=== PATIENT | female | born 1965 | race Caucasian/White ===

== ENCOUNTER 2018-10-19 16:50 | Inpatient (IN) | payer OTHER ==
[~2018-10-19 16:50] MED LIST: KETAMINE 10 MG/ML 20 ML VIAL ONE; PROPOFOL 10 MG/ML 20 ML VIAL IV ONE; SUCCINYLCHOLINE CHLORIDE 100 MG/5 ML SYR IV ONE
[2018-10-19] MEDS ORDERED: SODIUM CHLORIDE 0.9% 500 ML 500 ML IV STA ×2 (17:04→18:49)
[2018-10-19] MEDS ORDERED: SODIUM CHLORIDE 0.9% 1,000 ML IV STA ×4 (17:04→18:49)
[2018-10-19] MEDS ORDERED: IPRATROPIUM-ALBUTEROL 3 ML NEB INHALATION STA (17:04)
[2018-10-19] MEDS ORDERED: methylPREDNISolone SOD SUCCI 125 MG/2 ML VIAL IV STA (17:04)
[2018-10-19] MEDS ORDERED: MORPHINE SULFATE 4 MG/ML SYRINGE IV STA (17:04)
--- NOTE | 2018-10-19 17:07 | ED ---
Weakness HPI - General Stated complaint: LEISA Time Seen by Provider: 10/19/18 16:54 Source: RN notes reviewed, old records reviewed Limitations: no limitations - History of Present Illness Initial comments: This is a 32-year-old female the ER for evaluation. Patient coming in for multiple complaints severe weakness and inability to sleep and shortness of breath. Patient has history of throat cancer, she admits to severe decreased appetite and inability to eat or drink. Her oxygen is in the low to mid 70s on room air and patient is not on home O2. Patient complaining of chest pain abdominal pain and generalized body pain. No fevers. Patient presented to urgent care was mainly directed the ER for further management. Patient states she's not been on emergency department before. She has follow-up with doctors in [place]. MD Complaint: generalized weakness, lack of energy (Inability to sleep) -: days(s) Location: generalized Severity: moderate Severity scale (1-10): 7 Consistency: constant Improves with: none Worsens with: none Context: recent illness, history of similar Associated Symptoms: loss of appetite, nausea/vomiting, shortness of breath - Related Data Home Medications Medication Instructions Recorded Confirmed Ibuprofen [Advil] 200 mg PO Q8HR PRN 10/19/18 10/19/18 guaiFENesin [Mucinex] 600 mg PO BID PRN 10/19/18 10/19/18 Allergies Allergy/AdvReac Type Severity Reaction Status Date / Time No Known Allergies Allergy Verified 10/19/18 17:35 Review of Systems ROS Statement: Those systems with pertinent positive or pertinent negative responses have been documented in the HPI. ROS Other: All systems not noted in ROS Statement are negative. General Exam General appearance: alert, anxious, lethargic, in distress, cachectic Head exam: Present: atraumatic, normocephalic, normal inspection Eye exam: Present: normal appearance, EOMI. Absent: scleral icterus, conjunctival injection, periorbital swelling ENT exam: Present: normal exam, mucous membranes dry Neck exam: Present: normal inspection. Absent: tenderness, meningismus, lymphadenopathy Respiratory exam: Present: respiratory distress, wheezes, accessory muscle use, decreased breath sounds, prolonged expiratory. Absent: rales, rhonchi, stridor Cardiovascular Exam: Present: regular rate, normal rhythm, normal heart sounds. Absent: systolic murmur, diastolic murmur, rubs, gallop, clicks GI/Abdominal exam: Present: soft, normal bowel sounds. Absent: distended, tenderness, guarding, rebound, rigid Extremities exam: Present: normal inspection, full ROM, normal capillary refill. Absent: tenderness, pedal edema, joint swelling, calf tenderness Back exam: Present: normal inspection Neurological exam: Present: alert, oriented X3, CN II-XII intact Psychiatric exam: Present: normal affect, normal mood Skin exam: Present: warm, dry, intact, normal color. Absent: rash Course Vital Signs 10/19/18 10/19/18 10/19/18 17:02 17:41 17:57 Temperature 98.8 F Pulse Rate 115 H 106 H 107 H Respiratory 17 Rate Blood Pressure 121/91 O2 Sat by Pulse 79 L Oximetry - Reevaluation(s) Reevaluation #1: 10/19/18 17:07 Medical record reviewed, noncontributory Reevaluation #2: 10/19/18 19:07 Patient again denies recent travel history or history of DVT but does have history of CA 10/19/18 19:07 - Consultations Consultation #1: spoke with Dr Wiggins regarding ICU admission he is agreeable Consultation #2: spoke with Dr Goodman regarding admission he is agreeable EKG Findings - EKG Comments: EKG Findings:: EKG shows sinus tach rate of 107, W[place] 134, QRS 74, QTc 416 Medical Decision Making - Medical Decision Making 52-year-old female presenting respiratory distress from COPD and hypoxia. Patient also found to have severe hyponatremia will be started on hypertonic saline protocol. Patient to be admitted ICU for significant retention evaluation and monitoring - Lab Data Result diagrams: 10/19/18 17:18 10/19/18 17:18 Lab Results 10/19/18 10/19/18 10/19/18 Range/Units 17:18 17:18 17:18 WBC 9.7 (3.8-10.6) k/uL RBC 3.92 (3.80-5.40) m/uL Hgb 12.3 (11.4-16.0) gm/dL Hct 36.2 (34.0-46.0) % MCV 92.5 (80.0-100.0) fL MCH 31.3 (25.0-35.0) pg MCHC 33.9 (31.0-37.0) g/dL RDW 12.2 (11.5-15.5) % Plt Count 371 (150-450) k/uL Neutrophils % 95 % Lymphocytes % 0 % Monocytes % 3 % Eosinophils % 1 % Basophils % 1 % Neutrophils # 9.1 H (1.3-7.7) k/uL Lymphocytes # 0.0 L (1.0-4.8) k/uL Monocytes # 0.3 (0-1.0) k/uL Eosinophils # 0.1 (0-0.7) k/uL Basophils # 0.1 (0-0.2) k/uL PT (9.0-12.0) sec INR (<1.2) APTT (22.0-30.0) sec Sodium 111 L* (137-145) mmol/L Potassium 4.9 (3.5-5.1) mmol/L Chloride 65 L* (98-107) mmol/L Carbon Dioxide 34 H (22-30) mmol/L Anion Gap 12 mmol/L BUN 9 (7-17) mg/dL Creatinine 0.20 L (0.52-1.04) mg/dL Est GFR (CKD-EPI)AfAm >90 (>60 ml/min/1.73 sqM) Est GFR (CKD-EPI)NonAf >90 (>60 ml/min/1.73 sqM) Glucose 118 H (74-99) mg/dL Plasma Lactic Acid Sonido 1.7 (0.7-2.0) mmol/L Calcium 9.1 (8.4-10.2) mg/dL Phosphorus 3.3 (2.5-4.5) mg/dL Magnesium 1.3 L (1.6-2.3) mg/dL Total Bilirubin 0.7 (0.2-1.3) mg/dL AST 22 (14-36) U/L ALT 17 (9-52) U/L Alkaline Phosphatase 132 H (38-126) U/L Creatine Kinase 37 (30-135) U/L Troponin I (0.000-0.034) ng/mL NT-Pro-B Natriuret Pep pg/mL Total Protein 6.7 (6.3-8.2) g/dL Albumin 3.5 (3.5-5.0) g/dL Lipase 10 L (23-300) U/L TSH 4.000 (0.465-4.680) mIU/L Blood Type Recheck Bld Type Recheck Status Spec Expiration Date 10/19/18 10/19/18 10/19/18 Range/Units 17:18 17:18 17:18 WBC (3.8-10.6) k/uL RBC (3.80-5.40) m/uL Hgb (11.4-16.0) gm/dL Hct (34.0-46.0) % MCV (80.0-100.0) fL MCH (25.0-35.0) pg MCHC (31.0-37.0) g/dL RDW (11.5-15.5) % Plt Count (150-450) k/uL Neutrophils % % Lymphocytes % % Monocytes % % Eosinophils % % Basophils % % Neutrophils # (1.3-7.7) k/uL Lymphocytes # (1.0-4.8) k/uL Monocytes # (0-1.0) k/uL Eosinophils # (0-0.7) k/uL Basophils # (0-0.2) k/uL PT 13.0 H (9.0-12.0) sec INR 1.3 H (<1.2) APTT 30.9 H (22.0-30.0) sec Sodium (137-145) mmol/L Potassium (3.5-5.1) mmol/L Chloride (98-107) mmol/L Carbon Dioxide (22-30) mmol/L Anion Gap mmol/L BUN (7-17) mg/dL Creatinine (0.52-1.04) mg/dL Est GFR (CKD-EPI)AfAm (>60 ml/min/1.73 sqM) Est GFR (CKD-EPI)NonAf (>60 ml/min/1.73 sqM) Glucose (74-99) mg/dL Plasma Lactic Acid Sonido (0.7-2.0) mmol/L Calcium (8.4-10.2) mg/dL Phosphorus (2.5-4.5) mg/dL Magnesium (1.6-2.3) mg/dL Total Bilirubin (0.2-1.3) mg/dL AST (14-36) U/L ALT (9-52) U/L Alkaline Phosphatase (38-126) U/L Creatine Kinase (30-135) U/L Troponin I <0.012 (0.000-0.034) ng/mL NT-Pro-B Natriuret Pep 502 pg/mL Total Protein (6.3-8.2) g/dL Albumin (3.5-5.0) g/dL Lipase (23-300) U/L TSH (0.465-4.680) mIU/L Blood Type Recheck Bld Type Recheck Status Spec Expiration Date 10/19/18 Range/Units 17:30 WBC (3.8-10.6) k/uL RBC (3.80-5.40) m/uL Hgb (11.4-16.0) gm/dL Hct (34.0-46.0) % MCV (80.0-100.0) fL MCH (25.0-35.0) pg MCHC (31.0-37.0) g/dL RDW (11.5-15.5) % Plt Count (150-450) k/uL Neutrophils % % Lymphocytes % % Monocytes % % Eosinophils % % Basophils % % Neutrophils # (1.3-7.7) k/uL Lymphocytes # (1.0-4.8) k/uL Monocytes # (0-1.0) k/uL Eosinophils # (0-0.7) k/uL Basophils # (0-0.2) k/uL PT (9.0-12.0) sec INR (<1.2) APTT (22.0-30.0) sec Sodium (137-145) mmol/L Potassium (3.5-5.1) mmol/L Chloride (98-107) mmol/L Carbon Dioxide (22-30) mmol/L Anion Gap mmol/L BUN (7-17) mg/dL Creatinine (0.52-1.04) mg/dL Est GFR (CKD-EPI)AfAm (>60 ml/min/1.73 sqM) Est GFR (CKD-EPI)NonAf (>60 ml/min/1.73 sqM) Glucose (74-99) mg/dL Plasma Lactic Acid Sonido (0.7-2.0) mmol/L Calcium (8.4-10.2) mg/dL Phosphorus (2.5-4.5) mg/dL Magnesium (1.6-2.3) mg/dL Total Bilirubin (0.2-1.3) mg/dL AST (14-36) U/L ALT (9-52) U/L Alkaline Phosphatase (38-126) U/L Creatine Kinase (30-135) U/L Troponin I (0.000-0.034) ng/mL NT-Pro-B Natriuret Pep pg/mL Total Protein (6.3-8.2) g/dL Albumin (3.5-5.0) g/dL Lipase (23-300) U/L TSH (0.465-4.680) mIU/L Blood Type Recheck No Previous Record Bld Type Recheck Status CABO Indicated Spec Expiration Date 10/22/2018 - 5398 - Radiology Data Radiology results: report reviewed (X-ray abdominal surgeries a chest is negative for acute disease), image reviewed Critical Care Time Critical Care Time: Yes Total Critical Care Time: 65 Disposition Clinical Impression: Hyponatremia, Weakness, COPD with hypoxia Disposition: ADMITTED IP TO THIS [facility] Condition: Serious Is patient prescribed a controlled substance at d/c from ED?: No Referrals: None,Stated [Primary Care Provider] - 1-2 days
[2018-10-19 17:41] LABS: INR 1.3 (<1.2); Partial Thromboplastin Time 30.9 sec (22.0-30.0)
[2018-10-19 17:45] LABS: ALT 17 U/L (9-52); AST 22 U/L (14-36); African American GFR (CKD) >90 (>60 ml/min/1.73 sqM); Albumin 3.5 g/dL (3.5-5.0); Alkaline Phosphatase 132 U/L (38-126); Anion Gap 12 mmol/L; Blood Urea Nitrogen 9 mg/dL (7-17); Calcium 9.1 mg/dL (8.4-10.2); Carbon Dioxide 34 mmol/L (22-30); Creatine Kinase 37 U/L (30-135); Glucose 118 mg/dL (74-99); Magnesium 1.3 mg/dL (1.6-2.3); Phosphorus 3.3 mg/dL (2.5-4.5); Potassium 4.9 mmol/L (3.5-5.1); Total Bilirubin 0.7 mg/dL (0.2-1.3); Total Protein 6.7 g/dL (6.3-8.2)
[2018-10-19 17:47] LABS: Basophils # (A) 0.1 k/uL (0-0.2); Basophils % (A) 1 %; Eosinophils # (A) 0.1 k/uL (0-0.7); Eosinophils % (A) 1 %; HCT 36.2 % (34.0-46.0); HGB 12.3 gm/dL (11.4-16.0); Lymphocytes % (A) 0 %; MCH 31.3 pg (25.0-35.0); MCHC 33.9 g/dL (31.0-37.0); MCV 92.5 fL (80.0-100.0); Mean Platelet Volume 6.4; Monocytes # (A) 0.3 k/uL (0-1.0); Monocytes % (A) 3 %; Neutrophils # (A) 9.1 k/uL (1.3-7.7); Neutrophils % (A) 95 %; Platelet Count 371 k/uL (150-450); RBC 3.92 m/uL (3.80-5.40); RDW 12.2 % (11.5-15.5); WBC 9.7 k/uL (3.8-10.6)
[2018-10-19 18:00] LABS: Chloride 65 mmol/L (98-107); Sodium 111 mmol/L (137-145)
--- NOTE | 2018-10-19 18:43 | XR ---
EXAMINATION TYPE: XR abdomen acute w cxr DATE OF EXAM: 10/19/2018 COMPARISON: NONE HISTORY: Short of breath TECHNIQUE: Chest x-ray with supine and upright abdomen FINDINGS: There is coarse infiltrate throughout the lungs. Heart size is normal. There is right central venous catheter with tip in the right atrium. There is slight blunting right costophrenic angle. There is no sign of intestinal obstruction or pneumoperitoneum. Fecal pattern is normal. There are no pathologic calcifications over the kidneys. IMPRESSION: Nonacute abdomen. Bilateral patchy pulmonary interstitial and alveolar infiltrates. Small right pleural effusion. This likely relates to inflammatory disease. No definite heart failure.
[2018-10-19] MEDS ORDERED: NALOXONE 0.4 MG/ML 1 ML VIAL IV PRN (18:58)
[2018-10-19] MEDS ORDERED: DEXTROSE 5%-0.45% NACL 1,000 ML IV SCH (19:00)
[2018-10-19] MEDS ORDERED: MAGNESIUM OXIDE 400 MG TAB PO STA (19:06)
[2018-10-19] MEDS ORDERED: SODIUM CHLORIDE 3%(HYPERTONIC) 500 ML IV SCH (19:15)
--- NOTE | 2018-10-19 19:44 | CT ---
EXAMINATION TYPE: CT angio chest DATE OF EXAM: 10/19/2018 7:35 PM COMPARISON: None HISTORY: Difficulty breathing. History of cancer. CT DLP: 175.9 mGycm Automated exposure control for dose reduction was used. CONTRAST: CTA scan of the thorax is performed with IV Contrast, patient injected with 83 mL of Isovue 370, pulm onary embolism protocol. . There are 3-D post processed images. FINDINGS: There is diffuse pulmonary emphysema. There are multiple patchy areas of airspace consolidation in gopi th lungs involving upper lobes and lower lobes. There are small pleural effusions. Heart size is norm al. There are enlarged bilateral multiple bronchial lymph nodes that measure up to 2 cm. There is subcari nal adenopathy that measures 3 cm. Thoracic aorta shows no aneurysm or dissection. There is normal contrast opacification of the pulmonary arteries. There are no filling defects. The thoracic spine shows no compression fracture. I see no bony destructive process. IMPRESSION: EMPHYSEMA. EXTENSIVE PULMONARY INTERSTITIAL AND AIRSPACE INFILTRATES. NO EVIDENCE OF PULMONARY EMBOLISM. EXTENSIVE BRONCHIAL ADENOPATHY.
--- NOTE | 2018-10-19 19:50 | CT ---
EXAMINATION TYPE: CT abdomen pelvis w con DATE OF EXAM: 10/19/2018 COMPARISON: None HISTORY: Difficulty breathing. History of cancer. CT DLP: 407.9 mGycm Automated exposure control for dose reduction was used. TECHNIQUE: Helical acquisition of images was performed from the lung bases through the pelvis. CONTRAST: Performed without Oral Contrast and with IV Contrast, patient injected with mL of Isovue 370. FINDINGS: There are extensive airspace infiltrates at the lung bases. There is atelectasis at the lung bases. T here are small pleural effusions. Heart size is normal. Liver shows no focal defect. Bile ducts are not dilated. There are calcified splenic granulomata. I s ee no sign of a pancreatic mass. There is no adrenal mass. Kidneys show satisfactory contrast opacification. There is no hydronephrosi s. Ureters are not dilated. There is subcutaneous edema around the abdomen that could relate to anasa rca. There is no sign of free air. There is no evidence of a bowel obstruction. Bladder distends smoo thly. There is no free fluid in the pelvis. There is no sign of mesenteric edema. Appendix is not see n. There is no sign of thickened appendix. Lumbar spine is intact. Bony pelvis is intact. There is no compression fracture. There is mild spurri ng at L4-5. IMPRESSION: BASILAR PULMONARY AIRSPACE INFILTRATE AND ATELECTASIS WITH SMALL PLEURAL EFFUSIONS. NO ACUTE ABNORMALITY WITHIN THE ABDOMEN PELVIS.
[2018-10-19 21:39] LABS: Glucose,Whole Blood 179 mg/dL (75-99)
[2018-10-19 21:43] LABS: Appearance,Urine Clear (Clear); Bilirubin,Urine Negative (Negative); Blood,Urine Negative (Negative); Color,Urine Light Yellow; Glucose,Urine (UA) Trace (Negative); Ketones,Urine Negative (Negative); Leukocyte Esterase,Urine Negative (Negative); Nitrite,Urine Negative (Negative); PH, Urine 6.5 (5.0-8.0); Protein,Urine Negative (Negative); Specific Gravity,Urine 1.024 (1.001-1.035); Urobilinogen,Urine <2.0 mg/dL (<2.0)
[2018-10-19 23:16] LABS: ABG Base Excess 6.2 mmol/L; ABG HCO3 35 mmol/L (21-25); ABG Oxygen Saturation 90.3 % (94-97); ABG PO2 79 mmHg (83-108); ABG TCO2 39 mmol/L (19-24); Allen Test Performed? Yes
[2018-10-19 23:22] LABS: ABG PH 7.13 (7.35-7.45)
[2018-10-19 23:23] LABS: ABG PCO2 107 mmHg (35-45)
[2018-10-20 00:23] LABS: ABG Base Excess 6.8 mmol/L; ABG HCO3 33 mmol/L (21-25); ABG Oxygen Saturation 91.1 % (94-97); ABG PCO2 67 mmHg (35-45); ABG PO2 66 mmHg (83-108); ABG TCO2 35 mmol/L (19-24); Allen Test Performed? Yes
[2018-10-20] MEDS ORDERED: SODIUM CHLORIDE 0.9% 1,000 ML IV SCH (01:00)
--- NOTE | 2018-10-20 01:24 | XR ---
EXAM: XR Chest, 1 View CLINICAL HISTORY: ITS.REASON XR Reason: line placement TECHNIQUE: Frontal view of the chest. COMPARISON: No relevant prior studies available. FINDINGS: See Impression: IMPRESSION: 1. Lines/tubes: 2. Endotracheal tube tip located approximately 5 cm above the marly. Transesophageal catheter side port below the GE junction, tip off the examination. Chest port identified with tip at or just below the cavoatrial junction. 3. Bibasal pleural-parenchymal disease with suspected pleural effusions present. 4. Infiltrate at the left apex. 5. Interstitial alveolar disease at the right mid to lower lung zone. Prominent interstitial thickening involving the upper lobes. Differential includes atypical infection pulmonary edema.
[2018-10-20] MEDS ORDERED: DEXTROSE 5% IN WATER 1,000 ML IV ONE ×2 (01:35→09:35)
--- NOTE | 2018-10-20 02:34 | P.HPIM ---
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 Patient reports that she has history of laryngeal cancer for which she received chemoradiation therapy back and generally 2019 she believes that she is in remission at this time. Since then she's been hard of hearing with difficulties with speech she lost all her teeth and was unable to eat properly. She continued to lose a lot of weight since then due to difficulty eating regular diet. Patient lives with her son and they take care of each other. Seems like patient has poor insight about her medical status. The son believes that they were doing fine. Patient progressively over the past few months had decreased by mouth intake she was relying only on liquid and soft diet, for which she was losing a lot of weight. Per the son over the past few days he noticed that his mom was getting progressively weak and sleeping more than usual todayalong with having some difficulty with breathing, he decided to take her to the urgent care for evaluation from where she was sent to the hospital to the ER. patient reports at home patient walks on her own doesn't require any devices for ambulation. His main concern is the poor nutritional status since she pulled he r teeth before chemo and radiation therapy she has not been able to eat properly she got some dentures but they were all fitting. Otherwise patient and her son denies any falling denies any chronic pain denies taking any medications at home denies any diarrhea or bleeding. To their knowledge she is cancer free Patient has quit smoking 2 months ago In the ED she was found to be hypoxic and hyponatremic CTA of the chest and abdomen pelvis was performed showed extensive bilateral lung infiltrates and consolidations lungs with bilateral bronchial lymph nodes enlargement and subcarinal lymph nodes enlargement. Review of Systems when asked patient reports that she is fine nothing wrong with her Pertinent positives as noted in HPI. All other systems were reviewed and are negative Past Medical History Past Medical History: Cancer History of Any Multi-Drug Resistant Organisms: None Reported Past Surgical History: Tubal Ligation Past Psychological History: No Psychological Hx Reported Smoking Status: Former smoker Past Alcohol Use History: Occasional Past Drug Use History: None Reported Medications and Allergies Home Medications Medication Instructions Recorded Confirmed Type Ibuprofen [Advil] 200 mg PO Q8HR PRN 10/19/18 10/19/18 History guaiFENesin [Mucinex] 600 mg PO BID PRN 10/19/18 10/19/18 History Allergies Allergy/AdvReac Type Severity Reaction Status Date / Time No Known Allergies Allergy Verified 10/19/18 17:35 Physical Exam Vitals: Vital Signs Temp Pulse Resp BP Pulse Ox 10/20/18 01:15 62 20 98 10/20/18 01:00 63 20 90/65 10/20/18 00:45 67 20 100 10/20/18 00:30 70 20 96 10/20/18 00:15 82 20 73/60 90 L 10/20/18 00:00 97 F L 86 20 51/30 10/19/18 23:45 112 H 15 110/78 98 10/19/18 23:30 101 H 21 110/78 92 L 10/19/18 23:15 104 H 19 110/78 90 L 10/19/18 23:01 107 H 23 110/78 90 L 10/19/18 23:00 107 H 21 126/83 92 L 10/19/18 22:00 97.9 F 113 H 23 113/73 10/19/18 21:00 115 H 24 119/84 97 10/19/18 19:49 112 H 20 123/89 97 10/19/18 17:57 107 H 10/19/18 17:41 106 H 10/19/18 17:02 98.8 F 115 H 17 121/91 79 L Intake and Output 10/19/18 10/19/18 10/20/18 14:59 22:59 06:59 Intake Total 170 235 Output Total 700 350 Balance -530 -115 Intake: IV 170 235 .9 150 Dextrose 5%-0.45% NaCl 1, 170 85 000 ml @ 85 mls/hr IV . [id number] FOR[facility]LY [facility], 1928–1983 Rx#:[id number] Output: Urine 700 350 Other: Voiding Method Indwelling Catheter Indwelling Catheter Weight 34.019 kg ABP, PAP, CO, CI - Last 8 Hours Arterial Blood Pressure 91/54 Arterial Blood Pressure 101/63 Arterial Blood Pressure 89/57 Arterial Blood Pressure 87/49 Arterial Blood Pressure 79/44 Arterial Blood Pressure 29/26 this is initial exam upon presentation in the ED,patient initial evaluation was around 193 Constitutional: No acute distress, Patient is sleeping easily arousable follows command difficult to understand her speech due to history of laryngeal cancer son at bedside speaking for the patient and explaining her wishes as he is able to understand her, patient is cachectic, patient is also hard of hearing Eyes: Anicteric sclerae, moist conjunctiva, Pupils equal round reactive to light ENMT: NC/AT Oropharynx clear, very dry mucous membranes, no erythema,or exudates Neck: Supple, FROM, no masses, or JVD No carotid bruits No thyromegaly Lungs: good breath sounds bilaterally no wheezing or rhonchi or rales Clear to percussion Normal respiratory effort, no accessory muscle use Cardiovascular: Heart regular in rate and rhythm, No murmurs, gallops, or rubs No peripheral edema Abdominal: Soft Nontender, no guarding, rebound or rigidity Abdomen moving with respiration Normoactive bowel sounds No hepatomegaly, No splenomegaly No palpable mass No abdominal wall hernia noted Skin: Normal temperature, tone, texture, turgor No induration No subcutaneous nodules No rash, lesions No ulcers Extremities: No digital cyanosis No clubbing Pedal pulses intact and symmetrical Radial pulses intact and symmetrical No calf tenderness Psychiatric: patient is sleepy but easily arousable follows command orient ed to person and place not oriented to time Neuro Muscles Strength -4/5 in all 4 extremities Sensation to light touch grossly present throughout Cranial nerves II-XII grossly intact, however patient is hard of hearing No focal sensory deficits Lymphatics: no palpable cervical or supraclavicular , or inguinal lymph nodes Results CBC & Chem 7: 10/19/18 17:18 10/20/18 01:12 Labs: Abnormal Lab Results - Last 24 Hours (Table) 10/19/18 10/19/18 10/19/18 Range/Units 17:18 17:18 17:18 Neutrophils # 9.1 H (1.3-7.7) k/uL Lymphocytes # 0.0 L (1.0-4.8) k/uL PT 13.0 H (9.0-12.0) sec INR 1.3 H (<1.2) APTT 30.9 H (22.0-30.0) sec ABG pH (7.35-7.45) ABG pCO2 (35-45) mmHg ABG pO2 (83-108) mmHg ABG HCO3 (21-25) mmol/L ABG Total CO2 (19-24) mmol/L ABG O2 Saturation (94-97) % Sodium 111 L* (137-145) mmol/L Chloride 65 L* (98-107) mmol/L Carbon Dioxide 34 H (22-30) mmol/L Creatinine 0.20 L (0.52-1.04) mg/dL Glucose 118 H (74-99) mg/dL POC Glucose (mg/dL) (75-99) mg/dL Magnesium 1.3 L (1.6-2.3) mg/dL Alkaline Phosphatase 132 H (38-126) U/L Lipase 10 L (23-300) U/L Urine Glucose (UA) (Negative) 10/19/18 10/19/18 10/19/18 Range/Units 19:58 21:15 21:27 Neutrophils # (1.3-7.7) k/uL Lymphocytes # (1.0-4.8) k/uL PT (9.0-12.0) sec INR (<1.2) APTT (22.0-30.0) sec ABG pH (7.35-7.45) ABG pCO2 (35-45) mmHg ABG pO2 (83-108) mmHg ABG HCO3 (21-25) mmol/L ABG Total CO2 (19-24) mmol/L ABG O2 Saturation (94-97) % Sodium 116 L* (137-145) mmol/L Chloride (98-107) mmol/L Carbon Dioxide (22-30) mmol/L Creatinine (0.52-1.04) mg/dL Glucose (74-99) mg/dL POC Glucose (mg/dL) 179 H (75-99) mg/dL Magnesium (1.6-2.3) mg/dL Alkaline Phosphatase (38-126) U/L Lipase (23-300) U/L Urine Glucose (UA) Trace H (Negative) 10/19/18 10/20/18 10/20/18 Range/Units 23:15 00:20 01:12 Neutrophils # (1.3-7.7) k/uL Lymphocytes # (1.0-4.8) k/uL PT (9.0-12.0) sec INR (<1.2) APTT (22.0-30.0) sec ABG pH 7.13 L* 7.30 L (7.35-7.45) ABG pCO2 107 H* 67 H (35-45) mmHg ABG pO2 79 L 66 L (83-108) mmHg ABG HCO3 35 H 33 H (21-25) mmol/L ABG Total CO2 39 H 35 H (19-24) mmol/L ABG O2 Saturation 90.3 L 91.1 L (94-97) % Sodium 118 L* (137-145) mmol/L Chloride (98-107) mmol/L Carbon Dioxide (22-30) mmol/L Creatinine (0.52-1.04) mg/dL Glucose (74-99) mg/dL POC Glucose (mg/dL) (75-99) mg/dL Magnesium (1.6-2.3) mg/dL Alkaline Phosphatase (38-126) U/L Lipase (23-300) U/L Urine Glucose (UA) (Negative) Assessment and Plan Assessment: 52-year-old female with history of laryngeal cancer status post chemo and radiation therapy 8 months ago. Patient admitted as an inpatient with anticipated length of stay more than 2 midnights for acute hyponatremia with lethargy and generalized fatigue, severe protein calorie malnutrition. her initial sodium was 111 upon presentation, per ICU recommendations Dr. Tineo patient was given 3% saline at rate of 20 mL/h then was switched to normal saline. Patient corrected by 7 mEq over 6 hours for which nephrology recommended switching to D5 patient seemed to become lethargic, blood gases checked showed hypercapnia for which patient was intubated for vent support. CT angiogram of the chest abdomen pelvis findings are concerning for possibility of lung cancer whether its primary or metastatic from history of laryngeal cancer. Patient and her son to their knowledge that she is cancer free since the treatment that she received in February 2018 but I believe that the patient and her son have poor insight about the medical condition of his mother which been deteriorating over the past few months Plan: acute metabolic encephalopathy Acute hypoxic and hypercapnic respiratory failure acute symptomatic hyponatremia Severe protein calorie malnutrition History of laryngeal cancer status post chemo and radiation 8 months ago hypomagnesemia initially patient was started on supportive care, and 3% saline Howeverpatient deteriorated further became more lethargic ABG showed hypercapnia for which patient was intubated currently on vent support Later on due to sedation she became hypotensive and was started on levo fed for cardiovascular support Nephrology suggested to continue overnight with D5 due to rapid correction of her sodium by 7 mEq over 6 hours follow-up electrolytes closely and replace as needed Currently nephrology managing her sodium Continue with vent support Follow-up cultures Patient denies any other medical history she doesn't take any medications at home PT/OT evaluationonce extubated continue ICU management DVT prophylaxis lovenox Prophylaxis PPI Surrogate decision-maker: he should've son CODE STATUS:full code Discussed with: Patient, ER, RN Anticipated length of stay more than [address]: pending clinical course A total of 60 minutes was spent on the care of this complex patient more than 50% of the time was spent in counseling and care coordination.
--- NOTE | 2018-10-20 02:46 | P.HPADDEND ---
H&P Addendum H&P Addendum Date: 10/19/18 Advanced Care Planning Active diagnoses: acute metabolic encephalopathy secondary to hyponatremia Acute hypoxic and hypercapnic respiratory failure History of laryngeal cancer Background: The patient was admitted for treatment of acute hyponatremia with metabolic encephalopathy. Confirmation and clarification of wishes upon admission. Discussion: Person(s) present and participating in discussion: The patient, myself, and patient's son Summary: of note the patient has very poor insight of her medical condition, she believes that she had laryngeal cancer and was treated and currently in remission since February 2018 however since then she's continued to lose weight due to poor nutritional status she had to pull all her teeth for chemoradiation since then she was unable to eat properly she's been continuously losing weight and her overall health was deteriorating over the past month or so she was brought in today by her son due to increased lethargy and difficulty breathing. In the ED she was found to have acute hypoxia and hypercapnia with hyponatremia and acute metabolic encephalopathy. CAT scan of the chest showed diffuse infiltrates and consolidation along with bilateral bronchial lymphadenopathy this is to me concerning for primary cancer of the lung versus metastasis from a laryngeal cancer. After explaining all these findings to the patient and her son they decided to pursue full medical measures hoping and a full recovery and return to her normal condition. She is hoping for full recovery and be fully functional. In case of cardiopulmonary arrest she wanted to pursue CPR and resuscitation and vent support if needed . she is also willing to be placed for a short period of time at a subacute rehab to regain some strength before going back home Time spent: Total time spent face to face in education and discussion directly related to advanced care plannin minutes
[2018-10-20 05:07] LABS: Basophils % (A) 0 %; Eosinophils # (A) 0.1 k/uL (0-0.7); Eosinophils % (A) 1 %; HCT 31.4 % (34.0-46.0); HGB 10.5 gm/dL (11.4-16.0); Lymphocytes # (A) 0.1 k/uL (1.0-4.8); Lymphocytes % (A) 1 %; MCHC 33.4 g/dL (31.0-37.0); MCV 95.8 fL (80.0-100.0); Mean Platelet Volume 6.7; Monocytes # (A) 0.2 k/uL (0-1.0); Monocytes % (A) 3 %; Neutrophils # (A) 8.1 k/uL (1.3-7.7); Neutrophils % (A) 94 %; Platelet Count 383 k/uL (150-450); RBC 3.28 m/uL (3.80-5.40); WBC 8.6 k/uL (3.8-10.6)
[2018-10-20 05:17] LABS: ALT 15 U/L (9-52); AST 14 U/L (14-36); African American GFR (CKD) >90 (>60 ml/min/1.73 sqM); Albumin 2.6 g/dL (3.5-5.0); Alkaline Phosphatase 90 U/L (38-126); Anion Gap 6 mmol/L; Blood Urea Nitrogen 7 mg/dL (7-17); Calcium 8.6 mg/dL (8.4-10.2); Carbon Dioxide 32 mmol/L (22-30); Chloride 79 mmol/L (98-107); Glucose 155 mg/dL (74-99); Magnesium 1.5 mg/dL (1.6-2.3); Phosphorus 2.9 mg/dL (2.5-4.5); Potassium 3.4 mmol/L (3.5-5.1); Total Bilirubin 0.3 mg/dL (0.2-1.3); Total Protein 5.2 g/dL (6.3-8.2)
[2018-10-20 05:19] LABS: Glucose,Whole Blood 169 mg/dL (75-99)
[2018-10-20 05:36] LABS: Sodium 117 mmol/L (137-145)
[2018-10-20] MEDS ORDERED: Potassium Replacement Protocol 1 EACH MISC MISCELLANE PRN ×2 (05:41→05:48)
[2018-10-20] MEDS ORDERED: Magnesium Replacement Protocol 1 EACH MISC MISCELLANE PRN (05:42)
[2018-10-20] MEDS: MAGNESIUM SULFATE-D5W PMX 1 GM in DEXTROSE/WATER 1 100ML.BAG IVPB SCH ×2 (05:49→06:50)
[2018-10-20] MEDS: POTASSIUM BICARBONATE/CIT AC 20 MEQ TABLET.EFF NG-TUBE SCH ×2 (05:59→06:50)
[2018-10-20] MEDS ORDERED: POTASSIUM CHLORIDE ER 20 MEQ TAB.ER PO SCH (06:00)
[2018-10-20 06:58] LABS: ABG Base Excess 10.8 mmol/L; ABG HCO3 35 mmol/L (21-25); ABG Oxygen Saturation 95.4 % (94-97); ABG PCO2 55 mmHg (35-45); ABG PH 7.42 (7.35-7.45); ABG PO2 75 mmHg (83-108); ABG TCO2 37 mmol/L (19-24)
[2018-10-20 07:12] LABS: Allen Test Performed? no
[2018-10-20] MEDS: IPRATROPIUM-ALBUTEROL 3 ML NEB INHALATION PRN ×4 (07:36→19:30)
[2018-10-20] MEDS: CHLORHEXIDINE GLUCONATE 15 ML CUP MUCOUS MEM SCH ×2 (08:03→21:10)
[2018-10-20] MEDS: PANTOPRAZOLE 40 MG/10 ML VIAL IV SCH (08:03)
[2018-10-20] MEDS: HEPARIN SODIUM,PORCINE 5,000 UNIT/ML 1 ML VIAL SQ SCH ×3 (08:03→23:49)
[2018-10-20] MEDS ORDERED: ENOXAPARIN 40 MG/0.4 ML SYRINGE SQ SCH (09:00)
--- NOTE | 2018-10-20 09:18 | XR ---
EXAMINATION TYPE: XR chest 1V portable DATE OF EXAM: 10/20/2018 COMPARISON: Prior chest x-ray dated 10/20/[address] 10/19/2018 HISTORY: Tube placement, intubated TECHNIQUE: Single frontal view of the chest is obtained. FINDINGS: Endotracheal tube, NG tube, right-sided Port-A-Cath and overlying cardiac leads are again noted. Distal tip of the NG tube is within the left upper quadrant, endotracheal tube overlying the t jazmín air column. Port-A-Cath is stable. Bibasilar increased density is again noted, heart size is stable. No evident pneumothorax. Ill-defined increased attenuation present in the left upper lobe. Bi apical pleural thickening. Prominent lung volumes compatible with underlying emphysema. IMPRESSION: Findings are similar to prior exam. There may be basilar atelectasis, pneumonia, or tumo r with pleural effusion right greater than left.
[2018-10-20] MEDS ORDERED: SODIUM CHLORIDE 0.9% 500 ML 500 ML IV ONE (09:55)
[2018-10-20] MEDS: NOREPINEPHRINE 4 MG in SODIUM CHLORIDE 0.9% 250 ML IV SCH ×3 (10:01)
--- NOTE | 2018-10-20 10:20 | P.CNPUL ---
History of Present Illness Consult date: 10/20/18 Requesting physician: Radha Goodman Reason for consult: other (Mechanical ventilator and critical care management) Chief complaint: Shortness of breath, weakness History of present illness: This is a 52-year-old female patient who presented to the emergency room yesterday with complaints of shortness of breath and profound weakness. She has a history of laryngeal cancer and is status post chemoradiation in February of this year. He follows with physicians in the [place] area. She lives at home with her 18-year-old son. Over the past several weeks she has been having difficulty in swallowing and had been only tolerating liquids. She is severely cachectic and weak. She was found to be hyponatremic with a sodium of 111. Abdominal series revealed a nonacute abdomen. There is lateral patchy pulmonary interstitial and alveolar infiltrates and a small right pleural effusion noted. CT angiogram revealed emphysema and extensive pulmonary interstitial and airspace infiltrates. No evidence of pulmonary embolism. There is extensive bronchial adenopathy. She was admitted to the intensive care unit from the emergency room and was clearly an respiratory distress and stridorous him a positive orthopnea. Oxygen 90% on 4 L nasal cannula initially. Arterial blood gases revealed a pO2 of 79, pCO2 of 107 and a pH of 7.13 on 32% FiO2. She was intubated and placed on mechanical ventilator. Subsequent blood gases revealed a PaO2 of 66, pCO2 of 67 and a pH of 7.30. Vent settings were assist control of 20, tidal volume 300, FiO2 80% and a PEEP of 5. She did receive 2-1/2 L of 0.9 normal saline. She is currently on norepinephrine at 5.8 mcg/m, propofol at 50 mcg/kg/m, D5W at 50 MLS per hour. Current sodium 117. She is seen in the intensive care unit with follow-up arterial blood gases up pO2 of 75, pCO2 55 and a pH of 7.4-60% FiO2. We'll continue to titrate that down. White count 8.6. Hemoglobin 10.5. Sodium 117. Potassium 3.4. Bicarb 32. Creatinine 0.16. Morning chest x-ray reveals basilar atelectasis/pneumonia or tumor with pleural effusion right greater than left. She is extremely cachectic. BMI 13.4. Review of Systems ROS unobtainable: due to endotracheal tube Past Medical History Past Medical History: Cancer History of Any Multi-Drug Resistant Organisms: None Reported Past Surgical History: Tubal Ligation Past Psychological History: No Psychological Hx Reported Smoking Status: Former smoker Past Alcohol Use History: Occasional Past Drug Use History: None Reported Additional History: Family history unable to be obtained and the patient as she is intubated on mechanical ventilator, sedated. Medications and Allergies Home Medications Medication Instructions Recorded Confirmed Type Ibuprofen [Advil] 200 mg PO Q8HR PRN 10/19/18 10/19/18 History guaiFENesin [Mucinex] 600 mg PO BID PRN 10/19/18 10/19/18 History Allergies Allergy/AdvReac Type Severity Reaction Status Date / Time No Known Allergies Allergy Verified 10/19/18 17:35 Physical Exam Vitals: Vital Signs Temp Pulse Resp BP Pulse Ox 10/20/18 09:00 70 20 98 10/20/18 08:45 70 20 99 10/20/18 08:30 70 20 99 10/20/18 08:15 71 20 81/56 10/20/18 08:01 68 10/20/18 08:00 97.9 F 66 20 81/56 98 10/20/18 07:45 66 20 84/58 97 10/20/18 07:43 64 10/20/18 07:30 65 20 79/56 97 10/20/18 07:15 65 20 79/56 97 10/20/18 07:00 65 20 95 10/20/18 06:45 65 20 95 10/20/18 06:30 66 20 94 L 10/20/18 06:15 68 20 95 10/20/18 06:00 69 20 98 10/20/18 05:45 67 20 98 10/20/18 05:30 66 20 98 10/20/18 05:15 65 20 96 10/20/18 05:00 66 20 92 L 10/20/18 04:45 65 20 98 10/20/18 04:30 66 20 97 10/20/18 04:15 64 20 98 10/20/18 04:00 98 F 69 20 98 10/20/18 03:45 62 20 99 10/20/18 03:30 63 20 100 10/20/18 03:15 63 20 100 10/20/18 03:00 62 20 99 10/20/18 02:45 67 20 100 10/20/18 02:30 64 20 99 10/20/18 02:15 60 20 99 10/20/18 02:00 58 L 20 99/69 97 10/20/18 01:45 60 20 98 10/20/18 01:30 62 20 98 10/20/18 01:15 62 20 98 10/20/18 01:00 63 20 90/65 10/20/18 00:45 67 20 100 10/20/18 00:30 70 20 96 10/20/18 00:15 82 20 73/60 90 L 10/20/18 00:00 97 F L 86 20 51/30 95 10/19/18 23:45 112 H 15 110/78 98 10/19/18 23:30 101 H 21 110/78 92 L 10/19/18 23:15 104 H 19 110/78 90 L 10/19/18 23:01 107 H 23 110/78 90 L 10/19/18 23:00 107 H 21 126/83 92 L 10/19/18 22:00 97.9 F 113 H 23 113/73 10/19/18 21:00 115 H 24 119/84 97 10/19/18 19:49 112 H 20 123/89 97 10/19/18 17:57 107 H 10/19/18 17:41 106 H 10/19/18 17:02 98.8 F 115 H 17 121/91 79 L Intake and Output 10/19/18 10/20/18 10/20/18 22:59 06:59 14:59 Intake Total 170 685.898 350 Output Total 700 550 510 Balance -530 135.898 -160 Intake: IV 170 485 350 .9 150 Dextrose 5% in Water 1, 250 150 000 ml @ 50 mls/hr IV . Q20H [facility] Rx#:[id number] Dextrose 5%-0.45% NaCl 1, 170 85 000 ml @ 85 mls/hr IV . [id number] [facility] Rx#:[id number] Magnesium Sulfate-D5w Pmx 200 1 gm In Dextrose/Water 1 100ml.bag @ 100 mls/hr IVPB Q1H [facility] Rx#: [id number] Intake, IV Titration 140.898 Amount Norepinephrine 4 mg In 133.717 Sodium Chloride 0.9% 250 ml @ 0.05 MCG/KG/MIN 6. 481 mls/hr IV .Q24H [facility] Rx#:[id number] Propofol 1,000 mg In 7.181 Empty Bag 1 bag @ Titrate IV .Q0M [facility] Rx#: [id number] Other 60 Output: Urine 700 550 510 Other: Voiding Method Indwelling Catheter Indwelling Catheter Weight 34.019 kg 38.8 kg ABP, PAP, CO, CI - Last 8 Hours Arterial Blood Pressure 87/56 Arterial Blood Pressure 89/59 Arterial Blood Pressure 95/63 Arterial Blood Pressure 106/69 Arterial Blood Pressure 81/48 Arterial Blood Pressure 97/82 Arterial Blood Pressure 92/69 Arterial Blood Pressure 99/60 Arterial Blood Pressure 83/54 Arterial Blood Pressure 90/55 Arterial Blood Pressure 90/57 Arterial Blood Pressure 85/51 Arterial Blood Pressure 87/55 Arterial Blood Pressure 92/60 Arterial Blood Pressure 96/63 Arterial Blood Pressure 87/57 Arterial Blood Pressure 91/58 Arterial Blood Pressure 88/56 Arterial Blood Pressure 85/59 Arterial Blood Pressure 86/58 Arterial Blood Pressure 88/52 Arterial Blood Pressure 89/62 Arterial Blood Pressure 93/61 Arterial Blood Pressure 95/62 Arterial Blood Pressure 90/60 Arterial Blood Pressure 81/56 Arterial Blood Pressure 106/68 Arterial Blood Pressure 107/68 Arterial Blood Pressure 99/64 Arterial Blood Pressure 93/60 GENERAL EXAM: Very frail, cachectic 52-year-old female patient intubated on the mechanical ventilator, sedated. HEAD: Normocephalic. EYES: Sluggish reaction of pupils, equal size. NOSE: Clear with pink turbinates. THROAT: Oral endotracheal and gastric tube secured in place. Edentulous. No erythema or exudates. NECK: No masses, no JVD. CHEST: Right Mediport subclavian in place. No chest wall deformity. LUNGS: Equal air entry with scattered rhonchi. CVS: S1 and S2 normal with no audible murmur, regular rhythm. ABDOMEN: No hepatosplenomegaly, normal bowel sounds, no guarding or rigidity. SPINE: No scoliosis or deformity SKIN: No rashes CENTRAL NERVOUS SYSTEM: Sedated, tone is normal in all 4 extremities. EXTREMITIES: There is no peripheral edema. No clubbing, no cyanosis. Per ipheral pulses are intact. Results - Laboratory Findings CBC and BMP: 10/20/18 04:55 10/20/18 04:55 ABG ABG pH 7.42 (7.35-7.45) 10/20/18 06:55 ABG pCO2 55 mmHg (35-45) H 10/20/18 06:55 ABG pO2 75 mmHg (83-108) L 10/20/18 06:55 ABG O2 Saturation 95.4 % (94-97) 10/20/18 06:55 PT/INR, D-dimer PT 13.0 sec (9.0-12.0) H 10/19/18 17:18 INR 1.3 (<1.2) H 10/19/18 17:18 Abnormal lab findings: Abnormal Labs 10/19/18 10/19/18 10/19/18 17:18 17:18 17:18 RBC Hgb Hct Neutrophils # 9.1 H Lymphocytes # 0.0 L PT 13.0 H INR 1.3 H APTT 30.9 H ABG pH ABG pCO2 ABG pO2 ABG HCO3 ABG Total CO2 ABG O2 Saturation Sodium 111 L* Potassium Chloride 65 L* Carbon Dioxide 34 H Creatinine 0.20 L Glucose 118 H POC Glucose (mg/dL) Magnesium 1.3 L Alkaline Phosphatase 132 H Total Protein Albumin Lipase 10 L Urine Glucose (UA) 10/19/18 10/19/18 10/19/18 19:58 21:15 21:27 RBC Hgb Hct Neutrophils # Lymphocytes # PT INR APTT ABG pH ABG pCO2 ABG pO2 ABG HCO3 ABG Total CO2 ABG O2 Saturation Sodium 116 L* Potassium Chloride Carbon Dioxide Creatinine Glucose POC Glucose (mg/dL) 179 H Magnesium Alkaline Phosphatase Total Protein Albumin Lipase Urine Glucose (UA) Trace H 10/19/18 10/20/18 10/20/18 23:15 00:20 01:12 RBC Hgb Hct Neutrophils # Lymphocytes # PT INR APTT ABG pH 7.13 L* 7.30 L ABG pCO2 107 H* 67 H ABG pO2 79 L 66 L ABG HCO3 35 H 33 H ABG Total CO2 39 H 35 H ABG O2 Saturation 90.3 L 91.1 L Sodium 118 L* Potassium Chloride Carbon Dioxide Creatinine Glucose POC Glucose (mg/dL) Magnesium Alkaline Phosphatase Total Protein Albumin Lipase Urine Glucose (UA) 10/20/18 10/20/18 10/20/18 04:55 04:55 04:57 RBC 3.28 L Hgb 10.5 L Hct 31.4 L Neutrophils # 8.1 H Lymphocytes # 0.1 L PT INR APTT ABG pH ABG pCO2 ABG pO2 ABG HCO3 ABG Total CO2 ABG O2 Saturation Sodium 117 L* Potassium 3.4 L Chloride 79 L Carbon Dioxide 32 H Creatinine 0.16 L Glucose 155 H POC Glucose (mg/dL) 169 H Magnesium 1.5 L Alkaline Phosphatase Total Protein 5.2 L Albumin 2.6 L Lipase <10 L Urine Glucose (UA) 10/20/18 06:55 RBC Hgb Hct Neutrophils # Lymphocytes # PT INR APTT ABG pH ABG pCO2 55 H ABG pO2 75 L ABG HCO3 35 H ABG Total CO2 37 H ABG O2 Saturation Sodium Potassium Chloride Carbon Dioxide Creatinine Glucose POC Glucose (mg/dL) Magnesium Alkaline Phosphatase Total Protein Albumin Lipase Urine Glucose (UA) - Diagnostic Findings Chest x-ray: image reviewed CT scan - chest: image reviewed Assessment and Plan Assessment: Impression: #1 Acute metabolic encephalopathy secondary to severe hyponatremia with presenting sodium 111. #2 Acute hypoxic/hypercapnic respiratory failure due to extensive pulmonary interstitial and airspace infiltrates. There is also extensive bronchial/subcarinal adenopathy noted suspect metastasis versus lung primary. #3 Severe hyponatremia with profound weakness. Presenting sodium 111 current sodium 117. #4 History of laryngeal cancer status post chemo/radiation. Details are not available. Last treatment in February 2018. #5 Severe protein calorie malnutrition secondary to above. #6 History of previous tobacco dependence. Plan: The patient was seen and evaluated by Dr. Wiggins. ABGs, chest x-ray, CAT scan and labs all reviewed. We'll continue current vent settings are assist-control 20, tidal volume 300, decrease FiO2 to 50% and PEEP of 5. Repeat blood gases in an hour. Will add Zosyn and Levaquin. Consult nutrition for tube feed recommendations. Add Protonix. Give an additional 1 L of D5W fluid bolus. Her overall prognosis is quite guarded. There is noted bronchial adenopathy suspe ct metastasis versus lung primary. The patient is too critical at this point to plan further investigation. We will continue to follow and make further recommendations based on her clinical status. I, the cosigning physician, performed a history & physical examination of the pa alexisnt. Lungs sounds with bilateral scattered rhonchi. Maintaining good O2 saturations in the 90s on 50% FiO2 per mechanical ventilator. I discussed the assessment and plan of care with my nurse practitioner, Carrie Saucedo. I attest to the above consultation as dictated by her. Time with Patient: Greater than 30
[2018-10-20] MEDS: PIPERACILLIN-TAZOBACTAM 3.375 GM in SODIUM CHLORIDE 0.9% 100 ML IVPB SCH ×2 (10:24→21:09)
[2018-10-20] MEDS ORDERED: LIDOCAINE 1% INJ 10MG/ML (20 ML MDV) ONE (10:32)
[2018-10-20] MEDS: LEVOFLOXACIN 500MG-D5W PMX 500 MG in DEXTROSE/WATER 1 100ML.BAG IVPB SCH (10:47)
[2018-10-20] MEDS ORDERED: LIDOCAINE 1% INJ 10MG/ML (20 ML MDV) SQ ONE (11:00)
[2018-10-20 11:51] LABS: ABG Base Excess 9.8 mmol/L; ABG HCO3 34 mmol/L (21-25); ABG Oxygen Saturation 98.2 % (94-97); ABG PCO2 54 mmHg (35-45); ABG PH 7.41 (7.35-7.45); ABG PO2 106 mmHg (83-108); ABG TCO2 36 mmol/L (19-24)
[2018-10-20 11:52] LABS: Allen Test Performed? no
--- NOTE | 2018-10-20 11:58 | XR ---
EXAMINATION TYPE: XR chest 1V portable DATE OF EXAM: 10/20/2018 COMPARISON: 10/20/18 HISTORY: PICC placement TECHNIQUE: Single frontal view of the chest is obtained. FINDINGS: There is a malpositioned left PICC crossing the midline and extending into the brachioceph alic vein. Right Mediport is deeply positioned in the right atrium although similar to the prior. Lef t basilar and retrocardiac airspace disease are similar. Pulmonary hyperinflation of underlying emphy sema. Chronic parenchymal change. Endotracheal and enteric tubes appear satisfactory. Trace pleural e ffusions. Generalized osseous demineralization. IMPRESSION: Malpositioned left PICC. Repositioning is recommended. Otherwise stable exam from 019 with retrocardiac airspace disease and trace pleural effusions.
[2018-10-20 12:03] LABS: Glucose,Whole Blood 178 mg/dL (75-99)
--- NOTE | 2018-10-20 12:05 | XR ---
EXAMINATION TYPE: XR chest 1V confirm line [facility] DATE OF EXAM: 10/20/2018 COMPARISON: Previous chest x-ray on same date earlier time HISTORY: Status post PICC line placement on repositioning TECHNIQUE: Single frontal view of the chest is obtained. FINDINGS: Left-sided PICC line has been repositioned in the distal tip is at the level of the cavoat rial junction. Retrocardiac density persists. There is no evident pneumothorax. Heart remains small. Port-A-Cath is stable. IMPRESSION: Interval reposition of PICC line.
--- NOTE | 2018-10-20 15:10 | IR ---
EXAMINATION TYPE: IR cvc insert >=5 years DATE OF EXAM: 10/20/2018 COMPARISON: NONE HISTORY: Carcinoma, needs long-term intravenous access for therapy, total parenteral nutrition FINDINGS: Maximal barrier technique was utilized. The skin overlying the left basilic vein was local ized with ultrasound and noted to be compressible and patent by ultrasound. An ultrasound image was obtained and submitted on patient's chart. Sterile technique utilized with the ultrasound machine. Th e skin overlying was prepped and draped and Lidocaine used for local anesthesia. A skin golden was mad e with a scalpel. Access was gained to the vein under direct ultrasound guidance with a 21-gauge nee dle and a 0.018 inch wire was advanced. Access site was dilated with a peel-away sheath and the cath eter tailored to length. Catheter advanced centrally and a post procedure chest x-ray verified place ment. Catheter was fixed to the skin and a sterile dressing placed. Hemostasis achieved and the ca theter was aspirated and flushed with sterile saline. The patient remained in stable condition. IMPRESSION: STATUS POST ULTRASOUND GUIDED PICC LINE PLACEMENT, READY FOR USE. THIS PROCEDURE WAS PER FORMED BY THE UNDERSIGNED.
[2018-10-20 15:11] LABS: Appearance,Urine Clear (Clear); Bilirubin,Urine Negative (Negative); Blood,Urine Negative (Negative); Color,Urine Light Yellow; Glucose,Urine (UA) Negative (Negative); Ketones,Urine Negative (Negative); Leukocyte Esterase,Urine Negative (Negative); Nitrite,Urine Negative (Negative); Protein,Urine Negative (Negative); Specific Gravity,Urine 1.008 (1.001-1.035); Urobilinogen,Urine <2.0 mg/dL (<2.0)
--- NOTE | 2018-10-20 17:46 | P.PN ---
Subjective Progress Note Date: 10/20/18 Principal diagnosis: The patient is a 52-year-old female with a history of laryngeal cancer status post chemo and radiation therapy that was admitted for acute respiratory failure with hypoxia, acute metabolic encephalopathy and symptomatic hyponatremia after presenting with progressive generalized weakness and difficulty breathing. A workup with CT of her chest abdomen pelvis showed extensive bilateral lung infiltrates and consolidation with bilateral bronchial lymph node enlargement and subcarinal lymph node enlargement, initial Arterial blood gases revealed a pO2 of 79, pCO2 of 107 and a pH of 7.13 on 32% FiO2 and the patient was intubated and placed on mechanical ventilator. She was started on empiric IV antibiotics with Levaquin and Zosyn, serum sodium level was profoundly low at 111 the patient was given hypertonic 3% saline at 20 mL an hour and subsequent switched to normal saline with nephrology Dr. Chan consulted to manage the patient's hyponatremia. The patient was sedated on propofol and started on levophed drip to keep map greater than 65. Patient seen and examined in follow-up today, intubated on mechanical ventilatory sedated on propofol. The Levophed is going at 5.8 mcg/m, propofol at 50 mcg/kg/m. patient having adequate urine output Objective - Vital Signs Vital signs: Vital Signs Temp 98.1 F 10/20/18 16:00 Pulse 74 10/20/18 17:00 Resp 20 10/20/18 17:00 BP 96/62 10/20/18 17:00 Pulse Ox 100 10/20/18 17:00 Intake & Output 10/19/18 10/20/18 10/20/18 18:59 06:59 18:59 Intake Total 982.427 6411.711 Output Total 1250 1684 Balance -394.102 262.711 Weight 34.019 kg 38.8 kg 38.8 kg Intake: IV 655 1050 .9 kvo 150 200 Dextrose 5% in Water 1, 250 650 000 ml @ 50 mls/hr IV . Q20H [facility] Rx#:[id number] Dextrose 5%-0.45% NaCl 1, 255 000 ml @ 85 mls/hr IV . [id number] [facility] Rx#:[id number] Magnesium Sulfate-D5w Pmx 200 1 gm In Dextrose/Water 1 100ml.bag @ 100 mls/hr IVPB Q1H [facility] Rx#: [id number] Intake, IV Titration 140.898 886.711 Amount Levofloxacin 500Mg-D5w 100 Pmx 500 mg In Dextrose/ Water 1 100ml.bag @ 100 mls/hr IVPB Q24H [facility] Rx#: [id number] Norepinephrine 4 mg In 133.717 186.711 Sodium Chloride 0.9% 250 ml @ 0.05 MCG/KG/MIN 6. 481 mls/hr IV .Q24H [facility] Rx#:[id number] Piperacillin-Tazobactam 3 100 .375 gm In Sodium Chloride 0.9% 100 ml @ 25 mls/hr IVPB Q12HR [facility] Rx #:[id number] Propofol 1,000 mg In 7.181 Empty Bag 1 bag @ Titrate IV .Q0M [facility] Rx#: [id number] Sodium Chloride 0.9% 500 500 ml 500 ml @ 999 mls/hr IV .Q31M [facility] Rx#:[id number] Tube Feeding 10 Other 60 Output: Urine 1250 1684 Other: Voiding Method Indwelling Catheter Indwelling Catheter ABP, PAP, CO, CI - Last Documented Arterial Blood Pressure 103/63 - Exam Constitutional: No acute distress, sedated and intubated, cachectic appearance Eyes: Anicteric sclerae, moist conjunctiva, no lid-lag, PERRLA ENMT: Bilateral temporal wasting oral endotracheal and G-tube secured in place NC/AT,Oropharynx clear, no erythema, exudates Neck:Supple, FROM, no masses, or JVD, No carotid bruits; No thyromegaly Lungs: Right Mediport subclavian in place no chest wall deformity Cardiovascular: Heart regular in rate and rhythm, No murmurs, gallops, or rubs no peripheral edema Abdominal: Soft Nontender, nom distended, no guarding, no rebound or rigidity, Normoactive bowel sounds No hepatomegaly, No splenomegaly, No palpable mass No abdominal wall hernia noted Skin: Normal temperature, tone, texture, turgor, No induration No subcutaneous nodules, No rash, lesions, No ulcers Extremities:No digital cyanosis No clubbing, Pedal pulses intact and symmetrical Radial pulses intact and symmetrical Normal gait and station, No calf tenderness Neuro: Sedated on propofol unable to fully assess - Labs CBC & Chem 7: 10/20/18 04:55 10/20/18 16:33 Labs: Abnormal Lab Results - Last 24 Hours (Table) 10/19/18 10/19/18 10/19/18 Range/Units 17:18 17:18 17:18 RBC (3.80-5.40) m/uL Hgb (11.4-16.0) gm/dL Hct (34.0-46.0) % Neutrophils # 9.1 H (1.3-7.7) k/uL Lymphocytes # 0.0 L (1.0-4.8) k/uL PT 13.0 H (9.0-12.0) sec INR 1.3 H (<1.2) APTT 30.9 H (22.0-30.0) sec ABG pH (7.35-7.45) ABG pCO2 (35-45) mmHg ABG pO2 (83-108) mmHg ABG HCO3 (21-25) mmol/L ABG Total CO2 (19-24) mmol/L ABG O2 Saturation (94-97) % Sodium 111 L* (137-145) mmol/L Potassium (3.5-5.1) mmol/L Chloride 65 L* (98-107) mmol/L Carbon Dioxide 34 H (22-30) mmol/L Creatinine 0.20 L (0.52-1.04) mg/dL Glucose 118 H (74-99) mg/dL POC Glucose (mg/dL) (75-99) mg/dL Magnesium 1.3 L (1.6-2.3) mg/dL Alkaline Phosphatase 132 H (38-126) U/L Total Protein (6.3-8.2) g/dL Albumin (3.5-5.0) g/dL Lipase 10 L (23-300) U/L Urine Glucose (UA) (Negative) 10/19/18 10/19/18 10/19/18 Range/Units 19:58 21:15 21:27 RBC (3.80-5.40) m/uL Hgb (11.4-16.0) gm/dL Hct (34.0-46.0) % Neutrophils # (1.3-7.7) k/uL Lymphocytes # (1.0-4.8) k/uL PT (9.0-12.0) sec INR (<1.2) APTT (22.0-30.0) sec ABG pH (7.35-7.45) ABG pCO2 (35-45) mmHg ABG pO2 (83-108) mmHg ABG HCO3 (21-25) mmol/L ABG Total CO2 (19-24) mmol/L ABG O2 Saturation (94-97) % Sodium 116 L* (137-145) mmol/L Potassium (3.5-5.1) mmol/L Chloride (98-107) mmol/L Carbon Dioxide (22-30) mmol/L Creatinine (0.52-1.04) mg/dL Glucose (74-99) mg/dL POC Glucose (mg/dL) 179 H (75-99) mg/dL Magnesium (1.6-2.3) mg/dL Alkaline Phosphatase (38-126) U/L Total Protein (6.3-8.2) g/dL Albumin (3.5-5.0) g/dL Lipase (23-300) U/L Urine Glucose (UA) Trace H (Negative) 10/19/18 10/20/18 10/20/18 Range/Units 23:15 00:20 01:12 RBC (3.80-5.40) m/uL Hgb (11.4-16.0) gm/dL Hct (34.0-46.0) % Neutrophils # (1.3-7.7) k/uL Lymphocytes # (1.0-4.8) k/uL PT (9.0-12.0) sec INR (<1.2) APTT (22.0-30.0) sec ABG pH 7.13 L* 7.30 L (7.35-7.45) ABG pCO2 107 H* 67 H (35-45) mmHg ABG pO2 79 L 66 L (83-108) mmHg ABG HCO3 35 H 33 H (21-25) mmol/L ABG Total CO2 39 H 35 H (19-24) mmol/L ABG O2 Saturation 90.3 L 91.1 L (94-97) % Sodium 118 L* (137-145) mmol/L Potassium (3.5-5.1) mmol/L Chloride (98-107) mmol/L Carbon Dioxide (22-30) mmol/L Creatinine (0.52-1.04) mg/dL Glucose (74-99) mg/dL POC Glucose (mg/dL) (75-99) mg/dL Magnesium (1.6-2.3) mg/dL Alkaline Phosphatase (38-126) U/L Total Protein (6.3-8.2) g/dL Albumin (3.5-5.0) g/dL Lipase (23-300) U/L Urine Glucose (UA) (Negative) 10/20/18 10/20/18 10/20/18 Range/Units 04:55 04:55 04:57 RBC 3.28 L (3.80-5.40) m/uL Hgb 10.5 L (11.4-16.0) gm/dL Hct 31.4 L (34.0-46.0) % Neutrophils # 8.1 H (1.3-7.7) k/uL Lymphocytes # 0.1 L (1.0-4.8) k/uL PT (9.0-12.0) sec INR (<1.2) APTT (22.0-30.0) sec ABG pH (7.35-7.45) ABG pCO2 (35-45) mmHg ABG pO2 (83-108) mmHg ABG HCO3 (21-25) mmol/L ABG Total CO2 (19-24) mmol/L ABG O2 Saturation (94-97) % Sodium 117 L* (137-145) mmol/L Potassium 3.4 L (3.5-5.1) mmol/L Chloride 79 L (98-107) mmol/L Carbon Dioxide 32 H (22-30) mmol/L Creatinine 0.16 L (0.52-1.04) mg/dL Glucose 155 H (74-99) mg/dL POC Glucose (mg/dL) 169 H (75-99) mg/dL Magnesium 1.5 L (1.6-2.3) mg/dL Alkaline Phosphatase (38-126) U/L Total Protein 5.2 L (6.3-8.2) g/dL Albumin 2.6 L (3.5-5.0) g/dL Lipase <10 L (23-300) U/L Urine Glucose (UA) (Negative) 10/20/18 10/20/18 10/20/18 Range/Units 06:55 11:30 11:46 RBC (3.80-5.40) m/uL Hgb (11.4-16.0) gm/dL Hct (34.0-46.0) % Neutrophils # (1.3-7.7) k/uL Lymphocytes # (1.0-4.8) k/uL PT (9.0-12.0) sec INR (<1.2) APTT (22.0-30.0) sec ABG pH (7.35-7.45) ABG pCO2 55 H (35-45) mmHg ABG pO2 75 L (83-108) mmHg ABG HCO3 35 H (21-25) mmol/L ABG Total CO2 37 H (19-24) mmol/L ABG O2 Saturation (94-97) % Sodium 122 L (137-145) mmol/L Potassium (3.5-5.1) mmol/L Chloride (98-107) mmol/L Carbon Dioxide (22-30) mmol/L Creatinine (0.52-1.04) mg/dL Glucose (74-99) mg/dL POC Glucose (mg/dL) 178 H (75-99) mg/dL Magnesium (1.6-2.3) mg/dL Alkaline Phosphatase (38-126) U/L Total Protein (6.3-8.2) g/dL Albumin (3.5-5.0) g/dL Lipase (23-300) U/L Urine Glucose (UA) (Negative) 10/20/18 10/20/18 Range/Units 11:47 16:33 RBC (3.80-5.40) m/uL Hgb (11.4-16.0) gm/dL Hct (34.0-46.0) % Neutrophils # (1.3-7.7) k/uL Lymphocytes # (1.0-4.8) k/uL PT (9.0-12.0) sec INR (<1.2) APTT (22.0-30.0) sec ABG pH (7.35-7.45) ABG pCO2 54 H (35-45) mmHg ABG pO2 (83-108) mmHg ABG HCO3 34 H (21-25) mmol/L ABG Total CO2 36 H (19-24) mmol/L ABG O2 Saturation 98.2 H (94-97) % Sodium 123 L (137-145) mmol/L Potassium (3.5-5.1) mmol/L Chloride (98-107) mmol/L Carbon Dioxide (22-30) mmol/L Creatinine (0.52-1.04) mg/dL Glucose (74-99) mg/dL POC Glucose (mg/dL) (75-99) mg/dL Magnesium (1.6-2.3) mg/dL Alkaline Phosphatase (38-126) U/L Total Protein (6.3-8.2) g/dL Albumin (3.5-5.0) g/dL Lipase (23-300) U/L Urine Glucose (UA) (Negative) Microbiology - Last 24 Hours (Table) 10/20/18 11:50 Sputum Culture - Preliminary Sputum Assessment and Plan (1) Acute respiratory failure with hypoxia and hypercapnia Narrative/Plan: * Patient sedated and ventilated with pulmonary following * CT of the chest showing pulmonary interstitial and airspace infiltrates po ssible underlying pneumonia * Continue vent management per pulmonary * Continue with breathing treatments and antibiotics Current Visit: Yes Status: Acute Code(s): J96.01 - ACUTE RESPIRATORY FAILURE WITH HYPOXIA; J96.02 - ACUTE RESPIRATORY FAILURE WITH HYPERCAPNIA SNOMED Code(s): 672678767 (2) Hyponatremia Narrative/Plan: * Severe profound hyponatremia on presentation with a sodium of 111 now up to 117 * Previously on hypertonic saline, nephrology following closely Current Visit: Yes Status: Acute Code(s): E87.1 - HYPO-OSMOLALITY AND HYPONATREMIA SNOMED Code(s): 50354489 (3) Mediastinal lymphadenopathy Narrative/Plan: * CT of the chest showing extensive bronchial and subcarinal adenopathy * Suspected to be metastatic versus lung primary Current Visit: Yes Status: Acute Code(s): R59.0 - LOCALIZED ENLARGED LYMPH NODES SNOMED Code(s): 61746675 (4) History of laryngeal cancer Narrative/Plan: * Most recent treatment in February 2018 Current Visit: Yes Status: Chronic Code(s): Z85.21 - PERSONAL HISTORY OF MALIGNANT NEOPLASM OF LARYNX SNOMED Code(s): 261472403 (5) Hypokalemia Current Visit: Yes Status: Acute Code(s): E87.6 - HYPOKALEMIA SNOMED Code(s): 69037480 (6) Weakness Narrative/Plan: * Secondary to profound hyponatremia Current Visit: Yes Status: Acute Code(s): R53.1 - WEAKNESS SNOMED Code(s): 49643356 (7) Severe protein-energy malnutrition Current Visit: Yes Status: Acute Code(s): E43 - UNSPECIFIED SEVERE PROTEIN- CALORIE MALNUTRITION SNOMED Code(s): 714489886 (8) Metabolic encephalopathy Narrative/Plan: * Secondary to hyponatremia Current Visit: Yes Status: Acute Code(s): G93.41 - METABOLIC ENCEPHALOPATHY SNOMED Code(s): 41649923 Plan: Disposition * Patient and critical condition with extremely poor prognosis, attempt to touch base with family * CODE STATUS previously discussed family wants to proceed with full code status * Anticipated discharge: to be determined by course
[2018-10-20 18:01] LABS: Glucose,Whole Blood 95 mg/dL (75-99)
[2018-10-20] MEDS: MORPHINE SULFATE 4 MG/ML SYRINGE IV PRN (18:13)
[2018-10-20] MEDS: PROPOFOL 1,000 MG in EMPTY BAG 1 BAG IV SCH ×2 (19:40)
--- NOTE | 2018-10-20 20:08 | CONS ---
CONSULTATION REASON FOR CONSULT: Hyponatremia. HISTORY OF PRESENT ILLNESS: Patient is a 52-year-old female with a history of laryngeal cancer, maintained on chemotherapy and radiation therapy. Patient had not been eating well for the past 1-2 weeks. Her son brought her to the hospital, as she had decreased mentation. She also had some difficulty in breathing at the time of admission. Patient's mentation was significantly impaired. Her sodium was 111. She was quite lethargic and was eventually intubated last night. The patient was initially started on 3% saline. Her sodium had increased to 116, after which the 3% saline was discontinued. Patient received normal saline for a few hours and then was switched over to D5W. Her sodium had gone up to 118, then came down to 117. D5W was held this morning and patient received a fluid bolus as well. Her sodium is up to 122 this morning. Patient is on the vent. There is no ongoing diarrhea noted. No fevers. She is quite emaciated. PAST MEDICAL HISTORY: Laryngeal cancer, maintained on chemotherapy and radiation therapy. SURGICAL HISTORY: Tubal ligation. SOCIAL HISTORY: Patient is a former smoker. No history of drug abuse or alcohol abuse. MEDICATIONS: Medications at home included Advil, Mucinex. ALLERGIES: NONE. REVIEW OF SYSTEMS: As per HPI. Other systems negative. PHYSICAL EXAMINATION: Patient is currently sedated. She is on the vent. Blood pressure this morning was 109/71, heart rate 74 per minute. She is afebrile. EXAMINATION OF THE HEART: S1 and S2. EXAMINATION OF LUNGS: Bilateral breath sounds are heard. ABDOMEN: Soft, cachectic. Examination of lower extremities shows no evidence of edema. LABS: Sodium 117 this morning, potassium 3.4, BUN 7, serum creatinine 0.16. ASSESSMENT: 1. Hyponatremia, currently hypovolemic, improving, improved with saline. The sodium had increased rapidly initially; therefore the saline was held and patient was maintained on D5W. This morning it is up to 122. Currently fluids are off and patient will have another sodium checked in about 4 hours. If she continues to increase rapidly, I will need to restart D5W. Patient is also maintained on tube feedings, which will increase the sodium as well. 2. Vent-dependent respiratory failure, mainly acute hypoxic respiratory failure. 3. Severe metabolic encephalopathy. 4. History of laryngeal cancer, status post chemotherapy, radiation therapy; last treatment February of 2018. 5. Severe protein-calorie malnutrition. PLAN: Discontinue IV fluids. Repeat sodium in 4 hours. Check random urine osmolality. Continue with the tube feedings for now. Check TSH and cortisol levels as well. Thank you for this consultation. Will continue to follow the patient with you during her hospitalization. RAMANA / SACHINN: [id number] /
[2018-10-21 00:20] LABS: Glucose,Whole Blood 138 mg/dL (75-99)
[2018-10-21 05:20] LABS: Basophils % (A) 0 %; Eosinophils % (A) 0 %; HCT 29.7 % (34.0-46.0); HGB 9.9 gm/dL (11.4-16.0); Lymphocytes # (A) 0.1 k/uL (1.0-4.8); Lymphocytes % (A) 0 %; MCH 31.6 pg (25.0-35.0); MCHC 33.3 g/dL (31.0-37.0); MCV 95.1 fL (80.0-100.0); Mean Platelet Volume 6.7; Monocytes # (A) 0.5 k/uL (0-1.0); Monocytes % (A) 4 %; Neutrophils # (A) 11.6 k/uL (1.3-7.7); Neutrophils % (A) 95 %; Platelet Count 426 k/uL (150-450); RBC 3.13 m/uL (3.80-5.40); RDW 12.9 % (11.5-15.5); WBC 12.3 k/uL (3.8-10.6)
[2018-10-21 05:29] LABS: African American GFR (CKD) >90 (>60 ml/min/1.73 sqM); Anion Gap 4 mmol/L; Blood Urea Nitrogen 7 mg/dL (7-17); Calcium 8.4 mg/dL (8.4-10.2); Carbon Dioxide 35 mmol/L (22-30); Chloride 87 mmol/L (98-107); Glucose 126 mg/dL (74-99); Potassium 3.8 mmol/L (3.5-5.1); Sodium 126 mmol/L (137-145)
[2018-10-21] MEDS ORDERED: POTASSIUM BICARBONATE/CIT AC 20 MEQ TABLET.EFF NG-TUBE SCH (06:00)
[2018-10-21 06:17] LABS: Glucose,Whole Blood 121 mg/dL (75-99)
[2018-10-21] MEDS: NOREPINEPHRINE 4 MG in SODIUM CHLORIDE 0.9% 250 ML IV SCH (06:31)
[2018-10-21] MEDS: IPRATROPIUM-ALBUTEROL 3 ML NEB INHALATION PRN ×4 (07:07→23:41)
--- NOTE | 2018-10-21 07:17 | XR ---
EXAMINATION TYPE: XR chest 1V portable DATE OF EXAM: 10/21/2018 HISTORY: Tube placement. REFERENCE: Previous study dated 10/20/2018. FINDINGS: The patient is ET tube and NG tube remain in place, unchanged in appearance. There is a Med iport in place via a left internal jugular approach. Its tip is in the right atrium. A left basilic P ICC line is in place. Its tip is in the superior vena cava. The lungs are overinflated. There is increased opacity in the left upper lobe as well as in the left lung base. Suspect a small left effusion. The heart is not enlarged. IMPRESSION: LEFT-SIDED AIRSPACE DISEASE WITH A SMALL LEFT-SIDED EFFUSION.
[2018-10-21 08:05] LABS: ABG Base Excess 12.4 mmol/L; ABG HCO3 36 mmol/L (21-25); ABG Oxygen Saturation 96.5 % (94-97); ABG PCO2 52 mmHg (35-45); ABG PH 7.46 (7.35-7.45); ABG PO2 82 mmHg (83-108); ABG TCO2 38 mmol/L (19-24); Allen Test Performed? Yes
--- NOTE | 2018-10-21 08:37 | P.PN ---
Subjective Progress Note Date: 10/21/18 Principal diagnosis: This is a 52-year-old female seen in consultation because of severe hyponatremia sodium is 111, this was deemed to be from hypovolemia decreased intake and is a patient with serial larynx with chemo and radiation. She is currently on 30 mL of IV normal saline to slow down her sodium correction. Sodium is 126 this morning She remains on the vent on 40% FiO2. A chest x-ray is rather clear. She is on levo fed. Blood pressures in the 90s Urine output is excellent at 8 Objective - Vital Signs Vital signs: Vital Signs Temp 98.6 F 10/21/18 08:00 Pulse 80 10/21/18 08:00 Resp 22 10/21/18 08:00 BP 99/70 10/21/18 08:00 Pulse Ox 98 10/21/18 08:00 Intake & Output 10/20/18 10/21/18 10/21/18 18:59 06:59 18:59 Intake Total 2069.530 750.845 201.386 Output Total 1724 354 180 Balance 345.530 396.845 21.386 Weight 38.8 kg 40 kg Intake: IV 1080 360 60 .9 kvo 230 360 60 Dextrose 5% in Water 1, 650 000 ml @ 50 mls/hr IV . Q20H [facility] Rx#:[id number] Magnesium Sulfate-D5w Pmx 200 1 gm In Dextrose/Water 1 100ml.bag @ 100 mls/hr IVPB Q1H [facility] Rx#: [id number] Intake, IV Titration 979.530 140.845 121.386 Amount Levofloxacin 500Mg-D5w 100 Pmx 500 mg In Dextrose/ Water 1 100ml.bag @ 100 mls/hr IVPB Q24H [facility] Rx#: [id number] Norepinephrine 4 mg In 186.711 140.845 21.386 Sodium Chloride 0.9% 250 ml @ 0.05 MCG/KG/MIN 6. 481 mls/hr IV .Q24H [facility] Rx#:[id number] Piperacillin-Tazobactam 3 100 .375 gm In Sodium Chloride 0.9% 100 ml @ 25 mls/hr IVPB Q12HR [facility] Rx #:[id number] Propofol 1,000 mg In 92.819 100 Empty Bag 1 bag @ Titrate IV .Q0M [facility] Rx#: [id number] Sodium Chloride 0.9% 500 500 ml 500 ml @ 999 mls/hr IV .Q31M [facility] Rx#:[id number] Tube Feeding 10 160 20 Other 90 Output: Urine 1724 354 180 Other: Voiding Method Indwelling Catheter Indwelling Catheter ABP, PAP, CO, CI - Last Documented Arterial Blood Pressure 95/74 On examination she is obtunded on the vent at 40% FiO2 She is cachectic HEENT exam no JVP neck is supple no facial asymmetry Lungs are clear to auscultation fair air entry bilaterally Heart sounds are unremarkable for any murmur rub gallop Abdomen soft nontender scaphoid and extremely cachectic Extremity exam was no edema Neurologically she is obtunded because of sedation but sedation is now discontinued - Labs CBC & Chem 7: 10/21/18 05:10 10/21/18 05:10 Labs: Abnormal Lab Results - Last 24 Hours (Table) 10/20/18 10/20/18 10/20/18 Range/Units 11:30 11:46 11:47 WBC (3.8-10.6) k/uL RBC (3.80-5.40) m/uL Hgb (11.4-16.0) gm/dL Hct (34.0-46.0) % Neutrophils # (1.3-7.7) k/uL Lymphocytes # (1.0-4.8) k/uL ABG pH (7.35-7.45) ABG pCO2 54 H (35-45) mmHg ABG pO2 (83-108) mmHg ABG HCO3 34 H (21-25) mmol/L ABG Total CO2 36 H (19-24) mmol/L ABG O2 Saturation 98.2 H (94-97) % Sodium 122 L (137-145) mmol/L Chloride (98-107) mmol/L Carbon Dioxide (22-30) mmol/L Creatinine (0.52-1.04) mg/dL Glucose (74-99) mg/dL POC Glucose (mg/dL) 178 H (75-99) mg/dL 10/20/18 10/20/18 10/21/18 Range/Units 16:33 19:50 00:08 WBC (3.8-10.6) k/uL RBC (3.80-5.40) m/uL Hgb (11.4-16.0) gm/dL Hct (34.0-46.0) % Neutrophils # (1.3-7.7) k/uL Lymphocytes # (1.0-4.8) k/uL ABG pH (7.35-7.45) ABG pCO2 (35-45) mmHg ABG pO2 (83-108) mmHg ABG HCO3 (21-25) mmol/L ABG Total CO2 (19-24) mmol/L ABG O2 Saturation (94-97) % Sodium 123 L 124 L (137-145) mmol/L Chloride (98-107) mmol/L Carbon Dioxide (22-30) mmol/L Creatinine (0.52-1.04) mg/dL Glucose (74-99) mg/dL POC Glucose (mg/dL) 138 H (75-99) mg/dL 10/21/18 10/21/18 10/21/18 Range/Units 05:10 05:10 06:06 WBC 12.3 H (3.8-10.6) k/uL RBC 3.13 L (3.80-5.40) m/uL Hgb 9.9 L (11.4-16.0) gm/dL Hct 29.7 L (34.0-46.0) % Neutrophils # 11.6 H (1.3-7.7) k/uL Lymphocytes # 0.1 L (1.0-4.8) k/uL ABG pH (7.35-7.45) ABG pCO2 (35-45) mmHg ABG pO2 (83-108) mmHg ABG HCO3 (21-25) mmol/L ABG Total CO2 (19-24) mmol/L ABG O2 Saturation (94-97) % Sodium 126 L (137-145) mmol/L Chloride 87 L (98-107) mmol/L Carbon Dioxide 35 H (22-30) mmol/L Creatinine 0.17 L (0.52-1.04) mg/dL Glucose 126 H (74-99) mg/dL POC Glucose (mg/dL) 121 H (75-99) mg/dL 10/21/18 Range/Units 08:04 WBC (3.8-10.6) k/uL RBC (3.80-5.40) m/uL Hgb (11.4-16.0) gm/dL Hct (34.0-46.0) % Neutrophils # (1.3-7.7) k/uL Lymphocytes # (1.0-4.8) k/uL ABG pH 7.46 H (7.35-7.45) ABG pCO2 52 H (35-45) mmHg ABG pO2 82 L (83-108) mmHg ABG HCO3 36 H (21-25) mmol/L ABG Total CO2 38 H (19-24) mmol/L ABG O2 Saturation (94-97) % Sodium (137-145) mmol/L Chloride (98-107) mmol/L Carbon Dioxide (22-30) mmol/L Creatinine (0.52-1.04) mg/dL Glucose (74-99) mg/dL POC Glucose (mg/dL) (75-99) mg/dL Microbiology - Last 24 Hours (Table) 10/20/18 11:50 Gram Stain - Preliminary Sputum Sputum Culture - Preliminary 10/19/18 17:18 Blood Culture - Preliminary Blood No Growth after 24 hours Assessment and Plan Assessment: Impression 1. Hypovolemic hyponatremia being corrected appropriately. Sodium is up to 136 from an admission sodium of 111. Corrected over 48 hours. Cortisol level is borderline at 13 2. Ventilator dependent respiratory failure with mental status changes. Being maintained. 3. Blood gases reflect change from severe primary respiratory acidosis to now mild degree of Metabolic alkalosis with a pH of 7.46 and it bicarb of 35. In addition she has respiratory acidosis pCO2 is 52. 4. Mild hypo-magnesium is secondary to low intake 5. Anemia of chronic illness in mobility and went down from 12.3-9.9 may be an element of hydration Admission 1. Increase IV saline. 60 mL an hour. 2. Expect the respiratory acidosis to improve with reduction in sedation and or changes in ventilator settings here 3. Watch hemoglobin. Watch electrolytes carefully
[2018-10-21] MEDS: PROPOFOL 1,000 MG in EMPTY BAG 1 BAG IV SCH (08:41)
[2018-10-21] MEDS: CHLORHEXIDINE GLUCONATE 15 ML CUP MUCOUS MEM SCH (08:41)
[2018-10-21] MEDS: PANTOPRAZOLE 40 MG/10 ML VIAL IV SCH (08:41)
[2018-10-21] MEDS: HEPARIN SODIUM,PORCINE 5,000 UNIT/ML 1 ML VIAL SQ SCH ×3 (08:41→23:59)
[2018-10-21] MEDS: PIPERACILLIN-TAZOBACTAM 3.375 GM in SODIUM CHLORIDE 0.9% 100 ML IVPB SCH ×2 (08:42→21:47)
[2018-10-21] MEDS: LEVOFLOXACIN 500MG-D5W PMX 500 MG in DEXTROSE/WATER 1 100ML.BAG IVPB SCH (09:21)
[2018-10-21] MEDS: MAGNESIUM SULFATE-D5W PMX 1 GM in DEXTROSE/WATER 1 100ML.BAG IVPB SCH ×4 (09:43→13:47)
[2018-10-21] MEDS: SODIUM CHLORIDE 0.9% 1,000 ML IV SCH (10:41)
[2018-10-21 11:54] LABS: ABG Base Excess 13.1 mmol/L; ABG HCO3 36 mmol/L (21-25); ABG Oxygen Saturation 98.2 % (94-97); ABG PCO2 47 mmHg (35-45); ABG PO2 98 mmHg (83-108); ABG TCO2 38 mmol/L (19-24); Allen Test Performed? Yes
--- NOTE | 2018-10-21 11:55 | P.PN ---
Subjective Progress Note Date: 10/21/18 Principal diagnosis: Hyponatremia with metabolic encephalopathy and hypoxic and hypercapnic respiratory failure with pneumonia. Possibly aspiration pneumonia This is a 52-year-old female patient who presented to the emergency room yesterday with complaints of shortness of breath and profound weakness. She has a history of laryngeal cancer and is status post chemoradiation in February of this year. He follows with physicians in the [place] area. She lives at home with her 18-year-old son. Over the past several weeks she has been having difficulty in swallowing and had been only tolerating liquids. She is severely cachectic and weak. She was found to be hyponatremic with a sodium of 111. Abdominal series revealed a nonacute abdomen. There is lateral patchy pulmonary interstitial and alveolar infiltrates and a small right pleural effusion noted. CT angiogram revealed emphysema and extensive pulmonary interstitial and airspace infiltrates. No evidence of pulmonary embolism. There is extensive bronchial adenopathy. She was admitted to the intensive care unit from the emergency room and was clearly an respiratory distress and stridorous him a positive orthopnea. Oxygen 90% on 4 L nasal cannula initially. Arterial blood gases revealed a pO2 of 79, pCO2 of 107 and a pH of 7.13 on 32% FiO2. She was intubated and placed on mechanical ventilator. Subsequent blood gases revealed a PaO2 of 66, pCO2 of 67 and a pH of 7.30. Vent settings were assist control of 20, tidal volume 300, FiO2 80% and a PEEP of 5. She did receive 2-1/2 L of 0.9 normal saline. She is currently on norepinephrine at 5.8 mcg/m, propofol at 50 mcg/kg/m, D5W at 50 MLS per hour. Current sodium 117. She is seen in the intensive care unit with follow-up arterial blood gases up pO2 of 75, pCO2 55 and a pH of 7.4-60% FiO2. We'll continue to titrate that down. White count 8. 6. Hemoglobin 10.5. Sodium 117. Potassium 3.4. Bicarb 32. Creatinine 0.16. Morning chest x-ray reveals basilar atelectasis/pneumonia or tumor with pleural effusion right greater than left. She is extremely cachectic. BMI 13.4. Patient was reevaluated today on 10/21/2018, patient remains in the ICU, mechanically ventilated, hemodynamically stable, not requiring any norepinephrine at present. Her ventilator settings are assist control rate of 20 volume of 300 FiO2 40% and PEEP of 5. ABG showed a pO2 of 82 pCO2 of 52 pH of 7.46, patient continues to have significant component of metabolic alkalosis, felt to be more or less contraction alkalosis improving with hydration, however we are careful with hydration because of her low sodium and is being corrected slowly. Her sodium today is 126. Bicarb is 35 Romie profile is normal. Her WBC count is 12.3 hemoglobin is 9.9. Patient remains on 15 mcg/kg/m of propofol, she is off norepinephrine, and her chest x-ray continues to show b ilateral pneumonia/airspace disease. Slightly improved and better aeration compared to admission chest x-ray. Remains on DuoNeb, antibiotics in the form of Levaquin and Zosyn, remains on GI and DVT prophylaxis. Blood cultures remain negative so far, sputum cultures are nondiagnostic so far. Patient remains empirically on antibiotics. Objective - Vital Signs Vital signs: Vital Signs Temp 98.6 F 10/21/18 08:00 Pulse 98 10/21/18 11:00 Resp 23 10/21/18 11:00 BP 87/60 10/21/18 11:00 Pulse Ox 97 10/21/18 11:00 Intake & Output 10/20/18 10/21/18 10/21/18 18:59 06:59 18:59 Intake Total 2069.530 750.845 985.702 Output Total 1061 374 8403 Balance 345.530 396.845 -14.298 Weight 38.8 kg 40 kg Intake: IV 1080 360 240 .9 kvo 230 360 240 Dextrose 5% in Water 1, 650 000 ml @ 50 mls/hr IV . Q20H [facility] Rx#:[id number] Magnesium Sulfate-D5w Pmx 200 1 gm In Dextrose/Water 1 100ml.bag @ 100 mls/hr IVPB Q1H [facility] Rx#: [id number] Intake, IV Titration 979.530 140.845 695.702 Amount Levofloxacin 500Mg-D5w 100 200 Pmx 500 mg In Dextrose/ Water 1 100ml.bag @ 100 mls/hr IVPB Q24H [facility] Rx#: [id number] Magnesium Sulfate-D5w Pmx 100 1 gm In Dextrose/Water 1 100ml.bag @ 66.667 mls/ hr IVPB Q90M [facility] Rx#: [id number] Norepinephrine 4 mg In 186.711 140.845 25.382 Sodium Chloride 0.9% 250 ml @ 0.05 MCG/KG/MIN 6. 481 mls/hr IV .Q24H [facility] Rx#:[id number] Piperacillin-Tazobactam 3 100 200 .375 gm In Sodium Chloride 0.9% 100 ml @ 25 mls/hr IVPB Q12HR [facility] Rx #:[id number] Propofol 1,000 mg In 92.819 110.32 Empty Bag 1 bag @ Titrate IV .Q0M [facility] Rx#: [id number] Sodium Chloride 0.9% 1, 60 000 ml @ 60 mls/hr IV . [id number] [facility] Rx#:[id number] Sodium Chloride 0.9% 500 500 ml 500 ml @ 999 mls/hr IV .Q31M [facility] Rx#:[id number] Tube Feeding 10 160 50 Other 90 Output: Urine 8446 857 0717 Other: Voiding Method Indwelling Catheter Indwelling Catheter Indwelling Catheter ABP, PAP, CO, CI - Last Documented Arterial Blood Pressure 92/66 - Exam Physical Exam: Revealed a 52-year-old female on mechanical ventilation, extremely frail and chronically ill-looking. Looks cachectic. Head: Atraumatic, normocephalic. HEENT:[Neck is supple.] [No neck masses.] [No thyromegaly.] [No JVD.] Endotracheal tube and orogastric tube are intact. Chest: [Crackles and rhonchi at the bases, no wheezing, symmetrical chest expansion.] Right subclavian Mediport is noted. Cardiac Exam: [Normal S1 and S2, no S3 gallop, no murmur.] Abdomen: [, Scaphoid abdomen, Soft, nontender, no megaly, no rebound, no guarding, normal bowel sounds.] Extremities: [No clubbing, no edema, no cyanosis. Significant muscle wasting is noted in upper and lower extremities.] Neurological Exam: Arousable, follows simple instructions, looks chronically weak. [No focal neurologic deficit.] Psychiatric: Normal mood, affect and normal mental status examination. Skin: No rashes. - Labs CBC & Chem 7: 10/21/18 05:10 10/21/18 05:10 Labs: Abnormal Lab Results - Last 24 Hours (Table) 10/20/18 10/20/18 10/20/18 Range/Units 11:30 11:46 11:47 WBC (3.8-10.6) k/uL RBC (3.80-5.40) m/uL Hgb (11.4-16.0) gm/dL Hct (34.0-46.0) % Neutrophils # (1.3-7.7) k/uL Lymphocytes # (1.0-4.8) k/uL ABG pH (7.35-7.45) ABG pCO2 54 H (35-45) mmHg ABG pO2 (83-108) mmHg ABG HCO3 34 H (21-25) mmol/L ABG Total CO2 36 H (19-24) mmol/L ABG O2 Saturation 98.2 H (94-97) % Sodium 122 L (137-145) mmol/L Chloride (98-107) mmol/L Carbon Dioxide (22-30) mmol/L Creatinine (0.52-1.04) mg/dL Glucose (74-99) mg/dL POC Glucose (mg/dL) 178 H (75-99) mg/dL 10/20/18 10/20/18 10/21/18 Range/Units 16:33 19:50 00:08 WBC (3.8-10.6) k/uL RBC (3.80-5.40) m/uL Hgb (11.4-16.0) gm/dL Hct (34.0-46.0) % Neutrophils # (1.3-7.7) k/uL Lymphocytes # (1.0-4.8) k/uL ABG pH (7.35-7.45) ABG pCO2 (35-45) mmHg ABG pO2 (83-108) mmHg ABG HCO3 (21-25) mmol/L ABG Total CO2 (19-24) mmol/L ABG O2 Saturation (94-97) % Sodium 123 L 124 L (137-145) mmol/L Chloride (98-107) mmol/L Carbon Dioxide (22-30) mmol/L Creatinine (0.52-1.04) mg/dL Glucose (74-99) mg/dL POC Glucose (mg/dL) 138 H (75-99) mg/dL 10/21/18 10/21/18 10/21/18 Range/Units 05:10 05:10 06:06 WBC 12.3 H (3.8-10.6) k/uL RBC 3.13 L (3.80-5.40) m/uL Hgb 9.9 L (11.4-16.0) gm/dL Hct 29.7 L (34.0-46.0) % Neutrophils # 11.6 H (1.3-7.7) k/uL Lymphocytes # 0.1 L (1.0-4.8) k/uL ABG pH (7.35-7.45) ABG pCO2 (35-45) mmHg ABG pO2 (83-108) mmHg ABG HCO3 (21-25) mmol/L ABG Total CO2 (19-24) mmol/L ABG O2 Saturation (94-97) % Sodium 126 L (137-145) mmol/L Chloride 87 L (98-107) mmol/L Carbon Dioxide 35 H (22-30) mmol/L Creatinine 0.17 L (0.52-1.04) mg/dL Glucose 126 H (74-99) mg/dL POC Glucose (mg/dL) 121 H (75-99) mg/dL 10/21/18 Range/Units 08:04 WBC (3.8-10.6) k/uL RBC (3.80-5.40) m/uL Hgb (11.4-16.0) gm/dL Hct (34.0-46.0) % Neutrophils # (1.3-7.7) k/uL Lymphocytes # (1.0-4.8) k/uL ABG pH 7.46 H (7.35-7.45) ABG pCO2 52 H (35-45) mmHg ABG pO2 82 L (83-108) mmHg ABG HCO3 36 H (21-25) mmol/L ABG Total CO2 38 H (19-24) mmol/L ABG O2 Saturation (94-97) % Sodium (137-145) mmol/L Chloride (98-107) mmol/L Carbon Dioxide (22-30) mmol/L Creatinine (0.52-1.04) mg/dL Glucose (74-99) mg/dL POC Glucose (mg/dL) (75-99) mg/dL Microbiology - Last 24 Hours (Table) 10/20/18 11:50 Gram Stain - Preliminary Sputum Sputum Culture - Preliminary 10/19/18 17:18 Blood Culture - Preliminary Blood No Growth after 24 hours Assessment and Plan Assessment: #1 Acute metabolic encephalopathy secondary to severe hyponatremia with presenting sodium 111. Presently her sodium is up to 126, correcting slowly. Hyponatremia was felt to be hypovolemic in nature. #2 Acute hypoxic/hypercapnic respiratory failure due to extensive pulmonary interstitial and airspace infiltrates. There is also extensive bronchial/subcarinal adenopathy noted suspect metastasis versus lung primary. #3 Severe hyponatremia with profound weakness. Presenting sodium 111 current sodium 117. #4 History of laryngeal cancer status post chemo/radiation. Details are not available. Last treatment in February 2018. #5 Severe protein calorie malnutrition secondary to above. #6 History of previous tobacco dependence. #7 anemia of chronic disease is suspected. #8 hypomagnesemia secondary to poor oral intake. #9 acute contraction metabolic alkalosis with respiratory compensation/respiratory acidosis. Recommendation: Continue IV saline at 60 mL per hour. Continue antibiotics empirically in the form of Zosyn and Levaquin. Adjust antibiotics based on the sputum cultures when become available. Continue ventilatory support, patient will be given a sedation interruption trial, and possibly spontaneous breathing trial with pressure support of 8 and CPAP. Patient will remain on GI and DVT prophylaxis. Continue nutritional support, IBC she has severe protein calorie malnutrition. Overall long-term prognosis is extremely poor and guarded, we'll continue to follow the patient in the ICU even if extubated today. If not extubated today, we will readdress the issue of her weaning again tomorrow in the next 24 hours. Obviously the patient remains critically ill and multiple comorbidities as noted above. Critical care time is 40 minutes. Time with Patient: Greater than 30
--- NOTE | 2018-10-21 12:20 | P.PN ---
Subjective Progress Note Date: 10/21/18 Principal diagnosis: The patient is a 52-year-old female with a history of laryngeal cancer status post chemo and radiation therapy that was admitted for acute respiratory failure with hypoxia, acute metabolic encephalopathy and symptomatic hyponatremia after presenting with progressive generalized weakness and difficulty breathing. A workup with CT of her chest abdomen pelvis showed extensive bilateral lung infiltrates and consolidation with bilateral bronchial lymph node enlargement and subcarinal lymph node enlargement, initial Arterial blood gases revealed a pO2 of 79, pCO2 of 107 and a pH of 7.13 on 32% FiO2 and the patient was intubated and placed on mechanical ventilator. She was started on empiric IV antibiotics with Levaquin and Zosyn, serum sodium level was profoundly low at 111 the patient was given hypertonic 3% saline at 20 mL an hour and subsequent switched to normal saline with nephrology Dr. Chan consulted to manage the patient's hyponatremia. The patient was sedated on propofol and started on levophed drip to keep map greater than 65. Patient seen and examined in follow-up today, intubated on mechanical ventilatory sedated on propofol but is arousing as the propofol is being weaned. The Levophed is going at approximately 2 mcg/m, propofol at 30 mcg/kg/m. patient having adequate urine output. Serum sodium is 126 today WBCs 12.3 hemoglobin 9.9 Objective - Vital Signs Vital signs: Vital Signs Temp 98.4 F 10/21/18 12:00 Pulse 97 10/21/18 12:00 Resp 29 H 10/21/18 12:00 BP 96/64 10/21/18 12:00 Pulse Ox 98 10/21/18 12:00 Intake & Output 10/20/18 10/21/18 10/21/18 18:59 06:59 18:59 Intake Total 2069.530 406.570 5372.702 Output Total 7373 026 9951 Balance 345.530 396.845 70.702 Weight 38.8 kg 40 kg Intake: IV 1080 360 240 .9 kvo 230 360 240 Dextrose 5% in Water 1, 650 000 ml @ 50 mls/hr IV . Q20H [facility] Rx#:[id number] Magnesium Sulfate-D5w Pmx 200 1 gm In Dextrose/Water 1 100ml.bag @ 100 mls/hr IVPB Q1H [facility] Rx#: [id number] Intake, IV Titration 979.530 140.845 855.702 Amount Levofloxacin 500Mg-D5w 100 200 Pmx 500 mg In Dextrose/ Water 1 100ml.bag @ 100 mls/hr IVPB Q24H [facility] Rx#: [id number] Magnesium Sulfate-D5w Pmx 200 1 gm In Dextrose/Water 1 100ml.bag @ 66.667 mls/ hr IVPB Q90M [facility] Rx#: [id number] Norepinephrine 4 mg In 186.711 140.845 25.382 Sodium Chloride 0.9% 250 ml @ 0.05 MCG/KG/MIN 6. 481 mls/hr IV .Q24H [facility] Rx#:[id number] Piperacillin-Tazobactam 3 100 200 .375 gm In Sodium Chloride 0.9% 100 ml @ 25 mls/hr IVPB Q12HR [facility] Rx #:[id number] Propofol 1,000 mg In 92.819 110.32 Empty Bag 1 bag @ Titrate IV .Q0M [facility] Rx#: [id number] Sodium Chloride 0.9% 1, 120 000 ml @ 60 mls/hr IV . [id number] [facility] Rx#:[id number] Sodium Chloride 0.9% 500 500 ml 500 ml @ 999 mls/hr IV .Q31M [facility] Rx#:[id number] Tube Feeding 10 160 50 Other 90 Output: Urine 9353 270 1036 Other: Voiding Method Indwelling Catheter Indwelling Catheter Indwelling Catheter ABP, PAP, CO, CI - Last Documented Arterial Blood Pressure 193/188 - Exam Constitutional: No acute distress, sedated and intubated, cachectic appearance Eyes: Anicteric sclerae, moist conjunctiva, no lid-lag, PERRLA ENMT: Bilateral temporal wasting oral endotracheal and G-tube secured in place NC/AT,Oropharynx clear, no erythema, exudates Neck:Supple, FROM, no masses, or JVD, No carotid bruits; No thyromegaly Lungs: Right Mediport subclavian in place no chest wall deformity Cardiovascular: Heart regular in rate and rhythm, No murmurs, gallops, or rubs no peripheral edema Abdominal: Soft Nontender, nom distended, no guarding, no rebound or rigidity, Normoactive bowel sounds No hepatomegaly, No splenomegaly, No palpable mass No abdominal wall hernia noted Skin: Normal temperature, tone, texture, turgor, No induration No subcutaneous nodules, No rash, lesions, No ulcers Extremities:No digital cyanosis No clubbing, Pedal pulses intact and symmetrical Radial pulses intact and symmetrical Normal gait and station, No calf tenderness Neuro: Sedated on propofol unable to fully assess - Labs CBC & Chem 7: 10/21/18 05:10 10/21/18 05:10 Labs: Abnormal Lab Results - Last 24 Hours (Table) 10/20/18 10/20/18 10/21/18 Range/Units 16:33 19:50 00:08 WBC (3.8-10.6) k/uL RBC (3.80-5.40) m/uL Hgb (11.4-16.0) gm/dL Hct (34.0-46.0) % Neutrophils # (1.3-7.7) k/uL Lymphocytes # (1.0-4.8) k/uL ABG pH (7.35-7.45) ABG pCO2 (35-45) mmHg ABG pO2 (83-108) mmHg ABG HCO3 (21-25) mmol/L ABG Total CO2 (19-24) mmol/L ABG O2 Saturation (94-97) % Sodium 123 L 124 L (137-145) mmol/L Chloride (98-107) mmol/L Carbon Dioxide (22-30) mmol/L Creatinine (0.52-1.04) mg/dL Glucose (74-99) mg/dL POC Glucose (mg/dL) 138 H (75-99) mg/dL 10/21/18 10/21/18 10/21/18 Range/Units 05:10 05:10 06:06 WBC 12.3 H (3.8-10.6) k/uL RBC 3.13 L (3.80-5.40) m/uL Hgb 9.9 L (11.4-16.0) gm/dL Hct 29.7 L (34.0-46.0) % Neutrophils # 11.6 H (1.3-7.7) k/uL Lymphocytes # 0.1 L (1.0-4.8) k/uL ABG pH (7.35-7.45) ABG pCO2 (35-45) mmHg ABG pO2 (83-108) mmHg ABG HCO3 (21-25) mmol/L ABG Total CO2 (19-24) mmol/L ABG O2 Saturation (94-97) % Sodium 126 L (137-145) mmol/L Chloride 87 L (98-107) mmol/L Carbon Dioxide 35 H (22-30) mmol/L Creatinine 0.17 L (0.52-1.04) mg/dL Glucose 126 H (74-99) mg/dL POC Glucose (mg/dL) 121 H (75-99) mg/dL 10/21/18 10/21/18 Range/Units 08:04 11:52 WBC (3.8-10.6) k/uL RBC (3.80-5.40) m/uL Hgb (11.4-16.0) gm/dL Hct (34.0-46.0) % Neutrophils # (1.3-7.7) k/uL Lymphocytes # (1.0-4.8) k/uL ABG pH 7.46 H 7.50 H (7.35-7.45) ABG pCO2 52 H 47 H (35-45) mmHg ABG pO2 82 L (83-108) mmHg ABG HCO3 36 H 36 H (21-25) mmol/L ABG Total CO2 38 H 38 H (19-24) mmol/L ABG O2 Saturation 98.2 H (94-97) % Sodium (137-145) mmol/L Chloride (98-107) mmol/L Carbon Dioxide (22-30) mmol/L Creatinine (0.52-1.04) mg/dL Glucose (74-99) mg/dL POC Glucose (mg/dL) (75-99) mg/dL Microbiology - Last 24 Hours (Table) 10/20/18 11:50 Gram Stain - Preliminary Sputum Sputum Culture - Preliminary 10/19/18 17:18 Blood Culture - Preliminary Blood No Growth after 24 hours Assessment and Plan (1) Acute respiratory failure with hypoxia and hypercapnia Narrative/Plan: * Patient sedated and ventilated with pulmonary following * CT of the chest showing pulmonary interstitial and airspace infiltrates possible underlying pneumonia * Continue vent management per pulmonary, plan for sedation vacation and possible spontaneous breathing trial if patient is able to tolerate * Continue with breathing treatments and antibiotics Current Visit: Yes Status: Acute Code(s): J96.01 - ACUTE RESPIRATORY FAILURE WITH HYPOXIA; J96.02 - ACUTE RESPIRATORY FAILURE WITH HYPERCAPNIA SNOMED Code(s): 606791651 (2) Hyponatremia Narrative/Plan: * Severe profound hyponatremia on presentation with a sodium of 111 now up to 117 * Previously on hypertonic saline, nephrology following closely Current Visit: Yes Status: Acute Code(s): E87.1 - HYPO-OSMOLALITY AND HYPONATREMIA SNOMED Code(s): 07010003 (3) Mediastinal lymphadenopathy Narrative/Plan: * CT of the chest showing extensive bronchial and subcarinal adenopathy * Suspected to be metastatic versus lung primary Current Visit: Yes Status: Acute Code(s): R59.0 - LOCALIZED ENLARGED LYMPH NODES SNOMED Code(s): 62428963 (4) History of laryngeal cancer Narrative/Plan: * Most recent treatment in February 2018 Current Visit: Yes Status: Chronic Code(s): Z85.21 - PERSONAL HISTORY OF MALIGNANT NEOPLASM OF LARYNX SNOMED Code(s): 893154405 (5) Weakness Narrative/Plan: * Secondary to profound hyponatremia Current Visit: Yes Status: Acute Code(s): R53.1 - WEAKNESS SNOMED Code(s): 79588310 (6) Severe protein-energy malnutrition Current Visit: Yes Status: Acute Code(s): E43 - UNSPECIFIED SEVERE PROTEIN- CALORIE MALNUTRITION SNOMED Code(s): 672903436 (7) Metabolic encephalopathy Narrative/Plan: * Secondary to hyponatremia Current Visit: Yes Status: Acute Code(s): G93.41 - METABOLIC ENCEPHALOPATHY SNOMED Code(s): 03993023 (8) Hypokalemia Narrative/Plan: * Continue to monitor daily Current Visit: Yes Status: Resolved Code(s): E87.6 - HYPOKALEMIA SNOMED Code(s): 91600014 Plan: * The patient status to critical continue current management in hopes for possible extubation today
[2018-10-21 12:34] LABS: Glucose,Whole Blood 123 mg/dL (75-99)
[2018-10-21 19:28] LABS: Glucose,Whole Blood 90 mg/dL (75-99)
[2018-10-22] MEDS: CHLORHEXIDINE GLUCONATE 15 ML CUP MUCOUS MEM SCH ×2 (01:42→08:21)
[2018-10-22 05:45] LABS: Basophils % (A) 0 %; Eosinophils % (A) 0 %; HCT 31.6 % (34.0-46.0); HGB 10.5 gm/dL (11.4-16.0); Lymphocytes # (A) 0.1 k/uL (1.0-4.8); Lymphocytes % (A) 1 %; MCH 32.4 pg (25.0-35.0); MCHC 33.1 g/dL (31.0-37.0); MCV 97.8 fL (80.0-100.0); Mean Platelet Volume 6.7; Monocytes # (A) 0.4 k/uL (0-1.0); Monocytes % (A) 3 %; Neutrophils # (A) 14.9 k/uL (1.3-7.7); Neutrophils % (A) 96 %; Platelet Count 397 k/uL (150-450); RBC 3.23 m/uL (3.80-5.40); WBC 15.5 k/uL (3.8-10.6)
[2018-10-22 05:55] LABS: African American GFR (CKD) >90 (>60 ml/min/1.73 sqM); Anion Gap 4 mmol/L; Blood Urea Nitrogen 6 mg/dL (7-17); Carbon Dioxide 38 mmol/L (22-30); Chloride 88 mmol/L (98-107); Glucose 104 mg/dL (74-99); Potassium 3.4 mmol/L (3.5-5.1); Sodium 130 mmol/L (137-145)
[2018-10-22] MEDS: POTASSIUM BICARBONATE/CIT AC 20 MEQ TABLET.EFF PO SCH ×2 (06:23→08:20)
--- NOTE | 2018-10-22 06:55 | XR ---
EXAMINATION TYPE: XR chest 1V portable DATE OF EXAM: 10/22/2018 HISTORY: Tube placement. REFERENCE: Previous study dated 10/21/2018. FINDINGS: The patient has been extubated. The patient is NG tube is been removed. A Port-A-Cath remai ns in place via a right internal jugular approach. Within the right atrium. The left basilic PICC steffi e is in place. Its tip is in the superior vena cava. There is worsening right middle lobe airspace atelectasis. There is bibasilar airspace disease. Heart size is obscured. I cannot exclude small effusions. IMPRESSION: 1. WORSENING RIGHT MIDDLE LOBE ATELECTASIS. 2. BIBASILAR AIRSPACE DISEASE. 3. I CANNOT EXCLUDE SMALL, BILATERAL EFFUSIONS.
[2018-10-22] MEDS: SODIUM CHLORIDE 0.9% 1,000 ML IV SCH ×2 (08:13→11:20)
[2018-10-22] MEDS: PANTOPRAZOLE 40 MG/10 ML VIAL IV SCH (08:20)
[2018-10-22] MEDS: PIPERACILLIN-TAZOBACTAM 3.375 GM in SODIUM CHLORIDE 0.9% 100 ML IVPB SCH ×2 (08:21→16:11)
[2018-10-22] MEDS: HEPARIN SODIUM,PORCINE 5,000 UNIT/ML 1 ML VIAL SQ SCH ×2 (08:21→16:11)
[2018-10-22] MEDS: LEVOFLOXACIN 500MG-D5W PMX 500 MG in DEXTROSE/WATER 1 100ML.BAG IVPB SCH (09:16)
[2018-10-22] MEDS ORDERED: HYDROcodone/APAP 5-325MG 1 EACH TAB PO PRN (09:17)
[2018-10-22] MEDS ORDERED: predniSONE 20 MG TAB PO SCH (09:30)
[2018-10-22] MEDS: MEGESTROL 400 MG/10 ML CUP PO SCH (10:08)
[2018-10-22] MEDS ORDERED: SODIUM CHLORIDE 0.9% 1,000 ML IV SCH (10:15)
--- NOTE | 2018-10-22 10:15 | P.PN ---
Subjective Progress Note Date: 10/22/18 Principal diagnosis: This is a 52-year-old female seen in consultation because of severe hyponatremia sodium is 111, this was deemed to be from hypovolemia decreased intake and is a patient with carcinoma larynx with chemo and radiation. She was on 30 mL of IV normal saline to slow down her sodium correction, IV fluids were increased to 60 an hour. Her sodium improved from 126 to 1:30 this morning. Further she was extubated yesterday. She is off of the levo fed Her chest x-ray though shows atelectasis on the right side which was not there yesterday Urine output is excellent at 2077 date 4 yesterday and 2514 this morning Objective - Vital Signs Vital signs: Vital Signs Temp 98.1 F 10/22/18 08:00 Pulse 125 H 10/22/18 10:00 Resp 41 H 10/22/18 10:00 BP 107/68 10/22/18 10:00 Pulse Ox 83 L 10/22/18 10:00 Intake & Output 10/21/18 10/22/18 10/22/18 18:59 06:59 18:59 Intake Total 7505.702 1270 890 Output Total 1440 1075 310 Balance 6065.702 195 580 Weight 41.8 kg Intake: IV 240 .9 kvo 240 Intake, IV Titration 7215.702 820 440 Amount Levofloxacin 500Mg-D5w 200 100 Pmx 500 mg In Dextrose/ Water 1 100ml.bag @ 100 mls/hr IVPB Q24H [facility] Rx#: [id number] Magnesium Sulfate-D5w Pmx 200 1 gm In Dextrose/Water 1 100ml.bag @ 66.667 mls/ hr IVPB Q90M [facility] Rx#: [id number] Norepinephrine 4 mg In 25.382 Sodium Chloride 0.9% 250 ml @ 0.05 MCG/KG/MIN 6. 481 mls/hr IV .Q24H [facility] Rx#:[id number] Piperacillin-Tazobactam 3 200 100 100 .375 gm In Sodium Chloride 0.9% 100 ml @ 25 mls/hr IVPB Q12HR [facility] Rx #:[id number] Propofol 1,000 mg In 110.32 Empty Bag 1 bag @ Titrate IV .Q0M [facility] Rx#: [id number] Sodium Chloride 0.9% 1, 6480 720 240 000 ml @ 60 mls/hr IV . [id number] [facility] Rx#:[id number] Oral 450 450 Tube Feeding 50 Output: Urine 1440 1075 310 Other: Voiding Method Indwelling Catheter Indwelling Catheter Indwelling Catheter ABP, PAP, CO, CI - Last Documented Arterial Blood Pressure 75/63 On examination she is awake alert oriented comfortable sitting in a chair. HEENT exam no JVP neck is supple no facial asymmetry pupils are equal She is very cachectic Lungs are clear to auscultation except for poor air entry bilaterally. Heart sounds are unremarkable no murmur rub gallop normal sinus rhythm Abdomen soft nontender. No masses felt Extreme exam was no edema Neurologically awake alert oriented generalized weakness - Labs CBC & Chem 7: 10/22/18 04:46 10/22/18 04:46 Labs: Abnormal Lab Results - Last 24 Hours (Table) 10/21/18 10/21/18 10/22/18 Range/Units 11:52 12:23 04:46 WBC 15.5 H (3.8-10.6) k/uL RBC 3.23 L (3.80-5.40) m/uL Hgb 10.5 L (11.4-16.0) gm/dL Hct 31.6 L (34.0-46.0) % Neutrophils # 14.9 H (1.3-7.7) k/uL Lymphocytes # 0.1 L (1.0-4.8) k/uL ABG pH 7.50 H (7.35-7.45) ABG pCO2 47 H (35-45) mmHg ABG HCO3 36 H (21-25) mmol/L ABG Total CO2 38 H (19-24) mmol/L ABG O2 Saturation 98.2 H (94-97) % Sodium (137-145) mmol/L Potassium (3.5-5.1) mmol/L Chloride (98-107) mmol/L Carbon Dioxide (22-30) mmol/L BUN (7-17) mg/dL Creatinine (0.52-1.04) mg/dL Glucose (74-99) mg/dL POC Glucose (mg/dL) 123 H (75-99) mg/dL Calcium (8.4-10.2) mg/dL 10/22/18 Range/Units 04:46 WBC (3.8-10.6) k/uL RBC (3.80-5.40) m/uL Hgb (11.4-16.0) gm/dL Hct (34.0-46.0) % Neutrophils # (1.3-7.7) k/uL Lymphocytes # (1.0-4.8) k/uL ABG pH (7.35-7.45) ABG pCO2 (35-45) mmHg ABG HCO3 (21-25) mmol/L ABG Total CO2 (19-24) mmol/L ABG O2 Saturation (94-97) % Sodium 130 L (137-145) mmol/L Potassium 3.4 L (3.5-5.1) mmol/L Chloride 88 L (98-107) mmol/L Carbon Dioxide 38 H (22-30) mmol/L BUN 6 L (7-17) mg/dL Creatinine 0.18 L (0.52-1.04) mg/dL Glucose 104 H (74-99) mg/dL POC Glucose (mg/dL) (75-99) mg/dL Calcium 8.0 L (8.4-10.2) mg/dL Microbiology - Last 24 Hours (Table) 10/20/18 11:50 Gram Stain - Final Sputum Sputum Culture - Final 10/19/18 17:18 Blood Culture - Preliminary Blood No Growth after 48 hours Assessment and Plan Assessment: Impression 1. Hypovolemic hyponatremia being corrected appropriately. Sodium is up to 1:30 from an admission sodium of 111. Creatinine is 0.1, BUN is 6 Cortisol level is borderline at 13 2. Ventilator dependent respiratory failure with mental status changes. Extu bated 10/21/2018 and stable 3. Blood gases yesterday pH is 7.5, pCO2 47 and pO2 is 98 while she was intubated. This shows significant alkalemia, secondary to steroids and volume depletion as well as a compensatory response to severes respiratory acidosis. The serum bicarb will be corrected slowly. 4. Mild hypo kalemia secondary to low intake, saline IV and steroids 5. Anemia of chronic illness in mobility and went down from 12.3-9.9 > 10.5. may be an element of hydration 6. New significant atelectasis right lower lobe, post extubation Admission 1. Increase IV saline. 60 mL an hour to 100. 2. Expect the respiratory acidosis to improve with respiratory therapy. 3. Watch hemoglobin. Watch electrolytes carefully 4. Would suggest discontinuation of Whitting[place] catheter
--- NOTE | 2018-10-22 10:31 | P.PN ---
Subjective Progress Note Date: 10/22/18 Principal diagnosis: Hyponatremia with metabolic encephalopathy and hypoxic and hypercapnic respiratory failure with pneumonia. Possibly aspiration pneumonia This is a 52-year-old female patient who presented to the emergency room yesterday with complaints of shortness of breath and profound weakness. She has a history of laryngeal cancer and is status post chemoradiation in February of this year. He follows with physicians in the [place] area. She lives at home with her 18-year-old son. Over the past several weeks she has been having difficulty in swallowing and had been only tolerating liquids. She is severely cachectic and weak. She was found to be hyponatremic with a sodium of 111. Abdominal series revealed a nonacute abdomen. There is lateral patchy pulmonary interstitial and alveolar infiltrates and a small right pleural effusion noted. CT angiogram revealed emphysema and extensive pulmonary interstitial and airspace infiltrates. No evidence of pulmonary embolism. There is extensive bronchial adenopathy. She was admitted to the intensive care unit from the emergency room and was clearly an respiratory distress and stridorous him a positive orthopnea. Oxygen 90% on 4 L nasal cannula initially. Arterial blood gases revealed a pO2 of 79, pCO2 of 107 and a pH of 7.13 on 32% FiO2. She was intubated and placed on mechanical ventilator. Subsequent blood gases revealed a PaO2 of 66, pCO2 of 67 and a pH of 7.30. Vent settings were assist control of 20, tidal volume 300, FiO2 80% and a PEEP of 5. She did receive 2-1/2 L of 0.9 normal saline. She is currently on norepinephrine at 5.8 mcg/m, propofol at 50 mcg/kg/m, D5W at 50 MLS per hour. Current sodium 117. She is seen in the intensive care unit with follow-up arterial blood gases up pO2 of 75, pCO2 55 and a pH of 7.4-60% FiO2. We'll continue to titrate that down. White count 8. 6. Hemoglobin 10.5. Sodium 117. Potassium 3.4. Bicarb 32. Creatinine 0.16. Morning chest x-ray reveals basilar atelectasis/pneumonia or tumor with pleural effusion right greater than left. She is extremely cachectic. BMI 13.4. Patient was reevaluated today on 10/21/2018, patient remains in the ICU, mechanically ventilated, hemodynamically stable, not requiring any norepinephrine at present. Her ventilator settings are assist control rate of 20 volume of 300 FiO2 40% and PEEP of 5. ABG showed a pO2 of 82 pCO2 of 52 pH of 7.46, patient continues to have significant component of metabolic alkalosis, felt to be more or less contraction alkalosis improving with hydration, however we are careful with hydration because of her low sodium and is being corrected slowly. Her sodium today is 126. Bicarb is 35 Romie profile is normal. Her WBC count is 12.3 hemoglobin is 9.9. Patient remains on 15 mcg/kg/m of propofol, she is off norepinephrine, and her chest x-ray continues to show b ilateral pneumonia/airspace disease. Slightly improved and better aeration compared to admission chest x-ray. Remains on DuoNeb, antibiotics in the form of Levaquin and Zosyn, remains on GI and DVT prophylaxis. Blood cultures remain negative so far, sputum cultures are nondiagnostic so far. Patient remains empirically on antibiotics. Reevaluated today on 10/22/2018, patient was extubated successfully yesterday. She is now on few liters nasal cannula, in no distress, feeling better, please t o be extubated. Her chest x-ray continues to show bilateraldisease, patient remains on antibiotics in the form of Levaquin and Zosyn. Her sodium is significantly improved, it is 130 today. And she remains on 0.9 normal saline at 60 mL per hour. Patient is hemodynamically stable, not requiring any pressors. Urine output is excellent this morning. Her labs were reviewed her WBC count is 15.5 hemoglobin is 10.5. Patient remains metabolically alkalotic and that is contraction alkalosis. BUN is 6 creatinine is 0.18. Considering her poor appetite, and considering her protein calorie malnutrition, I started the patient today on Megace, and I recommended dietitian to evaluate for nutritional support. Will continue to monitor the patient in the ICU for the next 24 hours, and if she continues to improve over the next 24 hours, then she could be transferred to a regular medical floor. Objective - Vital Signs Vital signs: Vital Signs Temp 98.1 F 10/22/18 08:00 Pulse 125 H 10/22/18 10:00 Resp 41 H 10/22/18 10:00 BP 107/68 10/22/18 10:00 Pulse Ox 83 L 10/22/18 10:00 Intake & Output 10/21/18 10/22/18 10/22/18 18:59 06:59 18:59 Intake Total 7505.702 1270 890 Output Total 1440 1075 310 Balance 6065.702 195 580 Weight 41.8 kg Intake: IV 240 .9 kvo 240 Intake, IV Titration 7215.702 820 440 Amount Levofloxacin 500Mg-D5w 200 100 Pmx 500 mg In Dextrose/ Water 1 100ml.bag @ 100 mls/hr IVPB Q24H [facility] Rx#: [id number] Magnesium Sulfate-D5w Pmx 200 1 gm In Dextrose/Water 1 100ml.bag @ 66.667 mls/ hr IVPB Q90M [facility] Rx#: [id number] Norepinephrine 4 mg In 25.382 Sodium Chloride 0.9% 250 ml @ 0.05 MCG/KG/MIN 6. 481 mls/hr IV .Q24H [facility] Rx#:[id number] Piperacillin-Tazobactam 3 200 100 100 .375 gm In Sodium Chloride 0.9% 100 ml @ 25 mls/hr IVPB Q12HR [facility] Rx #:[id number] Propofol 1,000 mg In 110.32 Empty Bag 1 bag @ Titrate IV .Q0M [facility] Rx#: [id number] Sodium Chloride 0.9% 1, 6480 720 240 000 ml @ 60 mls/hr IV . [id number] [facility] Rx#:[id number] Oral 450 450 Tube Feeding 50 Output: Urine 1440 1075 310 Other: Voiding Method Indwelling Catheter Indwelling Catheter Indwelling Catheter ABP, PAP, CO, CI - Last Documented Arterial Blood Pressure 75/63 - Exam Physical Exam: Revealed a 52-year-old female, extremely cachectic, off mechanical ventilation, on few liters nasal cannula. Head: Atraumatic, normocephalic. HEENT:[Neck is supple.] [No neck masses.] [No thyromegaly.] [No JVD.] Endotracheal tube and orogastric tube are intact. Chest: [Crackles and rhonchi at the bases, no wheezing, symmetrical chest exp ansion.] Right subclavian Mediport is noted. Cardiac Exam: [Normal S1 and S2, no S3 gallop, no murmur.] Abdomen: [, Scaphoid abdomen, Soft, nontender, no megaly, no rebound, no guarding, normal bowel sounds.] Extremities: [No clubbing, no edema, no cyanosis. Significant muscle wasting is noted in upper and lower extremities.] Neurological Exam: Awake, alert, no gross focal neurologic deficit but she is noted to be generally weak. Psychiatric: Normal mood, affect and normal mental status examination. Skin: No rashes. - Labs CBC & Chem 7: 10/22/18 04:46 10/22/18 04:46 Labs: Abnormal Lab Results - Last 24 Hours (Table) 10/21/18 10/21/18 10/22/18 Range/Units 11:52 12:23 04:46 WBC 15.5 H (3.8-10.6) k/uL RBC 3.23 L (3.80-5.40) m/uL Hgb 10.5 L (11.4-16.0) gm/dL Hct 31.6 L (34.0-46.0) % Neutrophils # 14.9 H (1.3-7.7) k/uL Lymphocytes # 0.1 L (1.0-4.8) k/uL ABG pH 7.50 H (7.35-7.45) ABG pCO2 47 H (35-45) mmHg ABG HCO3 36 H (21-25) mmol/L ABG Total CO2 38 H (19-24) mmol/L ABG O2 Saturation 98.2 H (94-97) % Sodium (137-145) mmol/L Potassium (3.5-5.1) mmol/L Chloride (98-107) mmol/L Carbon Dioxide (22-30) mmol/L BUN (7-17) mg/dL Creatinine (0.52-1.04) mg/dL Glucose (74-99) mg/dL POC Glucose (mg/dL) 123 H (75-99) mg/dL Calcium (8.4-10.2) mg/dL 10/22/18 Range/Units 04:46 WBC (3.8-10.6) k/uL RBC (3.80-5.40) m/uL Hgb (11.4-16.0) gm/dL Hct (34.0-46.0) % Neutrophils # (1.3-7.7) k/uL Lymphocytes # (1.0-4.8) k/uL ABG pH (7.35-7.45) ABG pCO2 (35-45) mmHg ABG HCO3 (21-25) mmol/L ABG Total CO2 (19-24) mmol/L ABG O2 Saturation (94-97) % Sodium 130 L (137-145) mmol/L Potassium 3.4 L (3.5-5.1) mmol/L Chloride 88 L (98-107) mmol/L Carbon Dioxide 38 H (22-30) mmol/L BUN 6 L (7-17) mg/dL Creatinine 0.18 L (0.52-1.04) mg/dL Glucose 104 H (74-99) mg/dL POC Glucose (mg/dL) (75-99) mg/dL Calcium 8.0 L (8.4-10.2) mg/dL Microbiology - Last 24 Hours (Table) 10/20/18 11:50 Gram Stain - Final Sputum Sputum Culture - Final 10/19/18 17:18 Blood Culture - Preliminary Blood No Growth after 48 hours Assessment and Plan Assessment: #1 Acute metabolic encephalopathy secondary to severe hyponatremia with presenting sodium 111. Sodium today is 130, patient clearly had a hypovolemic hyponatremia. #2 Acute hypoxic/hypercapnic respiratory failure due to extensive pulmonary interstitial and airspace infiltrates. There is also extensive bronchial/subcarinal adenopathy noted suspect metastasis doubt primary lung cancer. Presently the patient is not a candidate for any bronchoscopy or surgical procedures. She will not tolerate any of these procedures at this point. Patient was extubated successfully on 10/21/2018, and presently on few liters nasal cannula. #3 Severe hyponatremia with profound weakness. Presenting sodium 111, sodium today is 130. #4 History of laryngeal cancer status post chemo/radiation., Possibly metastatic considering her abnormal CT of the chest. #5 Severe protein calorie malnutrition secondary to above. Patient was placed on Megace today 400 mg daily and requested a consultation with dietitian for nutritional support. #6 History of previous tobacco dependence. #7 anemia of chronic disease is suspected. #8 hypomagnesemia secondary to poor oral intake. #9 acute contraction metabolic alkalosis with respiratory compensation/respiratory acidosis. Recommendation: Continue to monitor in the ICU for the next 24 hours. Continue antibiotics including Zosyn and Levaquin Nutritional support, and dietary consultation, Megace was started. Continue bronchodilators. Continue GI and DVT prophylaxis. Continue present supportive care measures addressing all the different issues above, Continue to monitor her electrolytes and renal profile. And correct accordingly. Consider transferring the patient out of the ICU in the next 24 hours, and she w ill eventually need placement. Physical therapy and rehabilitation. We will continue to follow. Time with Patient: Less than 30
--- NOTE | 2018-10-22 10:47 | P.PN ---
Subjective Progress Note Date: 10/22/18 Principal diagnosis: The patient is a 52-year-old female with a history of laryngeal cancer status post chemo and radiation therapy that was admitted for acute respiratory failure with hypoxia, acute metabolic encephalopathy and symptomatic hyponatremia after presenting with progressive generalized weakness and difficulty breathing. A workup with CT of her chest abdomen pelvis showed extensive bilateral lung infiltrates and consolidation with bilateral bronchial lymph node enlargement and subcarinal lymph node enlargement, initial Arterial blood gases revealed a pO2 of 79, pCO2 of 107 and a pH of 7.13 on 32% FiO2 and the patient was intubated and placed on mechanical ventilator. She was started on empiric IV antibiotics with Levaquin and Zosyn, serum sodium level was profoundly low at 111 the patient was given hypertonic 3% saline at 20 mL an hour and subsequent switched to normal saline with nephrology Dr. Chan consulted to manage the patient's hyponatremia. The patient was sedated on propofol and started on levophed drip to keep map greater than 65. Patient seen and examined in follow-up today, extubated successfully yesterday currently on 4 L via nasal cannula desaturation noted with minimal exertion. The patient mentions lower back pain. White count up to 15.3 from 12.2, serum sodium 1:30 potassium 3.4 today. Hemoglobin at 10.5 stable. The chest x-ray indicating worsening right middle lobe atelectasis and bibasilar airspace disease. No acute events patient afebrile continues to be tachycardic and Neck Objective - Vital Signs Vital signs: Vital Signs Temp 98.1 F 10/22/18 08:00 Pulse 125 H 10/22/18 10:00 Resp 41 H 10/22/18 10:00 BP 107/68 10/22/18 10:00 Pulse Ox 83 L 10/22/18 10:00 Intake & Output 10/21/18 10/22/18 10/22/18 18:59 06:59 18:59 Intake Total 7505.702 1270 890 Output Total 1440 1075 310 Balance 6065.702 195 580 Weight 41.8 kg Intake: IV 240 .9 kvo 240 Intake, IV Titration 7215.702 820 440 Amount Levofloxacin 500Mg-D5w 200 100 Pmx 500 mg In Dextrose/ Water 1 100ml.bag @ 100 mls/hr IVPB Q24H [facility] Rx#: [id number] Magnesium Sulfate-D5w Pmx 200 1 gm In Dextrose/Water 1 100ml.bag @ 66.667 mls/ hr IVPB Q90M [facility] Rx#: [id number] Norepinephrine 4 mg In 25.382 Sodium Chloride 0.9% 250 ml @ 0.05 MCG/KG/MIN 6. 481 mls/hr IV .Q24H [facility] Rx#:[id number] Piperacillin-Tazobactam 3 200 100 100 .375 gm In Sodium Chloride 0.9% 100 ml @ 25 mls/hr IVPB Q12HR [facility] Rx #:[id number] Propofol 1,000 mg In 110.32 Empty Bag 1 bag @ Titrate IV .Q0M [facility] Rx#: [id number] Sodium Chloride 0.9% 1, 6480 720 240 000 ml @ 60 mls/hr IV . [id number] [facility] Rx#:[id number] Oral 450 450 Tube Feeding 50 Output: Urine 1440 1075 310 Other: Voiding Method Indwelling Catheter Indwelling Catheter Indwelling Catheter ABP, PAP, CO, CI - Last Documented Arterial Blood Pressure 75/63 - Exam Constitutional: No acute distress, awake and alert cachectic appearance Eyes: Anicteric sclerae, moist conjunctiva, no lid-lag, PERRLA ENMT: Bilateral temporal wasting oral NC/AT,Oropharynx clear, no erythema, exudates Neck:Supple, FROM, no masses, or JVD, No carotid bruits; No thyromegaly Lungs: Right Mediport subclavian in place no chest wall deformity bibasilar crackles and rhonchi with faint wheezes Cardiovascular: Heart regular in rate and rhythm, No murmurs, gallops, or rubs no peripheral edema Abdominal: Soft Nontender, nom distended, no guarding, no rebound or rigidity, Normoactive bowel sounds No hepatomegaly, No splenomegaly, No palpable mass No abdominal wall hernia noted Skin: Normal temperature, tone, texture, turgor, No induration No subcutaneous nodules, No rash, lesions, No ulcers Extremities:No digital cyanosis No clubbing, Pedal pulses intact and symmetrical Radial pulses intact and symmetrical Normal gait and station, No calf tenderness Neuro: Awake alert following commands no focal deficits appreciated - Labs CBC & Chem 7: 10/22/18 04:46 10/22/18 04:46 Labs: Abnormal Lab Results - Last 24 Hours (Table) 10/21/18 10/21/18 10/22/18 Range/Units 11:52 12:23 04:46 WBC 15.5 H (3.8-10.6) k/uL RBC 3.23 L (3.80-5.40) m/uL Hgb 10.5 L (11.4-16.0) gm/dL Hct 31.6 L (34.0-46.0) % Neutrophils # 14.9 H (1.3-7.7) k/uL Lymphocytes # 0.1 L (1.0-4.8) k/uL ABG pH 7.50 H (7.35-7.45) ABG pCO2 47 H (35-45) mmHg ABG HCO3 36 H (21-25) mmol/L ABG Total CO2 38 H (19-24) mmol/L ABG O2 Saturation 98.2 H (94-97) % Sodium (137-145) mmol/L Potassium (3.5-5.1) mmol/L Chloride (98-107) mmol/L Carbon Dioxide (22-30) mmol/L BUN (7-17) mg/dL Creatinine (0.52-1.04) mg/dL Glucose (74-99) mg/dL POC Glucose (mg/dL) 123 H (75-99) mg/dL Calcium (8.4-10.2) mg/dL 10/22/18 Range/Units 04:46 WBC (3.8-10.6) k/uL RBC (3.80-5.40) m/uL Hgb (11.4-16.0) gm/dL Hct (34.0-46.0) % Neutrophils # (1.3-7.7) k/uL Lymphocytes # (1.0-4.8) k/uL ABG pH (7.35-7.45) ABG pCO2 (35-45) mmHg ABG HCO3 (21-25) mmol/L ABG Total CO2 (19-24) mmol/L ABG O2 Saturation (94-97) % Sodium 130 L (137-145) mmol/L Potassium 3.4 L (3.5-5.1) mmol/L Chloride 88 L (98-107) mmol/L Carbon Dioxide 38 H (22-30) mmol/L BUN 6 L (7-17) mg/dL Creatinine 0.18 L (0.52-1.04) mg/dL Glucose 104 H (74-99) mg/dL POC Glucose (mg/dL) (75-99) mg/dL Calcium 8.0 L (8.4-10.2) mg/dL Microbiology - Last 24 Hours (Table) 10/20/18 11:50 Gram Stain - Final Sputum Sputum Culture - Final 10/19/18 17:18 Blood Culture - Preliminary Blood No Growth after 48 hours Assessment and Plan (1) Acute respiratory failure with hypoxia and hypercapnia Narrative/Plan: * Patient extubated successfully yesterday continues on 4 L via nasal cannula * Patient with a history of smoking has some wheezes will start prednisone * CT of the chest showing pulmonary interstitial and airspace infiltrates po ssible underlying pneumonia * We'll change breathing treatments to DuoNeb's 4 times a day and continue antibiotics Current Visit: Yes Status: Acute Code(s): J96.01 - ACUTE RESPIRATORY FAILURE WITH HYPOXIA; J96.02 - ACUTE RESPIRATORY FAILURE WITH HYPERCAPNIA SNOMED Code(s): 760708956 (2) Hyponatremia Narrative/Plan: * Severe profound hyponatremia on presentation with a sodium of 130 up from 127 up from 117 up from 111 * Previously on hypertonic saline, nephrology following closely * Patient continues on NS at 60 mL/h Current Visit: Yes Status: Acute Code(s): E87.1 - HYPO-OSMOLALITY AND HYPONATREMIA SNOMED Code(s): 71942543 (3) Mediastinal lymphadenopathy Narrative/Plan: * CT of the chest showing extensive bronchial and subcarinal adenopathy * Suspected to be metastatic versus lung primary Current Visit: Yes Status: Acute Code(s): R59.0 - LOCALIZED ENLARGED LYMPH NODES SNOMED Code(s): 71935026 (4) History of laryngeal cancer Narrative/Plan: * Most recent treatment in February 2018 Current Visit: Yes Status: Chronic Code(s): Z85.21 - PERSONAL HISTORY OF MALIGNANT NEOPLASM OF LARYNX SNOMED Code(s): 253365042 (5) Weakness Narrative/Plan: * Secondary to profound hyponatremia Current Visit: Yes Status: Acute Code(s): R53.1 - WEAKNESS SNOMED Code(s): 61283900 (6) Severe protein-energy malnutrition Narrative/Plan: * Patient started on Megace to improve her appetite * Dietitian consult pending Current Visit: Yes Status: Acute Code(s): E43 - UNSPECIFIED SEVERE PROTEIN- CALORIE MALNUTRITION SNOMED Code(s): 231319792 (7) Metabolic encephalopathy Narrative/Plan: * Secondary to hyponatremia Current Visit: Yes Status: Resolved Code(s): G93.41 - METABOLIC ENCEPHALOPATHY SNOMED Code(s): 30328574 (8) Hypokalemia Narrative/Plan: * Continue to monitor daily continued on potassium replacement protocol * We'll replace and recheck Current Visit: Yes Status: Acute Code(s): E87.6 - HYPOKALEMIA SNOMED Code(s): 42352316 Plan: * Successfully extubated yesterday continues to be tachypneic and tachycardic * Continue to monitor closely
[2018-10-22] MEDS: IPRATROPIUM-ALBUTEROL 3 ML NEB INHALATION SCH ×3 (11:01→19:08)
--- NOTE | 2018-10-22 16:30 | XR ---
EXAMINATION TYPE: XR chest 1V DATE OF EXAM: 10/22/2018 CLINICAL HISTORY: Hypoxia. TECHNIQUE: Single AP portable upright view of the chest is obtained. COMPARISON: Chest x-ray from earlier today and older CTs. CTA chest 3 days ago. FINDINGS: Stable right internal jugular Mediport catheter and left sided PICC line. Cardiac silhouet te size is stable and within normal limits. Increasing bibasilar opacities is present. Background chr onic parenchymal change. Osseous structures are demineralized. IMPRESSION: There is persistent small right pleural effusion. There is background chronic emphysemato us change with increasing bilateral lower lung edema and/or infiltrates.
[2018-10-22] MEDS: methylPREDNISolone SOD SUCCI 125 MG/2 ML VIAL IV SCH (18:46)
[2018-10-23] MEDS: PIPERACILLIN-TAZOBACTAM 3.375 GM in SODIUM CHLORIDE 0.9% 100 ML IVPB SCH ×3 (00:08→15:41)
[2018-10-23] MEDS: methylPREDNISolone SOD SUCCI 125 MG/2 ML VIAL IV SCH ×4 (00:08→18:08)
[2018-10-23] MEDS: HEPARIN SODIUM,PORCINE 5,000 UNIT/ML 1 ML VIAL SQ SCH ×3 (00:09→15:42)
[2018-10-23] MEDS: IPRATROPIUM-ALBUTEROL 3 ML NEB INHALATION PRN ×2 (03:05→23:10)
[2018-10-23 04:43] LABS: Basophils % (A) 0 %; Eosinophils % (A) 0 %; HCT 30.6 % (34.0-46.0); HGB 9.9 gm/dL (11.4-16.0); Lymphocytes % (A) 0 %; MCH 31.6 pg (25.0-35.0); MCHC 32.3 g/dL (31.0-37.0); MCV 97.9 fL (80.0-100.0); Mean Platelet Volume 6.7; Monocytes # (A) 0.2 k/uL (0-1.0); Monocytes % (A) 1 %; Neutrophils # (A) 14.1 k/uL (1.3-7.7); Neutrophils % (A) 98 %; Platelet Count 330 k/uL (150-450); RBC 3.13 m/uL (3.80-5.40); WBC 14.4 k/uL (3.8-10.6)
[2018-10-23 04:47] LABS: Anion Gap 2 mmol/L; Blood Urea Nitrogen 7 mg/dL (7-17); Calcium 8.1 mg/dL (8.4-10.2); Carbon Dioxide 39 mmol/L (22-30); Chloride 87 mmol/L (98-107); Glucose 121 mg/dL (74-99); Potassium 4.3 mmol/L (3.5-5.1); Sodium 128 mmol/L (137-145)
[2018-10-23 05:05] LABS: African American GFR (CKD) >90 (>60 ml/min/1.73 sqM)
[2018-10-23] MEDS: PANTOPRAZOLE 40 MG TABLET PO SCH ×2 (06:08→08:26)
[2018-10-23] MEDS ORDERED: PANTOPRAZOLE 40 MG/10 ML VIAL IVP ONE (06:18)
[2018-10-23] MEDS: SODIUM CHLORIDE 0.9% 1,000 ML IV SCH ×3 (07:08→12:00)
--- NOTE | 2018-10-23 07:41 | XR ---
EXAMINATION TYPE: XR chest 1V portable DATE OF EXAM: 10/23/2018 COMPARISON: Prior chest x-ray 10/22/2018 HISTORY: Abnormal chest x-ray TECHNIQUE: Single frontal view of the chest is obtained. FINDINGS: Right Port-A-Cath is present with the distal tip stable overlying the right atrium. Left-s ided PICC line is in place, distal tip is overlying the right atrium. There has been interval increas e in the density at the left lung base. No pneumothorax. Blunting of the costophrenic angles is noted . Bilateral airspace disease is again noted, possibly underlying tumor. Heart is obscured. IMPRESSION: Pleural effusions and associated atelectasis, correlate for edema versus pneumonia, elma guy
[2018-10-23] MEDS: IPRATROPIUM-ALBUTEROL 3 ML NEB INHALATION SCH ×4 (07:54→19:40)
[2018-10-23] MEDS: MEGESTROL 400 MG/10 ML CUP PO SCH (08:26)
[2018-10-23] MEDS: LEVOFLOXACIN 500 MG TAB PO SCH (08:26)
[2018-10-23] MEDS: NOREPINEPHRINE 4 MG in SODIUM CHLORIDE 0.9% 250 ML IV SCH (08:31)
--- NOTE | 2018-10-23 09:30 | US ---
EXAMINATION TYPE: US chest DATE OF EXAM: 10/23/2018 COMPARISON: Chest x-ray 10/23/2018 CLINICAL HISTORY: Markings for thoracentesis by pulmonary staff. TECHNIQUE: Targeted ultrasound of the posterior lower left hemithorax EXAM MEASUREMENTS: Left Pleural Effusion pocket size: 2.3 cm Left skin surface to fluid distance: 1.3 cm Left side marked for possible thoracentesis outside the dept. Pulmonologists are able to review the images in the patient?s EMR. Posterior right chest was not evaluated. IMPRESSIONS: There is a small left pleural effusion.
[2018-10-23] MEDS ORDERED: SODIUM CHLORIDE 0.9% 1,000 ML IV SCH (10:40)
[2018-10-23] MEDS ORDERED: FUROSEMIDE 10 MG/ML 2 ML VIAL IV ONE (10:44)
--- NOTE | 2018-10-23 11:01 | P.PN ---
Subjective Patient is seen in follow-up for hyponatremia. Sodium level is 128 today. She is currently maintained on normal saline at 100 mL an hour. She is requiring more oxygen. There concern for aspiration. Vital signs are stable. General: The patient appeared well nourished and normally developed. HEENT: Head exam is unremarkable. Neck is without jugular venous distension. LUNGS: Breath sounds decreased. HEART: Rate and Rhythm are regular. First and second heart sounds normal. No murmurs, rubs or gallops. ABDOMEN: Abdominal exam reveals normal bowel sounds. Non-tender and non- distended. No evidence of peritonitis. EXTREMITITES: No clubbing, cyanosis, or edema. Objective - Vital Signs Vital signs: Vital Signs Temp 97.5 F L 10/23/18 08:00 Pulse 122 H 10/23/18 10:00 Resp 40 H 10/23/18 10:00 BP 115/83 10/23/18 10:00 Pulse Ox 87 L 10/23/18 10:00 Intake & Output 10/22/18 10/23/18 10/23/18 18:59 06:59 18:59 Intake Total 2730 1690 400 Output Total 1130 1040 170 Balance 1600 650 230 Weight 41.8 kg 43.1 kg Intake: Intake, IV Titration 1440 1250 400 Amount Levofloxacin 500Mg-D5w 100 Pmx 500 mg In Dextrose/ Water 1 100ml.bag @ 100 mls/hr IVPB Q24H [facility] Rx#: [id number] Piperacillin-Tazobactam 3 100 100 .375 gm In Sodium Chloride 0.9% 100 ml @ 25 mls/hr IVPB Q12HR [facility] Rx #:[id number] Piperacillin-Tazobactam 3 200 100 .375 gm In Sodium Chloride 0.9% 100 ml @ 25 mls/hr IVPB Q8HR [facility] Rx# :[id number] Sodium Chloride 0.9% 1, 800 1150 300 000 ml @ 100 mls/hr IV . Q10H [facility] Rx#:[id number] Sodium Chloride 0.9% 1, 240 000 ml @ 60 mls/hr IV . [id number] [facility] Rx#:[id number] Oral 1290 440 Output: Urine 1130 1040 170 Other: Voiding Method Indwelling Catheter Indwelling Catheter Indwelling Catheter ABP, PAP, CO, CI - Last Documented Arterial Blood Pressure 75/63 - Labs CBC & Chem 7: 10/23/18 04:28 10/23/18 04:28 Labs: Abnormal Lab Results - Last 24 Hours (Table) 10/23/18 10/23/18 Range/Units 04:28 04:28 WBC 14.4 H (3.8-10.6) k/uL RBC 3.13 L (3.80-5.40) m/uL Hgb 9.9 L (11.4-16.0) gm/dL Hct 30.6 L (34.0-46.0) % Neutrophils # 14.1 H (1.3-7.7) k/uL Lymphocytes # 0.0 L (1.0-4.8) k/uL Sodium 128 L (137-145) mmol/L Chloride 87 L (98-107) mmol/L Carbon Dioxide 39 H (22-30) mmol/L Creatinine <0.15 L (0.52-1.04) mg/dL Glucose 121 H (74-99) mg/dL Calcium 8.1 L (8.4-10.2) mg/dL Microbiology - Last 24 Hours (Table) 10/19/18 17:18 Blood Culture - Preliminary Blood No Growth after 72 hours 10/20/18 11:50 Gram Stain - Final Sputum Sputum Culture - Final Assessment and Plan Plan: Assessment: 1. Hypervolemic hyponatremia initially improved with IV hydration. Sodium level was 130 yesterday and is 128 today. 2. Mild hypokalemia from poor oral intake and steroids. Improved. 3. Laryngeal cancer. 4. Possible aspiration. May require PEG tube placement. 5. Small left pleural effusion. Plan: I will decrease the rate of normal saline to 60 mL an hour. 1200 mL fluid restriction. Lasix 20 mg IV once today. Repeat electrolytes in the morning.
--- NOTE | 2018-10-23 11:38 | PN ---
PROGRESS NOTE PULMONARY/CRITICAL CARE PROGRESS NOTE: DATE OF SERVICE: October 23, 2018 CRITICAL CARE TIME: 31 minutes. This is a 52-year-old female who looks much older than her stated age who was admitted back on October 19, 2018. She apparently came in with a number of issues including mental status changes from acute metabolic encephalopathy and hyponatremia with a presenting sodium of 111, as well as acute hypoxemic and hypercapnic respiratory failure secondary to possible pneumonia. The patient was intubated on the and extubated subsequently on the . The patient also has a history of laryngeal carcinoma, status post chemoradiation, with her last treatment being in February 2018, severe protein calorie malnutrition, hypovolemic hyponatremia, previous tobacco dependence, anemia of chronic disease, electrolyte disturbance and contraction metabolic alkalosis. Anyway, the patient is doing better currently. As I said she was admitted on the . She was intubated for a brief period of time about a day or so and extubated on the . The patient's sodium has improved. Currently, she is on 15 L high flow. She will sometimes be on BiPAP at 12 and 4 and 60%. Her IV saline at 100 mL an hour. The patient was not real clear about who her physician was. She apparently sees somebody in [place]. Anyway, the patient is doing better since being here in the intensive care unit. She was seen by my partner yesterday. He recommended continuing ICU monitoring including antibiotics which were Zosyn and Levaquin, nutritional support, bronchodilators, GI and DVT prophylaxis as well as some other issues. PHYSICAL EXAMINATION: VITAL SIGNS: Current vital signs are reviewed. Temperature is 97.5, heart rate 118, respiratory rate is in the high 20s, blood pressure 105/79, mean 87, saturations are 90%. GENERAL: She appears in no acute distress. She is mildly tachypneic. No audible wheezing. No use of accessory muscles. She is very cachectic appearing. HEENT: Examination is grossly unremarkable. NECK: Supple. Full range of motion. No adenopathy or thyromegaly. No neck vein distention. CARDIOVASCULAR: Examination reveals regular rhythm and rate. Heart rate about 100 beats per minute. It is regular. LUNGS: Reveal a few scattered coarse rhonchi. No wheezes. A few scattered crackles are appreciated. Breath sounds are diminished throughout. ABDOMEN: Soft, Bowel sounds are heard. EXTREMITIES: Are intact. No cyanosis, clubbing, or edema. SKIN: Without rash. NEUROLOGIC: Examination is brief but non focal. LAB DATA: Lab data is reviewed. White count 14.4, hemoglobin 9.9, hematocrit 30.6, platelet count 330,000. Sodium 128, potassium 4.3, chloride 87, CO2 of 39. Anion gap is 2. BUN and creatinine were 7 and 0.15. Calcium 8.1. MICROBIOLOGY: Sputum and blood are both negative. Chest x-ray shows bilateral pleural effusions, right greater than left. There is also bibasilar airspace disease. We did an ultrasound of the chest and it showed very small right-sided effusion, not worth doing a thoracentesis on. MEDICATIONS: Medications are reviewed. She is currently on subcu heparin, Avenue, updrafts with DuoNeb, Levaquin p.o., magnesium replacement, Megace, Solu-Medrol, morphine, Narcan, Protonix, Zosyn, potassium replacement and her IV. ASSESSMENT: 1. Acute metabolic encephalopathy, in large part related to the patient's hyponatremia, which was determined to be hypovolemic hyponatremia. Current sodium is 128. 2. Acute hypoxemic hypercapnic respiratory failure secondary to effusion and possible underlying pneumonia, status post intubation on the 13 and extubation 14rh. 3. Ongoing hypoxemic respiratory failure, requiring both high-flow oxygen therapy and BiPAP therapy. 4. Severe hyponatremia, improved. 5. History of laryngeal carcinoma, status post chemoradiation, possibly metastatic, with her last chemoradiation treatments in February of this year. 6. Severe protein-calorie malnutrition and inanation. 7. History of previous tobacco dependence. 8. Anemia of chronic disease. 9. Electrolyte disturbance including hypomagnesemia. 10.Contraction metabolic alkalosis. 11.Chronic anorexia cachexia syndrome. 12.Significantly poor dentition with caries. PLAN: The patient is doing a bit better. We will continue to follow closely. No additional recommendations are made. Additional recommendations and suggestions are forthcoming. We will continue with antibiotics. She will use BiPAP as needed. Overall prognosis remains poor. The CT scan of the chest showed no evidence of pulmonary embolism, but extensive bronchial adenopathy raising the suspicion of either reactive adenopathy from pneumonia and/or metastatic cancer. There are also changes of COPD. We will continue to follow. Prognosis is guarded. Critical care time is 31 minutes. RAMANA / IJN: [id number] / MTDD
[2018-10-23] MEDS ORDERED: FUROSEMIDE 10 MG/ML 10 ML VIAL IV STA (11:45)
[2018-10-23 12:04] LABS: Glucose,Whole Blood 95 mg/dL (75-99)
--- NOTE | 2018-10-23 15:58 | P.GSCN ---
History of Present Illness Consult date: 10/23/18 Reason for Consult: dysphagia, PEG tube placement Requesting physician: Karen Doran History of present illness: CHIEF COMPLAINT: Dysphagia HISTORY OF PRESENT ILLNESS: 52 year old female with a history of laryngeal carcinoma who was admitted to the hospital with respiratory failure. Patient is currently on a BiPAP. She has been having issues with dysphagia. She was unable to keep BiPap off long enough to complete a swallow evaluation. General surgery was consulted for PEG tube placement PAST MEDICAL HISTORY: See list. PAST SURGICAL HISTORY: See list. SOCIAL HISTORY: No illicit drug use. REVIEW OF SYSTEMS: CONSTITUTIONAL: Denies fever or chills. HEENT: Denies blurred vision, vision changes, or eye pain. Denies hemoptysis CARDIOVASCULAR: Denies chest pain or pressure. RESPIRATORY: Reports occasional shortness of breath. GASTROINTESTINAL: Refer to HPI for pertinent findings HEMATOLOGIC: Denies bleeding disorders. GENITOURINARY: Denies any blood in urine. SKIN: Denies pruitis. Denies rash. PHYSICAL EXAM: VITAL SIGNS: Reviewed. GENERAL: Well-developed in no acute distress-on BiPap. HEENT: No sclera icterus. Extraocular movements grossly intact. Moist buccal mucosa. Head is atraumatic, normocephalic. ABDOMEN: Soft. Nondistended. Nontender. NEUROLOGIC: Alert and oriented. Cranial nerves II through XII grossly intact. LABORATORY DATA: WBC 14.4 Hemoglobin 9.9 ASSESSMENT: 1. Dysphagia 2. History of laryngeal carcinoma 3. Severe protein calorie malnutrition PLAN: NPO. Patient to undergo PEG tube placement tomorrow with Dr. Montesinos. Nurse practitioner note has been reviewed by physician. Signing provider agrees with the documented findings, assessment, and plan of care. Past Medical History Past Medical History: Cancer Additional Past Medical History / Comment(s): Laryngeal cancer: radiation and chemo completed in 02/2018; ectopic History of Any Multi-Drug Resistant Organisms: None Reported Past Surgical History: Tubal Ligation Past Anesthesia/Blood Transfusion Reactions: No Reported Reaction Past Psychological History: No Psychological Hx Reported Smoking Status: Former smoker Past Alcohol Use History: None Reported Past Drug Use History: None Reported - Past Family History Mother Family Medical History: Coronary Artery Disease (CAD), Diabetes Mellitus Father Family Medical History: CVA/TIA, Myocardial Infarction (SC) Additional Family Medical History / Comment(s): Emphsema, passed due to SC Medications and Allergies Home Medications Medication Instructions Recorded Confirmed Type Ibuprofen [Advil] 200 mg PO Q8HR PRN 10/19/18 10/19/18 History guaiFENesin [Mucinex] 600 mg PO BID PRN 10/19/18 10/19/18 History Allergies Allergy/AdvReac Type Severity Reaction Status Date / Time Beef Containing Products AdvReac No reaction Verified 10/21/18 16:39 [Beef] Fish Containing Products AdvReac No reaction Verified 10/21/18 16:39 [Fish] Pork/Porcine Containing AdvReac No reaction Verified 10/21/18 16:39 Products [Pork] Surgical - Exam Vital Signs Temp Pulse Resp BP Pulse Ox 98.8 F 115 H 17 121/91 79 L 10/19/18 17:02 10/19/18 17:02 10/19/18 17:02 10/19/18 17:02 10/19/18 17:02 Results - Labs 10/23/18 04:28 10/23/18 04:28 Abnormal Lab Results - Last 24 Hours (Table) 10/23/18 10/23/18 Range/Units 04:28 04:28 WBC 14.4 H (3.8-10.6) k/uL RBC 3.13 L (3.80-5.40) m/uL Hgb 9.9 L (11.4-16.0) gm/dL Hct 30.6 L (34.0-46.0) % Neutrophils # 14.1 H (1.3-7.7) k/uL Lymphocytes # 0.0 L (1.0-4.8) k/uL Sodium 128 L (137-145) mmol/L Chloride 87 L (98-107) mmol/L Carbon Dioxide 39 H (22-30) mmol/L Creatinine <0.15 L (0.52-1.04) mg/dL Glucose 121 H (74-99) mg/dL Calcium 8.1 L (8.4-10.2) mg/dL Microbiology - Last 24 Hours (Table) 10/19/18 17:18 Blood Culture - Preliminary Blood No Growth after 72 hours Diabetes panel 10/23/18 Range/Units 04:28 Sodium 128 L (137-145) mmol/L Potassium 4.3 (3.5-5.1) mmol/L Chloride 87 L (98-107) mmol/L Carbon Dioxide 39 H (22-30) mmol/L BUN 7 (7-17) mg/dL Creatinine <0.15 L (0.52-1.04) mg/dL Glucose 121 H (74-99) mg/dL Calcium 8.1 L (8.4-10.2) mg/dL Calcium panel 10/23/18 Range/Units 04:28 Calcium 8.1 L (8.4-10.2) mg/dL Pituitary panel 10/23/18 Range/Units 04:28 Sodium 128 L (137-145) mmol/L Potassium 4.3 (3.5-5.1) mmol/L Chloride 87 L (98-107) mmol/L Carbon Dioxide 39 H (22-30) mmol/L BUN 7 (7-17) mg/dL Creatinine <0.15 L (0.52-1.04) mg/dL Glucose 121 H (74-99) mg/dL Calcium 8.1 L (8.4-10.2) mg/dL Adrenal panel 10/23/18 Range/Units 04:28 Sodium 128 L (137-145) mmol/L Potassium 4.3 (3.5-5.1) mmol/L Chloride 87 L (98-107) mmol/L Carbon Dioxide 39 H (22-30) mmol/L BUN 7 (7-17) mg/dL Creatinine <0.15 L (0.52-1.04) mg/dL Glucose 121 H (74-99) mg/dL Calcium 8.1 L (8.4-10.2) mg/dL
--- NOTE | 2018-10-23 17:28 | P.PN ---
Subjective Progress Note Date: 10/23/18 (Delayed charting seen at 12:30) Principal diagnosis: Weakness and sleeping more than often than normal Patient is a 52-year-old female with a past medical history of lar yngeal cancer status post chemo and radiation, and history of tobacco abuse who presented to the emergency department with weakness and difficulty staying awake. Patient underwent treatment for laryngeal cancer in February 2018. Since that point in time she been having difficulty swallowing in his been tolerating pudding. She's become severely cachectic and weak. In the ER she underwent an extensive evaluation. She was found to have a sodium of 111, she underwent an acute abdominal series which was nonspecific. She underwent a CT of the chest which showed emphysema with extensive pulmonary interstitial infiltrates as well as multiple enlarged lymph nodes. In the emergency department she was having respiratory distress and appeared stridorous was subsequently admitted to the ICU. Initially she was 90% on 4 L nasal cannula and was found to be significantly acidotic with a pH of 7.13. She was subsequently intubated and placed on mechanical ventilation. She was seen by critical care. Due to her hypotension she required norepinephrine. She was also seen by nephrology due to her low sodiums. She did receive 3% normal saline due to her altered mentation. She was started on empiric IV antibiotics for possible pneumonia of Levaquin and Zosyn. She was transitioned from 3% saline to normal saline. She was extubated on 10/21 without any difficulties. She then developed significant respiratory distress on the morning of 10/23 and required BiPAP. Patient seen and examined at bedside. She complains of shortness of breath, no nausea, no vomiting, her throat is very dry. She reports that she was seen in oncology out of [facility]. She is unsure if she's followed up in the last several months. She was unable to tell me if she's had any repeat imaging. She initially denies any difficulty in swallowing and just states that all her teeth were pulled so she could only have pudding. Objective - Vital Signs Vital signs: Vital Signs Temp 97.5 F L 10/23/18 12:00 Pulse 122 H 10/23/18 15:37 Resp 33 H 10/23/18 14:00 BP 100/73 10/23/18 14:00 Pulse Ox 90 L 10/23/18 14:00 Intake & Output 10/22/18 10/23/18 10/23/18 18:59 06:59 18:59 Intake Total 2730 1690 520 Output Total 1130 1040 2250 Balance 1600 650 -1730 Weight 41.8 kg 43.1 kg Intake: Intake, IV Titration 1440 1250 520 Amount Levofloxacin 500Mg-D5w 100 Pmx 500 mg In Dextrose/ Water 1 100ml.bag @ 100 mls/hr IVPB Q24H [facility] Rx#: [id number] Piperacillin-Tazobactam 3 100 100 .375 gm In Sodium Chloride 0.9% 100 ml @ 25 mls/hr IVPB Q12HR [facility] Rx #:[id number] Piperacillin-Tazobactam 3 200 100 .375 gm In Sodium Chloride 0.9% 100 ml @ 25 mls/hr IVPB Q8HR [facility] Rx# :[id number] Sodium Chloride 0.9% 1, 800 1150 350 000 ml @ 100 mls/hr IV . Q10H [facility] Rx#:[id number] Sodium Chloride 0.9% 1, 70 000 ml @ 20 mls/hr IV . Q24H [facility] Rx#:[id number] Sodium Chloride 0.9% 1, 240 000 ml @ 60 mls/hr IV . [id number] [facility] Rx#:[id number] Oral 1290 440 Output: Urine 1130 1040 2250 Other: Voiding Method Indwelling Catheter Indwelling Catheter Indwelling Catheter ABP, PAP, CO, CI - Last Documented Arterial Blood Pressure 75/63 - Exam General: Ill-appearing, cachectic, appears older than stated age, temporal wasting Derm: warm, dry Head: atraumatic, normocephalic, symmetric Eyes: EOMI, no lid lag, anicteric sclera Mouth: no lip lesion, mucus membranes dry Cardiovascular: S1S2 reg, no murmur, positive posterior tibial pulse bilateral, Lungs: Course breath sounds bilateral,, + accessory muscle use, on BiPAP Abdominal: soft, nontender to palpation, no guarding, no appreciable organomegaly Ext: + gross muscle atrophy, no edema, no contractures Neuro: CN II-XI grossly intact, no focal neuro deficits Psych: Alert, oriented, appropriate affect - Labs CBC & Chem 7: 10/23/18 04:28 10/23/18 04:28 Labs: Abnormal Lab Results - Last 24 Hours (Table) 10/23/18 10/23/18 Range/Units 04:28 04:28 WBC 14.4 H (3.8-10.6) k/uL RBC 3.13 L (3.80-5.40) m/uL Hgb 9.9 L (11.4-16.0) gm/dL Hct 30.6 L (34.0-46.0) % Neutrophils # 14.1 H (1.3-7.7) k/uL Lymphocytes # 0.0 L (1.0-4.8) k/uL Sodium 128 L (137-145) mmol/L Chloride 87 L (98-107) mmol/L Carbon Dioxide 39 H (22-30) mmol/L Creatinine <0.15 L (0.52-1.04) mg/dL Glucose 121 H (74-99) mg/dL Calcium 8.1 L (8.4-10.2) mg/dL Microbiology - Last 24 Hours (Table) 10/19/18 17:18 Blood Culture - Preliminary Blood No Growth after 72 hours Assessment and Plan Assessment: Hypovolemic hyponatremia with resultant metabolic encephalopathy -IV fluids completed -Nephrology recommendations -Status post 3% normal saline Acute on chronic hypoxic respiratory failure secondary to suspected pneumonia, possible gram negative -Continue with Zosyn, Levaquin -Pulmonary hygiene -Follow chest x-ray until clear -Pulmonary recommendations appreciated Pulmonary lymphadenopathy, likely secondary to known prior laryngeal cancer -Await records from [facility] -We'll need urgent follow-up with her oncologist at [facility] Severe protein calorie malnutrition with cachexia and BMI of 14.9 -Was started on Megace -General surgery has been consulted for possible PEG tube placement - Needs to be monitored closely for signs of refeeding syndrome -Dietary recommendations Anemia, likely dilutional -Stable -Outpatient follow-up -Follow intermittent CBC Hypomagnesemia, resolved Hypokalemia, resolved DVT prophylaxis: SCDs Discussed with: Patient, nursing, social work Anticipated discharge: 3-[address]: home vs SNF A total of 35 minutes was spent on the care of this complex patient more than 50% of the time was spent in counseling and care coordination.
[2018-10-23 18:07] LABS: Glucose,Whole Blood 130 mg/dL (75-99)
[2018-10-23 23:59] LABS: Glucose,Whole Blood 114 mg/dL (75-99)
[2018-10-24] MEDS: HEPARIN SODIUM,PORCINE 5,000 UNIT/ML 1 ML VIAL SQ SCH ×4 (00:12→23:27)
[2018-10-24] MEDS: PIPERACILLIN-TAZOBACTAM 3.375 GM in SODIUM CHLORIDE 0.9% 100 ML IVPB SCH ×4 (00:13→23:28)
[2018-10-24] MEDS: methylPREDNISolone SOD SUCCI 125 MG/2 ML VIAL IV SCH ×5 (00:13→23:27)
[2018-10-24] MEDS: NOREPINEPHRINE 4 MG in SODIUM CHLORIDE 0.9% 250 ML IV SCH (02:09)
[2018-10-24] MEDS: IPRATROPIUM-ALBUTEROL 3 ML NEB INHALATION PRN (03:28)
[2018-10-24 04:22] LABS: HCT 30.5 % (34.0-46.0); HGB 10.1 gm/dL (11.4-16.0); MCH 32.3 pg (25.0-35.0); MCHC 33.1 g/dL (31.0-37.0); MCV 97.5 fL (80.0-100.0); Platelet Count 303 k/uL (150-450); RBC 3.13 m/uL (3.80-5.40)
[2018-10-24 04:56] LABS: African American GFR (CKD) >90 (>60 ml/min/1.73 sqM); Blood Urea Nitrogen 14 mg/dL (7-17); Calcium 8.8 mg/dL (8.4-10.2); Chloride 84 mmol/L (98-107); Glucose 107 mg/dL (74-99); Magnesium 1.8 mg/dL (1.6-2.3); Phosphorus 3.8 mg/dL (2.5-4.5); Potassium 3.7 mmol/L (3.5-5.1); Sodium 133 mmol/L (137-145)
[2018-10-24 05:03] LABS: Anion Gap 4 mmol/L
[2018-10-24 05:13] LABS: Carbon Dioxide 45 mmol/L (22-30)
[2018-10-24] MEDS: MAGNESIUM SULFATE-D5W PMX 1 GM in DEXTROSE/WATER 1 100ML.BAG IVPB SCH ×2 (05:46→06:55)
[2018-10-24] MEDS: POTASSIUM CHLORIDE 10 MEQ in WATER FOR INJECTION 1 100ML.BAG IVPB SCH ×2 (05:47→06:55)
[2018-10-24 05:56] LABS: Glucose,Whole Blood 97 mg/dL (75-99)
[2018-10-24] MEDS: PANTOPRAZOLE 40 MG/10 ML VIAL IVP SCH ×2 (06:55→09:30)
[2018-10-24] MEDS: IPRATROPIUM-ALBUTEROL 3 ML NEB INHALATION SCH ×4 (07:35→19:05)
--- NOTE | 2018-10-24 08:11 | XR ---
EXAMINATION TYPE: XR chest 1V portable DATE OF EXAM: 10/24/2018 COMPARISON: Prior chest x-ray dated 10/23/2018 HISTORY: Abnormal chest x-ray TECHNIQUE: Single frontal view of the chest is obtained. FINDINGS: Patient is rotated. Findings are similar. Central venous catheters are unchanged. There is some improvement in aeration in the left upper lobe and possibly right upper lobe. Bibasilar increas ed density persists. Heart size is likely stable. There are overlying cardiac leads. IMPRESSION: Suspect some improvement in aeration in the upper lobes.
[2018-10-24] MEDS: MEGESTROL 400 MG/10 ML CUP PO SCH (08:52)
[2018-10-24] MEDS: LEVOFLOXACIN 500 MG TAB PO SCH (08:53)
[2018-10-24] MEDS: LEVOFLOXACIN 500MG-D5W PMX 500 MG in DEXTROSE/WATER 1 100ML.BAG IVPB SCH (09:31)
--- NOTE | 2018-10-24 10:03 | PN ---
PROGRESS NOTE DATE OF SERVICE: 10/24/2018 This is a 52-year-old female who was admitted back on October 19, 2018. She came in with a number of issues including mental status changes from acute metabolic encephalopathy, as well as hyponatremia with a presenting sodium of 111 and as well as acute hypoxemic and hypercapnic respiratory failure secondary to pneumonia. The patient was intubated for a brief period of time and extubated on 10/21. The patient has a history of laryngeal carcinoma, status post chemoradiation. Her last treatments were in February 2018. In addition, she has severe protein calorie malnutrition, hypovolemic hyponatremia, previous tobacco dependence, anemia of chronic disease, electrolyte disturbance and contraction metabolic alkalosis. The patient was to have a PEG tube today. Apparently she is refusing and a Dobbhoff tube will be placed instead. She is currently on BiPAP of 14 and 6. On 100%, her saturations were excellent. I have asked him to start titrating the FiO2 down and accept saturations in the mixed 80s. She is a patient with chronic hypercapnic respiratory failure and her baseline PACO2 is in the 70 range. She is getting saline at KVO. We are going to change her p.o. Levaquin to IV Levaquin. We are going to recommend TPN if the Dobbhoff tube cannot be placed or is refused. Currently, she is n.p.o. We are going to wean the FiO2 as mentioned above. Current vital signs are reviewed. Temperature 97.5, heart rate 100, respiratory rate in the high 20s, low 30s, blood pressure 113/84 mean 93, saturations are in the mid 90s. Appears in no acute distress. She is mildly tachypneic. HEENT: Examination is grossly unremarkable. BiPAP mask in place. NECK: Supple. Full range of motion. No adenopathy. Neck veins are flat. CARDIOVASCULAR: Examination reveals mild tachycardia. Heart rate about 103 beats per minute. S1, S2 normal. Heart rate is regular. LUNGS: Reveal coarse diffuse bilateral rhonchi. Some crackles. Expiratory wheezes. Breath sounds are diminished throughout. ABDOMEN: Soft. Bowel sounds are heard. No masses. EXTREMITIES: Intact. No cyanosis, clubbing, or edema. SKIN: Without rash. NEUROLOGIC: Examination is brief but nonfocal. She is very hard of hearing. CHEST X-RAY: Was done this morning. Compared to yesterday's x-ray, she does have minimal improvement in the oxygenation and aeration. She does have some improvement in the aeration in the upper lobes. Microbiologic studies are thus far negative. LABS: Reviewed. White count 10, hemoglobin 10.1, hematocrit 30.5, platelet count 303,000. Sodium 133, potassium 3.7, chloride 94, CO2 of 45. Anion gap is 4. BUN and creatinine were 14 and 0.22. Medications are reviewed. They all appeared to be appropriate. We did switch the Levaquin to IV. She is also getting Zosyn. The rest of her medications are appropriate. They were evaluated accordingly. ASSESSMENT: 1. Acute metabolic encephalopathy, in large part related to the patient's hyponatremia, which was determined to be hypovolemic hyponatremia, which has significantly improved. 2. Acute hypoxemic and hypercapnic respiratory failure secondary to pneumonia, status post intubation on 10/20 and subsequent extubation on 10/21. 3. Ongoing hypoxemic respiratory failure, requiring BiPAP therapy with high FiO2. 4. Severe hypovolemic hyponatremia, much improved. 5. History of laryngeal carcinoma, status post chemo radiation, possibly metastatic with her last chemo radiation treatments in February of 2018. 6. Severe protein/calorie malnutrition and inanition. 7. History of previous tobacco dependence. 8. Anemia of chronic disease. 9. Electrolyte disturbances including hypomagnesemia. 10.Contraction metabolic alkalosis. 11.Anorexia cachexia syndrome, chronic. 12.Significantly poor dentition with dental caries. PLAN: The patient will have a Dobbhoff tube placed. She refused a PEG tube. Will switch the Levaquin from p.o. to IV. If she cannot have a Dobbhoff placed, will put her on TPN. Currently, she will be n.p.o. Head of bed elevated at all times. Aspiration precautions. She is getting 0.9 IV KVO. I have asked the nurses to titrate down the FiO2 so that her saturations are in the mid 80s and no higher than about 90%. Will continue to follow. Prognosis is very guarded. Code status has been addressed, but apparently she maybe does understand what we are saying to her. MMODL / IJN: [id number] /
[2018-10-24] MEDS ORDERED: HYDROmorphone 0.5 MG/0.5 ML SYRINGE IVP PRN (10:15)
--- NOTE | 2018-10-24 11:36 | P.PN ---
Subjective Patient is seen in follow-up for hyponatremia. Sodium level is 133 today. She is off IVFs. Not able to tolerate oral intake due to concern for aspiration. Vital signs are stable. General: The patient appeared well nourished and normally developed. HEENT: Head exam is unremarkable. Neck is without jugular venous distension. LUNGS: Breath sounds decreased. HEART: Rate and Rhythm are regular. First and second heart sounds normal. No murmurs, rubs or gallops. ABDOMEN: Abdominal exam reveals normal bowel sounds. Non-tender and non-distended. No evidence of peritonitis. EXTREMITITES: No clubbing, cyanosis, or edema. Objective - Vital Signs Vital signs: Vital Signs Temp 97.5 F L 10/24/18 08:00 Pulse 105 H 10/24/18 11:24 Resp 26 H 10/24/18 11:00 BP 96/71 10/24/18 11:00 Pulse Ox 99 10/24/18 11:00 Intake & Output 10/23/18 10/24/18 10/24/18 18:59 06:59 18:59 Intake Total 700 240 660 Output Total 3150 510 175 Balance -2450 -270 485 Weight 48.2 kg 48.2 kg Intake: IV 220 460 .9 kvo 220 60 Magnesium Sulfate-D5w Pmx 200 1 gm In Dextrose/Water 1 100ml.bag @ 100 mls/hr IVPB Q1H [facility] Rx#: [id number] Potassium Chloride 10 meq 200 In Water For Injection 1 100ml.bag @ 100 mls/hr IVPB Q1H [facility] Rx#: [id number] Intake, IV Titration 700 20 200 Amount Levofloxacin 500Mg-D5w 100 Pmx 500 mg In Dextrose/ Water 1 100ml.bag @ 100 mls/hr IVPB Q24H [facility] Rx#: [id number] Piperacillin-Tazobactam 3 200 100 .375 gm In Sodium Chloride 0.9% 100 ml @ 25 mls/hr IVPB Q8HR [facility] Rx# :[id number] Sodium Chloride 0.9% 1, 350 000 ml @ 100 mls/hr IV . Q10H [facility] Rx#:[id number] Sodium Chloride 0.9% 1, 150 20 000 ml @ 20 mls/hr IV . Q24H [facility] Rx#:[id number] Output: Urine 3150 510 175 Other: Voiding Method Indwelling Catheter Indwelling Catheter ABP, PAP, CO, CI - Last Documented Arterial Blood Pressure 75/63 - Labs CBC & Chem 7: 10/24/18 04:12 10/24/18 04:12 Labs: Abnormal Lab Results - Last 24 Hours (Table) 10/23/18 10/23/18 10/24/18 Range/Units 17:55 23:47 04:12 RBC 3.13 L (3.80-5.40) m/uL Hgb 10.1 L (11.4-16.0) gm/dL Hct 30.5 L (34.0-46.0) % Sodium (137-145) mmol/L Chloride (98-107) mmol/L Carbon Dioxide (22-30) mmol/L Creatinine (0.52-1.04) mg/dL Glucose (74-99) mg/dL POC Glucose (mg/dL) 130 H 114 H (75-99) mg/dL 10/24/18 Range/Units 04:12 RBC (3.80-5.40) m/uL Hgb (11.4-16.0) gm/dL Hct (34.0-46.0) % Sodium 133 L (137-145) mmol/L Chloride 84 L (98-107) mmol/L Carbon Dioxide 45 H* (22-30) mmol/L Creatinine 0.22 L (0.52-1.04) mg/dL Glucose 107 H (74-99) mg/dL POC Glucose (mg/dL) (75-99) mg/dL Microbiology - Last 24 Hours (Table) 10/19/18 17:18 Blood Culture - Preliminary Blood No Growth after 96 hours Assessment and Plan Plan: Assessment: 1. Hypovolemic hyponatremia initially improved with IV hydration. Sodium level was 133 today. 2. Mild hypokalemia from poor oral intake and steroids. Improved. 3. Laryngeal cancer. 4. Possible aspiration. Refused PEG tube. Potential dobhoff placement today. 5. Small left pleural effusion. 6. Metabolic alkalosis. This can be due to Lasix given yesterday and also compensatory for respiratory acidosis. Plan: Swallow eval pending. Tube feeding may be started today. I will give her 2 doses of Diamox today.
[2018-10-24] MEDS ORDERED: acetaZOLAMIDE 250 MG TAB PO SCH (11:45)
[2018-10-24 12:35] LABS: Glucose,Whole Blood 84 mg/dL (75-99)
--- NOTE | 2018-10-24 13:39 | CONS ---
CONSULTATION DATE OF CONSULTATION: 10/23/2018 CHIEF COMPLAINT: Generalized fatigue and lethargy. The patient is a 52-year-old female who presented with a history of laryngeal cancer status post chemo and radiation therapy. The patient was admitted as an inpatient for acute hyponatremia with lethargy and generalized fatigue and severe malnutrition. She was admitted to the ICU where her hyponatremia was corrected. She then became hypoxic and was intubated and she currently is on CPAP following extubation. I have been asked to consult on whether any odontogenic infection or source is causing pulmonary infiltrates that were noted on CT scan. The patient states that she has no current dental pain. She did have a molar removed approximately one year ago by dentist. The tooth was removed from the posterior left mandible. She states that she has been getting bone chips pushing through over the last several months. However, none of her teeth at this time hurt and she has had no episodes of swelling. Her labs are significant for an elevated white count of 15.5. PHYSICAL EXAMINATION: Physical examination reveals the patient to be resting in bed without utilizing CPAP. The patient has difficulty talking. The patient was transferred to nasal cannula while the examination was performed. There is no facial swelling or swelling of the neck. There is no obvious lymphadenopathy. Intraoral examination reveals the patient to be edentulous in the maxilla and has only anterior mandibular teeth. In the area of tooth #18 the lingual aspect reveals bony spicules. There is no purulence and there is no significant adjacent swelling to this region. The area is mildly tender to palpation. There is no swelling of the floor of the mouth or in the oropharynx. ASSESSMENT: 1. Acute metabolic encephalopathy. 2. Acute hyponatremia. 3. Acute respiratory failure. 4. Malnutrition. 5. History of laryngeal cancer, status post chemotherapy and radiation. PLAN: There is no dental treatment required at this time. The bony spicules will continue to exfoliate on their own. The patient will follow up with me as an outpatient as needed. There is no obvious odontogenic source for pulmonary infiltrates or an elevated white count. MMODL / IJN: [id number] /
[2018-10-24] MEDS ORDERED: HYDROmorphone 1 MG/ML 1 ML SYRINGE IVP STA (14:07)
--- NOTE | 2018-10-24 14:23 | P.PN ---
Progress Note - Text Progress Note Date: 10/24/18 Patient now refusing PEG tube insertion. We will sign off. Please reconsult if needed.
[2018-10-24] MEDS ORDERED: MVI, ADULT NO.4 WITH VIT K 10 ML, TRACE (CONC-1ML/DOSE) 1 ML in AMINO ACID 5%-D15W+LYTE... IV SCH ×3 (16:00)
[2018-10-24 16:14] LABS: ALT 25 U/L (9-52); AST 17 U/L (14-36); African American GFR (CKD) >90 (>60 ml/min/1.73 sqM); Albumin 2.6 g/dL (3.5-5.0); Alkaline Phosphatase 82 U/L (38-126); Blood Urea Nitrogen 14 mg/dL (7-17); Calcium 8.7 mg/dL (8.4-10.2); Chloride 85 mmol/L (98-107); Glucose 107 mg/dL (74-99); Magnesium 2.3 mg/dL (1.6-2.3); Phosphorus 4.1 mg/dL (2.5-4.5); Potassium 3.7 mmol/L (3.5-5.1); Sodium 132 mmol/L (137-145); Total Bilirubin 0.3 mg/dL (0.2-1.3); Total Protein 5.3 g/dL (6.3-8.2); Triglycerides 92 mg/dL (<150)
[2018-10-24 16:19] LABS: Anion Gap 1 mmol/L
[2018-10-24 16:25] LABS: Carbon Dioxide 46 mmol/L (22-30)
[2018-10-24 18:05] LABS: Glucose,Whole Blood 140 mg/dL (75-99)
--- NOTE | 2018-10-24 18:09 | P.PN ---
Subjective Progress Note Date: 10/24/18 Principal diagnosis: Weakness and sleeping more than often than normal Patient is a 52-year-old female with a past medical history of laryngeal cancer status post chemo and radiation, and history of tobacco abuse who presented to the emergency department with weakness and difficulty staying awake. Patient underwent treatment for laryngeal cancer in February 2018. Since that point in time she been having difficulty swallowing in his been tolerating pudding. She's become severely cachectic and weak. In the ER she underwent an extensive evaluation. She was found to have a sodium of 111, she underwent an acute abdominal series which was nonspecific. She underwent a CT of the chest which showed emphysema with extensive pulmonary interstitial infiltrates as well as multiple enlarged lymph nodes. In the emergency department she was having respiratory distress and appeared stridorous was subsequently admitted to the ICU. Initially she was 90% on 4 L nasal cannula and was found to be significantly acidotic with a pH of 7.13. She was subsequently intubated and placed on mechanical ventilation. She was seen by critical care. Due to her hypotension she required norepinephrine. She was also seen by nephrology due to her low sodiums. She did receive 3% normal saline due to her altered mentation. She was started on empiric IV antibiotics for possible pneumonia of Levaquin and Zosyn. She was transitioned from 3% saline to normal saline. She was ex tubated on 10/21 without any difficulties. She then developed significant respiratory distress on the morning of 10/23 and required BiPAP. Patient amenable for -Melodie. Patient seen and examined at bedside. Feeling angry and frustrated with current functional level. Has a cough and feels that she can't clear the back of her throat. Feeling anxious. Wants to be able to try swallow study before PEG tube, will for -melodie. NO nausea, vomiting, abdominal pain. Objective - Vital Signs Vital signs: Vital Signs Temp 98.3 F 10/24/18 12:00 Pulse 101 H 10/24/18 13:00 Resp 28 H 10/24/18 13:00 BP 91/66 10/24/18 13:00 Pulse Ox 89 L 10/24/18 13:00 Intake & Output 10/23/18 10/24/18 10/24/18 18:59 06:59 18:59 Intake Total 700 240 680 Output Total 3150 510 215 Balance -2450 -270 465 Weight 48.2 kg 48.2 kg Intake: IV 220 480 .9 kvo 220 80 Magnesium Sulfate-D5w Pmx 200 1 gm In Dextrose/Water 1 100ml.bag @ 100 mls/hr IVPB Q1H [facility] Rx#: [id number] Potassium Chloride 10 meq 200 In Water For Injection 1 100ml.bag @ 100 mls/hr IVPB Q1H [facility] Rx#: [id number] Intake, IV Titration 700 20 200 Amount Levofloxacin 500Mg-D5w 100 Pmx 500 mg In Dextrose/ Water 1 100ml.bag @ 100 mls/hr IVPB Q24H [facility] Rx#: [id number] Piperacillin-Tazobactam 3 200 100 .375 gm In Sodium Chloride 0.9% 100 ml @ 25 mls/hr IVPB Q8HR [facility] Rx# :[id number] Sodium Chloride 0.9% 1, 350 000 ml @ 100 mls/hr IV . Q10H [facility] Rx#:[id number] Sodium Chloride 0.9% 1, 150 20 000 ml @ 20 mls/hr IV . Q24H [facility] Rx#:[id number] Output: Urine 3150 510 215 Other: Voiding Method Indwelling Catheter Indwelling Catheter Indwelling Catheter ABP, PAP, CO, CI - Last Documented Arterial Blood Pressure 75/63 - Exam General: Ill-appearing, cachectic, appears older than stated age, temporal w asting Derm: warm, dry Head: atraumatic, normocephalic, symmetric Eyes: EOMI, no lid lag, anicteric sclera Mouth: no lip lesion, mucus membranes dry Cardiovascular: S1S2 reg, no murmur, positive posterior tibial pulse bilateral, Lungs: Ronchi bilateral, + accessory muscle use, on BiPAP Abdominal: soft, nontender to palpation, no guarding, no appreciable organomegaly Ext: + gross muscle atrophy, no edema, no contractures Neuro: CN II-XI grossly intact, no focal neuro deficits Psych: Alert, oriented, appropriate affect - Labs CBC & Chem 7: 10/24/18 04:12 10/24/18 15:29 Labs: Abnormal Lab Results - Last 24 Hours (Table) 10/23/18 10/23/18 10/24/18 Range/Units 17:55 23:47 04:12 RBC 3.13 L (3.80-5.40) m/uL Hgb 10.1 L (11.4-16.0) gm/dL Hct 30.5 L (34.0-46.0) % Sodium (137-145) mmol/L Chloride (98-107) mmol/L Carbon Dioxide (22-30) mmol/L Creatinine (0.52-1.04) mg/dL Glucose (74-99) mg/dL POC Glucose (mg/dL) 130 H 114 H (75-99) mg/dL 10/24/18 Range/Units 04:12 RBC (3.80-5.40) m/uL Hgb (11.4-16.0) gm/dL Hct (34.0-46.0) % Sodium 133 L (137-145) mmol/L Chloride 84 L (98-107) mmol/L Carbon Dioxide 45 H* (22-30) mmol/L Creatinine 0.22 L (0.52-1.04) mg/dL Glucose 107 H (74-99) mg/dL POC Glucose (mg/dL) (75-99) mg/dL Microbiology - Last 24 Hours (Table) 10/19/18 17:18 Blood Culture - Preliminary Blood No Growth after 96 hours Assessment and Plan Assessment: Hypovolemic hyponatremia with resultant metabolic encephalopathy -IV fluids completed -Nephrology recommendations -Status post 3% normal saline - diamox X 2 today per nephro Acute hypoxic respiratory failure secondary to Pneumonia, possible gram nega tive, likely aspiration -Continue with Zosyn, Levaquin -Pulmonary hygiene -Follow chest x-ray until clear -Pulmonary recommendations appreciated Severe protein calorie malnutrition with cachexia and BMI of 14.9 -Was started on Megace -General surgery has been consulted for possible PEG tube placement, patient refusing until off bipap, okay with -melodie - Needs to be monitored closely for signs of refeeding syndrome -Dietary recommendations Pulmonary lymphadenopathy, likely secondary to known prior laryngeal cancer -Await records from [facility] -Will need urgent follow-up with her oncologist at [facility] Anemia, likely dilutional -Stable -Outpatient follow-up -Follow intermittent CBC Contraction alkalosis - diamox per nephro today Hypomagnesemia, resolved Hypokalemia, resolved DVT prophylaxis: SCDs Discussed with: Patient, nursing, social work Anticipated discharge: 3-[address]: home vs SNF A total of 35 minutes was spent on the care of this complex patient more than 50% of the time was spent in counseling and care coordination.
[2018-10-24] MEDS: SODIUM CHLORIDE 0.9% 1,000 ML IV SCH (18:16)
[2018-10-24] MEDS: INSULIN ASPART (NovoLOG) 100 UNIT/ML VIAL SQ SCH ×2 (18:27→23:28)
[2018-10-24] MEDS: MORPHINE SULFATE 4 MG/ML SYRINGE IV PRN (23:27)
[2018-10-24 23:30] LABS: Glucose,Whole Blood 131 mg/dL (75-99)
[2018-10-25] MEDS: NOREPINEPHRINE 4 MG in SODIUM CHLORIDE 0.9% 250 ML IV SCH (00:34)
[2018-10-25] MEDS: HYDROmorphone 0.5 MG/0.5 ML SYRINGE IVP PRN ×2 (04:33→10:01)
[2018-10-25 04:38] LABS: HCT 29.9 % (34.0-46.0); HGB 9.5 gm/dL (11.4-16.0); Hypochromasia Slight; MCH 32.4 pg (25.0-35.0); MCHC 31.9 g/dL (31.0-37.0); MCV 101.5 fL (80.0-100.0); Mean Platelet Volume 6.7; Platelet Count 294 k/uL (150-450); RBC 2.95 m/uL (3.80-5.40); RDW 12.6 % (11.5-15.5); WBC 8.5 k/uL (3.8-10.6)
[2018-10-25 04:49] LABS: ALT 21 U/L (9-52); AST 16 U/L (14-36); African American GFR (CKD) >90 (>60 ml/min/1.73 sqM); Albumin 2.6 g/dL (3.5-5.0); Alkaline Phosphatase 73 U/L (38-126); Blood Urea Nitrogen 18 mg/dL (7-17); Calcium 8.6 mg/dL (8.4-10.2); Chloride 90 mmol/L (98-107); Glucose 121 mg/dL (74-99); Magnesium 2.2 mg/dL (1.6-2.3); Potassium 3.2 mmol/L (3.5-5.1); Sodium 136 mmol/L (137-145); Total Bilirubin 0.3 mg/dL (0.2-1.3); Total Protein 5.2 g/dL (6.3-8.2)
[2018-10-25 04:55] LABS: Anion Gap 4 mmol/L
[2018-10-25 05:19] LABS: Carbon Dioxide 42 mmol/L (22-30)
[2018-10-25] MEDS: methylPREDNISolone SOD SUCCI 125 MG/2 ML VIAL IV SCH ×4 (05:28→23:18)
[2018-10-25] MEDS: POTASSIUM CHLORIDE 20 MEQ in WATER FOR INJECTION 1 100ML.BAG IVPB SCH ×2 (05:29→09:44)
[2018-10-25] MEDS: INSULIN ASPART (NovoLOG) 100 UNIT/ML VIAL SQ SCH ×4 (05:33→23:18)
[2018-10-25] MEDS: IPRATROPIUM-ALBUTEROL 3 ML NEB INHALATION SCH ×4 (06:57→19:52)
[2018-10-25 07:22] LABS: Phosphorus 4.3 mg/dL (2.5-4.5)
[2018-10-25] MEDS: MEGESTROL 400 MG/10 ML CUP PO SCH (07:49)
--- NOTE | 2018-10-25 08:13 | XR ---
EXAMINATION TYPE: XR chest 1V portable DATE OF EXAM: 10/25/2018 COMPARISON: Prior chest x-ray 10/24/2018 HISTORY: Abnormal chest x-ray, pleural effusion TECHNIQUE: Single frontal view of the chest is obtained. FINDINGS: Pleural parenchymal changes are stable. Central venous catheters are unchanged. There are overlying cardiac leads. No pneumothorax. IMPRESSION: No significant interval change.
--- NOTE | 2018-10-25 08:21 | P.PN ---
Subjective Progress Note Date: 10/25/18 Principal diagnosis: Weakness Patient is a 52-year-old female with a past medical history of laryngeal cancer status post chemo and radiation, and history of tobacco abuse who presented to the emergency department with weakness and difficulty staying awake. Patient underwent treatment for laryngeal cancer in February 2018. Since that point in time she been having difficulty swallowing in his been tolerating pudding. She's become severely cachectic and weak. In the ER she underwent an extensive evaluation. She was found to have a sodium of 111, she underwent an acute abdominal series which was nonspecific. She underwent a CT of the chest which showed emphysema with extensive pulmonary interstitial infiltrates as well as multiple enlarged lymph nodes. In the emergency department she was having respiratory distress and appeared stridorous was subsequently admitted to the ICU. Initially she was 90% on 4 L nasal cannula and was found to be significantly acidotic with a pH of 7.13. She was subsequently intubated and placed on mechanical ventilation. She was seen by critical care. Due to her hypotension she required norepinephrine. She was also seen by nephrology due to her low sodiums. She did receive 3% normal saline due to her altered mentation. She was started on empiric IV antibiotics for possible pneumonia of Levaquin and Zosyn. She was transitioned from 3% saline to normal saline. She was extubated on 10/21 without any difficulties. She then developed significant respiratory distress on the morning of 10/23 and required BiPAP. Patient amenable for -Melodie. 10/25/2018 : Patient remains on BiPAP, she is still frustrated, she denies shortness of breath. She states that she is still in the hospital . Objective - Vital Signs Vital signs: Vital Signs Temp 97.7 F 10/25/18 04:00 Pulse 96 10/25/18 07:16 Resp 26 H 10/25/18 07:00 BP 93/73 10/25/18 07:00 Pulse Ox 92 L 10/25/18 07:00 Intake & Output 10/24/18 10/25/18 10/25/18 18:59 06:59 18:59 Intake Total 830 330 20 Output Total 385 1410 75 Balance 445 -1080 -55 Weight 48.2 kg 39.326 kg Intake: IV 600 330 20 .9 kvo 200 230 20 Magnesium Sulfate-D5w Pmx 200 1 gm In Dextrose/Water 1 100ml.bag @ 100 mls/hr IVPB Q1H [facility] Rx#: [id number] Piperacillin-Tazobactam 3 100 .375 gm In Sodium Chloride 0.9% 100 ml @ 25 mls/hr IVPB Q8HR [facility] Rx# :[id number] Potassium Chloride 10 meq 200 In Water For Injection 1 100ml.bag @ 100 mls/hr IVPB Q1H [facility] Rx#: [id number] Intake, IV Titration 230 Amount Levofloxacin 500Mg-D5w 100 Pmx 500 mg In Dextrose/ Water 1 100ml.bag @ 100 mls/hr IVPB Q24H [facility] Rx#: [id number] Mvi, Adult No.4 with Vit 30 K 10 ml Trace (Conc-1Ml/ Dose) 1 ml In Amino Acid 5%-D15w+Lytes*E* 1,000 ml @ 30 mls/hr IV .Q24H [facility] Rx#:[id number] Piperacillin-Tazobactam 3 100 .375 gm In Sodium Chloride 0.9% 100 ml @ 25 mls/hr IVPB Q8HR [facility] Rx# :[id number] Output: Urine 385 1410 75 Other: Voiding Method Indwelling Catheter Indwelling Catheter ABP, PAP, CO, CI - Last Documented Arterial Blood Pressure 75/63 - Exam General: Ill-appearing, cachectic, on BiPAP Derm: warm, dry Head: atraumatic, normocephalic Eyes: EOMI Cardiovascular: S1S2 reg, no murmur Lungs:few Rhonchi bilateral, on BiPAP, no wheezing Abdominal: soft, nontender to palpation, no guarding Ext: + gross muscle atrophy, no edema, no contractures Neuro: CN II-XI grossly intact, no focal neuro deficits Psych: Alert, oriented - Labs CBC & Chem 7: 10/25/18 04:30 10/25/18 04:30 Labs: Abnormal Lab Results - Last 24 Hours (Table) 10/24/18 10/24/18 10/24/18 Range/Units 15:29 18:03 23:28 RBC (3.80-5.40) m/uL Hgb (11.4-16.0) gm/dL Hct (34.0-46.0) % MCV (80.0-100.0) fL Sodium 132 L (137-145) mmol/L Potassium (3.5-5.1) mmol/L Chloride 85 L (98-107) mmol/L Carbon Dioxide 46 H* (22-30) mmol/L BUN (7-17) mg/dL Creatinine 0.35 L (0.52-1.04) mg/dL Glucose 107 H (74-99) mg/dL POC Glucose (mg/dL) 140 H 131 H (75-99) mg/dL Total Protein 5.3 L (6.3-8.2) g/dL Albumin 2.6 L (3.5-5.0) g/dL 10/25/18 10/25/18 Range/Units 04:30 04:30 RBC 2.95 L (3.80-5.40) m/uL Hgb 9.5 L (11.4-16.0) gm/dL Hct 29.9 L (34.0-46.0) % MCV 101.5 H (80.0-100.0) fL Sodium 136 L (137-145) mmol/L Potassium 3.2 L (3.5-5.1) mmol/L Chloride 90 L (98-107) mmol/L Carbon Dioxide 42 H* (22-30) mmol/L BUN 18 H (7-17) mg/dL Creatinine 0.44 L (0.52-1.04) mg/dL Glucose 121 H (74-99) mg/dL POC Glucose (mg/dL) (75-99) mg/dL Total Protein 5.2 L (6.3-8.2) g/dL Albumin 2.6 L (3.5-5.0) g/dL Microbiology - Last 24 Hours (Table) 10/19/18 17:18 Blood Culture - Preliminary Blood No Growth after 120 hours Assessment and Plan Plan: Assessment: Hypovolemic hyponatremia with resultant metabolic encephalopathy: Now serum sodium 136 -IV fluids completed -Nephrology recommendations appreciated -Status post 3% normal saline - On diamox per renal recommendations Acute hypoxic respiratory failure secondary to Pneumonia, possible gram negative, likely aspiration -Continue with Zosyn, Levaquin -Pulmonary hygiene -Pulmonary recommendations appreciated -Continues to be on BiPAP Severe protein calorie malnutrition with cachexia and BMI of 14.9 -Was started on Megace -General surgery has been consulted for possible PEG tube placement, patient refusing until off bipap, okay with -melodie, we will follow. -Dietary recommendations appreciated Pulmonary lymphadenopathy, likely secondary to known prior laryngeal cancer -Await records from [facility] -Will need follow-up with her oncologist at [facility] Anemia, likely secondary to volume expansion -Stable -Outpatient follow-up -Hemoglobin stable at 9.8 Contraction alkalosis - diamox per nephro , serum bicarbonate improved for 42 from 46. Hypomagnesemia, replace as indicated K 3.2 Hypokalemia, replace as indicated DVT prophylaxis: SCDs Discussed with: Patient, nursing Anticipated discharge: 3-[address]: home vs SNF
[2018-10-25] MEDS: LEVOFLOXACIN 500MG-D5W PMX 500 MG in DEXTROSE/WATER 1 100ML.BAG IVPB SCH (09:43)
[2018-10-25] MEDS: PANTOPRAZOLE 40 MG/10 ML VIAL IVP SCH (09:44)
[2018-10-25] MEDS: PIPERACILLIN-TAZOBACTAM 3.375 GM in SODIUM CHLORIDE 0.9% 100 ML IVPB SCH ×3 (09:45→23:20)
[2018-10-25] MEDS: HEPARIN SODIUM,PORCINE 5,000 UNIT/ML 1 ML VIAL SQ SCH ×3 (09:59→23:18)
--- NOTE | 2018-10-25 11:34 | PN ---
PROGRESS NOTE This is a 52-year-old female who was admitted back on October 19, 2018. She came in with mental status changes, metabolic encephalopathy, severe hyponatremia with a presenting sodium of 111, as well as acute hypoxemic hypercapnic respiratory failure secondary to pneumonia. The patient was intubated from the through 21 of October. She has a history of laryngeal carcinoma, status post chemoradiation. She has not received any treatments for her cancer since February 2018. Anyway, the patient has been here in the ICU for a number of days now. Currently, she is on high-flow oxygen at 15 L which could be titrated down. Through the night, she was on BiPAP with an IPAP of 14, EPAP of 6 and 45% FiO2. She is receiving TPN through a PICC catheter or Midline at 30 mL an hour and she has got a saline IV running at 20 mL an hour. Today's chest x-ray continues to show bilateral lower lobe infiltrates, but her chest x-ray has improved. She likely has bilateral effusions as well. She refused a PEG tube. Yesterday, she was too unstable for a Dobbhoff tube. She herself is much more awake and alert. She seems to be much more interactive and breathing easier. There are no outward signs of respiratory distress, including conversational dyspnea, use of accessory muscles, or audible wheezing. PHYSICAL EXAMINATION: VITAL SIGNS: Current vital signs are reviewed. Temperature is 97.7, heart rate 86, respiratory rate mid 20s, blood pressure 93/73, mean 79 and saturations are between 88% and 92%. GENERAL: Appears in no acute distress. HEENT: Examination is grossly unremarkable. Nasal cannula in place. NECK: Supple. Full range of motion. No adenopathy. Neck veins are flat. CARDIOVASCULAR: Examination reveals regular rhythm and rate. S1, S2 normal. No S3, S4, or murmur. LUNGS: Reveal coarse rhonchi. Breath sounds are diminished. There is prolongation. There are bibasilar crackles. ABDOMEN: Soft. Bowel sounds are heard. EXTREMITIES: Are intact. No cyanosis, clubbing, or edema. SKIN: Without rash. NEUROLOGIC: Examination is nonfocal. LABS: Labs are reviewed. White count 8.5, hemoglobin 9.5, hematocrit 29.9, platelet count 294,000. Sodium 136, potassium 3.2, chloride 90, CO2 is 42, anion gap is 4. BUN and creatinine were 18 and 0.44. The rest of the labs look okay. Microbiology including blood and sputum sampling is negative. Chest x-ray shows bilateral/bibasilar infiltrates which are improved in my opinion. MEDICATIONS: Medications are reviewed. ASSESSMENT: 1. Acute metabolic encephalopathy in large part related to the patient's profound hyponatremia (sodium equals 111), which was determined to be hypovolemic hyponatremia, which has significantly improved. 2. Acute hypoxemic and hypercapnic respiratory failure secondary to pneumonia, status post intubation on the and subsequent extubation on October 21. 3. Ongoing hypoxemic respiratory failure, requiring nocturnal BiPAP therapy and high- flow oxygen therapy. 4. Severe hypovolemic hyponatremia, much improved. 5. History of laryngeal carcinoma, status post chemo/radiation therapy, possibly metastatic, with her last chemo radiation treatment in February 2018. 6. Severe protein/calorie malnutrition and inanition. 7. Anorexia/cachexia syndrome. 8. History of previous tobacco dependence. 9. History of anemia of chronic disease. 10.Severe electrolyte disturbance, resolved. 11.Contraction metabolic alkalosis, improved. 12.Anorexia/cachexia syndrome, chronic. 13.Significantly poor dentition with dental caries. PLAN: Clinically, the patient appears to be much better today. She was started on TPN yesterday. She was maintained on BiPAP at 14 and 6 and 45% through the night. She has currently been weaned down to high-flow O2. I did tell the nurses and the respiratory therapy staff that it was important to maintain saturations between 88% and 92% as she has a chronic CO2 retainer. Chest x-ray is improved. She continues on all her current medications. Appreciate the input by the other consultants. Overall, her prognosis remains still very guarded, but she does seem to show some improvement. We will continue to follow. MMODL / IJN: [id number] /
[2018-10-25 11:35] LABS: Glucose,Whole Blood 108 mg/dL (75-99)
[2018-10-25] MEDS: SODIUM CHLORIDE 0.9% 1,000 ML IV SCH (12:35)
--- NOTE | 2018-10-25 13:19 | P.PN ---
Subjective Patient is seen in follow-up for hyponatremia. Sodium level is 136 today. Bicarb level is down to 42. She is maintained on Diamox. She is off IVFs. Not able to tolerate oral intake due to concern for aspiration. Currently receiving TPN. She is now agreeable to get a PEG tube placed. Vital signs are stable. General: The patient appeared well nourished and normally developed. HEENT: Head exam is unremarkable. Neck is without jugular venous distension. LUNGS: Breath sounds decreased. HEART: Rate and Rhythm are regular. First and second heart sounds normal. No murmurs, rubs or gallops. ABDOMEN: Abdominal exam reveals normal bowel sounds. Non-tender and non- distended. No evidence of peritonitis. EXTREMITITES: No clubbing, cyanosis, or edema. Objective - Vital Signs Vital signs: Vital Signs Temp 98 F 10/25/18 08:00 Pulse 100 10/25/18 11:39 Resp 28 H 10/25/18 11:00 BP 114/81 10/25/18 11:00 Pulse Ox 91 L 10/25/18 11:00 Intake & Output 10/24/18 10/25/18 10/25/18 18:59 06:59 18:59 Intake Total 830 330 370 Output Total 385 1410 875 Balance 116 -1283 -378 Weight 48.2 kg 39.326 kg Intake: IV 600 330 370 .9 kvo 200 230 100 Magnesium Sulfate-D5w Pmx 200 1 gm In Dextrose/Water 1 100ml.bag @ 100 mls/hr IVPB Q1H [facility] Rx#: [id number] Mvi, Adult No.4 with Vit 120 K 10 ml Trace (Conc-1Ml/ Dose) 1 ml In Amino Acid 5%-D15w+Lytes*E* 1,000 ml @ 30 mls/hr IV .Q24H [facility] Rx#:[id number] Piperacillin-Tazobactam 3 100 50 .375 gm In Sodium Chloride 0.9% 100 ml @ 25 mls/hr IVPB Q8HR [facility] Rx# :[id number] Potassium Chloride 10 meq 200 In Water For Injection 1 100ml.bag @ 100 mls/hr IVPB Q1H [facility] Rx#: [id number] Potassium Chloride 20 meq 100 In Water For Injection 1 100ml.bag @ 50 mls/hr IVPB Q2H [facility] Rx#: [id number] Intake, IV Titration 230 Amount Levofloxacin 500Mg-D5w 100 Pmx 500 mg In Dextrose/ Water 1 100ml.bag @ 100 mls/hr IVPB Q24H [facility] Rx#: [id number] Mvi, Adult No.4 with Vit 30 K 10 ml Trace (Conc-1Ml/ Dose) 1 ml In Amino Acid 5%-D15w+Lytes*E* 1,000 ml @ 30 mls/hr IV .Q24H [facility] Rx#:[id number] Piperacillin-Tazobactam 3 100 .375 gm In Sodium Chloride 0.9% 100 ml @ 25 mls/hr IVPB Q8HR [facility] Rx# :[id number] Output: Urine 385 1410 875 Other: Voiding Method Indwelling Catheter Indwelling Catheter ABP, PAP, CO, CI - Last Documented Arterial Blood Pressure 75/63 - Labs CBC & Chem 7: 10/25/18 04:30 10/25/18 04:30 Labs: Abnormal Lab Results - Last 24 Hours (Table) 10/24/18 10/24/18 10/24/18 Range/Units 15:29 18:03 23:28 RBC (3.80-5.40) m/uL Hgb (11.4-16.0) gm/dL Hct (34.0-46.0) % MCV (80.0-100.0) fL Sodium 132 L (137-145) mmol/L Potassium (3.5-5.1) mmol/L Chloride 85 L (98-107) mmol/L Carbon Dioxide 46 H* (22-30) mmol/L BUN (7-17) mg/dL Creatinine 0.35 L (0.52-1.04) mg/dL Glucose 107 H (74-99) mg/dL POC Glucose (mg/dL) 140 H 131 H (75-99) mg/dL Total Protein 5.3 L (6.3-8.2) g/dL Albumin 2.6 L (3.5-5.0) g/dL 10/25/18 10/25/18 10/25/18 Range/Units 04:30 04:30 11:33 RBC 2.95 L (3.80-5.40) m/uL Hgb 9.5 L (11.4-16.0) gm/dL Hct 29.9 L (34.0-46.0) % MCV 101.5 H (80.0-100.0) fL Sodium 136 L (137-145) mmol/L Potassium 3.2 L (3.5-5.1) mmol/L Chloride 90 L (98-107) mmol/L Carbon Dioxide 42 H* (22-30) mmol/L BUN 18 H (7-17) mg/dL Creatinine 0.44 L (0.52-1.04) mg/dL Glucose 121 H (74-99) mg/dL POC Glucose (mg/dL) 108 H (75-99) mg/dL Total Protein 5.2 L (6.3-8.2) g/dL Albumin 2.6 L (3.5-5.0) g/dL Microbiology - Last 24 Hours (Table) 10/19/18 17:18 Blood Culture - Preliminary Blood No Growth after 120 hours Assessment and Plan Plan: Assessment: 1. Hypovolemic hyponatremia initially improved with IV hydration. Sodium level CXXXVI today. She is off IV fluids. 2. Hypokalemia due to diuretics. Magnesium normal. 3. Laryngeal cancer. 4. Possible aspiration. PEG tube to be placed today. 5. Small left pleural effusion. 6. Metabolic alkalosis. This can be due to Lasix and also compensatory for respiratory acidosis. Better. Plan: Maintain Diamox for the next 24 hours. Potassium was replaced. Repeat electrolytes in the morning.
[2018-10-25] MEDS ORDERED: MVI, ADULT NO.4 WITH VIT K 10 ML, TRACE (CONC-1ML/DOSE) 1 ML, PARENTERAL ELECTROLYTES 2... IV SCH ×5 (16:00)
[2018-10-25] MEDS: FAT EMULSION 20% 250 ML IV SCH (16:54)
[2018-10-25 23:18] LABS: Glucose,Whole Blood 120 mg/dL (75-99)
[2018-10-26] MEDS: NOREPINEPHRINE 4 MG in SODIUM CHLORIDE 0.9% 250 ML IV SCH (01:00)
[2018-10-26] MEDS: HYDROmorphone 0.5 MG/0.5 ML SYRINGE IVP PRN ×2 (02:18→23:08)
[2018-10-26 06:09] LABS: Basophils % (A) 0 %; Eosinophils % (A) 0 %; HCT 29.5 % (34.0-46.0); HGB 8.5 gm/dL (11.4-16.0); Hypochromasia Slight; Lymphocytes % (A) 0 %; MCH 28.8 pg (25.0-35.0); MCHC 28.8 g/dL (31.0-37.0); MCV 100.2 fL (80.0-100.0); Mean Platelet Volume 6.9; Monocytes # (A) 0.4 k/uL (0-1.0); Monocytes % (A) 4 %; Neutrophils # (A) 8.7 k/uL (1.3-7.7); Neutrophils % (A) 95 %; Platelet Count 309 k/uL (150-450); RBC 2.94 m/uL (3.80-5.40); RDW 12.8 % (11.5-15.5); WBC 9.2 k/uL (3.8-10.6)
[2018-10-26 06:11] LABS: Glucose,Whole Blood 128 mg/dL (75-99)
[2018-10-26] MEDS: INSULIN ASPART (NovoLOG) 100 UNIT/ML VIAL SQ SCH ×4 (06:27→23:57)
[2018-10-26 06:48] LABS: ALT 32 U/L (9-52); AST 26 U/L (14-36); African American GFR (CKD) >90 (>60 ml/min/1.73 sqM); Albumin 2.4 g/dL (3.5-5.0); Alkaline Phosphatase 71 U/L (38-126); Anion Gap 6 mmol/L; Blood Urea Nitrogen 16 mg/dL (7-17); Calcium 8.4 mg/dL (8.4-10.2); Carbon Dioxide 29 mmol/L (22-30); Chloride 100 mmol/L (98-107); Glucose 120 mg/dL (74-99); Magnesium 1.9 mg/dL (1.6-2.3); Potassium 2.9 mmol/L (3.5-5.1); Sodium 135 mmol/L (137-145); Total Bilirubin 0.3 mg/dL (0.2-1.3); Total Protein 5.1 g/dL (6.3-8.2)
[2018-10-26] MEDS: methylPREDNISolone SOD SUCCI 125 MG/2 ML VIAL IV SCH (06:55)
[2018-10-26] MEDS: POTASSIUM CHLORIDE 20 MEQ in WATER FOR INJECTION 1 100ML.BAG IVPB SCH ×5 (07:45→21:21)
[2018-10-26] MEDS: IPRATROPIUM-ALBUTEROL 3 ML NEB INHALATION SCH ×4 (08:15→21:11)
[2018-10-26] MEDS: MAGNESIUM SULFATE-D5W PMX 1 GM in DEXTROSE/WATER 1 100ML.BAG IVPB SCH ×2 (09:32→12:00)
[2018-10-26] MEDS: PIPERACILLIN-TAZOBACTAM 3.375 GM in SODIUM CHLORIDE 0.9% 100 ML IVPB SCH ×3 (09:32→23:10)
[2018-10-26] MEDS: PANTOPRAZOLE 40 MG/10 ML VIAL IVP SCH (09:33)
[2018-10-26] MEDS: HEPARIN SODIUM,PORCINE 5,000 UNIT/ML 1 ML VIAL SQ SCH ×3 (09:33→23:08)
[2018-10-26] MEDS: LEVOFLOXACIN 500MG-D5W PMX 500 MG in DEXTROSE/WATER 1 100ML.BAG IVPB SCH (09:36)
[2018-10-26] MEDS: MEGESTROL 400 MG/10 ML CUP PO SCH (09:36)
--- NOTE | 2018-10-26 10:08 | XR ---
EXAMINATION TYPE: XR chest 1V portable DATE OF EXAM: 10/26/2018 COMPARISON: Prior chest x-ray 10/25/2018 HISTORY: Adventitious lung sounds, abnormal chest x-ray TECHNIQUE: Single frontal view of the chest is obtained. FINDINGS: Findings are similar to prior exam. Bilateral airspace disease is again noted. Central rajat ous catheters are stable. Heart size is not enlarged. There are overlying cardiac leads. Patient is r otated. No pneumothorax. Bones are stable. IMPRESSION: Correlate for pneumonia, there may be associated effusions. Possible underlying tumor.
[2018-10-26 10:49] LABS: Phosphorus 3.7 mg/dL (2.5-4.5)
[2018-10-26] MEDS ORDERED: PROPOFOL 10 MG/ML 20 ML VIAL IV ONE (10:54)
[2018-10-26] MEDS ORDERED: IV FLUID CONTINUATION 500 ML IV ONE (11:14)
--- NOTE | 2018-10-26 11:29 | PN ---
PROGRESS NOTE PULMONARY/CRITICAL CARE PROGRESS NOTE: DATE OF SERVICE: October 26, 2018 This is a 52-year-old female who was admitted back on October 19, 2018. She came in initially with mental status changes, metabolic encephalopathy, severe hyponatremia with a sodium of 111, as well as acute hypoxemic and hypercapnic respiratory failure likely secondary to aspiration pneumonia. She was intubated and mechanically ventilated for a brief period of time between October 20 through the . She does have a history of laryngeal carcinoma, status post chemoradiation. She has not been treated since February 2018 for that disease process. Currently, she is doing much better. She has made dramatic improvements in the last 48 hours. She has been weaned down to 2 L by nasal cannula. She is getting TPN at 30 mL an hour and a saline IV at 20 mL an hour. She is going to have a PEG tube today for nutrition. She remains on Zosyn and Levaquin. Microbiologic studies have been negative. Her chest x-ray still shows bibasilar infiltrates, atelectasis and small effusions, her disease process seems to be more right than left-sided. Overall though, she is feeling much better. She is sitting up in bed. She actually has a smile on her face. PHYSICAL EXAMINATION: VITAL SIGNS: Current vital signs are reviewed. Temperature is 98.2, heart rate 86, respiratory rate 14, blood pressure 124/94, mean 104 and 2 L saturation 93% to 94%. GENERAL: Appears in no acute distress. HEENT: Examination is grossly unremarkable. Teeth in poor repair. NECK: Supple. Full range of motion. No adenopathy or thyromegaly. Neck veins are flat. CARDIOVASCULAR: Examination reveals regular rhythm and rate. Heart sounds are distant. S1, S2 normal. Heart rate is about 80 beats per minute. LUNGS: Reveal a few scattered coarse rhonchi. Breath sounds equal. No crackles. No wheezes. ABDOMEN: Soft. Bowel sounds are not noted. EXTREMITIES: Are intact. No edema. SKIN: Without rash. NEUROLOGIC: Examination is nonfocal. Chest x-ray is reviewed. Again, it shows diffuse bilateral lower lobe infiltrates. There is probably some atelectasis and small effusions as well. There is likely some pneumonic processes as well bilaterally. Microbiologic studies thus far have been negative. LABS: Labs are reviewed. White count 9.2, hemoglobin 8.5, hematocrit 29.5, platelet count 309,000. Sodium 135, potassium 2.9, chloride 100, CO2 is 29. BUN and creatinine were 16 and 0.36. Anion gap is 6. Albumin 2.4. MEDICATIONS: Medications are reviewed. She is on appropriate medications. She is on updrafts. She is getting her nutrition. Her Solu-Medrol dose is 40 mg q.8 hours. She is getting Zosyn as an antibiotic. ASSESSMENT: 1. Acute metabolic encephalopathy in large part related to the patient's profound hyponatremia, which was determined to be hypovolemic hyponatremia, significantly improved. 2. Acute hypoxemic and hypercapnic respiratory failure secondary to aspiration pneumonia, status post intubation on the 20 of October and extubation subsequently on the . 3. Ongoing hypoxemic respiratory failure, which has improved dramatically, and the patient's oxygen requirements have significantly declined. 4. Severe hypovolemic hyponatremia, resolved. 5. History of laryngeal carcinoma, status post chemoradiation, possibly metastatic. 6. Severe protein-calorie malnutrition and inanition. 7. Anorexia/cachexia syndrome. 8. History of previous tobacco dependence. 9. History of anemia of chronic disease. 10.Severe electrolyte disturbance, improved. 11.Hypoalbuminemia secondary to poor nutrition. 12.Contraction metabolic alkalosis, improved. 13.Significantly poor dentition with caries. PLAN: The patient is doing much better. She is going for an EGD today. She will have a PEG tube placed hopefully by the surgeon. She remains on TPN at 30 mL an hour and a saline IV at 20 mL an hour. She remains on antibiotics. Microbiologic studies are negative. Additional recommendations and suggestions are forthcoming. Prognosis is guarded. MMODL / IJN: [id number] /
--- NOTE | 2018-10-26 11:35 | P.OP ---
Date of Procedure: 10/26/18 Preoperative Diagnosis: Malnutrition Postoperative Diagnosis: Malnutrition Procedure(s) Performed: Attempted PEG tube placement Anesthesia: MAC Disposition: ICU Description of Procedure: Patient received IV sedation. The gastric was placed patient oropharynx. There was significant edema and scarring and inflammation of the oropharynx. The gastroscope could not be placed into the esophagus safely. At this point the procedure was aborted. Patient will need to be scheduled for an open gastrostomy tube
[2018-10-26 12:14] LABS: Glucose,Whole Blood 128 mg/dL (75-99)
[2018-10-26] MEDS: SODIUM CHLORIDE 0.9% 1,000 ML IV SCH (13:47)
--- NOTE | 2018-10-26 14:45 | P.PN ---
Subjective Progress Note Date: 10/26/18 (delayed charting seen at 0900) Principal diagnosis: Weakness and sleeping more than often than normal Patient is a 52-year-old female with a past medical history of jono ngeal cancer status post chemo and radiation, and history of tobacco abuse who presented to the emergency department with weakness and difficulty staying awake. Patient underwent treatment for laryngeal cancer in February 2018. Since that point in time she been having difficulty swallowing in his been tolerating pudding. She's become severely cachectic and weak. In the ER she underwent an extensive evaluation. She was found to have a sodium of 111, she underwent an acute abdominal series which was nonspecific. She underwent a CT of the chest which showed emphysema with extensive pulmonary interstitial infiltrates as well as multiple enlarged lymph nodes. In the emergency department she was having respiratory distress and appeared stridorous was subsequently admitted to the ICU. Initially she was 90% on 4 L nasal cannula and was found to be significantly acidotic with a pH of 7.13. She was subsequently intubated and placed on mechanical ventilation. She was seen by critical care. Due to her hypotension she required norepinephrine. She was also seen by nephrology due to her low sodiums. She did receive 3% normal saline due to her altered mentation. She was started on empiric IV antibiotics for possible pneumonia of Levaquin and Zosyn. She was transitioned from 3% sa line to normal saline. She was extubated on 10/21 without any difficulties. She then developed significant respiratory distress on the morning of 10/23 and required BiPAP, which was able to be weaned by the morning of 10/26. Patient amenable for -Melodie, attempted placement on 10/26 unable to do so due to scar tissue and inflammation. Would be able to have open G tube. Patient seen and examined at bedside. Feeling angry and frustrated. No chest pain or shortness of breath. No nausea or vomiting. No diarrhea. Wanting to come off BiPAP get better and go home. Anxious to have tube feedings restarted. Objective - Vital Signs Vital signs: Vital Signs Temp 98 F 10/26/18 08:00 Pulse 94 10/26/18 12:34 Resp 18 10/26/18 10:00 BP 134/81 10/26/18 10:00 Pulse Ox 91 L 10/26/18 10:00 Intake & Output 10/25/18 10/26/18 10/26/18 18:59 06:59 18:59 Intake Total 863 660 840 Output Total 1475 1945 1140 Balance -612 -1555 -300 Weight 38.4 kg Intake: IV 863 660 840 .9 kvo 260 120 90 Fat Emulsion 20% 250 ml @ 80 160 20.833 mls/hr IV MoWeFr@ 1600 [facility] Rx#:[id number] Magnesium Sulfate-D5w Pmx 200 1 gm In Dextrose/Water 1 100ml.bag @ 100 mls/hr IVPB Q1H [facility] Rx#: [id number] Mvi, Adult No.4 with Vit 273 330 150 K 10 ml Trace (Conc-1Ml/ Dose) 1 ml In Amino Acid 5%-D15w+Lytes*E* 1,000 ml @ 30 mls/hr IV .Q24H [facility] Rx#:[id number] Piperacillin-Tazobactam 3 150 50 100 .375 gm In Sodium Chloride 0.9% 100 ml @ 25 mls/hr IVPB Q8HR [facility] Rx# :[id number] Potassium Chloride 20 meq 100 In Water For Injection 1 100ml.bag @ 50 mls/hr IVPB Q2H [facility] Rx#: [id number] Potassium Chloride 20 meq 200 In Water For Injection 1 100ml.bag @ 50 mls/hr IVPB Q2H [facility] Rx#: [id number] Output: Urine 1475 1945 1140 Other: Voiding Method Indwelling Catheter Indwelling Catheter ABP, PAP, CO, CI - Last Documented Arterial Blood Pressure 75/63 - Exam General: Ill-appearing, cachectic, appears older than stated age, temporal wasting Derm: warm, dry Head: atraumatic, normocephalic, symmetric Eyes: EOMI, no lid lag, anicteric sclera Mouth: no lip lesion, mucus membranes dry Cardiovascular: S1S2 reg, no murmur, positive posterior tibial pulse bilateral, Lungs: Ronchi bilateral, no accessory muscle use Abdominal: soft, nontender to palpation, no guarding, no appreciable organomegaly Ext: + gross muscle atrophy, no edema, no contractures Neuro: CN II-XI grossly intact, no focal neuro deficits Psych: Alert, oriented, flat affect - Labs CBC & Chem 7: 10/26/18 04:37 10/26/18 04:37 Labs: Abnormal Lab Results - Last 24 Hours (Table) 10/25/18 10/26/18 10/26/18 Range/Units 23:16 04:37 04:37 RBC 2.94 L (3.80-5.40) m/uL Hgb 8.5 L (11.4-16.0) gm/dL Hct 29.5 L (34.0-46.0) % MCV 100.2 H (80.0-100.0) fL MCHC 28.8 L (31.0-37.0) g/dL Neutrophils # 8.7 H (1.3-7.7) k/uL Lymphocytes # 0.0 L (1.0-4.8) k/uL Sodium 135 L (137-145) mmol/L Potassium 2.9 L (3.5-5.1) mmol/L Creatinine 0.36 L (0.52-1.04) mg/dL Glucose 120 H (74-99) mg/dL POC Glucose (mg/dL) 120 H (75-99) mg/dL Total Protein 5.1 L (6.3-8.2) g/dL Albumin 2.4 L (3.5-5.0) g/dL 10/26/18 10/26/18 Range/Units 06:10 12:12 RBC (3.80-5.40) m/uL Hgb (11.4-16.0) gm/dL Hct (34.0-46.0) % MCV (80.0-100.0) fL MCHC (31.0-37.0) g/dL Neutrophils # (1.3-7.7) k/uL Lymphocytes # (1.0-4.8) k/uL Sodium (137-145) mmol/L Potassium (3.5-5.1) mmol/L Creatinine (0.52-1.04) mg/dL Glucose (74-99) mg/dL POC Glucose (mg/dL) 128 H 128 H (75-99) mg/dL Total Protein (6.3-8.2) g/dL Albumin (3.5-5.0) g/dL Microbiology - Last 24 Hours (Table) 10/19/18 17:18 Blood Culture - Final Blood No Growth after 144 hours Assessment and Plan Assessment: Severe protein calorie malnutrition with cachexia and BMI of 14.9 -Attempted PEG tube on. Unsuccessful secondary to severe inflammation and scar tissue. Would be able to have open gastrostomy tube on 10/30 - Needs to be monitored closely for signs of refeeding syndrome -Dietary recommendations Hypovolemic hyponatremia with resultant metabolic encephalopathy, improving -IV fluids completed, on TPN -Nephrology recommendations -Status post 3% normal saline Acute hypoxic respiratory failure secondary to Pneumonia, possible gram negative, likely aspiration -Continue with Zosyn, Levaquin -Pulmonary hygiene -Follow chest x-ray until clear -Pulmonary recommendations appreciated Pulmonary lymphadenopathy, likely secondary to known prior laryngeal cancer -Await records from [facility] -Will need urgent follow-up with her oncologist at [facility] Hypokalemia - repleace IV - TPN Anemia, likely dilutional -Stable -Outpatient follow-up -Follow intermittent CBC Contraction alkalosis, resolved Hypomagnesemia, resolved DVT prophylaxis: SCDs Discussed with: Patient, nursing, social work Anticipated discharge: 3-[address]: home vs SNF A total of 35 minutes was spent on the care of this complex patient more than 50% of the time was spent in counseling and care coordination.
[2018-10-26 16:35] LABS: Glucose,Whole Blood 83 mg/dL (75-99)
[2018-10-26] MEDS: methylPREDNISolone SOD SUCCI 40 MG/ML 1 ML VIAL IV SCH ×2 (16:37→23:08)
[2018-10-26 18:49] LABS: African American GFR (CKD) >90 (>60 ml/min/1.73 sqM); Anion Gap 7 mmol/L; Blood Urea Nitrogen 16 mg/dL (7-17); Calcium 8.7 mg/dL (8.4-10.2); Carbon Dioxide 26 mmol/L (22-30); Chloride 103 mmol/L (98-107); Glucose 103 mg/dL (74-99); Potassium 3.3 mmol/L (3.5-5.1); Sodium 136 mmol/L (137-145)
[2018-10-26] MEDS ORDERED: MVI, ADULT NO.4 WITH VIT K 10 ML, TRACE (CONC-1ML/DOSE) 1 ML, PARENTERAL ELECTROLYTES 2... IV SCH ×5 (23:00)
[2018-10-26 23:03] LABS: Glucose,Whole Blood 111 mg/dL (75-99)
[2018-10-27 05:17] LABS: Basophils % (A) 0 %; Eosinophils % (A) 1 %; HCT 30.7 % (34.0-46.0); HGB 9.9 gm/dL (11.4-16.0); Lymphocytes # (A) 0.1 k/uL (1.0-4.8); Lymphocytes % (A) 1 %; MCH 31.9 pg (25.0-35.0); MCHC 32.4 g/dL (31.0-37.0); MCV 98.5 fL (80.0-100.0); Mean Platelet Volume 7.2; Monocytes # (A) 0.3 k/uL (0-1.0); Monocytes % (A) 4 %; Neutrophils % (A) 94 %; Platelet Count 334 k/uL (150-450); RBC 3.11 m/uL (3.80-5.40); RDW 14.1 % (11.5-15.5); WBC 7.5 k/uL (3.8-10.6)
[2018-10-27 05:26] LABS: ALT 27 U/L (9-52); AST 22 U/L (14-36); African American GFR (CKD) >90 (>60 ml/min/1.73 sqM); Albumin 2.8 g/dL (3.5-5.0); Alkaline Phosphatase 75 U/L (38-126); Anion Gap 6 mmol/L; Blood Urea Nitrogen 16 mg/dL (7-17); Calcium 8.8 mg/dL (8.4-10.2); Carbon Dioxide 28 mmol/L (22-30); Chloride 101 mmol/L (98-107); Glucose 122 mg/dL (74-99); Potassium 3.9 mmol/L (3.5-5.1); Sodium 135 mmol/L (137-145); Total Bilirubin 0.6 mg/dL (0.2-1.3); Total Protein 5.8 g/dL (6.3-8.2)
[2018-10-27 06:01] LABS: Glucose,Whole Blood 137 mg/dL (75-99)
[2018-10-27] MEDS: NOREPINEPHRINE 4 MG in SODIUM CHLORIDE 0.9% 250 ML IV SCH (06:26)
[2018-10-27] MEDS: INSULIN ASPART (NovoLOG) 100 UNIT/ML VIAL SQ SCH ×4 (06:59→23:36)
[2018-10-27] MEDS: IPRATROPIUM-ALBUTEROL 3 ML NEB INHALATION SCH ×4 (07:11→19:03)
--- NOTE | 2018-10-27 08:19 | XR ---
EXAMINATION TYPE: XR chest 1V portable DATE OF EXAM: 10/27/2018 COMPARISON: Prior chest x-ray 10/26/2018 HISTORY: Adventitious lung sounds, abnormal chest x-ray TECHNIQUE: Single frontal view of the chest is obtained. FINDINGS: There is no significant interval change. Hemidiaphragms are secured. Pleural parenchymal c hanges show a similar appearance. Central venous catheters are stable, there are overlying cardiac le ads. No pneumothorax. Heart is unchanged. IMPRESSION: Correlate for pneumonia, edema, atelectasis, possible underlying tumor. Cannot exclude e ffusions.
[2018-10-27] MEDS: POTASSIUM CHLORIDE 10 MEQ in WATER FOR INJECTION 1 100ML.BAG IVPB SCH ×2 (09:15→09:21)
[2018-10-27] MEDS: HEPARIN SODIUM,PORCINE 5,000 UNIT/ML 1 ML VIAL SQ SCH ×3 (09:23→23:43)
[2018-10-27] MEDS: methylPREDNISolone SOD SUCCI 40 MG/ML 1 ML VIAL IV SCH ×3 (09:24→23:42)
[2018-10-27] MEDS: PIPERACILLIN-TAZOBACTAM 3.375 GM in SODIUM CHLORIDE 0.9% 100 ML IVPB SCH ×3 (09:24→23:43)
[2018-10-27] MEDS: LEVOFLOXACIN 500MG-D5W PMX 500 MG in DEXTROSE/WATER 1 100ML.BAG IVPB SCH (09:24)
[2018-10-27] MEDS: PANTOPRAZOLE 40 MG/10 ML VIAL IVP SCH (09:36)
--- NOTE | 2018-10-27 09:42 | PN ---
PROGRESS NOTE PULMONARY/CRITICAL CARE PROGRESS NOTE: DATE OF SERVICE: October 27, 2018 A 52-year-old female who was admitted way back on October 19, 2018. She initially came in with mental status changes, thought to be related to metabolic encephalopathy. In addition, she had severe hyponatremia with a sodium of 111. She also developed acute hypoxemic and hypercapnic respiratory failure secondary to aspiration pneumonia and was intubated on October 20, but was able to be successfully extubated on the . She does have a history of laryngeal carcinoma, status post chemoradiation, with her last treatments being in February 2018 over the last 48 to 72 hours, she has had significant improvement. Yesterday, they attempted to place a PEG tube. Because of her radiation to the laryngeal carcinoma, they were unable to do an EGD. She is on 2 L nasal cannula. She is getting saline at KVO. She is getting TPN at 30 mL an hour. We are going to have speech pathology do a modified barium swallow on her today to see if we cannot supplement her TPN with some oral feeds. Her overall situation is complicated by the fact that she is profoundly cachectic and profoundly malnourished both in terms of protein and calories. She is clinically feeling much better though. She is doing much better. No additional recommendations from that standpoint are made. PHYSICAL EXAMINATION: VITAL SIGNS: Current vital signs are reviewed. Temperature is 98.3, heart rate 90, respiratory rate 18, blood pressure 137/88, mean 104 and 2 L saturation is 94%. GENERAL: Appears in no acute distress. HEENT: Examination is grossly unremarkable. NECK: Supple. Full range of motion. No adenopathy. Neck veins are flat. CARDIOVASCULAR: Examination reveals regular rhythm and rate. Heart rate 85. S1, S2 normal. LUNGS: Reveal a few scattered rhonchi. No wheezes or crackles. ABDOMEN: Soft. Bowel sounds are heard. EXTREMITIES are intact. No cyanosis, clubbing, or edema. SKIN: Without rash. NEUROLOGIC: Examination is brief but nonfocal. A chest x-ray continues to show bibasilar infiltrates, atelectasis, and bibasilar effusions. In my way of looking at the x-ray, I think over time, the x-ray has improved. LAB DATA: Lab data is reviewed. White count 7.5, hemoglobin 9.9, hematocrit 30.7, platelet count 334,000. Sodium 135, potassium 3.9, chloride 101, CO2 of 28. Anion gap of 6. BUN and creatinine were 16 and 0.26. Albumin is only 2.8. Microbiologic studies including blood and sputum are negative. MEDICATIONS: Medications are reviewed. They all seem pretty appropriate. She remains on Zosyn and Levaquin as antibiotics. ASSESSMENT: 1. Acute metabolic encephalopathy, in large part related to the patient's profound hyponatremia, which is hypovolemic hyponatremia, which is significantly improved. 2. Acute hypoxemic and hypercapnic respiratory failure secondary to aspiration pneumonia, status post intubation on the and extubation on 21 of October. 3. Ongoing hypoxemic respiratory failure, which is improved dramatically. The patient's oxygen requirements have significantly declined. She is currently only on 2 L. 4. Severe hypovolemic hyponatremia, resolved. 5. History of laryngeal carcinoma, status post chemoradiation, and possibly metastatic. 6. Severe protein calorie malnutrition with inanition. 7. Anorexia/cachexia syndrome. 8. History of previous tobacco dependence. 9. History of anemia of chronic disease. 10.Severe electrolyte disturbance, resolved. 11.Hypoalbuminemia. 12.Contraction alkalosis, improved. 13.Significantly poor dentition with caries. PLAN: EGD could not be accomplished. This is because of the scarring in the throat area from her radiation for the laryngeal carcinoma. We will have Speech Pathology do appropriate swallow evaluation with modified barium swallow. She remains on TPN. Additional recommendations and suggestions are forthcoming. Chest x-ray is slowly improved. We will continue to follow. Prognosis is guarded. She did use a BiPAP last night. She should have aspiration precautions. Head of bed elevated at all times. MMODL / IJN: [id number] /
[2018-10-27 12:13] LABS: Glucose,Whole Blood 125 mg/dL (75-99)
--- NOTE | 2018-10-27 12:25 | P.PN ---
Progress Note - Text Progress Note Date: 10/27/18 Patient was unable to have her PEG tube placed yesterday. She will need to have an open gastrostomy tube placement due to her laryngeal edema. We will tentative schedule her for surgery on Tuesday.
--- NOTE | 2018-10-27 14:33 | FL ---
EXAMINATION TYPE: FL barium swallow w video DATE OF EXAM: 10/27/2018 COMPARISON: NONE HISTORY: Difficulty with swallowing TECHNIQUE: Fluoroscopy. FINDINGS: Fluoroscopic guidance was provided for the procedure performed in conjunction with the [facility] pathology department. Please see complete report forthcoming from the Speech Pathology departmen t. Various consistencies from thin liquid to solids were administered. Fluoroscopy time 52 seconds. Number of images: 0. Aspiration was evident with thin liquids, nectar thick liquids, and pudding thick consistencies. There is delay in bolus formation. Some residuals may be present. IMPRESSION: 1. Aspiration with thin, nectar thick and pudding consistencies. The procedure was terminated at this point exam.
[2018-10-27] MEDS: MVI, ADULT NO.4 WITH VIT K 10 ML, TRACE (CONC-1ML/DOSE) 1 ML, PARENTERAL ELECTROLYTES 2... IV SCH ×5 (15:12)
[2018-10-27] MEDS: SODIUM CHLORIDE 0.9% 1,000 ML IV SCH (16:27)
[2018-10-27] MEDS: FAT EMULSION 20% 250 ML IV SCH (16:37)
--- NOTE | 2018-10-27 18:18 | P.PN ---
Subjective Progress Note Date: 10/27/18 (delayed charting seen at 0900) Principal diagnosis: Weakness and sleeping more than often than normal Patient is a 52-year-old female with a past medical history of jono ngeal cancer status post chemo and radiation, and history of tobacco abuse who presented to the emergency department with weakness and difficulty staying awake. Patient underwent treatment for laryngeal cancer in February 2018. Since that point in time she been having difficulty swallowing in his been tolerating pudding. She's become severely cachectic and weak. In the ER she underwent an extensive evaluation. She was found to have a sodium of 111, she underwent an acute abdominal series which was nonspecific. She underwent a CT of the chest which showed emphysema with extensive pulmonary interstitial infiltrates as well as multiple enlarged lymph nodes. In the emergency department she was having respiratory distress and appeared stridorous was subsequently admitted to the ICU. Initially she was 90% on 4 L nasal cannula and was found to be significantly acidotic with a pH of 7.13. She was subsequently intubated and placed on mechanical ventilation. She was seen by critical care. Due to her hypotension she required norepinephrine. She was also seen by nephrology due to her low sodiums. She did receive 3% normal saline due to her altered mentation. She was started on empiric IV antibiotics for possible pneumonia of Levaquin and Zosyn. She was transitioned from 3% sa line to normal saline. She was extubated on 10/21 without any difficulties. She then developed significant respiratory distress on the morning of 10/23 and required BiPAP, which was able to be weaned by the morning of 10/26. Patient amenable for -Melodie, attempted placement on 10/26 unable to do so due to scar tissue and inflammation. Would be able to have open G tube, failed MBSS, plan for open G tube 10/30. Patient seen and examined at bedside. Anxious for modified barium swallow kasey dies today. No chest pain. No shortness of breath. No nausea. No vomiting. Had remained making progress in decreasing oxygen requirements. Would be amenable to open J-tube if fails swallow study. She realizes this does not have to be permanent but would allow her to have adequate oral intake while seeking therapy for her swallowing difficulties. Objective - Vital Signs Vital signs: Vital Signs Temp 98.1 F 10/27/18 16:00 Pulse 104 H 10/27/18 17:00 Resp 19 10/27/18 17:00 BP 127/91 10/27/18 17:00 Pulse Ox 94 L 10/27/18 17:00 Intake & Output 10/26/18 10/27/18 10/27/18 18:59 06:59 18:59 Intake Total 1275 945 907.1 Output Total 2740 1925 1250 Balance -1465 -980 -342.9 Weight 38.6 kg 38.6 kg Intake: IV 1275 945 541.6 .9 kvo 230 230 200 Fat Emulsion 20% 250 ml @ 90 41.6 20.833 mls/hr IV MoWeFr@ 1600 [facility] Rx#:[id number] Magnesium Sulfate-D5w Pmx 200 1 gm In Dextrose/Water 1 100ml.bag @ 100 mls/hr IVPB Q1H [facility] Rx#: [id number] Mvi, Adult No.4 with Vit 270 300 K 10 ml Trace (Conc-1Ml/ Dose) 1 ml In Amino Acid 5%-D15w+Lytes*E* 1,000 ml @ 30 mls/hr IV .Q24H [facility] Rx#:[id number] Piperacillin-Tazobactam 3 175 75 200 .375 gm In Sodium Chloride 0.9% 100 ml @ 25 mls/hr IVPB Q8HR [facility] Rx# :[id number] Potassium Chloride 20 meq 300 250 100 In Water For Injection 1 100ml.bag @ 50 mls/hr IVPB Q2H [facility] Rx#: [id number] Intake, IV Titration 365.5 Amount Levofloxacin 500Mg-D5w 100 Pmx 500 mg In Dextrose/ Water 1 100ml.bag @ 100 mls/hr IVPB Q24H [facility] Rx#: [id number] Mvi, Adult No.4 with Vit 265.5 K 10 ml Trace (Conc-1Ml/ Dose) 1 ml Parenteral Electrolytes 20 ml Potassium Chloride 40 meq In Amino Acid 5%-D15w 1, 000 ml @ 30 mls/hr IV . Q24H [facility] Rx#:[id number] Output: Urine 2740 1925 1250 Other: Voiding Method Indwelling Catheter Indwelling Catheter Indwelling Catheter ABP, PAP, CO, CI - Last Documented Arterial Blood Pressure 75/63 - Exam General:non toxic, cachectic, appears older than stated age, temporal wasting Derm: warm, dry Head: atraumatic, normocephalic, symmetric Eyes: EOMI, no lid lag, anicteric sclera Mouth: no lip lesion, mucus membranes dry Cardiovascular: S1S2 reg, no murmur, positive posterior tibial pulse bilateral, Lungs: Ronchi bilateral, no accessory muscle use Abdominal: soft, nontender to palpation, no guarding, no appreciable organomegaly Ext: + gross muscle atrophy, trace edema, no contractures Neuro: CN II-XI grossly intact, no focal neuro deficits Psych: Alert, oriented, flat affect - Labs CBC & Chem 7: 10/27/18 04:35 10/27/18 04:35 Labs: Abnormal Lab Results - Last 24 Hours (Table) 10/26/18 10/26/18 10/27/18 Range/Units 18:30 23:01 04:35 RBC (3.80-5.40) m/uL Hgb (11.4-16.0) gm/dL Hct (34.0-46.0) % Lymphocytes # (1.0-4.8) k/uL Sodium 136 L 135 L (137-145) mmol/L Potassium 3.3 L (3.5-5.1) mmol/L Creatinine 0.25 L 0.26 L (0.52-1.04) mg/dL Glucose 103 H 122 H (74-99) mg/dL POC Glucose (mg/dL) 111 H (75-99) mg/dL Total Protein 5.8 L (6.3-8.2) g/dL Albumin 2.8 L (3.5-5.0) g/dL 10/27/18 10/27/18 10/27/18 Range/Units 04:35 06:00 12:11 RBC 3.11 L (3.80-5.40) m/uL Hgb 9.9 L (11.4-16.0) gm/dL Hct 30.7 L (34.0-46.0) % Lymphocytes # 0.1 L (1.0-4.8) k/uL Sodium (137-145) mmol/L Potassium (3.5-5.1) mmol/L Creatinine (0.52-1.04) mg/dL Glucose (74-99) mg/dL POC Glucose (mg/dL) 137 H 125 H (75-99) mg/dL Total Protein (6.3-8.2) g/dL Albumin (3.5-5.0) g/dL Assessment and Plan Assessment: Severe protein calorie malnutrition with cachexia and BMI of 14.9 -Attempted PEG tube on. Unsuccessful secondary to severe inflammation and scar tissue. Plan for open gastrostomy tube on 10/30 - Needs to be monitored closely for signs of refeeding syndrome -Dietary recommendations Dysphagia - failed MBS - Open G tube 10/30 Hypovolemic hyponatremia with resultant metabolic encephalopathy, improving -IV fluids completed, on TPN -Nephrology recommendations -Status post 3% normal saline Acute hypoxic respiratory failure secondary to Pneumonia, possible gram negative, likely aspiration -Continue with Zosyn, Levaquin D # 7 -Pulmonary hygiene -Follow chest x-ray until clear -Pulmonary recommendations appreciated Pulmonary lymphadenopathy, likely secondary to known prior laryngeal cancer -Will need urgent follow-up with her oncologist at [facility] Hypokalemia - repleace IV - TPN Anemia, likely dilutional -Stable -Outpatient follow-up -Follow intermittent CBC Contraction alkalosis, resolved Hypomagnesemia, resolved DVT prophylaxis: SCDs Discussed with: Patient, nursing, Dr. Murcia Anticipated discharge: 3-[address]: home vs SNF A total of 35 minutes was spent on the care of this complex patient more than 50% of the time was spent in counseling and care coordination.
[2018-10-27 18:24] LABS: Glucose,Whole Blood 96 mg/dL (75-99)
[2018-10-27] MEDS: HYDROmorphone 0.5 MG/0.5 ML SYRINGE IVP PRN ×2 (18:37→23:43)
[2018-10-27] MEDS: IPRATROPIUM-ALBUTEROL 3 ML NEB INHALATION PRN (23:08)
[2018-10-27 23:37] LABS: Glucose,Whole Blood 120 mg/dL (75-99)
[2018-10-28 05:29] LABS: Basophils % (A) 0 %; Eosinophils % (A) 0 %; HGB 10.1 gm/dL (11.4-16.0); Lymphocytes # (A) 0.1 k/uL (1.0-4.8); Lymphocytes % (A) 1 %; MCH 31.4 pg (25.0-35.0); MCHC 32.5 g/dL (31.0-37.0); MCV 96.5 fL (80.0-100.0); Mean Platelet Volume 7.4; Monocytes # (A) 0.3 k/uL (0-1.0); Monocytes % (A) 3 %; Neutrophils # (A) 8.3 k/uL (1.3-7.7); Neutrophils % (A) 95 %; Platelet Count 330 k/uL (150-450); RBC 3.21 m/uL (3.80-5.40); RDW 13.6 % (11.5-15.5); WBC 8.8 k/uL (3.8-10.6)
[2018-10-28 05:46] LABS: ALT 47 U/L (9-52); AST 30 U/L (14-36); African American GFR (CKD) >90 (>60 ml/min/1.73 sqM); Albumin 2.9 g/dL (3.5-5.0); Alkaline Phosphatase 85 U/L (38-126); Anion Gap 7 mmol/L; Blood Urea Nitrogen 11 mg/dL (7-17); Calcium 8.7 mg/dL (8.4-10.2); Carbon Dioxide 29 mmol/L (22-30); Chloride 97 mmol/L (98-107); Glucose 116 mg/dL (74-99); Magnesium 1.7 mg/dL (1.6-2.3); Phosphorus 3.3 mg/dL (2.5-4.5); Potassium 3.4 mmol/L (3.5-5.1); Sodium 133 mmol/L (137-145); Total Bilirubin 0.7 mg/dL (0.2-1.3); Total Protein 5.8 g/dL (6.3-8.2)
[2018-10-28 06:31] LABS: Glucose,Whole Blood 119 mg/dL (75-99)
[2018-10-28] MEDS: INSULIN ASPART (NovoLOG) 100 UNIT/ML VIAL SQ SCH ×4 (06:34→23:38)
--- NOTE | 2018-10-28 06:36 | XR ---
EXAMINATION TYPE: XR chest 1V portable DATE OF EXAM: 10/28/2018 HISTORY: PNA. REFERENCE: Previous study dated 10/27/2018. FINDINGS: There is a Mediport in place on the right. There is a left basilic PICC line in place. Its tip is in the right atrium. There are bilateral effusions. There is underlying COPD. The heart is not enlarged. There is bibasila r airspace disease. IMPRESSION: NO SIGNIFICANT INTERVAL CHANGE IN CHEST.
[2018-10-28] MEDS: IPRATROPIUM-ALBUTEROL 3 ML NEB INHALATION SCH ×4 (07:46→20:17)
--- NOTE | 2018-10-28 08:22 | PN ---
PROGRESS NOTE DATE OF SERVICE: October 28, 2018. This is a 52-year-old female who was admitted way back on October 19, 2018. She initially came in with mental status changes, thought to be related to metabolic encephalopathy. She also had a profound hyponatremia with a sodium of 111. She also developed acute hypoxemic hypercapnic respiratory failure. She required a brief period of time on the mechanical ventilator and having been intubated on the and extubated on October 21. She does have a history of laryngeal carcinoma. She is status post chemoradiation with last treatment being in February 2018. Over the last 3 or 4 days, she has improved dramatically. The big issue right now is nutrition. We tried to do a PEG tube. Unfortunately, she could not have an EGD performed because of the scarring that has occurred in the airway and the upper throat area from her radiation from the laryngeal carcinoma. We are thinking about some sort of surgical feeding tube at this point. She is currently not receiving any supplemental oxygen. Her IV saline at 20 mL an hour. She is getting TPN at 45 mL an hour. Her nutrition is inadequate. She is profoundly cachectic. Anyway, she is improving from the pulmonary status. She was thought to have aspiration pneumonia and that has improved. Chest x- rays and have improved on a daily basis and her oxygenation has also improved. We are keeping her n.p.o. and she apparently just recently failed her modified barium swallow. PHYSICAL EXAMINATION: VITAL SIGNS: Current vital signs are reviewed. Temperature is 98.3. Heart rate 90, respiratory rate 20 to 25, blood pressure 124/92, mean 104, saturations are 94% on room air. Appears in no acute distress. HEENT examination is grossly unremarkable. Mucous membranes are moist. No oral lesions. NECK: Supple. Full range of motion. No adenopathy. No neck vein distention. CARDIOVASCULAR examination reveals regular rhythm and rate. Heart rate about 90 beats per minute. S1, S2 normal. She is in sinus rhythm. No murmur. S1, S2 normal. LUNGS: A few scattered coarse rhonchi. No wheezes or crackles. Breath sounds equal bilaterally. ABDOMEN: Soft. Bowel sounds are heard. EXTREMITIES are intact. No cyanosis, clubbing, or edema. SKIN: Without rash. NEUROLOGIC examination is nonfocal. LAB WORK: Includes a white count of 8.8, hemoglobin 10.1, hematocrit 31, platelet count normal at 330,000. Sodium 133, potassium 3.4, chloride 97, CO2 of 29. Anion gap 7, BUN and creatinine were 11 and 0.23. Albumin is 2.9. A chest x-ray was done today. It shows improving infiltrates bilaterally. She still has bibasilar infiltrates, atelectasis or effusions. Her modified barium swallow revealed evidence of aspiration with thin nectar thick and pudding consistencies. Medications are reviewed. Microbiology is negative. ASSESSMENT: 1. Acute metabolic encephalopathy in large part related to the patient's profound hypovolemic hyponatremia, which is significantly improved. Admission sodium was 111. Current sodium is 133. 2. Acute hypoxemic hypercapnic respiratory failure secondary to aspiration pneumonia, much improved, status post intubation on October 20 and extubation on the . 3. Ongoing hypoxemic respiratory failure, dramatically improved. The patient has been weaned off oxygen therapy. 4. Severe hypovolemic hyponatremia, resolved. 5. History of laryngeal carcinoma, status post chemo radiation, possibly metastatic. 6. Severe protein calorie malnutrition with inundation. 7. Anorexia/cachexia syndrome. 8. History of previous tobacco dependence. 9. History of anemia of chronic disease. 10.Severe electrolyte disturbance, resolved. 11.Hypoalbuminemia. 12.Contraction alkalosis, improved. 13.Significantly poor dentition with dental caries. PLAN: The patient is getting TPN at 45 mL an hour. She may need a surgical feeding tube done early next week. She could not have the PEG tube performed. I suspect she has significant radiation changes in the upper airway and throat area. The patient will have her medications reviewed. Unnecessary medications will be discontinued. Microbiologic studies are thus far negative. We will continue with aspiration precautions. We will keep her n.p.o. She failed a modified barium swallow. Additional recommendations and suggestions are forthcoming. MMODL / IJN: [id number] /
[2018-10-28] MEDS: MAGNESIUM SULFATE-D5W PMX 1 GM in DEXTROSE/WATER 1 100ML.BAG IVPB SCH ×2 (09:09→09:57)
[2018-10-28] MEDS: POTASSIUM CHLORIDE 20 MEQ in WATER FOR INJECTION 1 100ML.BAG IVPB SCH ×2 (09:10→11:27)
[2018-10-28] MEDS: PANTOPRAZOLE 40 MG/10 ML VIAL IVP SCH (09:11)
[2018-10-28] MEDS: HEPARIN SODIUM,PORCINE 5,000 UNIT/ML 1 ML VIAL SQ SCH ×3 (09:13→23:50)
[2018-10-28] MEDS: PIPERACILLIN-TAZOBACTAM 3.375 GM in SODIUM CHLORIDE 0.9% 100 ML IVPB SCH ×3 (09:13→23:51)
[2018-10-28] MEDS: methylPREDNISolone SOD SUCCI 40 MG/ML 1 ML VIAL IV SCH ×3 (09:13→23:51)
--- NOTE | 2018-10-28 09:47 | P.PN ---
Subjective Progress Note Date: 10/28/18 Principal diagnosis: Weakness and sleeping more than often than normal Patient is a 52-year-old female with a past medical history of laryngeal cancer status post chemo and radiation, and history of tobacco abuse who presented to the emergency department with weakness and difficulty staying awake. Patient underwent treatment for laryngeal cancer in February 2018. S maddi that point in time she been having difficulty swallowing in his been tolerating pudding. She's become severely cachectic and weak. In the ER she underwent an extensive evaluation. She was found to have a sodium of 111, she underwent an acute abdominal series which was nonspecific. She underwent a CT of the chest which showed emphysema with extensive pulmonary interstitial infiltrates as well as multiple enlarged lymph nodes. In the emergency department she was having respiratory distress and appeared stridorous was subsequently admitted to the ICU. Initially she was 90% on 4 L nasal cannula and was found to be significantly acidotic with a pH of 7.13. She was subsequently intubated and placed on mechanical ventilation. She was seen by critical care. Due to her hypotension she required norepinephrine. She was also seen by nephrology due to her low sodiums. She did receive 3% normal saline due to her altered mentation. She was started on empiric IV antibiotics for possible pneumonia of Levaquin and Zosyn. She was transitioned from 3% saline to normal saline. She was extubated on 10/21 without any difficulties. She then developed significant respiratory distress on the morning of 10/23 and required BiPAP, which was able to be weaned by the morning of 10/26. She was started on TPN on 10/25 due to no ability to feed and severe malnutrition. Patient amenable for -Melodie, attempted placement on 10/26 unable to do so due to scar tissue and inflammation. Would be able to have open G tube, failed MBSS, plan for open G tube 10/30. Patient seen and examined at bedside. No chest pain, SOB, nausea or vomiting. Feeling tired. Feeling anxious no pain. Objective - Vital Signs Vital signs: Vital Signs Temp 98.3 F 10/28/18 04:00 Pulse 94 10/28/18 07:58 Resp 30 H 10/28/18 07:00 BP 129/92 10/28/18 07:00 Pulse Ox 88 L 10/28/18 07:00 Intake & Output 0910/28/18 10/28/18 18:59 06:59 18:59 Intake Total 947.9 915.8 65 Output Total 1360 1835 125 Balance -412.1 -919.2 -60 Weight 38.6 kg Intake: IV 582.4 915.8 65 .9 kvo 220 240 20 Fat Emulsion 20% 250 ml @ 62.4 180.8 20.833 mls/hr IV MoWeFr@ 1600 [facility] Rx#:[id number] Mvi, Adult No.4 with Vit 495 45 K 10 ml Trace (Conc-1Ml/ Dose) 1 ml Parenteral Electrolytes 20 ml Potassium Chloride 40 meq In Amino Acid 5%-D15w 1, 000 ml @ 45 mls/hr IV . [id number] Rx#:[id number] Piperacillin-Tazobactam 3 200 .375 gm In Sodium Chloride 0.9% 100 ml @ 25 mls/hr IVPB Q8HR [facility] Rx# :[id number] Potassium Chloride 20 meq 100 In Water For Injection 1 100ml.bag @ 50 mls/hr IVPB Q2H [facility] Rx#: [id number] Intake, IV Titration 365.5 Amount Levofloxacin 500Mg-D5w 100 Pmx 500 mg In Dextrose/ Water 1 100ml.bag @ 100 mls/hr IVPB Q24H [facility] Rx#: [id number] Mvi, Adult No.4 with Vit 265.5 K 10 ml Trace (Conc-1Ml/ Dose) 1 ml Parenteral Electrolytes 20 ml Potassium Chloride 40 meq In Amino Acid 5%-D15w 1, 000 ml @ 30 mls/hr IV . Q24H [facility] Rx#:[id number] Output: Urine 1360 1835 125 Other: Voiding Method Indwelling Catheter Indwelling Catheter ABP, PAP, CO, CI - Last Documented Arterial Blood Pressure 75/63 - Exam General: non toxic, cachectic, appears older than stated age, temporal wasting Derm: multiple areas of echymosis, warm, dry Head: atraumatic, normocephalic, symmetric Eyes: EOMI, no lid lag, anicteric sclera Mouth: no lip lesion, mucus membranes dry Cardiovascular: S1S2 reg, no murmur, positive posterior tibial pulse bilateral, Lungs: Ronchi bilateral, no accessory muscle use Abdominal: soft, nontender to palpation, no guarding, no appreciable organomegaly Ext: + gross muscle atrophy, trace edema, no contractures Neuro: CN II-XI grossly intact, no focal neuro deficits Psych: Alert, oriented, flat affect - Labs CBC & Chem 7: 10/28/18 05:10 10/28/18 05:10 Labs: Abnormal Lab Results - Last 24 Hours (Table) 10/27/18 10/27/18 10/28/18 Range/Units 12:11 23:36 05:10 RBC 3.21 L (3.80-5.40) m/uL Hgb 10.1 L (11.4-16.0) gm/dL Hct 31.0 L (34.0-46.0) % Neutrophils # 8.3 H (1.3-7.7) k/uL Lymphocytes # 0.1 L (1.0-4.8) k/uL Sodium (137-145) mmol/L Potassium (3.5-5.1) mmol/L Chloride (98-107) mmol/L Creatinine (0.52-1.04) mg/dL Glucose (74-99) mg/dL POC Glucose (mg/dL) 125 H 120 H (75-99) mg/dL Total Protein (6.3-8.2) g/dL Albumin (3.5-5.0) g/dL 10/28/18 10/28/18 Range/Units 05:10 06:30 RBC (3.80-5.40) m/uL Hgb (11.4-16.0) gm/dL Hct (34.0-46.0) % Neutrophils # (1.3-7.7) k/uL Lymphocytes # (1.0-4.8) k/uL Sodium 133 L (137-145) mmol/L Potassium 3.4 L (3.5-5.1) mmol/L Chloride 97 L (98-107) mmol/L Creatinine 0.23 L (0.52-1.04) mg/dL Glucose 116 H (74-99) mg/dL POC Glucose (mg/dL) 119 H (75-99) mg/dL Total Protein 5.8 L (6.3-8.2) g/dL Albumin 2.9 L (3.5-5.0) g/dL Assessment and Plan Assessment: Severe protein calorie malnutrition with cachexia and BMI of 14.9 Associated with dysphagia -Attempted PEG tube on. Unsuccessful secondary to severe inflammation and scar tissue. Plan for open gastrostomy tube on 10/30 - continue TPN - Dietary recommendations - failed MBS - Open G tube 10/30 Hypovolemic hyponatremia with resultant metabolic encephalopathy, improving -IV fluids completed, on TPN -Nephrology recommendations -Status post 3% normal saline - follow sodium level Acute hypoxic respiratory failure secondary to Pneumonia, possible gram negative, likely aspiration -Continue with Zosyn, Levaquin D # 8 -Pulmonary hygiene -Follow chest x-ray until clear -Pulmonary recommendations appreciated Pulmonary lymphadenopathy, likely secondary to known prior laryngeal cancer -Will need urgent follow-up with her oncologist at [facility] Hypokalemia - repleace IV - TPN Anemia, likely dilutional -Stable -Outpatient follow-up -Follow intermittent CBC Contraction alkalosis, resolved Hypomagnesemia, resolved DVT prophylaxis: SCDs Discussed with: Patient, nursing, Dr. Murcia Anticipated discharge: 3-[address]: home vs SNF A total of 35 minutes was spent on the care of this complex patient more than 50% of the time was spent in counseling and care coordination.
[2018-10-28] MEDS: LEVOFLOXACIN 500MG-D5W PMX 500 MG in DEXTROSE/WATER 1 100ML.BAG IVPB SCH (09:53)
--- NOTE | 2018-10-28 10:24 | P.PN ---
Subjective Progress Note Date: 10/28/18 Principal diagnosis: Malnutrition Patient without new complaints. White blood cell count 8.8, hemoglobin 10.1. Denies abdominal pain. No chest pain. Objective - Vital Signs Vital signs: Vital Signs Temp 98.3 F 10/28/18 08:00 Pulse 97 10/28/18 08:00 Resp 22 10/28/18 08:00 BP 130/96 10/28/18 08:00 Pulse Ox 97 10/28/18 08:00 Intake & Output 10/27/18 10/28/18 10/28/18 18:59 06:59 18:59 Intake Total 947.9 915.8 65 Output Total 1360 1835 125 Balance -412.1 -919.2 -60 Weight 38.6 kg Intake: IV 582.4 915.8 65 .9 kvo 220 240 20 Fat Emulsion 20% 250 ml @ 62.4 180.8 20.833 mls/hr IV MoWeFr@ 1600 [facility] Rx#:[id number] Mvi, Adult No.4 with Vit 495 45 K 10 ml Trace (Conc-1Ml/ Dose) 1 ml Parenteral Electrolytes 20 ml Potassium Chloride 40 meq In Amino Acid 5%-D15w 1, 000 ml @ 45 mls/hr IV . [id number] [facility] Rx#:[id number] Piperacillin-Tazobactam 3 200 .375 gm In Sodium Chloride 0.9% 100 ml @ 25 mls/hr IVPB Q8HR [facility] Rx# :[id number] Potassium Chloride 20 meq 100 In Water For Injection 1 100ml.bag @ 50 mls/hr IVPB Q2H [facility] Rx#: [id number] Intake, IV Titration 365.5 Amount Levofloxacin 500Mg-D5w 100 Pmx 500 mg In Dextrose/ Water 1 100ml.bag @ 100 mls/hr IVPB Q24H [facility] Rx#: [id number] Mvi, Adult No.4 with Vit 265.5 K 10 ml Trace (Conc-1Ml/ Dose) 1 ml Parenteral Electrolytes 20 ml Potassium Chloride 40 meq In Amino Acid 5%-D15w 1, 000 ml @ 30 mls/hr IV . Q24H [facility] Rx#:[id number] Output: Urine 1360 1835 125 Other: Voiding Method Indwelling Catheter Indwelling Catheter ABP, PAP, CO, CI - Last Documented Arterial Blood Pressure 75/63 - Exam Abdomen: Soft, nontender, nondistended - Labs CBC & Chem 7: 10/28/18 05:10 10/28/18 05:10 Labs: Abnormal Lab Results - Last 24 Hours (Table) 10/27/18 10/27/18 10/28/18 Range/Units 12:11 23:36 05:10 RBC 3.21 L (3.80-5.40) m/uL Hgb 10.1 L (11.4-16.0) gm/dL Hct 31.0 L (34.0-46.0) % Neutrophils # 8.3 H (1.3-7.7) k/uL Lymphocytes # 0.1 L (1.0-4.8) k/uL Sodium (137-145) mmol/L Potassium (3.5-5.1) mmol/L Chloride (98-107) mmol/L Creatinine (0.52-1.04) mg/dL Glucose (74-99) mg/dL POC Glucose (mg/dL) 125 H 120 H (75-99) mg/dL Total Protein (6.3-8.2) g/dL Albumin (3.5-5.0) g/dL 10/28/18 10/28/18 Range/Units 05:10 06:30 RBC (3.80-5.40) m/uL Hgb (11.4-16.0) gm/dL Hct (34.0-46.0) % Neutrophils # (1.3-7.7) k/uL Lymphocytes # (1.0-4.8) k/uL Sodium 133 L (137-145) mmol/L Potassium 3.4 L (3.5-5.1) mmol/L Chloride 97 L (98-107) mmol/L Creatinine 0.23 L (0.52-1.04) mg/dL Glucose 116 H (74-99) mg/dL POC Glucose (mg/dL) 119 H (75-99) mg/dL Total Protein 5.8 L (6.3-8.2) g/dL Albumin 2.9 L (3.5-5.0) g/dL Assessment and Plan (1) Severe protein-energy malnutrition Narrative/Plan: Patient was severe malnutrition. Plan open gastrostomy tube on Joseph. Current Visit: Yes Status: Acute Code(s): E43 - UNSPECIFIED SEVERE PROTEIN- CALORIE MALNUTRITION SNOMED Code(s): 891124997
[2018-10-28] MEDS: LORazepam 2 MG/ML INJ IV PRN ×2 (11:26→17:44)
[2018-10-28 11:34] LABS: Glucose,Whole Blood 134 mg/dL (75-99)
[2018-10-28] MEDS ORDERED: LIDOCAINE 1% 20 ML VIAL (10MG/ML) FOR IV START INTRADERMA PRN (13:02)
[2018-10-28] MEDS ORDERED: fentaNYL (PF) 50 MCG/ML 2 ML AMP IV PRN (13:02)
[2018-10-28] MEDS ORDERED: LACTATED RINGERS 1,000 ML IV SCH (13:15)
[2018-10-28] MEDS: SODIUM CHLORIDE 0.9% 1,000 ML IV SCH (14:44)
[2018-10-28] MEDS: MVI, ADULT NO.4 WITH VIT K 10 ML, TRACE (CONC-1ML/DOSE) 1 ML, PARENTERAL ELECTROLYTES 2... IV SCH ×5 (14:45)
[2018-10-28 16:58] LABS: Glucose,Whole Blood 104 mg/dL (75-99)
[2018-10-28 17:34] LABS: Glucose,Whole Blood 97 mg/dL (75-99)
[2018-10-28] MEDS ORDERED: POTASSIUM CHLORIDE 20 MEQ in WATER FOR INJECTION 1 100ML.BAG IVPB STA (18:40)
[2018-10-28 23:39] LABS: Glucose,Whole Blood 98 mg/dL (75-99)
[2018-10-28] MEDS: HYDROmorphone 0.5 MG/0.5 ML SYRINGE IVP PRN (23:49)
[2018-10-29] MEDS: LORazepam 2 MG/ML INJ IV PRN ×3 (06:01→20:13)
[2018-10-29 06:06] LABS: Glucose,Whole Blood 101 mg/dL (75-99)
[2018-10-29] MEDS: INSULIN ASPART (NovoLOG) 100 UNIT/ML VIAL SQ SCH ×3 (06:52→18:57)
[2018-10-29] MEDS: IPRATROPIUM-ALBUTEROL 3 ML NEB INHALATION SCH ×5 (07:50→19:43)
--- NOTE | 2018-10-29 07:53 | PN ---
PROGRESS NOTE DATE OF SERVICE: October 29, 2018 This is a 53-year-old female who was admitted on October 19. She was initially admitted with a diagnosis of mental status changes and encephalopathy. She also had profound hyponatremia with a presenting sodium of 111. She developed acute hypoxemic respiratory failure secondary to aspiration pneumonia. The patient was intubated on October 20 and extubated the next day on the . She has had significant improvement over the last 4 or 5 days. She has been weaned down to room air. She is getting a saline IV at 20 mL an hour, TPN at 45 mL an hour. One of the issues remains poor nutrition. Dr. Montesinos tried to do an EGD for PEG tube placement was not able to do that because of scarring of the upper esophagus. This is from the radiation she received because of her laryngeal carcinoma. Anyway, she is getting nutrition with TPN. The plan tomorrow is a surgical feeding tube. She otherwise is doing well. Denies any particular complaints. Denies any shortness of breath. She is n.p.o. PHYSICAL EXAMINATION: VITAL SIGNS: Her current vital signs are reviewed. Temperature is 98.4. Heart rate 89, respiratory rate 24, blood pressure 133/101, mean 111, room air saturation 95%. GENERAL: Appears in no acute distress HEENT examination is grossly unremarkable. Mucous membranes are moist. No oral lesions. NECK is supple. Full range of motion. No adenopathy. CARDIOVASCULAR examination reveals regular rhythm rate. Heart rate about 80 beats per minute. S1, S2 normal. LUNGS: Reveal a few scattered rhonchi. No wheezes or crackles. Breath sounds equal. Breath sounds have improved. ABDOMEN is soft. No bowel sounds. EXTREMITIES are intact. No cyanosis, clubbing, or edema. SKIN: Without rash. NEUROLOGIC: Examination is nonfocal. Microbiologic studies on this patient have been negative all along. LABS: Reviewed. No new labs from today. Yesterday's labs were reviewed. No chest x-ray from today. Chest x-ray from yesterday continued to show bibasilar infiltrates, atelectasis and/or effusions. All in all though, her chest x-ray is dramatically improved. Medications are reviewed. She remains on all appropriate medications including Zosyn and Levaquin. She is on breathing treatments as well. ASSESSMENT: 1. Acute metabolic encephalopathy in large part related to the patient's profound hypovolemic, hyponatremia, which is significantly improved. Admission sodium was 111. 2. Acute hypoxemic and hypercapnic respiratory failure secondary to aspiration pneumonia, much improved, status post brief period of intubation on October 20 and extubation on the following day the . 3. Ongoing hypoxemic respiratory failure, dramatically improved. The patient has been weaned off oxygen. 4. Severe hypovolemic hyponatremia, resolved. 5. History of laryngeal carcinoma, status post chemo radiation, with last treatments in February 2018. 6. Severe protein calorie malnutrition with inanition. 7. Anorexia/cachexia syndrome. 8. History of previous tobacco dependence. 9. History of anemia of chronic disease. 10.Severe electrolyte disturbance, resolved. 11.Hypoalbuminemia from poor nutrition. 12.Contraction alkalosis, improved. 13.Significantly poor dentition with dental caries. PLAN: The patient is currently n.p.o. The patient's O2 has been weaned off. She remains on TPN at 45 mL an hour. She will have a surgical feeding tube placed tomorrow. I believe by Dr. Montesinos. No additional recommendations are made. Head of bed elevated at all times. Aspiration precautions. MMODL / IJN: [id number] /
[2018-10-29] MEDS: methylPREDNISolone SOD SUCCI 40 MG/ML 1 ML VIAL IV SCH ×3 (07:59→22:20)
[2018-10-29] MEDS: PANTOPRAZOLE 40 MG/10 ML VIAL IVP SCH (08:00)
[2018-10-29] MEDS: LEVOFLOXACIN 500MG-D5W PMX 500 MG in DEXTROSE/WATER 1 100ML.BAG IVPB SCH (08:06)
[2018-10-29] MEDS: PIPERACILLIN-TAZOBACTAM 3.375 GM in SODIUM CHLORIDE 0.9% 100 ML IVPB SCH ×2 (08:15→17:11)
[2018-10-29] MEDS: HEPARIN SODIUM,PORCINE 5,000 UNIT/ML 1 ML VIAL SQ SCH ×3 (08:19→22:20)
--- NOTE | 2018-10-29 09:29 | P.PN ---
Subjective Progress Note Date: 10/29/18 Principal diagnosis: Malnutrition Patient has no new complaints. Scheduled for gastrostomy tube placement tomorrow. Denies pain. Objective - Vital Signs Vital signs: Vital Signs Temp 98.4 F 10/29/18 04:00 Pulse 101 H 10/29/18 08:07 Resp 28 H 10/29/18 04:00 BP 133/101 10/29/18 04:00 Pulse Ox 95 10/29/18 04:00 Intake & Output 10/28/18 10/29/18 10/29/18 18:59 06:59 18:59 Intake Total 2101 880 Output Total 1375 1550 Balance 726 -670 Weight 33 kg Intake: IV 345 880 .9 kvo 200 240 Mvi, Adult No.4 with Vit 45 540 K 10 ml Trace (Conc-1Ml/ Dose) 1 ml Parenteral Electrolytes 20 ml Potassium Chloride 40 meq In Amino Acid 5%-D15w 1, 000 ml @ 45 mls/hr IV . [id number] [facility] Rx#:[id number] Piperacillin-Tazobactam 3 100 100 .375 gm In Sodium Chloride 0.9% 100 ml @ 25 mls/hr IVPB Q8HR [facility] Rx# :[id number] Intake, IV Titration 1351 Amount Levofloxacin 500Mg-D5w 100 Pmx 500 mg In Dextrose/ Water 1 100ml.bag @ 100 mls/hr IVPB Q24H [facility] Rx#: [id number] Magnesium Sulfate-D5w Pmx 200 1 gm In Dextrose/Water 1 100ml.bag @ 100 mls/hr IVPB Q1H [facility] Rx#: [id number] Mvi, Adult No.4 with Vit 1051 K 10 ml Trace (Conc-1Ml/ Dose) 1 ml Parenteral Electrolytes 20 ml Potassium Chloride 40 meq In Amino Acid 5%-D15w 1, 000 ml @ 45 mls/hr IV . [id number] [facility] Rx#:[id number] TPN/PPN 405 .9 kvo 405 Output: Urine 1375 1550 Other: Voiding Method Indwelling Catheter Indwelling Catheter ABP, PAP, CO, CI - Last Documented Arterial Blood Pressure 75/63 - Exam Abdomen: Soft, nontender, nondistended - Labs CBC & Chem 7: 10/28/18 05:10 10/28/18 17:25 Labs: Abnormal Lab Results - Last 24 Hours (Table) 10/28/18 10/28/18 10/29/18 Range/Units 11:32 16:56 06:05 POC Glucose (mg/dL) 134 H 104 H 101 H (75-99) mg/dL Assessment and Plan (1) Severe protein-energy malnutrition Narrative/Plan: Arrangements for open gastrostomy tube have been made for tomorrow. Nothing by mouth after midnight. Current Visit: Yes Status: Acute Code(s): E43 - UNSPECIFIED SEVERE PROTEIN- CALORIE MALNUTRITION SNOMED Code(s): 082355234
--- NOTE | 2018-10-29 11:23 | P.PN ---
Subjective Progress Note Date: 10/29/18 Principal diagnosis: Weakness and sleeping more than often than normal Patient is a 52-year-old female with a past medical history of laryngeal cancer status post chemo and radiation, and history of tobacco abuse who presented to the emergency department with weakness and difficulty staying awake. Patient underwent treatment for laryngeal cancer in February 2018. S maddi that point in time she been having difficulty swallowing in his been tolerating pudding. She's become severely cachectic and weak. In the ER she underwent an extensive evaluation. She was found to have a sodium of 111, she underwent an acute abdominal series which was nonspecific. She underwent a CT of the chest which showed emphysema with extensive pulmonary interstitial infiltrates as well as multiple enlarged lymph nodes. In the emergency department she was having respiratory distress and appeared stridorous was subsequently admitted to the ICU. Initially she was 90% on 4 L nasal cannula and was found to be significantly acidotic with a pH of 7.13. She was subsequently intubated and placed on mechanical ventilation. She was seen by critical care. Due to her hypotension she required norepinephrine. She was also seen by nephrology due to her low sodiums. She did receive 3% normal saline due to her altered mentation. She was started on empiric IV antibiotics for possible pneumonia of Levaquin and Zosyn. She was transitioned from 3% saline to normal saline. She was extubated on 10/21 without any difficulties. She then developed significant respiratory distress on the morning of 10/23 and required BiPAP, which was able to be weaned by the morning of 10/26. She was started on TPN on 10/25 due to no ability to feed and severe malnutrition. Patient amenable for -Melodie, attempted placement on 10/26 unable to do so due to scar tissue and inflammation. Would be able to have open G tube, failed MBSS, plan for open G tube 10/30. Patient seen and examined at bedside. Doing well today, pain control, anxiety much improved, no nausea or vomiting. Objective - Vital Signs Vital signs: Vital Signs Temp 98.1 F 10/29/18 08:00 Pulse 101 H 10/29/18 08:07 Resp 22 10/29/18 08:00 BP 112/80 10/29/18 08:00 Pulse Ox 92 L 10/29/18 08:00 Intake & Output 10/28/18 10/29/1819 18:59 06:59 18:59 Intake Total 2101 880 260 Output Total 1375 1550 600 Balance 726 -670 -340 Weight 33 kg Intake: IV 345 880 260 .9 kvo 200 240 Mvi, Adult No.4 with Vit 45 540 180 K 10 ml Trace (Conc-1Ml/ Dose) 1 ml Parenteral Electrolytes 20 ml Potassium Chloride 40 meq In Amino Acid 5%-D15w 1, 000 ml @ 45 mls/hr IV . [id number] [facility] Rx#:[id number] Piperacillin-Tazobactam 3 100 100 .375 gm In Sodium Chloride 0.9% 100 ml @ 25 mls/hr IVPB Q8HR [facility] Rx# :[id number] Sodium Chloride 0.9% 1, 80 000 ml @ 20 mls/hr IV . Q24H [facility] Rx#:[id number] Intake, IV Titration 1351 Amount Levofloxacin 500Mg-D5w 100 Pmx 500 mg In Dextrose/ Water 1 100ml.bag @ 100 mls/hr IVPB Q24H [facility] Rx#: [id number] Magnesium Sulfate-D5w Pmx 200 1 gm In Dextrose/Water 1 100ml.bag @ 100 mls/hr IVPB Q1H [facility] Rx#: [id number] Mvi, Adult No.4 with Vit 1051 K 10 ml Trace (Conc-1Ml/ Dose) 1 ml Parenteral Electrolytes 20 ml Potassium Chloride 40 meq In Amino Acid 5%-D15w 1, 000 ml @ 45 mls/hr IV . [id number] [facility] Rx#:[id number] TPN/PPN 405 .9 kvo 405 Output: Urine 1375 1550 600 Other: Voiding Method Indwelling Catheter Indwelling Catheter ABP, PAP, CO, CI - Last Documented Arterial Blood Pressure 75/63 - Exam General: non toxic, cachectic, appears older than stated age, temporal wasting Derm: multiple areas of echymosis, warm, dry Head: atraumatic, normocephalic, symmetric Eyes: EOMI, no lid lag, anicteric sclera Mouth: no lip lesion, mucus membranes dry Cardiovascular: S1S2 reg, no murmur, positive posterior tibial pulse bilateral, Lungs: Decreased breath sounds bilateral, no accessory muscle use Abdominal: soft, nontender to palpation, no guarding, no appreciable organom egaly Ext: + gross muscle atrophy, trace edema, no contractures Neuro: CN II-XI grossly intact, no focal neuro deficits Psych: Alert, oriented, flat affect - Labs CBC & Chem 7: 10/28/18 05:10 10/28/18 17:25 Labs: Abnormal Lab Results - Last 24 Hours (Table) 10/28/18 10/28/18 10/29/18 Range/Units 11:32 16:56 06:05 POC Glucose (mg/dL) 134 H 104 H 101 H (75-99) mg/dL Assessment and Plan Assessment: Severe protein calorie malnutrition with cachexia and BMI of 11.4 Associated with dysphagia -Attempted PEG tube on. Unsuccessful secondary to severe inflammation and scar tissue. Plan for open gastrostomy tube on 10/30 - continue TPN - Dietary recommendations - failed MBS - Open G tube 10/30 Hypovolemic hyponatremia with resultant metabolic encephalopathy, improving -IV fluids completed, on TPN -Nephrology recommendations -Status post 3% normal saline - follow sodium level Acute hypoxic respiratory failure secondary to Pneumonia, possible gram negative, likely aspiration -Continue with Zosyn, Levaquin D # 9 -Pulmonary hygiene -Follow chest x-ray until clear -Pulmonary recommendations appreciated Pulmonary lymphadenopathy, likely secondary to known prior laryngeal cancer -Will need urgent follow-up with her oncologist at [facility]. Patient aware. Hypokalemia, improved -follow levels Anemia, likely dilutional -Stable -Outpatient follow-up -Follow intermittent CBC Contraction alkalosis, resolved Hypomagnesemia, resolved DVT prophylaxis: SCDs Discussed with: Patient, nursing Anticipated discharge: 3-[address]: home vs SNF A total of 25 minutes was spent on the care of this complex patient more than 50% of the time was spent in counseling and care coordination.
[2018-10-29 11:53] LABS: Glucose,Whole Blood 94 mg/dL (75-99)
[2018-10-29 14:02] LABS: Basophils % (A) 0 %; Eosinophils % (A) 0 %; HCT 29.4 % (34.0-46.0); HGB 9.7 gm/dL (11.4-16.0); Lymphocytes # (A) 0.2 k/uL (1.0-4.8); Lymphocytes % (A) 2 %; MCH 31.3 pg (25.0-35.0); MCHC 32.9 g/dL (31.0-37.0); MCV 95.1 fL (80.0-100.0); Mean Platelet Volume 7.3; Monocytes # (A) 0.4 k/uL (0-1.0); Monocytes % (A) 4 %; Neutrophils # (A) 7.3 k/uL (1.3-7.7); Neutrophils % (A) 92 %; Platelet Count 350 k/uL (150-450); RBC 3.09 m/uL (3.80-5.40); RDW 13.5 % (11.5-15.5); WBC 7.9 k/uL (3.8-10.6)
[2018-10-29 14:12] LABS: ALT 45 U/L (9-52); AST 26 U/L (14-36); African American GFR (CKD) >90 (>60 ml/min/1.73 sqM); Albumin 2.9 g/dL (3.5-5.0); Alkaline Phosphatase 70 U/L (38-126); Anion Gap 7 mmol/L; Blood Urea Nitrogen 15 mg/dL (7-17); Calcium 8.6 mg/dL (8.4-10.2); Carbon Dioxide 26 mmol/L (22-30); Chloride 98 mmol/L (98-107); Glucose 106 mg/dL (74-99); Magnesium 1.7 mg/dL (1.6-2.3); Potassium 3.9 mmol/L (3.5-5.1); Sodium 131 mmol/L (137-145); Total Bilirubin 1.1 mg/dL (0.2-1.3); Total Protein 5.9 g/dL (6.3-8.2)
[2018-10-29] MEDS: SODIUM CHLORIDE 0.9% 1,000 ML IV SCH (14:47)
[2018-10-29] MEDS: MVI, ADULT NO.4 WITH VIT K 10 ML, TRACE (CONC-1ML/DOSE) 1 ML, PARENTERAL ELECTROLYTES 2... IV SCH ×5 (15:00)
[2018-10-29 18:23] LABS: Glucose,Whole Blood 126 mg/dL (75-99)
[2018-10-29] MEDS: HYDROmorphone 0.5 MG/0.5 ML SYRINGE IVP PRN (22:19)
[2018-10-29] MEDS: IPRATROPIUM-ALBUTEROL 3 ML NEB INHALATION PRN (23:35)
[2018-10-30 00:06] LABS: Glucose,Whole Blood 149 mg/dL (75-99)
[2018-10-30] MEDS: INSULIN ASPART (NovoLOG) 100 UNIT/ML VIAL SQ SCH ×4 (01:31→18:21)
[2018-10-30] MEDS: LORazepam 2 MG/ML INJ IV PRN ×3 (03:07→19:24)
[2018-10-30 05:16] LABS: HCT 27.1 % (34.0-46.0); HGB 9.2 gm/dL (11.4-16.0); MCH 32.4 pg (25.0-35.0); MCHC 34.1 g/dL (31.0-37.0); MCV 94.9 fL (80.0-100.0); Mean Platelet Volume 7.6; Platelet Count 386 k/uL (150-450); RBC 2.86 m/uL (3.80-5.40); RDW 14.7 % (11.5-15.5)
[2018-10-30 05:35] LABS: ALT 43 U/L (9-52); AST 20 U/L (14-36); African American GFR (CKD) >90 (>60 ml/min/1.73 sqM); Albumin 2.9 g/dL (3.5-5.0); Alkaline Phosphatase 81 U/L (38-126); Anion Gap 6 mmol/L; Blood Urea Nitrogen 15 mg/dL (7-17); Calcium 8.8 mg/dL (8.4-10.2); Carbon Dioxide 28 mmol/L (22-30); Chloride 100 mmol/L (98-107); Glucose 121 mg/dL (74-99); Magnesium 1.9 mg/dL (1.6-2.3); Phosphorus 3.4 mg/dL (2.5-4.5); Potassium 4.1 mmol/L (3.5-5.1); Sodium 134 mmol/L (137-145); Total Bilirubin 0.8 mg/dL (0.2-1.3); Total Protein 5.8 g/dL (6.3-8.2)
[2018-10-30 06:10] LABS: Glucose,Whole Blood 104 mg/dL (75-99)
[2018-10-30] MEDS: IPRATROPIUM-ALBUTEROL 3 ML NEB INHALATION SCH ×4 (07:17→20:21)
[2018-10-30] MEDS: PANTOPRAZOLE 40 MG/10 ML VIAL IVP SCH (08:26)
[2018-10-30] MEDS: HEPARIN SODIUM,PORCINE 5,000 UNIT/ML 1 ML VIAL SQ SCH ×2 (08:26→18:00)
[2018-10-30] MEDS: methylPREDNISolone SOD SUCCI 40 MG/ML 1 ML VIAL IV SCH (08:26)
[2018-10-30] MEDS: LEVOFLOXACIN 500MG-D5W PMX 500 MG in DEXTROSE/WATER 1 100ML.BAG IVPB SCH (08:27)
[2018-10-30 10:14] VITALS: BMI 11.4
--- NOTE | 2018-10-30 10:47 | P.PN ---
Subjective Progress Note Date: 10/30/18 Principal diagnosis: Patient is a 52-year-old female with a past medical history of laryngeal cancer status post chemo and radiation, and history of tobacco abuse who presented to the emergency department with weakness and difficulty staying awake. Patient underwent treatment for laryngeal cancer in February 2018. Since that point in time she been having difficulty swallowing in his been tolerating pudding. She's become severely cachectic and weak. In the ER she underwent an extensive evaluation. She was found to have a sodium of 111, she underwent an acute abdominal series which was nonspecific. She underwent a CT of the chest which showed emphysema with extensive pulmonary interstitial infiltrates as well as multiple enlarged lymph nodes. In the emergency department she was having respiratory distress and appeared stridorous was subsequently admitted to the ICU. Initially she was 90% on 4 L nasal cannula and was found to be significantly acidotic with a pH of 7.13. She was subsequently intubated and placed on mechanical ventilation. She was seen by critical care. Due to her hypotension she required norepinephrine. She was also seen by nephrology due to her low sodiums. She did receive 3% normal saline due to her altered mentation. She was started on empiric IV antibiotics for possible pneumonia of Levaquin and Zosyn. She was transitioned from 3% saline to normal saline. She was extubated on 10/21 without any difficulties. She then developed significant respiratory distress on the morning of 10/23 and required BiPAP, which was able to be weaned by the morning of 10/26. She was started on TPN on 10/25 due to no ability to feed and severe malnutrition. Patient amenable for -Melodie, attempted placement on 10/26 unable to do so due to scar tissue and inflammation. Would be able to have open G tube, failed MBSS, plan for open G tube 10/30. Patient seen and examined in follow-up today, patient doing well without any significant complaints or concerns Objective - Vital Signs Vital signs: Vital Signs Temp 98 F 10/30/18 00:00 Pulse 106 H 10/30/18 00:00 Resp 22 10/30/18 00:00 BP 98/67 10/30/18 00:00 Pulse Ox 97 10/30/18 00:00 Intake & Output 10/29/18 10/30/18 10/30/18 18:59 06:59 18:59 Intake Total 1571 260 Output Total 925 325 Balance 646 -65 Intake: IV 520 260 Mvi, Adult No.4 with Vit 360 180 K 10 ml Trace (Conc-1Ml/ Dose) 1 ml Parenteral Electrolytes 20 ml Potassium Chloride 40 meq In Amino Acid 5%-D15w 1, 000 ml @ 45 mls/hr IV . [id number] [facility] Rx#:[id number] Sodium Chloride 0.9% 1, 160 80 000 ml @ 20 mls/hr IV . Q24H [facility] Rx#:[id number] Intake, IV Titration 1051 Amount Mvi, Adult No.4 with Vit 1051 K 10 ml Trace (Conc-1Ml/ Dose) 1 ml Parenteral Electrolytes 20 ml Potassium Chloride 40 meq In Amino Acid 5%-D15w 1, 000 ml @ 45 mls/hr IV . [id number] [facility] Rx#:[id number] Output: Urine 925 325 Other: Voiding Method Indwelling Catheter Indwelling Catheter ABP, PAP, CO, CI - Last Documented Arterial Blood Pressure 75/63 - Exam Constitutional: No acute distress, awake and alert cachectic appearance Eyes: Anicteric sclerae, moist conjunctiva, no lid-lag, PERRLA ENMT: Bilateral temporal wasting NC/AT,Oropharynx clear, no erythema, exudates Neck:Supple, FROM, no masses, or JVD, No carotid bruits; No thyromegaly Lungs: Decreased breath sounds bilaterally, unlabored Cardiovascular: Heart regular in rate and rhythm, No murmurs, gallops, or rubs no peripheral edema Abdominal: Soft Nontender, nom distended, no guarding, no rebound or rigidity, Normoactive bowel sounds No hepatomegaly, No splenomegaly, No palpable mass No abdominal wall hernia noted Skin: Normal temperature, tone, texture, turgor, No induration No subcutaneous nodules, No rash, lesions, No ulcers Extremities:No digital cyanosis No clubbing, Pedal pulses intact and symmetrical Radial pulses intact and symmetrical Normal gait and station, No calf tenderness Neuro: Awake alert following commands no focal deficits appreciated - Labs CBC & Chem 7: 10/30/18 04:34 10/30/18 04:33 Labs: Abnormal Lab Results - Last 24 Hours (Table) 10/29/18 10/29/18 10/29/18 Range/Units 13:48 13:48 18:21 RBC 3.09 L (3.80-5.40) m/uL Hgb 9.7 L (11.4-16.0) gm/dL Hct 29.4 L (34.0-46.0) % Lymphocytes # 0.2 L (1.0-4.8) k/uL Sodium 131 L (137-145) mmol/L Creatinine 0.24 L (0.52-1.04) mg/dL Glucose 106 H (74-99) mg/dL POC Glucose (mg/dL) 126 H (75-99) mg/dL Total Protein 5.9 L (6.3-8.2) g/dL Albumin 2.9 L (3.5-5.0) g/dL 10/30/18 10/30/18 10/30/18 Range/Units 00:03 04:33 04:34 RBC 2.86 L (3.80-5.40) m/uL Hgb 9.2 L (11.4-16.0) gm/dL Hct 27.1 L (34.0-46.0) % Lymphocytes # (1.0-4.8) k/uL Sodium 134 L (137-145) mmol/L Creatinine 0.28 L (0.52-1.04) mg/dL Glucose 121 H (74-99) mg/dL POC Glucose (mg/dL) 149 H (75-99) mg/dL Total Protein 5.8 L (6.3-8.2) g/dL Albumin 2.9 L (3.5-5.0) g/dL 10/30/18 Range/Units 06:08 RBC (3.80-5.40) m/uL Hgb (11.4-16.0) gm/dL Hct (34.0-46.0) % Lymphocytes # (1.0-4.8) k/uL Sodium (137-145) mmol/L Creatinine (0.52-1.04) mg/dL Glucose (74-99) mg/dL POC Glucose (mg/dL) 104 H (75-99) mg/dL Total Protein (6.3-8.2) g/dL Albumin (3.5-5.0) g/dL Assessment and Plan (1) Severe protein-energy malnutrition Narrative/Plan: Severe protein calorie malnutrition with cachexia and BMI of 11.4 Associated with dysphagia -Attempted PEG tube on. Unsuccessful secondary to severe inflammation and scar tissue. Plan for open gastrostomy tube on 10/30 - continue TPN - Dietary recommendations - failed MBS - Open G tube 10/30 Current Visit: Yes Status: Acute Code(s): E43 - UNSPECIFIED SEVERE PROTEIN- CALORIE MALNUTRITION SNOMED Code(s): 703740796 (2) Acute respiratory failure with hypoxia and hypercapnia Narrative/Plan: Acute hypoxic respiratory failure secondary to Pneumonia, possible gram negative, likely aspiration -Continue with Zosyn, Levaquin D # 10 -Pulmonary hygiene -Follow chest x-ray until clear -Pulmonary recommendations appreciated Current Visit: Yes Status: Acute Code(s): J96.01 - ACUTE RESPIRATORY FAILURE WITH HYPOXIA; J96.02 - ACUTE RESPIRATORY FAILURE WITH HYPERCAPNIA SNOMED Code(s): 308852188 (3) Hyponatremia Narrative/Plan: -IV fluids completed, on TPN -Nephrology recommendations -Status post 3% normal saline - follow sodium level Current Visit: Yes Status: Acute Code(s): E87.1 - HYPO-OSMOLALITY AND HYPONATREMIA SNOMED Code(s): 57085835 (4) Mediastinal lymphadenopathy Narrative/Plan: * CT of the chest showing extensive bronchial and subcarinal adenopathy * Suspected to be metastatic versus lung primary * Will need urgent follow-up with her oncologist at [facility]. Patient aware. Current Visit: Yes Status: Acute Code(s): R59.0 - LOCALIZED ENLARGED LYMPH NODES SNOMED Code(s): 41091153 (5) History of laryngeal cancer Narrative/Plan: * Most recent treatment in February 2018 Current Visit: Yes Status: Chronic Code(s): Z85.21 - PERSONAL HISTORY OF MALIGNANT NEOPLASM OF LARYNX SNOMED Code(s): 933650392 (6) Weakness Narrative/Plan: * Secondary to profound hyponatremia Current Visit: Yes Status: Acute Code(s): R53.1 - WEAKNESS SNOMED Code(s): 93165504 (7) Metabolic encephalopathy Narrative/Plan: * Secondary to hyponatremia Current Visit: Yes Status: Resolved Code(s): G93.41 - METABOLIC ENCEPHALOPATHY SNOMED Code(s): 29388986 (8) Hypokalemia Narrative/Plan: * Continue to monitor daily continued on potassium replacement protocol * We'll replace and recheck Current Visit: Yes Status: Acute Code(s): E87.6 - HYPOKALEMIA SNOMED Code(s): 92330959 Plan: Disposition * Patient medically stable for transfer to the medical floor after having open G-tube placement * Anticipate discharge tomorrow
[2018-10-30 11:50] LABS: Glucose,Whole Blood 124 mg/dL (75-99)
[2018-10-30] MEDS ORDERED: SUCCINYLCHOLINE CHLORIDE 100 MG/5 ML SYR IV ONE (14:30)
[2018-10-30] MEDS ORDERED: ETOMIDATE 2 MG/ML 10 ML VIAL ONE (14:30)
[2018-10-30] MEDS ORDERED: fentaNYL (PF) 50 MCG/ML 2 ML AMP ONE (14:30)
[2018-10-30] MEDS ORDERED: MIDAZOLAM 2 MG/2 ML VIAL ONE (14:30)
[2018-10-30] MEDS ORDERED: LACTATED RINGERS 1,000 ML IV ONE ×2 (14:39)
[2018-10-30] MEDS ORDERED: SODIUM CHLORIDE 0.9% 50 ML with ceFAZolin 1,000 MG IV ONE ×2 (15:07)
--- NOTE | 2018-10-30 15:41 | P.OP ---
Date of Procedure: 10/30/18 Preoperative Diagnosis: Malnutrition Postoperative Diagnosis: Malnutrition Procedure(s) Performed: Tube gastrostomy Anesthesia: JEAN CARLOS Surgeon: Adonis Montesinos Pathology: none sent Condition: stable Disposition: PACU Description of Procedure: The patient's placed on the operative table in the supine position. She received general anesthesia. Her abdomen was prepped and draped usual sterile fashion. The skin was incised in the midline. The fascia was cut with electrocautery. The abdomen was entered. The stomach was visualized. 3-[address] to [address] a pursestring on the stomach. The gastrotomy was performed using large cautery. A 16-[place] ACACIA feeding tube was placed through the anterior abdominal wall and then into the stomach. The balloon was insufflated. The pursestring suture was secured. The stomach was then tacked in 4 quadrants using 3-0 silk suture. The bolster was secured at the 2 cm bird. The fascia was closed with #1 strata fix suture. Skin was closed shanae. Patient tolerated procedure well was sent to recovery room in stable condition.
--- NOTE | 2018-10-30 16:35 | P.PN ---
Subjective Progress Note Date: 10/30/18 Principal diagnosis: Shortness of breath On 10/30/2018 patient was seen in follow-up in the intensive care unit, she has been an overflow for medical surgical floor, signs are stable, room air pulse ox is 95%, patient is afebrile, lung sounds are essentially clear to auscultation, no rhonchi, no wheezing, no completed shortness of breath, no chest pain, no new chest x-rays, her blood and sputum cultures have shown no growth. Patient has been treated for suspected aspiration pneumonia, with a combination of Zosyn and Levaquin, she has completed a course of Zosyn, and remains on Levaquin only at this time. Remains on IV steroids, but patient has really not had any wheezing or congestion. Last chest x-ray was on 10/28/2018 and showed bilateral pleural effusions, and bibasilar airspace disease. Patient has been nothing by mouth in view of aspiration, she had a modified barium swallow evaluation on 10/27/2018 which showed aspiration with thin liquids, nectar thick liquids and pudding thick consistencies, patient was unable to have a PEG tube inserted related to e xtensive scarring in the esophagus related to previous radiation treatments, and patient is going for a tube gastrostomy insertion by Dr. Montesinos today. His labs have been reviewed, showing white blood cell, 6.0, hemoglobin of 9.2, serum sodium is 134, the rest of electrolytes and renal profile were unremarkable. Patient remains on TPN Objective - Vital Signs Vital signs: Vital Signs Temp 97 F L 10/30/18 15:49 Pulse 87 10/30/18 16:04 Resp 18 10/30/18 16:04 BP 137/84 10/30/18 16:04 Pulse Ox 93 L 10/30/18 16:04 Intake & Output 10/29/18 10/30/18 10/30/18 18:59 06:59 18:59 Intake Total 1571 260 350 Output Total 925 325 155 Balance 646 -65 195 Weight 33 kg Intake: IV 520 260 350 Mvi, Adult No.4 with Vit 360 180 K 10 ml Trace (Conc-1Ml/ Dose) 1 ml Parenteral Electrolytes 20 ml Potassium Chloride 40 meq In Amino Acid 5%-D15w 1, 000 ml @ 45 mls/hr IV . [id number] [facility] Rx#:[id number] Sodium Chloride 0.9% 1, 160 80 000 ml @ 20 mls/hr IV . Q24H [facility] Rx#:[id number] Intake, IV Titration 1051 Amount Mvi, Adult No.4 with Vit 1051 K 10 ml Trace (Conc-1Ml/ Dose) 1 ml Parenteral Electrolytes 20 ml Potassium Chloride 40 meq In Amino Acid 5%-D15w 1, 000 ml @ 45 mls/hr IV . [id number] [facility] Rx#:[id number] Output: Urine 925 325 150 Estimated Blood Loss 5 Other: Voiding Method Indwelling Catheter Indwelling Catheter Indwelling Catheter ABP, PAP, CO, CI - Last Documented Arterial Blood Pressure 75/63 - Exam GENERAL EXAM: Alert, very pleasant, cachectic 53-year-old white female, on room air, comfortable in no apparent distress. HEAD: Normocephalic/atraumatic. EYES: Normal reaction of pupils, equal size. Conjunctiva pink, sclera white. NOSE: Clear with pink turbinates. THROAT: No erythema or exudates. NECK: No masses, no JVD, no thyroid enlargement, no adenopathy. CHEST: No chest wall deformity. Symmetrical expansion. LUNGS: Equal air entry with no crackles, wheeze, rhonchi or dullness. CVS: Regular rate and rhythm, normal S1 and S2, no gallops, no murmurs, no rubs ABDOMEN: Soft, nontender. No hepatosplenomegaly, normal bowel sounds, no guarding or rigidity. EXTREMITIES: No clubbing, no edema, no cyanosis, 2+ pulses and upper and lower extremities. MUSCULOSKELETAL: Muscle strength and tone normal. SPINE: No scoliosis or deformity SKIN: No rashes CENTRAL NERVOUS SYSTEM: Alert and oriented -3. No focal deficits, tone is normal in all 4 extremities. PSYCHIATRIC: Alert and oriented -3. Appropriate affect. Intact judgment and insight. - Labs CBC & Chem 7: 10/30/18 04:34 10/30/18 04:33 Labs: Abnormal Lab Results - Last 24 Hours (Table) 10/29/18 10/30/18 10/30/18 Range/Units 18:21 00:03 04:33 RBC (3.80-5.40) m/uL Hgb (11.4-16.0) gm/dL Hct (34.0-46.0) % Sodium 134 L (137-145) mmol/L Creatinine 0.28 L (0.52-1.04) mg/dL Glucose 121 H (74-99) mg/dL POC Glucose (mg/dL) 126 H 149 H (75-99) mg/dL Total Protein 5.8 L (6.3-8.2) g/dL Albumin 2.9 L (3.5-5.0) g/dL 10/30/18 10/30/18 10/30/18 Range/Units 04:34 06:08 11:48 RBC 2.86 L (3.80-5.40) m/uL Hgb 9.2 L (11.4-16.0) gm/dL Hct 27.1 L (34.0-46.0) % Sodium (137-145) mmol/L Creatinine (0.52-1.04) mg/dL Glucose (74-99) mg/dL POC Glucose (mg/dL) 104 H 124 H (75-99) mg/dL Total Protein (6.3-8.2) g/dL Albumin (3.5-5.0) g/dL Assessment and Plan Plan: Assessment: #1. Acute hypoxemic and hypercapnic respiratory failure secondary to aspiration pneumonia, much improved, patient required a brief period of intubation and placement on mechanical ventilation on October 20 and extubation on October 21 #2. Pulmonary lymphadenopathy, possibly related to prior history of laryngeal cancer #3. Acute metabolic encephalopathy in large part related to the patient's profound hypovolemic hyponatremia, which significantly improved #4. Severe hypovolemic hyponatremia, resolved #5. History of laryngeal carcinoma, status post chemo and radiation therapy, wi last treatments in February 2018, she was treated at [facility] #6. Severe protein calorie malnutrition #7. Anorexia/cachexia syndrome #8. History of previous tobacco dependence #9. History of anemia of chronic disease #10. Severe electrolyte disturbance, resolved #11. Hypoalbuminemia #12. Significantly poor dentition with dental caries Plan: Continue with Levaquin, continue breathing treatments, we'll discontinue the IV Solu-Medrol, no wheezing, no congestion noted on today's exam, patient is on room air, remains nothing by mouth, she is going for gastric tube insertion today, remains on TPN for nutritional support. We need further records from the [facility] in regards to patient's follow-up regarding laryngeal cancer, and up pulmonary lymphadenopathy seen on CT chest may be related to metastatic disease. Otherwise patient is stable to transfer out of the intensive care unit today to general medical floor. We'll continue to follow I performed a history & physical examination of the patient and discussed their management with my nurse practitioner, Karen Doran. I reviewed the nurse practitioner's note and agree with the documented findings and plan of care. Lung sounds are positive for clear breath sounds. The findings and the impres annamarie was discussed with the patient. I attest to the documentation by the nurse practitioner. Time with Patient: Less than 30
[2018-10-30] MEDS: SODIUM CHLORIDE 0.9% 1,000 ML IV SCH (16:46)
[2018-10-30] MEDS: MVI, ADULT NO.4 WITH VIT K 10 ML, TRACE (CONC-1ML/DOSE) 1 ML, PARENTERAL ELECTROLYTES 2... IV SCH ×5 (18:00)
[2018-10-30] MEDS: HYDROmorphone 0.5 MG/0.5 ML SYRINGE IVP PRN ×2 (18:00→21:19)
[2018-10-30] MEDS: FAT EMULSION 20% 250 ML IV SCH (18:02)
[2018-10-30 18:20] LABS: Glucose,Whole Blood 82 mg/dL (75-99)
[2018-10-31] MEDS: HYDROmorphone 0.5 MG/0.5 ML SYRINGE IVP PRN ×6 (00:10→19:56)
[2018-10-31 00:41] LABS: Glucose,Whole Blood 115 mg/dL (75-99)
[2018-10-31] MEDS: INSULIN ASPART (NovoLOG) 100 UNIT/ML VIAL SQ SCH ×4 (00:43→18:15)
[2018-10-31] MEDS: HEPARIN SODIUM,PORCINE 5,000 UNIT/ML 1 ML VIAL SQ SCH ×3 (01:05→16:34)
[2018-10-31] MEDS: LORazepam 2 MG/ML INJ IV PRN ×2 (03:48→18:04)
[2018-10-31 07:07] LABS: Glucose,Whole Blood 128 mg/dL (75-99)
[2018-10-31 07:36] LABS: ALT 34 U/L (9-52); AST 23 U/L (14-36); African American GFR (CKD) >90 (>60 ml/min/1.73 sqM); Albumin 3.4 g/dL (3.5-5.0); Alkaline Phosphatase 92 U/L (38-126); Anion Gap 8 mmol/L; Blood Urea Nitrogen 13 mg/dL (7-17); Carbon Dioxide 30 mmol/L (22-30); Chloride 97 mmol/L (98-107); Glucose 120 mg/dL (74-99); Magnesium 1.8 mg/dL (1.6-2.3); Phosphorus 4.1 mg/dL (2.5-4.5); Potassium 4.1 mmol/L (3.5-5.1); Sodium 135 mmol/L (137-145); Total Bilirubin 0.7 mg/dL (0.2-1.3); Total Protein 6.7 g/dL (6.3-8.2); Triglycerides 76 mg/dL (<150)
[2018-10-31] MEDS: IPRATROPIUM-ALBUTEROL 3 ML NEB INHALATION SCH ×4 (08:13→21:41)
[2018-10-31] MEDS: PANTOPRAZOLE 40 MG/10 ML VIAL IVP SCH (09:34)
[2018-10-31] MEDS: LEVOFLOXACIN 500MG-D5W PMX 500 MG in DEXTROSE/WATER 1 100ML.BAG IVPB SCH (09:34)
[2018-10-31 12:42] LABS: Glucose,Whole Blood 117 mg/dL (75-99)
[2018-10-31] MEDS: SODIUM CHLORIDE 0.9% 1,000 ML IV SCH (12:53)
--- NOTE | 2018-10-31 13:07 | P.PN ---
Subjective Progress Note Date: 10/31/18 Principal diagnosis: Shortness of breath On 10/30/2018 patient was seen in follow-up in the intensive care unit, she has been an overflow for medical surgical floor, signs are stable, room air pulse ox is 95%, patient is afebrile, lung sounds are essentially clear to auscultation, no rhonchi, no wheezing, no completed shortness of breath, no chest pain, no new chest x-rays, her blood and sputum cultures have shown no growth. Patient has been treated for suspected aspiration pneumonia, with a combination of Zosyn and Levaquin, she has completed a course of Zosyn, and remains on Levaquin only at this time. Remains on IV steroids, but patient has really not had any wheezing or congestion. Last chest x-ray was on 10/28/2018 and showed bilateral pleural effusions, and bibasilar airspace disease. Patient has been nothing by mouth in view of aspiration, she had a modified barium swallow evaluation on 10/27/2018 which showed aspiration with thin liquids, nectar thick liquids and pudding thick consistencies, patient was unable to have a PEG tube inserted related to e xtensive scarring in the esophagus related to previous radiation treatments, and patient is going for a tube gastrostomy insertion by Dr. Montesinos today. His labs have been reviewed, showing white blood cell, 6.0, hemoglobin of 9.2, serum sodium is 134, the rest of electrolytes and renal profile were unremarkable. Patient remains on TPN On 10/31/2018 patient seen in follow-up on medical surgical floor. 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 Patient does not appear to be in any distress, she states her breathing is stable, no cough or congestion, lung sounds reveal clear breath sounds, yesterday she had done a G-tube inserted, surgical site looks clean dry and intact, patient remains on TPN for nutritional support, anticipate starting tube feedings possibly today. And has been rinsing her mouth with different types of beverage including Gatorade, however she's been cautioned against swallowing anything and she understands it. She has completed her antibiotics, she's been afebrile. Sputum culture showed no growth. Today's labs have been reviewed, showing sodium of 135, potassium is 4.1, chloride is 97, CO2 is 30, BUN of 13 and creatinine 0.23, LFTs were within normal limits no acute events overnight, no new chest x-rays Objective - Vital Signs Vital signs: Vital Signs Temp 98.0 F 10/31/18 06:27 Pulse 84 10/31/18 12:53 Resp 24 10/31/18 06:27 BP 111/75 10/31/18 06:27 Pulse Ox 88 L 10/31/18 06:27 Intake & Output 10/30/18 10/31/18 10/31/18 18:59 06:59 18:59 Intake Total 1551 Output Total 155 700 Balance 1396 -700 Weight 33 kg 32.5 kg Intake: IV 500 Intake, IV Titration 1051 Amount Mvi, Adult No.4 with Vit 1051 K 10 ml Trace (Conc-1Ml/ Dose) 1 ml Parenteral Electrolytes 20 ml Potassium Chloride 40 meq In Amino Acid 5%-D15w 1, 000 ml @ 45 mls/hr IV . [id number] [facility] Rx#:[id number] Output: Urine 150 700 Estimated Blood Loss 5 Other: Voiding Method Indwelling Catheter Indwelling Catheter # Voids 1 ABP, PAP, CO, CI - Last Documented Arterial Blood Pressure 75/63 - Exam GENERAL EXAM: Alert, very pleasant, cachectic 53-year-old white female, on room air, comfortable in no apparent distress. HEAD: Normocephalic/atraumatic. EYES: Normal reaction of pupils, equal size. Conjunctiva pink, sclera white. NOSE: Clear with pink turbinates. THROAT: No erythema or exudates. NECK: No masses, no JVD, no thyroid enlargement, no adenopathy. CHEST: No chest wall deformity. Symmetrical expansion. LUNGS: Equal air entry with no crackles, wheeze, rhonchi or dullness. CVS: Regular rate and rhythm, normal S1 and S2, no gallops, no murmurs, no rubs ABDOMEN: Soft, nontender. No hepatosplenomegaly, normal bowel sounds, no guarding or rigidity. Gastric tube insertion site is clean dry and intact, gastric tube is covered with the dressing EXTREMITIES: No clubbing, no edema, no cyanosis, 2+ pulses and upper and lower extremities. MUSCULOSKELETAL: Muscle strength and tone normal. SPINE: No scoliosis or deformity SKIN: No rashes CENTRAL NERVOUS SYSTEM: Alert and oriented -3. No focal deficits, tone is nor mal in all 4 extremities. PSYCHIATRIC: Alert and oriented -3. Appropriate affect. Intact judgment and insight. - Labs CBC & Chem 7: 10/30/18 04:34 10/31/18 06:31 Labs: Abnormal Lab Results - Last 24 Hours (Table) 10/31/18 10/31/18 10/31/18 Range/Units 00:40 06:31 06:57 Sodium 135 L (137-145) mmol/L Chloride 97 L (98-107) mmol/L Creatinine 0.23 L (0.52-1.04) mg/dL Glucose 120 H (74-99) mg/dL POC Glucose (mg/dL) 115 H 128 H (75-99) mg/dL Albumin 3.4 L (3.5-5.0) g/dL 10/31/18 Range/Units 12:38 Sodium (137-145) mmol/L Chloride (98-107) mmol/L Creatinine (0.52-1.04) mg/dL Glucose (74-99) mg/dL POC Glucose (mg/dL) 117 H (75-99) mg/dL Albumin (3.5-5.0) g/dL Assessment and Plan Plan: Assessment: #1. Acute hypoxemic and hypercapnic respiratory failure secondary to aspiration pneumonia, much improved, patient required a brief period of intubation and placement on mechanical ventilation on October 20 and extubation on October 21 #2. Pulmonary lymphadenopathy, possibly related to prior history of laryngeal cancer #3. Acute metabolic encephalopathy in large part related to the patient's profound hypovolemic hyponatremia, which significantly improved #4. Severe hypovolemic hyponatremia, resolved #5. History of laryngeal carcinoma, status post chemo and radiation therapy, with last treatments in February 2018, she was treated at [facility] #6. Severe protein calorie malnutrition #7. Anorexia/cachexia syndrome #8. History of previous tobacco dependence #9. History of anemia of chronic disease #10. Severe electrolyte disturbance, resolved #11. Hypoalbuminemia #12. Significantly poor dentition with dental caries #13. Dysphagia, aspiration noted on barium swallow with all types of consistencies, requiring insertion of a gastric tube Plan: Clinically stable, breathing is stable, encourage patient to sit up in a chair, deep breathing cough, ambulate. No acute events overnight, patient has completed her antibiotics, all cultures remain negative, anticipate initiation of tube feedings today, she may continue on TPN until her tube feedings are up to goal, no acute events overnight. Disharge planning is in progress. I performed a history & physical examination of the patient and discussed their management with my nurse practitioner, Karen Doran. I reviewed the nurse practitioner's note and agree with the documented findings and plan of care. Lung sounds are positive for clear breath sounds. The findings and the impression was discussed with the patient. I attest to the documentation by the nurse practitioner. Time with Patient: Less than 30
--- NOTE | 2018-10-31 14:00 | P.PN ---
Subjective Progress Note Date: 10/31/18 CHIEF COMPLAINT: Dysphagia, malnutrition HISTORY OF PRESENT ILLNESS: 53-year-old female who underwent gastrostomy tube yesterday with Dr. Montesinos. She reports surgical site pain is tolerable. PPN infusing. Tube feedings have not been started at the time of my examination. PHYSICAL EXAM: VITAL SIGNS: Reviewed. GENERAL: Well-developed in no acute distress. HEENT: No sclera icterus. Extraocular movements grossly intact. Moist buccal mucosa. Head is atraumatic, normocephalic. ABDOMEN: Soft. Nondistended. Nontender. G-tube noted. Surgical dressing clean dry intact. NEUROLOGIC: Alert and oriented. Cranial nerves II through XII grossly intact. ASSESSMENT: 1. Severe calorie protein malnutrition and dysphagia, s/p open gastrostomy tube placement PLAN: 1. Continue TPN until patient tolerating TF at 30cc/hr. 2. Begin tube feedings at 10cc/hr today. Increase by 10cc every 12 hours as t olerated. Goal rate 40cc 3. NO MEDICATIONS to be given via g-tube today per Dr. Montesinos Nurse practitioner note has been reviewed by physician. Signing provider agrees with the documented findings, assessment, and plan of care. Objective - Vital Signs Vital signs: Vital Signs Temp 98.4 F 10/31/18 13:07 Pulse 117 H 10/31/18 13:07 Resp 20 10/31/18 13:07 BP 93/65 10/31/18 13:07 Pulse Ox 95 10/31/18 13:07 Intake & Output 10/30/18 10/31/18 10/31/18 18:59 06:59 18:59 Intake Total 1551 Output Total 155 700 Balance 1396 -700 Weight 33 kg 32.5 kg Intake: IV 500 Intake, IV Titration 1051 Amount Mvi, Adult No.4 with Vit 1051 K 10 ml Trace (Conc-1Ml/ Dose) 1 ml Parenteral Electrolytes 20 ml Potassium Chloride 40 meq In Amino Acid 5%-D15w 1, 000 ml @ 45 mls/hr IV . [id number] [facility] Rx#:[id number] Output: Urine 150 700 Estimated Blood Loss 5 Other: Voiding Method Indwelling Catheter Indwelling Catheter # Voids 1 ABP, PAP, CO, CI - Last Documented Arterial Blood Pressure 75/63 - Labs CBC & Chem 7: 10/30/18 04:34 10/31/18 06:31 Labs: Abnormal Lab Results - Last 24 Hours (Table) 10/31/18 10/31/18 10/31/18 Range/Units 00:40 06:31 06:57 Sodium 135 L (137-145) mmol/L Chloride 97 L (98-107) mmol/L Creatinine 0.23 L (0.52-1.04) mg/dL Glucose 120 H (74-99) mg/dL POC Glucose (mg/dL) 115 H 128 H (75-99) mg/dL Albumin 3.4 L (3.5-5.0) g/dL 10/31/18 Range/Units 12:38 Sodium (137-145) mmol/L Chloride (98-107) mmol/L Creatinine (0.52-1.04) mg/dL Glucose (74-99) mg/dL POC Glucose (mg/dL) 117 H (75-99) mg/dL Albumin (3.5-5.0) g/dL
[2018-10-31] MEDS ORDERED: MVI, ADULT NO.4 WITH VIT K 10 ML, TRACE (CONC-1ML/DOSE) 1 ML, PARENTERAL ELECTROLYTES 2... IV SCH ×6 (16:00)
--- NOTE | 2018-10-31 16:16 | P.PN ---
Subjective Progress Note Date: 10/31/18 Principal diagnosis: Patient is a 52-year-old female with a past medical history of laryngeal cancer status post chemo and radiation, and history of tobacco abuse who presented to the emergency department with weakness and difficulty staying awake. Patient underwent treatment for laryngeal cancer in February 2018. Since that point in time she been having difficulty swallowing in his been tolerating pudding. She's become severely cachectic and weak. In the ER she underwent an extensive evaluation. She was found to have a sodium of 111, she underwent an acute abdominal series which was nonspecific. She underwent a CT of the chest which showed emphysema with extensive pulmonary interstitial infiltrates as well as multiple enlarged lymph nodes. In the emergency department she was having respiratory distress and appeared stridorous was subsequently admitted to the ICU. Initially she was 90% on 4 L nasal cannula and was found to be significantly acidotic with a pH of 7.13. She was subsequently intubated and placed on mechanical ventilation. She was seen by critical care. Due to her hypotension she required norepinephrine. She was also seen by nephrology due to her low sodiums. She did receive 3% normal saline due to her altered mentation. She was started on empiric IV antibiotics for possible pneumonia of Levaquin and Zosyn. She was transitioned from 3% saline to normal saline. She was extubated on 10/21 without any difficulties. She then developed significant respiratory distress on the morning of 10/23 and required BiPAP, which was able to be weaned by the morning of 10/26. She was started on TPN on 10/25 due to no ability to feed and severe malnutrition. Patient amenable for -Melodie, attempted placement on 10/26 unable to do so due to scar tissue and inflammation. Would be able to have open G tube, failed MBSS, plan for open G tube 10/30. Patient seen and examined follow-up is awake alert, having occasional desaturations but does not appear in distress. TPN continued for nutritional support, open G-tube placement yesterday. Magnesium up to 1.8 today. Patient awaiting placement to the medical [facility] Objective - Vital Signs Vital signs: Vital Signs Temp 98.4 F 10/31/18 13:07 Pulse 117 H 10/31/18 13:07 Resp 20 10/31/18 13:07 BP 93/65 10/31/18 13:07 Pulse Ox 95 10/31/18 13:07 Intake & Output 10/30/18 10/31/18 10/31/18 18:59 06:59 18:59 Intake Total 1551 Output Total 155 700 Balance 1396 -700 Weight 33 kg 32.5 kg Intake: IV 500 Intake, IV Titration 1051 Amount Mvi, Adult No.4 with Vit 1051 K 10 ml Trace (Conc-1Ml/ Dose) 1 ml Parenteral Electrolytes 20 ml Potassium Chloride 40 meq In Amino Acid 5%-D15w 1, 000 ml @ 45 mls/hr IV . [id number] [facility] Rx#:[id number] Output: Urine 150 700 Estimated Blood Loss 5 Other: Voiding Method Indwelling Catheter Indwelling Catheter # Voids 1 ABP, PAP, CO, CI - Last Documented Arterial Blood Pressure 75/63 - Exam Constitutional: No acute distress, awake and alert cachectic appearance Eyes: Anicteric sclerae, moist conjunctiva, no lid-lag, PERRLA ENMT: Bilateral temporal wasting NC/AT,Oropharynx clear, no erythema, exudates Neck:Supple, FROM, no masses, or JVD, No carotid bruits; No thyromegaly Lungs: Decreased breath sounds bilaterally, unlabored Cardiovascular: Heart regular in rate and rhythm, No murmurs, gallops, or rubs no peripheral edema Abdominal: Soft Nontender, nom distended, no guarding, no rebound or rigidity, Normoactive bowel sounds No hepatomegaly, No splenomegaly, No palpable mass No abdominal wall hernia noted Skin: Normal temperature, tone, texture, turgor, No induration No subcutaneous nodules, No rash, lesions, No ulcers Extremities:No digital cyanosis No clubbing, Pedal pulses intact and symmetrical Radial pulses intact and symmetrical Normal gait and station, No calf tenderness Neuro: Awake alert following commands no focal deficits appreciated - Labs CBC & Chem 7: 10/30/18 04:34 10/31/18 06:31 Labs: Abnormal Lab Results - Last 24 Hours (Table) 10/31/18 10/31/18 10/31/18 Range/Units 00:40 06:31 06:57 Sodium 135 L (137-145) mmol/L Chloride 97 L (98-107) mmol/L Creatinine 0.23 L (0.52-1.04) mg/dL Glucose 120 H (74-99) mg/dL POC Glucose (mg/dL) 115 H 128 H (75-99) mg/dL Albumin 3.4 L (3.5-5.0) g/dL 10/31/18 Range/Units 12:38 Sodium (137-145) mmol/L Chloride (98-107) mmol/L Creatinine (0.52-1.04) mg/dL Glucose (74-99) mg/dL POC Glucose (mg/dL) 117 H (75-99) mg/dL Albumin (3.5-5.0) g/dL Assessment and Plan (1) Severe protein-energy malnutrition Narrative/Plan: Severe protein calorie malnutrition with cachexia and BMI of 11.4 Associated with dysphagia -Attempted PEG tube on. Unsuccessful secondary to severe inflammation and scar tissue. open gastrostomy tube placed yesterday on 10/30 - continue TPN until tube feeds are at goal - Dietary recommendations - failed MBS - We will initiate nutritional supplementation with vital Current Visit: Yes Status: Acute Code(s): E43 - UNSPECIFIED SEVERE PROTEIN- CALORIE MALNUTRITION SNOMED Code(s): 008148546 (2) Acute respiratory failure with hypoxia and hypercapnia Narrative/Plan: Acute hypoxic respiratory failure secondary to Pneumonia, possible gram negative, likely aspiration -Continue with Zosyn, Levaquin D # 10 -Pulmonary hygiene -Follow chest x-ray until clear -Pulmonary recommendations appreciated Current Visit: Yes Status: Acute Code(s): J96.01 - ACUTE RESPIRATORY FAILURE WITH HYPOXIA; J96.02 - ACUTE RESPIRATORY FAILURE WITH HYPERCAPNIA SNOMED Code(s): 116034888 (3) Hyponatremia Narrative/Plan: -IV fluids completed, on TPN -Nephrology recommendations -Status post 3% normal saline - follow sodium level Current Visit: Yes Status: Acute Code(s): E87.1 - HYPO-OSMOLALITY AND HYPONATREMIA SNOMED Code(s): 08780759 (4) Mediastinal lymphadenopathy Narrative/Plan: * CT of the chest showing extensive bronchial and subcarinal adenopathy * Suspected to be metastatic versus lung primary * Will need urgent follow-up with her oncologist at [facility]. Patient aware. Current Visit: Yes Status: Acute Code(s): R59.0 - LOCALIZED ENLARGED LYMPH NODES SNOMED Code(s): 73286644 (5) History of laryngeal cancer Narrative/Plan: * Most recent treatment in February 2018 Current Visit: Yes Status: Chronic Code(s): Z85.21 - PERSONAL HISTORY OF MALIGNANT NEOPLASM OF LARYNX SNOMED Code(s): 746297620 (6) Weakness Narrative/Plan: * Secondary to profound hyponatremia Current Visit: Yes Status: Acute Code(s): R53.1 - WEAKNESS SNOMED Code(s): 41747305 (7) Metabolic encephalopathy Narrative/Plan: * Secondary to hyponatremia Current Visit: Yes Status: Resolved Code(s): G93.41 - METABOLIC ENCEPHALOPATHY SNOMED Code(s): 76498456 (8) Hypokalemia Narrative/Plan: * Continue to monitor daily continued on potassium replacement protocol * We'll replace and recheck Current Visit: Yes Status: Resolved Code(s): E87.6 - HYPOKALEMIA SNOMED Code(s): 80407732 Plan: Disposition * Patient medically stable for discharge awaiting placement to medical [facility] * We'll discontinue [place] catheter today
[2018-10-31] MEDS: MVI, ADULT NO.4 WITH VIT K 10 ML, TRACE (CONC-1ML/DOSE) 1 ML, PARENTERAL ELECTROLYTES 2... IV SCH ×5 (17:33)
[2018-10-31 17:53] LABS: Glucose,Whole Blood 105 mg/dL (75-99)
[2018-11-01] MEDS: INSULIN ASPART (NovoLOG) 100 UNIT/ML VIAL SQ SCH ×4 (00:01→17:13)
[2018-11-01] MEDS: HYDROmorphone 0.5 MG/0.5 ML SYRINGE IVP PRN ×4 (00:05→14:07)
[2018-11-01] MEDS: HEPARIN SODIUM,PORCINE 5,000 UNIT/ML 1 ML VIAL SQ SCH ×3 (00:05→16:06)
[2018-11-01 00:06] LABS: Glucose,Whole Blood 114 mg/dL (75-99)
[2018-11-01] MEDS: LORazepam 2 MG/ML INJ IV PRN ×2 (01:33→10:54)
[2018-11-01 07:43] LABS: Glucose,Whole Blood 119 mg/dL (75-99)
[2018-11-01] MEDS: IPRATROPIUM-ALBUTEROL 3 ML NEB INHALATION SCH ×3 (07:43→15:08)
[2018-11-01] MEDS: PANTOPRAZOLE 40 MG/10 ML VIAL IVP SCH (07:44)
[2018-11-01 08:27] LABS: ALT 34 U/L (9-52); AST 19 U/L (14-36); African American GFR (CKD) >90 (>60 ml/min/1.73 sqM); Albumin 2.6 g/dL (3.5-5.0); Alkaline Phosphatase 74 U/L (38-126); Anion Gap 2 mmol/L; Blood Urea Nitrogen 15 mg/dL (7-17); Calcium 8.3 mg/dL (8.4-10.2); Carbon Dioxide 34 mmol/L (22-30); Chloride 98 mmol/L (98-107); Glucose 493 mg/dL (74-99); Magnesium 2.9 mg/dL (1.6-2.3); Phosphorus 2.9 mg/dL (2.5-4.5); Potassium 5.8 mmol/L (3.5-5.1); Sodium 134 mmol/L (137-145); Total Bilirubin 0.6 mg/dL (0.2-1.3); Total Protein 5.2 g/dL (6.3-8.2)
[2018-11-01] MEDS ORDERED: MVI, ADULT NO.4 WITH VIT K 10 ML, TRACE (CONC-1ML/DOSE) 1 ML, PARENTERAL ELECTROLYTES 2... IV SCH ×4 (10:00)
--- NOTE | 2018-11-01 12:11 | P.PN ---
Subjective Progress Note Date: 11/01/18 CHIEF COMPLAINT: Dysphagia, malnutrition HISTORY OF PRESENT ILLNESS: 53-year-old female who underwent gastrostomy tube insertion with Dr. Montesinos. Patient reports pain at surgical site but reports it is tolerable. She is receiving TPN. Tube feeding infusing at 20cc/hr. Tolerating well. PHYSICAL EXAM: VITAL SIGNS: Reviewed. GENERAL: Well-developed in no acute distress. HEENT: No sclera icterus. Extraocular movements grossly intact. Moist buccal mucosa. Head is atraumatic, normocephalic. ABDOMEN: Soft. Nondistended. Nontender. G-tube noted. Surgical dressing noted with shadowing present. NEUROLOGIC: Alert and oriented. Cranial nerves II through XII grossly intact. ASSESSMENT: 1. Severe calorie protein malnutrition and dysphagia, s/p open gastrostomy tube placement PLAN: 1. Continue tube feedings as tolerated. Increase by 10cc every 12 hours as tolerated. Goal rate 40cc 2. Continue TPN until patient tolerating TF at 30cc/hr then may wean off TPN Nurse practitioner note has been reviewed by physician. Signing provider agrees with the documented findings, assessment, and plan of care. Objective - Vital Signs Vital signs: Vital Signs Temp 98.6 F 11/01/18 07:40 Pulse 102 H 11/01/18 12:02 Resp 22 11/01/18 07:40 BP 103/72 11/01/18 07:40 Pulse Ox 93 L 11/01/18 07:40 Intake & Output 10/31/18 11/01/18 11/01/18 18:59 06:59 18:59 Intake Total 10 40 20 Output Total 1000 Balance -990 40 20 Weight 32.5 kg 33 kg Intake: Oral 0 Tube Feeding 10 40 20 Output: Urine 1000 Uretheral ([place]) 700 Other: Voiding Method Bedside Commode # Voids 8 ABP, PAP, CO, CI - Last Documented Arterial Blood Pressure 75/63 - Labs CBC & Chem 7: 10/30/18 04:34 11/01/18 08:00 Labs: Abnormal Lab Results - Last 24 Hours (Table) 10/31/18 10/31/18 10/31/18 Range/Units 12:38 17:51 23:57 Sodium (137-145) mmol/L Potassium (3.5-5.1) mmol/L Carbon Dioxide (22-30) mmol/L Creatinine (0.52-1.04) mg/dL Glucose (74-99) mg/dL POC Glucose (mg/dL) 117 H 105 H 114 H (75-99) mg/dL Calcium (8.4-10.2) mg/dL Magnesium (1.6-2.3) mg/dL Total Protein (6.3-8.2) g/dL Albumin (3.5-5.0) g/dL 11/01/18 11/01/18 Range/Units 07:34 08:00 Sodium 134 L (137-145) mmol/L Potassium 5.8 H (3.5-5.1) mmol/L Carbon Dioxide 34 H (22-30) mmol/L Creatinine 0.34 L (0.52-1.04) mg/dL Glucose 493 H (74-99) mg/dL POC Glucose (mg/dL) 119 H (75-99) mg/dL Calcium 8.3 L (8.4-10.2) mg/dL Magnesium 2.9 H (1.6-2.3) mg/dL Total Protein 5.2 L (6.3-8.2) g/dL Albumin 2.6 L (3.5-5.0) g/dL
[2018-11-01] MEDS: SODIUM CHLORIDE 0.9% 1,000 ML IV SCH (12:19)
[2018-11-01 12:31] LABS: Glucose,Whole Blood 129 mg/dL (75-99)
--- NOTE | 2018-11-01 12:40 | P.DS ---
Providers Date of admission: 10/19/18 18:58 Expected date of discharge: 11/01/18 Attending physician: Nick Geuvara MD Consults: 10/19/18 18:58 Consult Physician Stat Consulting Provider: Josr Wiggins Consult Reason/Comments: known Do you want consulting provider notified?: Already Contacted 10/19/18 20:38 Consult Physician Routine Consulting Provider: Abdirahman Lala Consult Reason/Comments: hypoNa Do you want consulting provider notified?: Yes 10/23/18 11:10 Consult Physician Routine Consulting Provider: Emigdio Canseco Consult Reason/Comments: poor dentition Do you want consulting provider notified?: Yes 10/25/18 11:25 Consult Physician Routine Consulting Provider: Adonis Montesinos Consult Reason/Comments: PEG tube Do you want consulting provider notified?: Already Contacted Primary care physician: Stated None - Discharge Diagnosis(es) (1) Severe protein-energy malnutrition Current Visit: Yes Status: Acute (2) Acute respiratory failure with hypoxia and hypercapnia Current Visit: Yes Status: Acute (3) Hyponatremia Current Visit: Yes Status: Acute (4) Mediastinal lymphadenopathy Current Visit: Yes Status: Acute (5) History of laryngeal cancer Current Visit: Yes Status: Chronic (6) Weakness Current Visit: Yes Status: Acute (7) Metabolic encephalopathy Current Visit: Yes Status: Resolved (8) Hypokalemia Current Visit: Yes Status: Resolved Hospital Course: Patient is a 52-year-old female with a past medical history of laryngeal cancer status post chemo and radiation, and history of tobacco abuse who presented to the emergency department with weakness and difficulty staying awake. Patient underwent treatment for laryngeal cancer in February 2018. Since that point in time she been having difficulty swallowing in his been tolerating pudding. She's become severely cachectic and weak. In the ER she underwent an extensive evaluation. She was found to have a sodium of 111, she underwent an acute abdominal series which was nonspecific. She underwent a CT of the chest which showed emphysema with extensive pulmonary interstitial infiltrates as well as multiple enlarged lymph nodes. In the emergency department she was having respiratory distress and appeared stridorous was subsequently admitted to the ICU. Initially she was 90% on 4 L nasal cannula and was found to be significantly acidotic with a pH of 7.13. She was subsequently intubated and placed on mechanical ventilation. She was seen by critical care. Due to her hypotension she required norepinephrine. She was also seen by nephrology due to her low sodiums. She did receive 3% normal saline due to her altered mentation. She was started on empiric IV antibiotics for possible aspiation pneumonia of Levaquin and Zosyn. She was transitioned from 3% saline to normal saline. She was extubated on 10/21 without any difficulties. She then developed significant respiratory distress on the morning of 10/23 and required BiPAP, which was able to be weaned by the morning of 10/26. She was started on TPN on 10/25 due to no ability to feed and severe malnutrition. Patient amenable for -Melodie, attempted placement on 10/26 unable to do so due to scar tissue and inflammation. open G tube was subsequently paced 10/30 after failed MBSS. Patient Condition at Discharge: Poor Plan - Discharge Summary Discharge Rx Participant: Yes New Discharge Prescriptions: Discontinued Ibuprofen [Advil] 200 mg PO Q8HR PRN PRN Reason: Pain guaiFENesin [Mucinex] 600 mg PO BID PRN PRN Reason: Congestion Follow up Appointment(s)/Referral(s): Emigdio Canseco DDS [STAFF PHYSICIAN] - 1 Week None,Stated [Primary Care Provider] - 1-2 days Adonis Montesinos MD [STAFF PHYSICIAN] - 1 Week Patient Instructions/Handouts: Hyponatremia (DC) Activity/Diet/Wound Care/Special Instructions: Up with assist, fall precautions. Daily weight G tube with Vital 1.2 to infuse at goal of 40ml/hr. Water flush of 30ml every 4 hours. Change dressing daily. Duble lumen PICC line placed in left upper arm on 10-20-18 Mediport to left upper chest placed on 10-20-18 Optifoam on coccyx and upper back for skin protection. Discharge Disposition: TRANSFER TO SNF/ECF
[2018-11-01 14:38] VITALS: BP 102/68; RESP 24; TEMP 97.6
[2018-11-01 15:22] VITALS: PULSE 120
[2018-11-01] MEDS: FAT EMULSION 20% 250 ML IV SCH (16:05)
[2018-11-01 17:12] LABS: Glucose,Whole Blood 134 mg/dL (75-99)
== END 2018-11-01 17:55 | DRG 981 ==
LOC: EC 16:50 → 2SICU 18:58 → 4MS4W 10-30 14:37
PROVIDERS: ADMIT Family Medicine; ATTEND Family Medicine
PROC: 5A1945Z Respiratory Ventilation, 24-96 Consecutive Hours (ICD-10-PCS; 2018-10-19)
PROC: 0BH17EZ Insertion of Endotracheal Airway into Trachea, Via Natural or Artificial Opening (ICD-10-PCS; 2018-10-19)
PROC: 02HV33Z Insertion of Infusion Device into Superior Vena Cava, Percutaneous Approach (ICD-10-PCS; 2018-10-20)
PROC: 05HC33Z Insertion of Infusion Device into Left Basilic Vein, Percutaneous Approach (ICD-10-PCS; 2018-10-20)
PROC: 3E0G76Z Introduction of Nutritional Substance into Upper GI, Via Natural or Artificial Opening (ICD-10-PCS; 2018-10-20)
PROC: 0DH67UZ Insertion of Feeding Device into Stomach, Via Natural or Artificial Opening (ICD-10-PCS; 2018-10-20)
PROC: 5A09557 Assistance with Respiratory Ventilation, Greater than 96 Consecutive Hours, Continuous Positive Airway Pressure (ICD-10-PCS; 2018-10-22)
PROC: 3E0436Z Introduction of Nutritional Substance into Central Vein, Percutaneous Approach (ICD-10-PCS; 2018-10-24)
PROC: 0DJ08ZZ Inspection of Upper Intestinal Tract, Via Natural or Artificial Opening Endoscopic (ICD-10-PCS; 2018-10-26)
PROC: 0DH60UZ Insertion of Feeding Device into Stomach, Open Approach (ICD-10-PCS; principal; 2018-10-30 12:35)
DX: J96.22 Acute and chronic respiratory failure with hypercapnia (principal); E43 Unspecified severe protein-calorie malnutrition; G93.41 Metabolic encephalopathy; J69.0 Pneumonitis due to inhalation of food and vomit; R64 Cachexia; E87.2 Acidosis; E87.1 Hypo-osmolality and hyponatremia; Z68.1 Body mass index [BMI] 19.9 or less, adult; E87.3 Alkalosis; J90 Pleural effusion, not elsewhere classified; J98.11 Atelectasis; J96.21 Acute and chronic respiratory failure with hypoxia; I95.9 Hypotension, unspecified; R13.10 Dysphagia, unspecified; J38.4 Edema of larynx; E87.70 Fluid overload, unspecified; E83.42 Hypomagnesemia; E87.6 Hypokalemia; J44.9 Chronic obstructive pulmonary disease, unspecified; E86.1 Hypovolemia; D63.8 Anemia in other chronic diseases classified elsewhere; T38.0X5A Adverse effect of glucocorticoids and synthetic analogues, initial encounter; R59.0 Localized enlarged lymph nodes; M54.5 Low back pain; F41.9 Anxiety disorder, unspecified; G47.00 Insomnia, unspecified; H91.90 Unspecified hearing loss, unspecified ear; Z85.21 Personal history of malignant neoplasm of larynx; Z92.21 Personal history of antineoplastic chemotherapy; Z92.3 Personal history of irradiation; Z87.891 Personal history of nicotine dependence; Z98.51 Tubal ligation status; Z98.890 Other specified postprocedural states; Z91.013 Allergy to seafood; Z91.018 Allergy to other foods; Z82.49 Family history of ischemic heart disease and other diseases of the circulatory system; Z83.3 Family history of diabetes mellitus; Z82.3 Family history of stroke; Z82.5 Family history of asthma and other chronic lower respiratory diseases; T50.2X5A Adverse effect of carbonic-anhydrase inhibitors, benzothiadiazides and other diuretics, initial encounter; Y84.2 Radiological procedure and radiotherapy as the cause of abnormal reaction of the patient, or of later complication, without mention of misadventure at the time of the procedure
CPT/HCPCS: 36415; 36573; 36600; 43235; 71045; 71275; 74022; 74177; 74230; 76604; 80048; 80053; 81003; 82330; 82533; 82550; 82805; 83605; 83690; 83735; 83880; 83935; 84100; 84132; 84295; 84300; 84443; 84478; 84484; 85025; 85027; 85610; 85730; 86850; 86900; 86901; 87040; 87070; 87205; 93005; 94002; 94003; 94640; 94660; 94760; 94770; 96361; 96374; 96375; 99291

== ENCOUNTER 2018-11-02 11:17 | Inpatient (IN) | payer OTHER ==
[2018-11-02] MEDS ORDERED: IPRATROPIUM 0.5 MG/2.5 ML NEBU INHALATION STA (11:54)
[2018-11-02] MEDS ORDERED: ALBUTEROL NEBULIZED 2.5 MG/3 ML INHALATION STA (11:54)
[2018-11-02] MEDS ORDERED: SODIUM CHLORIDE 0.9% 1,000 ML IV STA ×3 (11:54→15:03)
--- NOTE | 2018-11-02 12:27 | ED ---
SOB HPI - General Chief Complaint: Shortness of Breath Stated Complaint: LEISA Time Seen by Provider: 11/02/18 11:23 Source: patient, RN notes reviewed, old records reviewed Mode of arrival: ambulatory Limitations: no limitations - History of Present Illness Initial Comments: This is significantly sick 53-year-old female coming in for evaluation, patient is transferred from recently [facility] facility for significant shortness of breath and hypoxia. Patient does have recent hospital admission, history of throat cancer multiple electrode abnormalities severe COPD with history of hypoxia. Patient denying any pain no chest pain she said better on oxygen here in the ER. Per staff patient's oxygen was 80% at home patient is mildly poor historian secondary severe will illness, weakness and mildly lethargic. History obtained from EMS as well as patient's record MD Complaint: shortness of breath, cough -: unknown Severity: severe Quality: other (No pain) Consistency: constant Improves With: oxygen, rest, bronchodilators Worsens With: exertion Known History Of: COPD, recurrent pneumonia Context: recent URI Associated Symptoms: cough, sputum production Treatments Prior to Arrival: none - Related Data Home Medications Medication Instructions Recorded Confirmed LORazepam [Ativan] 0.5 mg PO Q8H PRN 11/02/18 11/02/18 Allergies Allergy/AdvReac Type Severity Reaction Status Date / Time Beef Containing Products AdvReac No reaction Verified 11/02/18 11:40 [Beef] Fish Containing Products AdvReac No reaction Verified 11/02/18 11:40 [Fish] Pork/Porcine Containing AdvReac No reaction Verified 11/02/18 11:40 Products [Pork] Review of Systems ROS Statement: Those systems with pertinent positive or pertinent negative responses have been documented in the HPI. ROS Other: All systems not noted in ROS Statement are negative. Past Medical History Past Medical History: Cancer Additional Past Medical History / Comment(s): Laryngeal cancer: radiation and chemo completed in 02/2018; ectopic History of Any Multi-Drug Resistant Organisms: None Reported Past Surgical History: Tubal Ligation Past Anesthesia/Blood Transfusion Reactions: No Reported Reaction Past Psychological History: No Psychological Hx Reported Smoking Status: Former smoker Past Alcohol Use History: None Reported Past Drug Use History: None Reported - Past Family History Mother Family Medical History: Coronary Artery Disease (CAD), Diabetes Mellitus Father Family Medical History: CVA/TIA, Myocardial Infarction (NE) Additional Family Medical History / Comment(s): Emphsema, passed due to NE General Exam Limitations: no limitations General appearance: alert, lethargic, in distress, cachectic Head exam: Present: atraumatic, normocephalic, normal inspection Eye exam: Present: normal appearance, EOMI. Absent: scleral icterus, conjunctival injection, periorbital swelling ENT exam: Present: normal exam, mucous membranes moist Neck exam: Present: normal inspection. Absent: tenderness, meningismus, lymph adenopathy Respiratory exam: Present: respiratory distress, wheezes, accessory muscle use, decreased breath sounds, prolonged expiratory. Absent: rales, rhonchi, stridor Cardiovascular Exam: Present: normal rhythm, tachycardia, normal heart sounds. Absent: systolic murmur, diastolic murmur, rubs, gallop, clicks GI/Abdominal exam: Present: soft, normal bowel sounds. Absent: distended, tenderness, guarding, rebound, rigid Extremities exam: Present: normal inspection, full ROM, normal capillary refill. Absent: tenderness, pedal edema, joint swelling, calf tenderness Back exam: Present: normal inspection Neurological exam: Present: alert, oriented X3, CN II-XII intact Psychiatric exam: Present: normal affect, normal mood Skin exam: Present: warm, dry, intact, normal color. Absent: rash Course Vital Signs 11/02/18 11/02/18 11/02/18 11:20 11:52 12:00 Temperature 97.3 F L Pulse Rate 113 H 113 H 114 H Respiratory 24 51 H 21 Rate Blood Pressure 109/81 116/83 O2 Sat by Pulse 94 L 97 95 Oximetry 11/02/18 11/02/18 11/02/18 12:08 12:10 12:20 Temperature Pulse Rate 114 H 114 H Respiratory 16 36 H 28 H Rate Blood Pressure 115/87 115/87 O2 Sat by Pulse 94 L 93 L Oximetry 11/02/18 11/02/18 11/02/18 12:30 12:40 12:50 Temperature Pulse Rate 115 H 114 H 114 H Respiratory 41 H 55 H 50 H Rate Blood Pressure 115/87 108/85 108/85 O2 Sat by Pulse 94 L 93 L 91 L Oximetry 11/02/18 11/02/18 11/02/18 12:53 13:00 13:06 Temperature Pulse Rate 113 H 113 H 114 H Respiratory 38 H Rate Blood Pressure 108/81 O2 Sat by Pulse 93 L Oximetry 11/02/18 11/02/18 11/02/18 13:10 13:20 13:30 Temperature Pulse Rate 101 H 116 H 117 H Respiratory 51 H 52 H 29 H Rate Blood Pressure 108/81 108/81 108/81 O2 Sat by Pulse 96 98 96 Oximetry 11/02/18 11/02/18 11/02/18 13:40 13:50 14:00 Temperature Pulse Rate 117 H Respiratory 43 H 44 H 46 H Rate Blood Pressure 108/79 108/79 104/76 O2 Sat by Pulse 96 97 95 Oximetry 11/02/18 11/02/18 11/02/18 14:10 14:20 14:30 Temperature Pulse Rate 117 H 118 H Respiratory 40 H 57 H Rate Blood Pressure 104/76 104/76 104/76 O2 Sat by Pulse 91 L 95 Oximetry 11/02/18 11/02/18 11/02/18 14:40 14:50 15:00 Temperature Pulse Rate 115 H 114 H 118 H Respiratory 52 H 55 H 37 H Rate Blood Pressure 107/79 107/79 107/79 O2 Sat by Pulse 93 L 94 L 91 L Oximetry 11/02/18 15:10 Temperature Pulse Rate 112 H Respiratory 53 H Rate Blood Pressure 97/79 O2 Sat by Pulse 88 L Oximetry - Reevaluation(s) Reevaluation #1: 11/02/18 12:27 Medical record is reviewed 11/02/18 12:27 she was just discharged from our ICU yesterday Reevaluation #2: 11/02/18 15:23 Attempts to take patient off of nonrebreather oxygen dropped to the low 80s, patient feels very weak is very anxious to Medical Decision Making - Medical Decision Making 53 female the ER for evaluation presented today for evaluation regarding shortness of breath hypoxia recurrent hypoxia, patient attempted to wean off oxygen therapy here in the ER which failed. Patient be admitted for continued monitoring and cardiopulmonary resuscitation - Lab Data Result diagrams: 11/02/18 12:40 11/02/18 12:40 Lab Results 11/02/18 11/02/18 11/02/18 Range/Units 12:40 12:40 12:40 WBC 14.0 H (3.8-10.6) k/uL RBC 3.57 L (3.80-5.40) m/uL Hgb 11.0 L (11.4-16.0) gm/dL Hct 35.1 (34.0-46.0) % MCV 98.4 (80.0-100.0) fL MCH 31.0 (25.0-35.0) pg MCHC 31.5 (31.0-37.0) g/dL RDW 14.3 (11.5-15.5) % Plt Count 529 H (150-450) k/uL Neutrophils % 97 % Lymphocytes % 1 % Monocytes % 2 % Eosinophils % 0 % Basophils % 0 % Neutrophils # 13.5 H (1.3-7.7) k/uL Lymphocytes # 0.1 L (1.0-4.8) k/uL Monocytes # 0.3 (0-1.0) k/uL Eosinophils # 0.0 (0-0.7) k/uL Basophils # 0.0 (0-0.2) k/uL PT (9.0-12.0) sec INR (<1.2) APTT (22.0-30.0) sec Sodium 140 (137-145) mmol/L Potassium 4.0 (3.5-5.1) mmol/L Chloride 98 (98-107) mmol/L Carbon Dioxide 37 H (22-30) mmol/L Anion Gap 5 mmol/L BUN 21 H (7-17) mg/dL Creatinine 0.24 L (0.52-1.04) mg/dL Est GFR (CKD-EPI)AfAm >90 (>60 ml/min/1.73 sqM) Est GFR (CKD-EPI)NonAf >90 (>60 ml/min/1.73 sqM) Glucose 89 (74-99) mg/dL Plasma Lactic Acid Sonido 1.6 (0.7-2.0) mmol/L Calcium 9.7 (8.4-10.2) mg/dL Magnesium 2.0 (1.6-2.3) mg/dL Total Bilirubin 1.0 (0.2-1.3) mg/dL AST 19 (14-36) U/L ALT 34 (9-52) U/L Alkaline Phosphatase 127 H (38-126) U/L Troponin I (0.000-0.034) ng/mL NT-Pro-B Natriuret Pep pg/mL Total Protein 6.7 (6.3-8.2) g/dL Albumin 3.3 L (3.5-5.0) g/dL 11/02/18 11/02/18 11/02/18 Range/Units 12:40 12:40 12:40 WBC (3.8-10.6) k/uL RBC (3.80-5.40) m/uL Hgb (11.4-16.0) gm/dL Hct (34.0-46.0) % MCV (80.0-100.0) fL MCH (25.0-35.0) pg MCHC (31.0-37.0) g/dL RDW (11.5-15.5) % Plt Count (150-450) k/uL Neutrophils % % Lymphocytes % % Monocytes % % Eosinophils % % Basophils % % Neutrophils # (1.3-7.7) k/uL Lymphocytes # (1.0-4.8) k/uL Monocytes # (0-1.0) k/uL Eosinophils # (0-0.7) k/uL Basophils # (0-0.2) k/uL PT 11.7 (9.0-12.0) sec INR 1.1 (<1.2) APTT 26.7 (22.0-30.0) sec Sodium (137-145) mmol/L Potassium (3.5-5.1) mmol/L Chloride (98-107) mmol/L Carbon Dioxide (22-30) mmol/L Anion Gap mmol/L BUN (7-17) mg/dL Creatinine (0.52-1.04) mg/dL Est GFR (CKD-EPI)AfAm (>60 ml/min/1.73 sqM) Est GFR (CKD-EPI)NonAf (>60 ml/min/1.73 sqM) Glucose (74-99) mg/dL Plasma Lactic Acid Sonido (0.7-2.0) mmol/L Calcium (8.4-10.2) mg/dL Magnesium (1.6-2.3) mg/dL Total Bilirubin (0.2-1.3) mg/dL AST (14-36) U/L ALT (9-52) U/L Alkaline Phosphatase (38-126) U/L Troponin I <0.012 (0.000-0.034) ng/mL NT-Pro-B Natriuret Pep 101 pg/mL Total Protein (6.3-8.2) g/dL Albumin (3.5-5.0) g/dL - Radiology Data Radiology results: report reviewed (Chest x-ray is unchanged from prior), image reviewed Critical Care Time Critical Care Time: Yes Total Critical Care Time: 31 Disposition Clinical Impression: Weakness, COPD with hypoxia, Acute respiratory failure with hypoxia and hypercapnia, Mediastinal lymphadenopathy, Severe protein-energy malnutrition Disposition: ADMITTED IP TO THIS HOSP Condition: Fair Is patient prescribed a controlled substance at d/c from ED?: No Referrals: Chemo Foster MD [Primary Care Provider] - 1-2 days
[2018-11-02 13:06] LABS: Basophils % (A) 0 %; Eosinophils % (A) 0 %; HCT 35.1 % (34.0-46.0); Lymphocytes # (A) 0.1 k/uL (1.0-4.8); Lymphocytes % (A) 1 %; MCHC 31.5 g/dL (31.0-37.0); MCV 98.4 fL (80.0-100.0); Mean Platelet Volume 7.2; Monocytes # (A) 0.3 k/uL (0-1.0); Monocytes % (A) 2 %; Neutrophils # (A) 13.5 k/uL (1.3-7.7); Neutrophils % (A) 97 %; Platelet Count 529 k/uL (150-450); RBC 3.57 m/uL (3.80-5.40); RDW 14.3 % (11.5-15.5)
[2018-11-02 13:15] LABS: INR 1.1 (<1.2); Partial Thromboplastin Time 26.7 sec (22.0-30.0); Prothrombin Time 11.7 sec (9.0-12.0)
[2018-11-02 13:20] LABS: ALT 34 U/L (9-52); AST 19 U/L (14-36); African American GFR (CKD) >90 (>60 ml/min/1.73 sqM); Albumin 3.3 g/dL (3.5-5.0); Alkaline Phosphatase 127 U/L (38-126); Anion Gap 5 mmol/L; Blood Urea Nitrogen 21 mg/dL (7-17); Calcium 9.7 mg/dL (8.4-10.2); Carbon Dioxide 37 mmol/L (22-30); Chloride 98 mmol/L (98-107); Glucose 89 mg/dL (74-99); Sodium 140 mmol/L (137-145); Total Protein 6.7 g/dL (6.3-8.2)
[2018-11-02] MEDS ORDERED: LORazepam 2 MG/ML INJ IV STA (13:54)
[2018-11-02] MEDS ORDERED: MORPHINE SULFATE 4 MG/ML SYRINGE IVP STA (13:54)
--- NOTE | 2018-11-02 14:30 | XR ---
EXAMINATION TYPE: XR chest 2V DATE OF EXAM: 11/02/2018 COMPARISON: Prior chest x-ray 10/28/2018 HISTORY: Difficulty breathing TECHNIQUE: Frontal and lateral views of the chest are obtained. FINDINGS: Port-A-Cath on the right, left-sided PICC line are stable. There is obscured right heart b order and right diaphragm due to increased density at the lung base. Persistent basilar density noted on the left. No evident pneumothorax. Apical pleural thickening present on the right. The cardiac si lhouette size is obscured. The osseous structures are intact. Prominent lung volumes compatible wit h underlying COPD. IMPRESSION: Probable basilar atelectasis and associated effusion. Findings similar to prior exam. Di fficult to exclude underlying tumor. Apical pleural thickening. Additional follow-up recommended.
[2018-11-02] MEDS ORDERED: IPRATROPIUM-ALBUTEROL 3 ML NEB INHALATION STA (15:03)
[2018-11-02] MEDS ORDERED: HYDROmorphone 1 MG/ML 1 ML SYRINGE IVP STA (15:03)
[2018-11-02] MEDS ORDERED: methylPREDNISolone SOD SUCCI 125 MG/2 ML VIAL IV STA (15:03)
[2018-11-02] MEDS ORDERED: DIAZEPAM 5 MG/ML 2 ML INJ IVP STA (15:03)
--- NOTE | 2018-11-02 17:03 | P.HPIM ---
History of Present Illness H&P Date: 11/02/18 Chief Complaint: Difficulty breathing The patient is a 53-year-old female with a history of laryngeal cancer status post radiation and chemo who was recently discharged yesterday 11/01/[address] [facility] after being hospitalized for approximately 2 weeks where she had been treated for acute respiratory failure with hypoxia and hypercapnia requiring mechanical ventilation secondary to presumed aspiration pneumonia, during hospitalization she received antibiotic coverage with Zosyn and Levaquin. She also presented with severe electrolyte abnormalities requiring correction of her hyponatremia and hypokalemia. She was also noted to have dysphagia with aspiration of all types of consistencies noted on barium swallow with subsequent severe protein energy malnutrition. The patient had a open G-tube placed 10/30 and was started on vital 1.2 to a goal of 40 mL an hour. Today the patient presented after being transferred here from [facility] with difficulty breathing and reported oxygen desaturations down into the low to mid 80s, on arrival the patient was noted to be in acute respiratory distress as she was noted to be tachypneic and was placed on a nonrebreather. Chest x-ray done in the ER indicated probable basilar atelectasis and associated effusion. WBC count was 14. She was given a nebulized breathing treatment, Ativan Valium, Solu-Medrol and morphine and recommended for admission Review of Systems Pertinent positives per HPI all other review of systems: Negative Past Medical History Past Medical History: Cancer Additional Past Medical History / Comment(s): Pt recently admitted to [facility] on 10/19/18 with severe protein calorie malnourishment, acute respiratory failure with hypoxia and hypercapnia was intubated/vented, also had mediatinal lym phadenopathy, nyponatremia and hypokalemia. Other Hx: Laryngeal cancer treated with chemo/radiation 02/2018, dysphagia-NPO/has G tube. History of Any Multi-Drug Resistant Organisms: None Reported Past Surgical History: Tubal Ligation Additional Past Surgical History / Comment(s): Open G tube placement, mediport, picc line, laryngoscopy, one fallopian tube removed d/t ectopic . Past Anesthesia/Blood Transfusion Reactions: No Reported Reaction Past Psychological History: Anxiety Additional Psychological History / Comment(s): Pt just placed in [facility] on 11/01/18. She is up with a walker. She is NPO and has a G tube for feedings. Smoking Status: Former smoker Past Alcohol Use History: None Reported Additional Past Alcohol Use History / Comment(s): Pt started smoking in 1985 and quit 5 months ago-May 2018. Past Drug Use History: None Reported - Past Family History Mother Family Medical History: Coronary Artery Disease (CAD), Diabetes Mellitus Father Family Medical History: COPD, CVA/TIA, Myocardial Infarction (OR) Additional Family Medical History / Comment(s): Father of a OR at the age of 54 yrs. Medications and Allergies Home Medications Medication Instructions Recorded Confirmed Type LORazepam [Ativan] 0.5 mg PO Q8H PRN 11/02/18 11/02/18 History Allergies Allergy/AdvReac Type Severity Reaction Status Date / Time Beef Containing Products AdvReac No reaction Verified 11/02/18 11:40 [Beef] Fish Containing Products AdvReac No reaction Verified 11/02/18 11:40 [Fish] Pork/Porcine Containing AdvReac No reaction Verified 11/02/18 11:40 Products [Pork] Physical Exam Vitals: Vital Signs Temp Pulse Resp BP Pulse Ox 11/02/18 15:10 112 H 53 H 97/79 88 L 11/02/18 15:00 118 H 37 H 107/79 91 L 11/02/18 14:50 114 H 55 H 107/79 94 L 11/02/18 14:40 115 H 52 H 107/79 93 L 11/02/18 14:30 118 H 57 H 104/76 95 11/02/18 14:20 104/76 11/02/18 14:10 117 H 40 H 104/76 91 L 11/02/18 14:00 46 H 104/76 95 11/02/18 13:50 44 H 108/79 97 11/02/18 13:40 117 H 43 H 108/79 96 11/02/18 13:30 117 H 29 H 108/81 96 11/02/18 13:20 116 H 52 H 108/81 98 11/02/18 13:10 101 H 51 H 108/81 96 11/02/18 13:06 114 H 11/02/18 13:00 113 H 38 H 108/81 93 L 11/02/18 12:53 113 H 11/02/18 12:50 114 H 50 H 108/85 91 L 11/02/18 12:40 114 H 55 H 108/85 93 L 11/02/18 12:30 115 H 41 H 115/87 94 L 11/02/18 12:20 114 H 28 H 115/87 93 L 11/02/18 12:10 114 H 36 H 115/87 94 L 11/02/18 12:08 16 11/02/18 12:00 114 H 21 116/83 95 11/02/18 11:52 113 H 51 H 109/81 97 11/02/18 11:20 97.3 F L 113 H 24 94 L Intake and Output 11/02/18 11/02/18 11/02/18 06:59 14:59 22:59 Other: Weight 34.156 kg Constitutional: Mild respiratory distress, awake and alert cachectic appearance Eyes: Anicteric sclerae, moist conjunctiva, no lid-lag, PERRLA ENMT: Bilateral temporal wasting, NC/AT,Oropharynx clear, no erythema, exudates Neck:Supple, FROM, no masses, or JVD, No carotid bruits; No thyromegaly Lungs: Decreased breath sounds bilaterally, tacypneic Cardiovascular: Heart regular in rate and rhythm, No murmurs, gallops, or rubs no peripheral edema Abdominal: Soft Nontender, nom distended, no guarding, no rebound or rigidity, Normoactive bowel sounds No hepatomegaly, No splenomegaly, No palpable mass No abdominal wall hernia noted Skin: Normal temperature, tone, texture, turgor, No induration No subcutaneous nodules, No rash, lesions, No ulcers Extremities:No digital cyanosis No clubbing, Pedal pulses intact and symmetrical Radial pulses intact and symmetrical Normal gait and station, No calf tenderness Neuro: Awake alert following commands no focal deficits appreciated Results CBC & Chem 7: 11/02/18 12:40 11/02/18 12:40 Labs: Abnormal Lab Results - Last 24 Hours (Table) 11/02/18 11/02/18 Range/Units 12:40 12:40 WBC 14.0 H (3.8-10.6) k/uL RBC 3.57 L (3.80-5.40) m/uL Hgb 11.0 L (11.4-16.0) gm/dL Plt Count 529 H (150-450) k/uL Neutrophils # 13.5 H (1.3-7.7) k/uL Lymphocytes # 0.1 L (1.0-4.8) k/uL Carbon Dioxide 37 H (22-30) mmol/L BUN 21 H (7-17) mg/dL Creatinine 0.24 L (0.52-1.04) mg/dL Alkaline Phosphatase 127 H (38-126) U/L Albumin 3.3 L (3.5-5.0) g/dL Thrombosis Risk Factor Assmnt - Choose All That Apply Any of the Below Risk Factors Present?: Yes Each Factor Represents 1 point: Age 41-60 years Other Risk Factors: Yes Each Risk Factor Represents 2 Points: Malignancy Other congenital or acquired thrombophilia - If yes, enter type in comment: No Thrombosis Risk Factor Assessment Total Risk Factor Score: 3 Thrombosis Risk Factor Assessment Level: Moderate Risk Assessment and Plan (1) Acute respiratory failure with hypoxia and hypercapnia Current Visit: Yes Status: Resolved Code(s): J96.01 - ACUTE RESPIRATORY FAILURE WITH HYPOXIA; J96.02 - ACUTE RESPIRATORY FAILURE WITH HYPERCAPNIA SNOM ED Code(s): 733930649 (2) Mediastinal lymphadenopathy Current Visit: Yes Status: Acute Code(s): R59.0 - LOCALIZED ENLARGED LYMPH NODES SNOMED Code(s): 88866965 (3) Severe protein-energy malnutrition Current Visit: Yes Status: Acute Code(s): E43 - UNSPECIFIED SEVERE PROTEIN- CALORIE MALNUTRITION SNOMED Code(s): 293020914 (4) Weakness Current Visit: Yes Status: Acute Code(s): R53.1 - WEAKNESS SNOMED Code(s): 85436105 (5) Cachexia Current Visit: Yes Status: Acute Code(s): R64 - CACHEXIA SNOMED Code(s): 058941005 (6) Leukocytosis Current Visit: Yes Status: Acute Code(s): D72.829 - ELEVATED WHITE BLOOD CELL COUNT, UNSPECIFIED SNOMED Code(s): 074004297 (7) Dysphagia Current Visit: Yes Status: Acute Code(s): R13.10 - DYSPHAGIA, UNSPECIFIED SNOMED Code(s): 09330403 (8) History of laryngeal cancer Current Visit: No Status: Chronic Code(s): Z85.21 - PERSONAL HISTORY OF MALIGNANT NEOPLASM OF LARYNX SNOMED Code(s): 020595991 (9) History of aspiration pneumonia Current Visit: Yes Status: Acute Code(s): Z87.01 - PERSONAL HISTORY OF PNEUMONIA (RECURRENT) SNOMED Code(s): 999889046153427 Plan: The patient is admitted anticipated greater than 2 midnight stay with acute respiratory failure, etiology unknown at this time. The patient having episodes of desaturations accompanied with hyperventilation, possible underlying Panic attack. The patient continues to be to Clinic for saturations have improved, currently on 4 L via nasal cannula. Chest x-ray showing probable atelectasis and associated effusion, patient afebrile mild leukocytosis of 14, hold off on antibiotics at this time. We'll plan to consult pulmonary for further recommendations. Patient with noted severe protein energy malnutrition with cachexia secondary to ongoing dysphagia and failed MBSS, we'll continue dietary recommendations with vital 1.2 to a goal 40 mL an hour With 30 mL free water flushes every 4 hours. I will continue to follow patient clinical course and follow-up recommendations from pulmonary. CODE STATUS: Full code Discussed plan of care with: Patient's brother and patient Next of kin: Edis Patel Anticipated discharge : 1-[address] Prophylaxis Protonix and SCDs
[2018-11-02] MEDS: IPRATROPIUM-ALBUTEROL 3 ML NEB INHALATION SCH (18:43)
[2018-11-02] MEDS: ALBUTEROL NEBULIZED 2.5 MG/3 ML INHALATION PRN (19:56)
[2018-11-02 21:45] LABS: Glucose,Whole Blood 144 mg/dL (75-99)
[2018-11-02 22:11] LABS: ABG Base Excess 8.2 mmol/L; ABG HCO3 34 mmol/L (21-25); ABG Oxygen Saturation 89.7 % (94-97); ABG PCO2 67 mmHg (35-45); ABG PH 7.32 (7.35-7.45); ABG PO2 64 mmHg (83-108); ABG TCO2 36 mmol/L (19-24); Allen Test Performed? Yes
[2018-11-02] MEDS: SODIUM CHLORIDE 0.9% 1,000 ML IV SCH (22:55)
[2018-11-03 00:44] LABS: Glucose,Whole Blood 141 mg/dL (75-99)
[2018-11-03] MEDS: MORPHINE SULFATE 4 MG/ML SYRINGE IVP PRN ×3 (00:50→17:32)
[2018-11-03] MEDS: INSULIN ASPART (NovoLOG) 100 UNIT/ML VIAL SQ SCH ×4 (00:50→17:13)
[2018-11-03] MEDS: SODIUM CHLORIDE 0.9% 1,000 ML IV SCH ×2 (02:44→10:34)
[2018-11-03 06:10] LABS: Glucose,Whole Blood 108 mg/dL (75-99)
[2018-11-03 06:21] LABS: ABG Base Excess 11.2 mmol/L; ABG HCO3 36 mmol/L (21-25); ABG PCO2 59 mmHg (35-45); ABG PH 7.39 (7.35-7.45); ABG PO2 60 mmHg (83-108); ABG TCO2 38 mmol/L (19-24); Allen Test Performed? Yes
[2018-11-03] MEDS: IPRATROPIUM-ALBUTEROL 3 ML NEB INHALATION SCH ×4 (07:26→19:36)
[2018-11-03] MEDS ORDERED: PANTOPRAZOLE 40 MG TABLET PO SCH (07:30)
[2018-11-03] MEDS: LORazepam 2 MG/ML INJ IV PRN ×3 (08:28→19:54)
[2018-11-03] MEDS: ENOXAPARIN 40 MG/0.4 ML SYRINGE SQ SCH (09:43)
--- NOTE | 2018-11-03 11:09 | P.PN ---
Subjective Progress Note Date: 11/03/18 Patient's an exam and follow up today, currently on 2 L via nasal cannula. Having episodes of tachypnea shallow breathing and desaturations yesterday. ABG suggesting hypoxia and hypercapnia. Patient continues on tube feeds going at 40 mL an hour with free water flushes. Objective - Vital Signs Vital signs: Vital Signs Temp 97.4 F L 11/03/18 08:00 Pulse 109 H 11/03/18 08:10 Resp 22 11/03/18 08:10 BP 107/72 11/03/18 08:00 Pulse Ox 91 L 11/03/18 08:00 Intake & Output 11/02/18 11/03/18 11/03/18 18:59 06:59 18:59 Intake Total 1999 670 Balance 1999 670 Weight 34.156 kg 25 kg Intake: Amount of Fluid Infused ( 2000 ml) Intake, IV Titration 350 Amount Sodium Chloride 0.9% 1, 350 000 ml @ 100 mls/hr IV . Q10H [facility] Rx#:[id number] Tube Feeding 320 Other: Voiding Method Diaper Incontinent # Voids 1 - Exam Constitutional: No acute distress, awake and alert cachectic appearance Eyes: Anicteric sclerae, moist conjunctiva, no lid-lag, PERRLA ENMT: Bilateral temporal wasting, NC/AT,Oropharynx clear, no erythema, exudates Neck:Supple, FROM, no masses, or JVD, No carotid bruits; No thyromegaly Lungs: Decreased breath sounds bilaterally, breathing unlabored on 2 L nasal cannula Cardiovascular: Heart regular in rate and rhythm, No murmurs, gallops, or rubs no peripheral edema Abdominal: Soft Nontender, nom distended, no guarding, no rebound or rigidity, Normoactive bowel sounds No hepatomegaly, No splenomegaly, No palpable mass No abdominal wall hernia noted Skin: Normal temperature, tone, texture, turgor, No induration No subcutaneous nodules, No rash, lesions, No ulcers Extremities:No digital cyanosis No clubbing, Pedal pulses intact and symmetrical Radial pulses intact and symmetrical Normal gait and station, No calf tenderness Neuro: Awake alert following commands no focal deficits appreciated - Labs CBC & Chem 7: 11/04/18 05:36 11/04/18 05:36 Labs: Abnormal Lab Results - Last 24 Hours (Table) 11/02/18 11/02/1819 Range/Units 12:40 12:40 21:43 WBC 14.0 H (3.8-10.6) k/uL RBC 3.57 L (3.80-5.40) m/uL Hgb 11.0 L (11.4-16.0) gm/dL Plt Count 529 H (150-450) k/uL Neutrophils # 13.5 H (1.3-7.7) k/uL Lymphocytes # 0.1 L (1.0-4.8) k/uL ABG pH (7.35-7.45) ABG pCO2 (35-45) mmHg ABG pO2 (83-108) mmHg ABG HCO3 (21-25) mmol/L ABG Total CO2 (19-24) mmol/L ABG O2 Saturation (94-97) % Carbon Dioxide 37 H (22-30) mmol/L BUN 21 H (7-17) mg/dL Creatinine 0.24 L (0.52-1.04) mg/dL POC Glucose (mg/dL) 144 H (75-99) mg/dL Alkaline Phosphatase 127 H (38-126) U/L Albumin 3.3 L (3.5-5.0) g/dL 11/02/18 11/03/18 11/03/18 Range/Units 22:09 00:43 06:03 WBC (3.8-10.6) k/uL RBC (3.80-5.40) m/uL Hgb (11.4-16.0) gm/dL Plt Count (150-450) k/uL Neutrophils # (1.3-7.7) k/uL Lymphocytes # (1.0-4.8) k/uL ABG pH 7.32 L (7.35-7.45) ABG pCO2 67 H (35-45) mmHg ABG pO2 64 L (83-108) mmHg ABG HCO3 34 H (21-25) mmol/L ABG Total CO2 36 H (19-24) mmol/L ABG O2 Saturation 89.7 L (94-97) % Carbon Dioxide (22-30) mmol/L BUN (7-17) mg/dL Creatinine (0.52-1.04) mg/dL POC Glucose (mg/dL) 141 H 108 H (75-99) mg/dL Alkaline Phosphatase (38-126) U/L Albumin (3.5-5.0) g/dL 11/03/18 Range/Units 06:17 WBC (3.8-10.6) k/uL RBC (3.80-5.40) m/uL Hgb (11.4-16.0) gm/dL Plt Count (150-450) k/uL Neutrophils # (1.3-7.7) k/uL Lymphocytes # (1.0-4.8) k/uL ABG pH (7.35-7.45) ABG pCO2 59 H (35-45) mmHg ABG pO2 60 L (83-108) mmHg ABG HCO3 36 H (21-25) mmol/L ABG Total CO2 38 H (19-24) mmol/L ABG O2 Saturation 90.0 L (94-97) % Carbon Dioxide (22-30) mmol/L BUN (7-17) mg/dL Creatinine (0.52-1.04) mg/dL POC Glucose (mg/dL) (75-99) mg/dL Alkaline Phosphatase (38-126) U/L Albumin (3.5-5.0) g/dL Assessment and Plan (1) Acute respiratory failure with hypoxia and hypercapnia Narrative/Plan: * Patient with episodes of respiratory distress with tachypnea desaturations * Continue supplemental oxygen as needed * Continue breathing treatments,we'll initiate systemic steroids * ABG suggesting hypoxia and hypercapnia * Awaiting pulmonary recommendations Current Visit: Yes Status: Resolved Code(s): J96.01 - ACUTE RESPIRATORY FAILURE WITH HYPOXIA; J96.02 - ACUTE RESPIRATORY FAILURE WITH HYPERCAPNIA SNOMED Code(s): 631187961 (2) Severe protein-energy malnutrition Narrative/Plan: * Continue tube feeds currently at goal * On vital 1.2 and 40 mL an hour Current Visit: Yes Status: Acute Code(s): E43 - UNSPECIFIED SEVERE PROTEIN- CALORIE MALNUTRITION SNOMED Code(s): 191640559 (3) Mediastinal lymphadenopathy Current Visit: Yes Status: Acute Code(s): R59.0 - LOCALIZED ENLARGED LYMPH NODES SNOMED Code(s): 43645297 (4) Weakness Narrative/Plan: * PT consulted Current Visit: Yes Status: Chronic Code(s): R53.1 - WEAKNESS SNOMED Code(s): 56315008 (5) Leukocytosis Narrative/Plan: * Patient afebrile we'll recheck CBC today * We'll check urinalysis and blood cultures Current Visit: Yes Status: Acute Code(s): D72.829 - ELEVATED WHITE BLOOD CELL COUNT, UNSPECIFIED SNOMED Code(s): 244798688 (6) Cachexia Current Visit: Yes Status: Acute Code(s): R64 - CACHEXIA SNOMED Code(s): 907478052 (7) Dysphagia Current Visit: Yes Status: Acute Code(s): R13.10 - DYSPHAGIA, UNSPECIFIED SNOMED Code(s): 45864067 (8) History of laryngeal cancer Current Visit: No Status: Chronic Code(s): Z85.21 - PERSONAL HISTORY OF MALIGNANT NEOPLASM OF LARYNX SNOMED Code(s): 839387908 (9) History of aspiration pneumonia Current Visit: Yes Status: Acute Code(s): Z87.01 - PERSONAL HISTORY OF PNEUMONIA (RECURRENT) SNOMED Code(s): 914205220484698 Plan: * Disposition follow-up pulmonary recommendations
[2018-11-03 11:57] LABS: Glucose,Whole Blood 108 mg/dL (75-99)
--- NOTE | 2018-11-03 12:32 | CT ---
EXAMINATION TYPE: CT chest wo con DATE OF EXAM: 11/03/2018 COMPARISON: Prior chest CT 10/19/2018 HISTORY: Dyspnea. CT DLP: 154.7 mGycm. Automated Exposure Control for Dose Reduction was Utilized. TECHNIQUE: CT scan of the thorax is performed without IV contrast. FINDINGS: Lack of intravenous contrast could compromise sensitivity. LUNGS: The emphysematous changes within the lungs are again noted. There is right middle lobe airspac e disease, air bronchograms are present, bilateral lower lobe atelectatic changes with associated ple ural effusions noted. There is some fluid density at the right lung apex, biapical pleural thickening , probable scarring again noted. The abnormal soft tissue density present at the left upper lobe seen on prior exam has essentially resolved. Improved aeration is present in the bilateral upper lobes. MEDIASTINUM: Lack of IV contrast is noted to limit evaluation for mediastinal and especially hilar ad enopathy. There are no definitive greater than 1 cm hilar or mediastinal lymph nodes. No cardiomega ly or pericardial effusion is seen. OTHER: A catheter present on the right shows the distal tip in the right atrium. Left-sided PICC line shows the distal tip of the catheter at the level of the cavoatrial junction. There is a tube presen t in the stomach. Punctate calcifications present within the spleen. IMPRESSION: There are increased pleural effusions and associated basilar atelectasis, correlate for r ight middle lobe pneumonia versus atelectasis. Emphysema. Interval improved aeration in the upper lob es. Noncontrast exam.
[2018-11-03 12:33] LABS: Basophils % (A) 0 %; Eosinophils % (A) 0 %; HCT 30.8 % (34.0-46.0); HGB 9.7 gm/dL (11.4-16.0); Hypochromasia Moderate; Lymphocytes # (A) 0.1 k/uL (1.0-4.8); Lymphocytes % (A) 1 %; MCH 31.6 pg (25.0-35.0); MCHC 31.5 g/dL (31.0-37.0); MCV 100.3 fL (80.0-100.0); Macrocytosis Slight; Mean Platelet Volume 6.6; Monocytes # (A) 0.7 k/uL (0-1.0); Monocytes % (A) 5 %; Neutrophils # (A) 14.6 k/uL (1.3-7.7); Neutrophils % (A) 94 %; Platelet Count 531 k/uL (150-450); RBC 3.07 m/uL (3.80-5.40); RDW 14.2 % (11.5-15.5); WBC 15.5 k/uL (3.8-10.6)
--- NOTE | 2018-11-03 13:07 | P.CNPUL ---
History of Present Illness Consult date: 11/03/18 Requesting physician: Nick Guevara Reason for consult: dyspnea Chief complaint: Shortness of breath History of present illness: This is a 53-year-old female patient of Dr. Foster, who was recently hospitalized for acute respiratory failure secondary to aspiration pneumonia, hypoxemic and hypercapnic requiring intubation and placement on mechanical ventilation. Patient was successfully extubated, was treated with antibiotics, completed a course of Levaquin and Zosyn. Patient showed significant clinical and radiographic improvement, by the time of her discharge to the [facility]. Patient also has history of laryngeal cancer with previous chemoradiation, and had evidence of severe malnutrition. In addition patient failed modified barium swallow, and was having evidence of aspiration with all consistencies. Patient also had evidence of electrolyte abnormality with hyponatremia and hypokalemia, which improved with treatment. Patient had a gastrostomy tube placed for nutritional support, and she was strict NPO. Sputum cultures from previous admission were negative. Other medical history includes chronic anemia of chronic disease, previous tobacco dependence. Patient was discharged to the [facility] on 11/01/2018 however she started experiencing shortness of breath at the [facility], and was apparently hypoxic and was brought back for evaluation on oral 11/02/2018. He denied any chest pain, she denies any oral intake at the half-way home, she states she was getting her nutrition strictly through the gastrostomy tube. No aspiration, no fever or chills, chest x-ray showed basilar atelectasis and associated pleural effusions. Lab work showed white blood cell count of 14.0, hemoglobin of 11, correlation profile was within normal limits, blood gas showed pO2 of 64, pCO2 of 67, and pH of 7.32. Sodium was 140, potassium is 4.0, chloride is 98, CO2 37, B1 is 21, creatinine 0.24. O2 sat in the emergency department was ranging from 84-86 patient was placed on supplemental oxygen. Patient was given IV steroids, nebulized bronchodilators, and worsening the patient in consultation for shortness of breath. She is awake and alert, she is sitting up in bed, appears to be in no acute distress, currently on 2 L of oxygen, no significant wheezing, or congestion, she does have a weak cough, which does not sound congested, lung sounds are diminished, no rales auscultated. Follow-up blood work was reviewed today, white blood cell count is 15.5, hemoglobin is 9.7, repeat blood gas showed pO2 of 60, pCO2 59, and pH of 7.39 this was done on FiO2 28%. Patient l ooks extremely cachectic and weak, her voice is very weak and hoarse, but she appears to be in no acute distress. Review of Systems All systems: negative Constitutional: Denies chills, Denies fever Eyes: denies blurred vision, denies pain Ears, nose, mouth and throat: Denies headache, Denies sore throat Cardiovascular: Denies chest pain, Denies shortness of breath Respiratory: Reports dyspnea, Denies cough Gastrointestinal: Denies abdominal pain, Denies diarrhea, Denies nausea, Denies vomiting Genitourinary: Denies dysuria, Denies hematuria Musculoskeletal: Denies myalgias Integumentary: Denies pruritus, Denies rash Neurological: Denies numbness, Denies weakness Psychiatric: Denies anxiety, Denies depression Endocrine: Denies fatigue, Denies weight change Past Medical History Past Medical History: Cancer Additional Past Medical History / Comment(s): Pt recently admitted to [facility] on with severe protein calorie malnourishment, acute respiratory failure with hypoxia and hypercapnia was intubated/vented, also had mediatinal lymphadenopathy, nyponatremia and hypokalemia. Other Hx: Laryngeal cancer treated with chemo/radiation 02/2018, dysphagia-NPO/has G tube. History of Any Multi-Drug Resistant Organisms: None Reported Past Surgical History: Tubal Ligation Additional Past Surgical History / Comment(s): Open G tube placement, mediport, picc line, laryngoscopy, one fallopian tube removed d/t ectopic . Past Anesthesia/Blood Transfusion Reactions: No Reported Reaction Past Psychological History: Anxiety Additional Psychological History / Comment(s): Pt just placed in [facility] on 11/01/18. She is up with a walker. She is NPO and has a G tube for feedings. Smoking Status: Former smoker Past Alcohol Use History: None Reported Additional Past Alcohol Use History / Comment(s): Pt started smoking in 1985 and quit 5 months ago-May 2018. Past Drug Use History: None Reported - Past Family History Mother Family Medical History: Coronary Artery Disease (CAD), Diabetes Mellitus Father Family Medical History: COPD, CVA/TIA, Myocardial Infarction (MT) Additional Family Medical History / Comment(s): Father of a MT at the age of 54 yrs. Medications and Allergies Home Medications Medication Instructions Recorded Confirmed Type LORazepam [Ativan] 0.5 mg PO Q8H PRN 11/02/18 11/02/18 History Allergies Allergy/AdvReac Type Severity Reaction Status Date / Time Beef Containing Products AdvReac No reaction Verified 11/02/18 11:40 [Beef] Fish Containing Products AdvReac No reaction Verified 11/02/18 11:40 [Fish] Pork/Porcine Containing AdvReac No reaction Verified 11/02/18 11:40 Products [Pork] Physical Exam Vitals: Vital Signs Temp Pulse Pulse Pulse Resp BP BP 11/03/18 11:54 97.9 F 107 H 24 106/71 11/03/18 08:10 109 H 22 11/03/18 08:00 97.4 F L 109 H 22 107/72 11/03/18 07:38 118 H 11/03/18 07:28 108 H 11/03/18 04:00 98 F 105 H 20 124/56 11/03/18 00:13 109 H 42 H 96/68 11/02/18 20:56 97.2 F L 121 H 20 105/67 11/02/18 20:05 112 H 11/02/18 19:57 120 H 11/02/18 18:36 97.3 F L 102 H 30 H 95/70 11/02/18 17:55 102 H 30 H 95/70 11/02/18 17:30 102 H 30 H 95/70 11/02/18 17:25 96 11/02/18 17:18 99 11/02/18 17:00 101 H 48 H 103/73 11/02/18 16:30 102 H 41 H 103/73 11/02/18 16:00 106 H 41 H 100/70 11/02/18 15:30 106 H 54 H 97/79 11/02/18 15:10 112 H 53 H 97/79 11/02/18 15:00 118 H 37 H 107/79 11/02/18 14:50 114 H 55 H 107/79 11/02/18 14:40 115 H 52 H 107/79 11/02/18 14:30 118 H 57 H 104/76 11/02/18 14:20 104/76 11/02/18 14:10 117 H 40 H 104/76 11/02/18 14:00 46 H 104/76 11/02/18 13:50 44 H 108/79 11/02/18 13:40 117 H 43 H 108/79 11/02/18 13:30 117 H 29 H 108/81 11/02/18 13:20 116 H 52 H 108/81 11/02/18 13:10 101 H 51 H 108/81 11/02/18 13:06 114 H 11/02/18 13:00 113 H 38 H 108/81 11/02/18 12:53 113 H 11/02/18 12:50 114 H 50 H 108/85 11/02/18 12:40 114 H 55 H 108/85 Pulse Ox 11/03/18 11:54 90 L 11/03/18 08:10 11/03/18 08:00 91 L 11/03/18 07:38 11/03/18 07:28 11/03/18 04:00 92 L 11/03/18 00:13 90 L 11/02/18 20:56 84 L 11/02/18 20:05 11/02/18 19:57 11/02/18 18:36 96 11/02/18 17:55 96 11/02/18 17:30 96 11/02/18 17:25 11/02/18 17:18 11/02/18 17:00 11/02/18 16:30 99 11/02/18 16:00 95 11/02/18 15:30 86 L 11/02/18 15:10 88 L 11/02/18 15:00 91 L 11/02/18 14:50 94 L 11/02/18 14:40 93 L 11/02/18 14:30 95 11/02/18 14:20 11/02/18 14:10 91 L 11/02/18 14:00 95 11/02/18 13:50 97 11/02/18 13:40 96 11/02/18 13:30 96 11/02/18 13:20 98 11/02/18 13:10 96 11/02/18 13:06 11/02/18 13:00 93 L 11/02/18 12:53 09/26/19 12:50 91 L 11/02/18 12:40 93 L Intake and Output 11/02/18 11/03/18 11/03/18 22:59 06:59 14:59 Intake Total 2350 320 Balance 2350 320 Intake: Amount of Fluid Infused ( 2000 ml) Intake, IV Titration 350 Amount Sodium Chloride 0.9% 1, 350 000 ml @ 100 mls/hr IV . Q10H [facility] Rx#:[id number] Tube Feeding 320 Other: Voiding Method Diaper Diaper Diaper # Voids 1 Weight 25 kg 34.019 kg GENERAL EXAM: Alert, very pleasant, cachectic 53-year-old white female, 2 L of oxygen and the pulse ox of 90-91%, comfortable in no apparent distress. HEAD: Normocephalic/atraumatic. EYES: Normal reaction of pupils, equal size. Conjunctiva pink, sclera white. NOSE: Clear with pink turbinates. THROAT: No erythema or exudates. NECK: No masses, no JVD, no thyroid enlargement, no adenopathy. CHEST: No chest wall deformity. Symmetrical expansion. LUNGS: Equal air entry with no crackles, wheeze, rhonchi or dullness. CVS: Regular rate and rhythm, normal S1 and S2, no gallops, no murmurs, no rubs ABDOMEN: Soft, nontender. No hepatosplenomegaly, normal bowel sounds, no gua rding or rigidity. Gastric tube insertion site is clean dry and intact, gastric tube is covered with the dressing EXTREMITIES: No clubbing, no edema, no cyanosis, 2+ pulses and upper and lower extremities. MUSCULOSKELETAL: Muscle strength and tone normal. SPINE: No scoliosis or deformity SKIN: No rashes CENTRAL NERVOUS SYSTEM: Alert and oriented -3. No focal deficits, tone is normal in all 4 extremities. PSYCHIATRIC: Alert and oriented -3. Appropriate affect. Intact judgment and insight. Results - Laboratory Findings CBC and BMP: 11/03/18 11:24 11/02/18 12:40 ABG ABG pH 7.39 (7.35-7.45) 11/03/18 06:17 ABG pCO2 59 mmHg (35-45) H 11/03/18 06:17 ABG pO2 60 mmHg (83-108) L 11/03/18 06:17 ABG O2 Saturation 90.0 % (94-97) L 11/03/18 06:17 PT/INR, D-dimer PT 11.7 sec (9.0-12.0) 11/02/18 12:40 INR 1.1 (<1.2) 11/02/18 12:40 Abnormal lab findings: Abnormal Labs 11/02/18 11/02/18 11/02/18 12:40 12:40 21:43 WBC 14.0 H RBC 3.57 L Hgb 11.0 L Hct MCV Plt Count 529 H Neutrophils # 13.5 H Lymphocytes # 0.1 L ABG pH ABG pCO2 ABG pO2 ABG HCO3 ABG Total CO2 ABG O2 Saturation Carbon Dioxide 37 H BUN 21 H Creatinine 0.24 L POC Glucose (mg/dL) 144 H Alkaline Phosphatase 127 H Albumin 3.3 L 11/02/18 11/03/18 11/03/18 22:09 00:43 06:03 WBC RBC Hgb Hct MCV Plt Count Neutrophils # Lymphocytes # ABG pH 7.32 L ABG pCO2 67 H ABG pO2 64 L ABG HCO3 34 H ABG Total CO2 36 H ABG O2 Saturation 89.7 L Carbon Dioxide BUN Creatinine POC Glucose (mg/dL) 141 H 108 H Alkaline Phosphatase Albumin 11/03/18 11/03/18 11/03/18 06:17 11:24 11:55 WBC 15.5 H RBC 3.07 L Hgb 9.7 L Hct 30.8 L MCV 100.3 H Plt Count 531 H Neutrophils # 14.6 H Lymphocytes # 0.1 L ABG pH ABG pCO2 59 H ABG pO2 60 L ABG HCO3 36 H ABG Total CO2 38 H ABG O2 Saturation 90.0 L Carbon Dioxide BUN Creatinine POC Glucose (mg/dL) 108 H Alkaline Phosphatase Albumin - Diagnostic Findings Chest x-ray: report reviewed, image reviewed CT scan - chest: report reviewed, image reviewed Assessment and Plan Plan: Assessment: #1. Dyspnea, possibly related to bilateral pleural effusions and possibility of right middle lobe pneumonia versus atelectasis #2. Acute on chronic hypercapnic respiratory failure and hypoxemic respiratory failure related to the above #3. Recent hospitalization for acute aspiration pneumonia requiring intubation and mechanical ventilator support, patient was treated with Levaquin and Zosyn #4. History of laryngeal carcinoma, status post chemo and radiation therapy would last treatment in February 2018 and patient was treated at [facility] #5. Severe protein calorie malnutrition #6. Anorexia/cachexia syndrome #7. History of previous tobacco dependence #8. History of anemia of chronic disease #9. Dysphagia status post gastrostomy tube placement for aspiration with various types of food consistencies as evidenced on the MBS #10. Pulmonary lymphadenopathy as previously noted on previous CT angios of the chest possibly related to prior history of laryngeal cancer Plan: We'll obtain a pro-calcitonin level, CT chest has been reviewed showing increased pleural effusions, and associated basilar atelectasis, possibility of right middle lobe pneumonia versus atelectasis. Clinically patient looks nontoxic, however very weak and cachectic. Afebrile, any skin wheezing or congestion. Hold off on antibiotics, continue with IV Solu-Medrol, breathing treatments. Resume nutritional support, resume tube feedings, consult dietary service. Will await the results of the pro-calcitonin. We'll follow I performed a history & physical examination of the patient and discussed their management with my nurse practitioner, Karen Doran. I reviewed the nurse practitioner's note and agree with the documented findings and plan of care. Lung sounds are positive for diminished breath sounds. The findings and the impression was discussed with the patient. I attest to the documentation by the nurse practitioner. Time with Patient: Greater than 30
[2018-11-03 13:10] LABS: African American GFR (CKD) >90 (>60 ml/min/1.73 sqM); Anion Gap 5 mmol/L; Blood Urea Nitrogen 26 mg/dL (7-17); Carbon Dioxide 33 mmol/L (22-30); Chloride 106 mmol/L (98-107); Glucose 102 mg/dL (74-99); Magnesium 1.9 mg/dL (1.6-2.3); Potassium 4.1 mmol/L (3.5-5.1); Sodium 144 mmol/L (137-145)
[2018-11-03 16:20] LABS: Appearance,Urine Cloudy (Clear); Bilirubin,Urine Negative (Negative); Blood,Urine Negative (Negative); Budding Yeast,Urine Many /hpf; Color,Urine Yellow; Glucose,Urine (UA) Negative (Negative); Hyaline Casts,Urine 9 /lpf (0-2); Ketones,Urine Negative (Negative); Leukocyte Esterase,Urine Small (Negative); Mucus,Urine Few /hpf; Nitrite,Urine Negative (Negative); Protein,Urine Trace (Negative); RBC,Urine 11 /hpf (0-5); Specific Gravity,Urine 1.019 (1.001-1.035); Squamous Epithelial Cell,Urine 2 /hpf (0-4); Urobilinogen,Urine <2.0 mg/dL (<2.0)
[2018-11-03 16:33] LABS: Glucose,Whole Blood 110 mg/dL (75-99)
[2018-11-03] MEDS: methylPREDNISolone SOD SUCCI 125 MG/2 ML VIAL IV SCH (17:13)
[2018-11-03] MEDS ORDERED: FUROSEMIDE 10 MG/ML 2 ML VIAL IV STA (19:57)
[2018-11-03 20:06] LABS: ABG Base Excess 12.2 mmol/L; ABG HCO3 39 mmol/L (21-25); ABG Oxygen Saturation 90.9 % (94-97); ABG PH 7.28 (7.35-7.45); ABG PO2 72 mmHg (83-108); ABG TCO2 42 mmol/L (19-24); Allen Test Performed? Yes
[2018-11-03 20:11] LABS: ABG PCO2 83 mmHg (35-45)
[2018-11-03 21:20] LABS: ABG Base Excess 15.5 mmol/L; ABG Oxygen Saturation 89.9 % (94-97); ABG PCO2 69 mmHg (35-45); ABG PH 7.38 (7.35-7.45); ABG PO2 62 mmHg (83-108); ABG TCO2 43 mmol/L (19-24); Allen Test Performed? Yes
[2018-11-03 21:23] LABS: ABG HCO3 41 mmol/L (21-25)
[2018-11-03] MEDS ORDERED: SODIUM CHLORIDE 0.9% 1,000 ML IV ONE (22:02)
[2018-11-03] MEDS ORDERED: NALOXONE 0.4 MG/ML 1 ML VIAL IV PRN (22:15)
[2018-11-03 23:52] LABS: Glucose,Whole Blood 125 mg/dL (75-99)
[2018-11-04] MEDS: INSULIN ASPART (NovoLOG) 100 UNIT/ML VIAL SQ SCH ×4 (00:10→19:05)
[2018-11-04] MEDS: methylPREDNISolone SOD SUCCI 125 MG/2 ML VIAL IV SCH ×3 (00:15→16:10)
[2018-11-04] MEDS: LORazepam 2 MG/ML INJ IV PRN ×3 (00:15→13:41)
[2018-11-04] MEDS: PIPERACILLIN-TAZOBACTAM 3.375 GM in SODIUM CHLORIDE 0.9% 100 ML IVPB SCH ×3 (00:15→16:11)
[2018-11-04 06:02] LABS: Basophils % (A) 0 %; Eosinophils % (A) 0 %; HCT 27.2 % (34.0-46.0); HGB 8.5 gm/dL (11.4-16.0); Hypochromasia Marked; Lymphocytes # (A) 0.1 k/uL (1.0-4.8); Lymphocytes % (A) 1 %; MCH 31.6 pg (25.0-35.0); MCHC 31.1 g/dL (31.0-37.0); MCV 101.8 fL (80.0-100.0); Macrocytosis Slight; Mean Platelet Volume 7.4; Monocytes # (A) 0.3 k/uL (0-1.0); Monocytes % (A) 3 %; Neutrophils # (A) 10.1 k/uL (1.3-7.7); Neutrophils % (A) 96 %; Platelet Count 489 k/uL (150-450); RBC 2.67 m/uL (3.80-5.40); RDW 14.7 % (11.5-15.5); WBC 10.5 k/uL (3.8-10.6)
--- NOTE | 2018-11-04 06:08 | XR ---
EXAMINATION TYPE: XR chest 1V DATE OF EXAM: 11/04/2018 HISTORY: SOB. REFERENCE: Previous study dated 11/02/2018. FINDINGS: A MediPort is in place via a right internal jugular approach. Its tip is in the right atriu m. There is a left basilic PICC line in place. Its tip is also in the right atrium. There is volume loss in the right middle lobe. There is a lesser degree of volume loss in the left maulik ng base. There are small, bilateral effusions. There has been no interval change in the appearance of the chest. IMPRESSION: NO SIGNIFICANT INTERVAL CHANGE IN THE APPEARANCE OF THE CHEST.
[2018-11-04 06:09] LABS: African American GFR (CKD) >90 (>60 ml/min/1.73 sqM); Anion Gap -1 mmol/L; Blood Urea Nitrogen 18 mg/dL (7-17); Calcium 8.5 mg/dL (8.4-10.2); Carbon Dioxide 38 mmol/L (22-30); Chloride 105 mmol/L (98-107); Glucose 146 mg/dL (74-99); Potassium 3.4 mmol/L (3.5-5.1); Sodium 142 mmol/L (137-145)
[2018-11-04 06:11] LABS: Glucose,Whole Blood 153 mg/dL (75-99)
[2018-11-04] MEDS: MORPHINE SULFATE 4 MG/ML SYRINGE IVP PRN ×3 (06:16→21:34)
[2018-11-04] MEDS ORDERED: Potassium Replacement Protocol 1 EACH MISC MISCELLANE PRN ×2 (06:33→06:39)
[2018-11-04] MEDS ORDERED: POTASSIUM BICARBONATE/CIT AC 20 MEQ TABLET.EFF NG-TUBE SCH (07:00)
[2018-11-04] MEDS: POTASSIUM CHLORIDE 20 MEQ in WATER FOR INJECTION 1 100ML.BAG IVPB SCH ×2 (07:01→09:24)
[2018-11-04] MEDS: IPRATROPIUM-ALBUTEROL 3 ML NEB INHALATION SCH ×4 (07:42→19:28)
--- NOTE | 2018-11-04 08:19 | P.PN ---
Subjective Progress Note Date: 11/04/18 This is a 53-year-old female patient of Dr. Foster, who was recently hospital ized for acute respiratory failure secondary to aspiration pneumonia, hypoxemic and hypercapnic requiring intubation and placement on mechanical ventilation. Patient was successfully extubated, was treated with antibiotics, completed a course of Levaquin and Zosyn. Patient showed significant clinical and radiographic improvement, by the time of her discharge to the [facility]. Patient also has history of laryngeal cancer with previous chemoradiation, and had evidence of severe malnutrition. In addition patient failed modified barium swallow, and was having evidence of aspiration with all consistencies. Patient also had evidence of electrolyte abnormality with hyponatremia and hypokalemia, which improved with treatment. Patient had a gastrostomy tube placed for nutritional support, and she was strict NPO. Sputum cultures from previous admission were negative. Other medical history includes chronic anemia of chronic disease, previous tobacco dependence. Patient was discharged to the [facility] on 11/01/2018 however she started experiencing shortness of breath at the [facility], and was apparently hypoxic and was brought back for evaluation on oral 11/02/2018. He denied any chest pain, she denies any oral intake at the group home home, she states she was getting her nutrition strictly through the gastrostomy tube. No aspiration, no fever or chills, chest x-ray showed basilar atelectasis and associated pleural effusions. Lab work showed white blood cell count of 14.0, hemoglobin of 11, correlation profile was within normal limits, blood gas showed pO2 of 64, pCO2 of 67, and pH of 7.32. Sodium was 140, potassium is 4.0, chloride is 98, CO2 37, B1 is 21, creatinine 0.24. O2 sat in the emergency department was ranging from 84-86 patient was placed on supplemental oxygen. Patient was given IV steroids, nebulized bronchodilators, and worsening the patient in consultation for shortness of breath. She is awake and alert, she is sitting up in bed, appears to be in no acute distress, currently on 2 L of oxygen, no significant wheezing, or congestion, she does h ave a weak cough, which does not sound congested, lung sounds are diminished, no rales auscultated. Follow-up blood work was reviewed today, white blood cell count is 15.5, hemoglobin is 9.7, repeat blood gas showed pO2 of 60, pCO2 59, and pH of 7.39 this was done on FiO2 28%. Patient looks extremely cachectic and weak, her voice is very weak and hoarse, but she appears to be in no acute distress. On 11/04/2018 I'm seeing this patient for a follow-up. This is an extremely debilitated and severely malnourished female patient who is post respiratory failure who was readmitted for ongoing difficulties in breathing. Noted the patient's BMI is 11.9 and she has kwashiorkor. The patient got moved yesterday to the intensive care unit because of worsening shortness of breath and altered mentation. Note that on the floor the patient had a blood gas showing a pH of 0.28 with a pCO2 of 83 and pO2 of 72. This was on FiO2 of 32%. She was having increased tachypnea and respiratory distress. At that point the patient got transferred to the intensive care unit. I was very hesitant intubated this patient based on an underlying condition and status. Note that the patient is extremely frail and has absolutely no muscle mass and intubation may be quite devastating for this patient had the patient accordingly was placed on a BiPAP at a pressure of 10/5 cm of water. She was also given some Ativan and morphine which. Much calm that down. Her subsequent blood gas showed a pH of 7.38 with a pCO2 of 69 a pO2 of 62. I realized the patient's respiratory insufficiency he had it performed a CAT scan of the chest yesterday and the CAT scan showed complete occlusion of the distal bronchus intermedius and right middle lobe atelectasis. There was also atelectatic changes in lung bases bilaterally with a right middle lobe atelectasis right lower lobe atelectasis and bilateral pleural effusions. Upper lobes are quite patent and well hydrated. The patient was started back on IV Zosyn. She did become hypotensive briefly and she was given a liter of IV fluid bolus and currently she is on normal saline at rate of 100 mL an hour. She is improved her blood pressure and she did not require any pressors. She is currently awake. She is following commands. However, she has a very poor insight on her condition. She is not aware that she is quite debilitated in [place] major disadvantage for recovering from her chronic illness. The patient also is receiving enteral feeding for nutritional support in the form of vitamin 1.2 which is currently at goal. I added this patient IV Zosyn. She is on Lovenox for DVT prophylaxis. CAT scan of the chest also showed emphysema bilaterally. She is on bronchodilators. She is also on IV Solu-Medrol. IV Protonix for GI prophylaxis. She'll Objective - Vital Signs Vital signs: Vital Signs Temp 98.8 F 11/04/18 04:00 Pulse 94 11/04/18 07:58 Resp 23 11/04/18 07:00 BP 91/72 11/04/18 07:00 Pulse Ox 95 11/04/18 07:00 Intake & Output 11/03/18 11/04/18 11/04/18 18:59 06:59 18:59 Intake Total 1000 2140 50 Output Total 600 1065 50 Balance 400 1075 0 Weight 34.02 kg 34.5 kg Intake: IV 1800 50 Piperacillin-Tazobactam 3 100 .375 gm In Sodium Chloride 0.9% 100 ml @ 25 mls/hr IVPB Q8H [facility] Rx#: [id number] Potassium Chloride 20 meq 50 In Water For Injection 1 100ml.bag @ 50 mls/hr IVPB Q2H [facility] Rx#: [id number] Sodium Chloride 0.9% 1, 1700 000 ml @ 999 mls/hr IV . Q1H1M ONE Rx#:[id number] Intake, IV Titration 700 Amount Sodium Chloride 0.9% 1, 700 000 ml @ 100 mls/hr IV . Q10H [facility] Rx#:[id number] Tube Feeding 210 280 Other 90 60 Output: Urine 600 1065 50 Other: Voiding Method Diaper Indwelling Catheter - Exam GENERAL EXAM: Alert, , cachectic 53-year-old white female, currently on a BiPAP at a pressure of 10/5 cm of water. Very weak. Very debilitated. BMI of 11.9. Significant malnourishment. Significant loss in total body muscle mass. Major atrophy of the muscles in lower extremities bilaterally in the arms. HEAD: Normocephalic/atraumatic. EYES: Normal reaction of pupils, equal size. Conjunctiva pink, sclera white. NOSE: Clear with pink turbinates. THROAT: No erythema or exudates. NECK: No masses, no JVD, no thyroid enlargement, no adenopathy. CHEST: No chest wall deformity. Symmetrical expansion. LUNGS: significant diminishment in the breast sounds bilaterally especially in the lung bases. With the BiPAP on, the patient is able to generate tidal volume around 300s.CVS: Regular rate and rhythm, normal S1 and S2, no gallops, no murmurs, no rubs Cardiac exam revealed the PMI to be normally situated and sized. The rhythm was regular and no extrasystoles were noted during several minutes of auscultation. The first and second heart sounds were normal and physiologic splitting of the second heart sound was noted. There were no murmurs, rubs, clicks, or gallops. ABDOMEN: Soft, nontender. No hepatosplenomegaly, normal bowel sounds, no guarding or rigidity. Gastric tube insertion site is clean dry and intact, gastric tube is covered with the dressing EXTREMITIES: No clubbing, no edema, no cyanosis, 2+ pulses and upper and lower extremities. MUSCULOSKELETAL: severe muscle atrophy, major loss and muscle bulk and muscle mass. No body fat visualized. Significant motor weakness in the upper and lower extremities. The weakness is nonfocal. SPINE: No scoliosis or deformity SKIN: No rashes CENTRAL NERVOUS SYSTEM: Alert and oriented -3. No focal deficits, tone of the muscles are low. all 4 extremities. PSYCHIATRIC: Alert and oriented -3. Appropriate affect. Intact judgment and insight. - Labs CBC & Chem 7: 11/04/18 05:36 11/04/18 05:36 Labs: Abnormal Lab Results - Last 24 Hours (Table) 11/03/18 11/03/18 11/03/18 Range/Units 11:24 11:24 11:55 WBC 15.5 H (3.8-10.6) k/uL RBC 3.07 L (3.80-5.40) m/uL Hgb 9.7 L (11.4-16.0) gm/dL Hct 30.8 L (34.0-46.0) % MCV 100.3 H (80.0-100.0) fL Plt Count 531 H (150-450) k/uL Neutrophils # 14.6 H (1.3-7.7) k/uL Lymphocytes # 0.1 L (1.0-4.8) k/uL ABG pH (7.35-7.45) ABG pCO2 (35-45) mmHg ABG pO2 (83-108) mmHg ABG HCO3 (21-25) mmol/L ABG Total CO2 (19-24) mmol/L ABG O2 Saturation (94-97) % Potassium (3.5-5.1) mmol/L Carbon Dioxide 33 H (22-30) mmol/L BUN 26 H (7-17) mg/dL Creatinine 0.25 L (0.52-1.04) mg/dL Glucose 102 H (74-99) mg/dL POC Glucose (mg/dL) 108 H (75-99) mg/dL Urine Appearance (Clear) Urine Protein (Negative) Ur Leukocyte Esterase (Negative) Urine RBC (0-5) /hpf Urine WBC (0-5) /hpf Hyaline Casts (0-2) /lpf Urine Mucus (None) /hpf Urine Yeast (Budding) (None) /hpf 11/03/18 11/03/18 11/03/18 Range/Units 16:00 16:32 20:03 WBC (3.8-10.6) k/uL RBC (3.80-5.40) m/uL Hgb (11.4-16.0) gm/dL Hct (34.0-46.0) % MCV (80.0-100.0) fL Plt Count (150-450) k/uL Neutrophils # (1.3-7.7) k/uL Lymphocytes # (1.0-4.8) k/uL ABG pH 7.28 L (7.35-7.45) ABG pCO2 83 H* (35-45) mmHg ABG pO2 72 L (83-108) mmHg ABG HCO3 39 H (21-25) mmol/L ABG Total CO2 42 H (19-24) mmol/L ABG O2 Saturation 90.9 L (94-97) % Potassium (3.5-5.1) mmol/L Carbon Dioxide (22-30) mmol/L BUN (7-17) mg/dL Creatinine (0.52-1.04) mg/dL Glucose (74-99) mg/dL POC Glucose (mg/dL) 110 H (75-99) mg/dL Urine Appearance Cloudy H (Clear) Urine Protein Trace H (Negative) Ur Leukocyte Esterase Small H (Negative) Urine RBC 11 H (0-5) /hpf Urine WBC 16 H (0-5) /hpf Hyaline Casts 9 H (0-2) /lpf Urine Mucus Few H (None) /hpf Urine Yeast (Budding) Many H (None) /hpf 11/03/18 11/03/18 11/04/18 Range/Units 21:16 23:48 05:36 WBC (3.8-10.6) k/uL RBC 2.67 L (3.80-5.40) m/uL Hgb 8.5 L (11.4-16.0) gm/dL Hct 27.2 L (34.0-46.0) % MCV 101.8 H (80.0-100.0) fL Plt Count 489 H (150-450) k/uL Neutrophils # 10.1 H (1.3-7.7) k/uL Lymphocytes # 0.1 L (1.0-4.8) k/uL ABG pH (7.35-7.45) ABG pCO2 69 H (35-45) mmHg ABG pO2 62 L (83-108) mmHg ABG HCO3 41 H* (21-25) mmol/L ABG Total CO2 43 H (19-24) mmol/L ABG O2 Saturation 89.9 L (94-97) % Potassium (3.5-5.1) mmol/L Carbon Dioxide (22-30) mmol/L BUN (7-17) mg/dL Creatinine (0.52-1.04) mg/dL Glucose (74-99) mg/dL POC Glucose (mg/dL) 125 H (75-99) mg/dL Urine Appearance (Clear) Urine Protein (Negative) Ur Leukocyte Esterase (Negative) Urine RBC (0-5) /hpf Urine WBC (0-5) /hpf Hyaline Casts (0-2) /lpf Urine Mucus (None) /hpf Urine Yeast (Budding) (None) /hpf 11/04/18 11/04/18 Range/Units 05:36 05:57 WBC (3.8-10.6) k/uL RBC (3.80-5.40) m/uL Hgb (11.4-16.0) gm/dL Hct (34.0-46.0) % MCV (80.0-100.0) fL Plt Count (150-450) k/uL Neutrophils # (1.3-7.7) k/uL Lymphocytes # (1.0-4.8) k/uL ABG pH (7.35-7.45) ABG pCO2 (35-45) mmHg ABG pO2 (83-108) mmHg ABG HCO3 (21-25) mmol/L ABG Total CO2 (19-24) mmol/L ABG O2 Saturation (94-97) % Potassium 3.4 L (3.5-5.1) mmol/L Carbon Dioxide 38 H (22-30) mmol/L BUN 18 H (7-17) mg/dL Creatinine 0.28 L (0.52-1.04) mg/dL Glucose 146 H (74-99) mg/dL POC Glucose (mg/dL) 153 H (75-99) mg/dL Urine Appearance (Clear) Urine Protein (Negative) Ur Leukocyte Esterase (Negative) Urine RBC (0-5) /hpf Urine WBC (0-5) /hpf Hyaline Casts (0-2) /lpf Urine Mucus (None) /hpf Urine Yeast (Budding) (None) /hpf Microbiology - Last 24 Hours (Table) 11/03/18 16:00 Urine Culture - Preliminary Urine,Voided 11/02/18 12:40 Blood Culture - Preliminary Blood No Growth after 24 hours Assessment and Plan Plan: 1 acute on chronic hypoxic/hypercapnic respiratory failure. The patient's blood gases from yesterday showed further worsening of respiratory acidosis and the patient was in significant respiratory distress. The patient got transferred to the intensive care unit and she was placed on BiPAP for respiratory support and currently she is at a pressure of 10/5 cm of water. CAT scan of the chest shows obstruction of the distal bronchus intermedius and atelectasis of the right middle lobe and the right lower lobe in addition to I lateral pleural effusions. This could be related to a mucous plug in the distal rhonchus intermedius. Th is could be also an endobronchial tumor. Unfortunately, unable to bronchoscope this patient the cause of her poor baseline performance and functional status, and had inability to come off the BiPAP and had inability to tolerate such a procedure under conscious sedation. We'll try to avoid intubation this patient knowing that intubation could potentially be permanent and I do not see that the patient may be able to get weaned at a later stage. However, I'm going to talk to the family. They're going to undertake this intubation process, I'll proceed with it and an incentive bronchoscope her to evaluate her right lower lobe. I'm pretty much sure that her prognosis poor based on what I'm seeing in terms of her severe malnourishment and severe protein calorie malnutrition, will be extremely poor. In any rate, having to have a discussion with the family once they arrive. For now she is tolerating a BiPAP well and this will be continued. 2 chronic hypoxic and hypercapnic respiratory failure secondary to above 3 COPD 4 laryngeal cancer post chemoradiation therapy and last treatment was in general 2019 and she was treated through [facility]. 5 severe protein calorie malnutrition with a BMI of 11.9 6 severe anorexia and cachexia and the patient has an enteral feeding for nutritional support via PEG tube 7 chronic smoking 8 chronic anemia 9 mediastinal lymphadenopathy as noted on previous CAT scan of the chest. Unable to work her up at this point in time because of her underlying condition. Plan The patient's pro-calcitonin level is low at 0.07. Underlying pneumonia is doubtful at this stage. I covered empirically with IV Zosyn. Ideally she would need intubation and mechanical ventilation bronchoscopy to evaluate the distal bronchus intermedius and evaluated this patient for the atelectatic changes in the right lower lobe and the right middle lobe. However, this may be a permanent thing and I would like to discuss this with the family prior to proceeding to such intervention. In my opinion, she carries a very poor prognosis based on the above-mentioned comorbidities. I'm going to have a discussion with the family and establish goals of treatment. If willing to undertake the treatment, will intubate and proceed with a bronchoscopy to evaluate the right lung and would optimize her chance of recovery accordingly. If not, we'll make further recommendations regarding supportive care and possibly comfort care measures if the patient's family is willing to undertake that throughout. I think it's reasonable Route as the patient is a very poor prognosis based on her overall performance and functional status being extremely poor. Continue enteral feeding for now. Continue bronchodilators. Continue steroids. DVT and GI prophylaxis. Frequent positioning. Give the patient ICU for now. Kept on IV fluids to 50 mL an hour. Continue enteral nutrition via PEG tube. This evaluation was done more than 30 minutes. Time with Patient: Greater than 30
[2018-11-04] MEDS: PANTOPRAZOLE 40 MG/10 ML VIAL IVP SCH (09:24)
[2018-11-04] MEDS: ENOXAPARIN 40 MG/0.4 ML SYRINGE SQ SCH (09:24)
[2018-11-04 12:02] LABS: Glucose,Whole Blood 117 mg/dL (75-99)
--- NOTE | 2018-11-04 15:08 | P.PN ---
Subjective Progress Note Date: 11/04/18 The patient says that we will follow-up today, patient's brother at bedside. Patient currently on BiPAP, the patient transferred to ICU after having episodes of respiratory distress with tachypnea and desaturation and altered mentation. CAT scan performed yesterday indicating occlusion of the distal bronchus intermedius and right middle lobe atelectasis with right lower lobe atelectasis and bilateral pleural effusions. Patient was started on Zosyn, had episode of hypotension that responded to fluids. Objective - Vital Signs Vital signs: Vital Signs Temp 99.1 F 11/04/18 12:00 Pulse 109 H 11/04/18 12:00 Resp 38 H 11/04/18 12:00 BP 110/82 11/04/18 12:00 Pulse Ox 94 L 11/04/18 12:00 Intake & Output 11/03/18 11/04/18 11/04/18 18:59 06:59 18:59 Intake Total 1000 2140 650 Output Total 600 1065 485 Balance 400 1075 165 Weight 34.02 kg 34.5 kg Intake: IV 1800 650 Piperacillin-Tazobactam 3 100 100 .375 gm In Sodium Chloride 0.9% 100 ml @ 25 mls/hr IVPB Q8H ON [facility] Rx#: [id number] Potassium Chloride 20 meq 200 In Water For Injection 1 100ml.bag @ 50 mls/hr IVPB Q2H ON [facility] Rx#: [id number] Sodium Chloride 0.9% 1, 1700 350 000 ml @ 999 mls/hr IV . Q1H1M ONE Rx#:[id number] Intake, IV Titration 700 Amount Sodium Chloride 0.9% 1, 700 000 ml @ 100 mls/hr IV . Q10H ON [facility] Rx#:[id number] Tube Feeding 210 280 Other 90 60 Output: Urine 600 1065 485 Other: Voiding Method Diaper Indwelling Catheter - Exam Constitutional: Moderate respiratory, awake and alert cachectic appearance Eyes: Anicteric sclerae, moist conjunctiva, no lid-lag, PERRLA ENMT: Bilateral temporal wasting, NC/AT,Oropharynx clear, no erythema, exudates Neck:Supple, FROM, no masses, or JVD, No carotid bruits; No thyromegaly Lungs: Decreased breath sounds bilaterally, currently on BiPAP Cardiovascular: Heart regular in rate and rhythm, No murmurs, gallops, or rubs no peripheral edema Abdominal: Soft Nontender, nom distended, no guarding, no rebound or rigidity, Normoactive bowel sounds No hepatomegaly, No splenomegaly, No palpable mass No abdominal wall hernia noted Skin: Normal temperature, tone, texture, turgor, No induration No subcutaneous nodules, No rash, lesions, No ulcers Extremities:No digital cyanosis No clubbing, Pedal pulses intact and symmetrical Radial pulses intact and symmetrical Normal gait and station, No calf tenderness Neuro: Awake alert following commands no focal deficits appreciated - Labs CBC & Chem 7: 11/04/18 05:36 11/04/18 05:36 Labs: Abnormal Lab Results - Last 24 Hours (Table) 11/03/18 11/03/18 11/03/18 Range/Units 16:00 16:32 20:03 RBC (3.80-5.40) m/uL Hgb (11.4-16.0) gm/dL Hct (34.0-46.0) % MCV (80.0-100.0) fL Plt Count (150-450) k/uL Neutrophils # (1.3-7.7) k/uL Lymphocytes # (1.0-4.8) k/uL ABG pH 7.28 L (7.35-7.45) ABG pCO2 83 H* (35-45) mmHg ABG pO2 72 L (83-108) mmHg ABG HCO3 39 H (21-25) mmol/L ABG Total CO2 42 H (19-24) mmol/L ABG O2 Saturation 90.9 L (94-97) % Potassium (3.5-5.1) mmol/L Carbon Dioxide (22-30) mmol/L BUN (7-17) mg/dL Creatinine (0.52-1.04) mg/dL Glucose (74-99) mg/dL POC Glucose (mg/dL) 110 H (75-99) mg/dL Urine Appearance Cloudy H (Clear) Urine Protein Trace H (Negative) Ur Leukocyte Esterase Small H (Negative) Urine RBC 11 H (0-5) /hpf Urine WBC 16 H (0-5) /hpf Hyaline Casts 9 H (0-2) /lpf Urine Mucus Few H (None) /hpf Urine Yeast (Budding) Many H (None) /hpf 0911/03/18 11/04/18 Range/Units 21:16 23:48 05:36 RBC 2.67 L (3.80-5.40) m/uL Hgb 8.5 L (11.4-16.0) gm/dL Hct 27.2 L (34.0-46.0) % MCV 101.8 H (80.0-100.0) fL Plt Count 489 H (150-450) k/uL Neutrophils # 10.1 H (1.3-7.7) k/uL Lymphocytes # 0.1 L (1.0-4.8) k/uL ABG pH (7.35-7.45) ABG pCO2 69 H (35-45) mmHg ABG pO2 62 L (83-108) mmHg ABG HCO3 41 H* (21-25) mmol/L ABG Total CO2 43 H (19-24) mmol/L ABG O2 Saturation 89.9 L (94-97) % Potassium (3.5-5.1) mmol/L Carbon Dioxide (22-30) mmol/L BUN (7-17) mg/dL Creatinine (0.52-1.04) mg/dL Glucose (74-99) mg/dL POC Glucose (mg/dL) 125 H (75-99) mg/dL Urine Appearance (Clear) Urine Protein (Negative) Ur Leukocyte Esterase (Negative) Urine RBC (0-5) /hpf Urine WBC (0-5) /hpf Hyaline Casts (0-2) /lpf Urine Mucus (None) /hpf Urine Yeast (Budding) (None) /hpf 11/04/18 11/04/18 11/04/18 Range/Units 05:36 05:57 11:58 RBC (3.80-5.40) m/uL Hgb (11.4-16.0) gm/dL Hct (34.0-46.0) % MCV (80.0-100.0) fL Plt Count (150-450) k/uL Neutrophils # (1.3-7.7) k/uL Lymphocytes # (1.0-4.8) k/uL ABG pH (7.35-7.45) ABG pCO2 (35-45) mmHg ABG pO2 (83-108) mmHg ABG HCO3 (21-25) mmol/L ABG Total CO2 (19-24) mmol/L ABG O2 Saturation (94-97) % Potassium 3.4 L (3.5-5.1) mmol/L Carbon Dioxide 38 H (22-30) mmol/L BUN 18 H (7-17) mg/dL Creatinine 0.28 L (0.52-1.04) mg/dL Glucose 146 H (74-99) mg/dL POC Glucose (mg/dL) 153 H 117 H (75-99) mg/dL Urine Appearance (Clear) Urine Protein (Negative) Ur Leukocyte Esterase (Negative) Urine RBC (0-5) /hpf Urine WBC (0-5) /hpf Hyaline Casts (0-2) /lpf Urine Mucus (None) /hpf Urine Yeast (Budding) (None) /hpf Microbiology - Last 24 Hours (Table) 11/03/18 16:00 Urine Culture - Preliminary Urine,Voided 11/02/18 12:40 Blood Culture - Preliminary Blood No Growth after 24 hours Assessment and Plan (1) Acute respiratory failure with hypoxia and hypercapnia Narrative/Plan: * Secondary to distal bronchus obstruction and right middle and lower lobe atelectasis with bilateral pleural effusions, concern for mucous plugging versus in the proximal tumor * Patient with episodes of respiratory distress with tachypnea desaturations * Continue noninvasive respiratory support with BiPAP * Continue breathing treatments continue systemic steroids * ABG suggesting hypoxia and hypercapnia * Patient with low baseline function secondary to severe protein energy malnutrition and anorexia BMI of 11 * Agree with concerns that patient is a poor candidate for bronchoscopy due to inability to wean off BiPAP and tolerate sedation * Attempting to avoid intubation at all costs * Pulmonary discussing options with her family * Appreciate pulmonary recommendations Current Visit: Yes Status: Resolved Code(s): J96.01 - ACUTE RESPIRATORY FAILURE WITH HYPOXIA; J96.02 - ACUTE RESPIRATORY FAILURE WITH HYPERCAPNIA SNOMED Code(s): 846109144 (2) Severe protein-energy malnutrition Narrative/Plan: * Continue tube feeds currently at goal * On vital 1.2 and 40 mL an hour Current Visit: Yes Status: Acute Code(s): E43 - UNSPECIFIED SEVERE PROTEIN- CALORIE MALNUTRITION SNOMED Code(s): 726763941 (3) Mediastinal lymphadenopathy Current Visit: Yes Status: Acute Code(s): R59.0 - LOCALIZED ENLARGED LYMPH NODES SNOMED Code(s): 01136365 (4) Weakness Narrative/Plan: * PT consulted Current Visit: Yes Status: Chronic Code(s): R53.1 - WEAKNESS SNOMED Code(s): 90417690 (5) Leukocytosis Narrative/Plan: * Patient afebrile we'll recheck CBC today * We'll check urinalysis and blood cultures Current Visit: Yes Status: Resolved Code(s): D72.829 - ELEVATED WHITE BLOOD CELL COUNT, UNSPECIFIED SNOMED Code(s): 101655348 (6) Cachexia Current Visit: Yes Status: Acute Code(s): R64 - CACHEXIA SNOMED Code(s): 135127272 (7) Dysphagia Narrative/Plan: * History of failed modified barium swallow with various consistencies * Currently on tube feeds via an open G-tube Current Visit: Yes Status: Chronic Code(s): R13.10 - DYSPHAGIA, UNSPECIFIED SNOMED Code(s): 13916057 (8) Hypokalemia Narrative/Plan: * We'll replace and recheck tomorrow * Initiated potassium replacement Current Visit: No Status: Acute Code(s): E87.6 - HYPOKALEMIA SNOMED Code(s): 17724632 (9) History of laryngeal cancer Current Visit: No Status: Chronic Code(s): Z85.21 - PERSONAL HISTORY OF MALIGNANT NEOPLASM OF LARYNX SNOMED Code(s): 880811514 (10) History of aspiration pneumonia Current Visit: Yes Status: Acute Code(s): Z87.01 - PERSONAL HISTORY OF PN EUMONIA (RECURRENT) SNOMED Code(s): 329681353805567 Plan: * Disposition * Extremely poor prognosis due to underlying malnutrition and cachexia * Will plan multidisciplinary discussion with family
[2018-11-04 19:19] LABS: Glucose,Whole Blood 126 mg/dL (75-99)
[2018-11-04] MEDS: ALBUTEROL NEBULIZED 2.5 MG/3 ML INHALATION PRN (23:01)
[2018-11-05 00:14] LABS: Glucose,Whole Blood 127 mg/dL (75-99)
[2018-11-05] MEDS: INSULIN ASPART (NovoLOG) 100 UNIT/ML VIAL SQ SCH ×4 (00:23→19:03)
[2018-11-05] MEDS: LORazepam 2 MG/ML INJ IV PRN ×4 (00:27→19:10)
[2018-11-05] MEDS: methylPREDNISolone SOD SUCCI 125 MG/2 ML VIAL IV SCH (00:27)
[2018-11-05] MEDS: PIPERACILLIN-TAZOBACTAM 3.375 GM in SODIUM CHLORIDE 0.9% 100 ML IVPB SCH ×3 (00:42→16:00)
[2018-11-05] MEDS: ALBUTEROL NEBULIZED 2.5 MG/3 ML INHALATION PRN (03:29)
[2018-11-05 04:51] LABS: Basophils % (A) 0 %; Eosinophils % (A) 0 %; HCT 31.1 % (34.0-46.0); HGB 9.8 gm/dL (11.4-16.0); Hypochromasia Marked; Lymphocytes # (A) 0.1 k/uL (1.0-4.8); Lymphocytes % (A) 1 %; MCH 31.6 pg (25.0-35.0); MCHC 31.4 g/dL (31.0-37.0); MCV 100.7 fL (80.0-100.0); Macrocytosis Slight; Mean Platelet Volume 6.2; Monocytes # (A) 0.3 k/uL (0-1.0); Monocytes % (A) 3 %; Neutrophils # (A) 9.4 k/uL (1.3-7.7); Neutrophils % (A) 95 %; Platelet Count 548 k/uL (150-450); RBC 3.09 m/uL (3.80-5.40); RDW 14.3 % (11.5-15.5); WBC 9.8 k/uL (3.8-10.6)
[2018-11-05 04:59] LABS: African American GFR (CKD) >90 (>60 ml/min/1.73 sqM); Blood Urea Nitrogen 21 mg/dL (7-17); Calcium 8.9 mg/dL (8.4-10.2); Chloride 105 mmol/L (98-107); Glucose 123 mg/dL (74-99); Potassium 3.4 mmol/L (3.5-5.1); Sodium 147 mmol/L (137-145)
[2018-11-05 05:06] LABS: Anion Gap 5 mmol/L
[2018-11-05 05:15] LABS: Carbon Dioxide 37 mmol/L (22-30)
[2018-11-05] MEDS: MORPHINE SULFATE 4 MG/ML SYRINGE IVP PRN ×5 (05:33→22:20)
[2018-11-05] MEDS ORDERED: Potassium Replacement Protocol 1 EACH MISC MISCELLANE PRN (06:17)
[2018-11-05 06:22] LABS: Glucose,Whole Blood 133 mg/dL (75-99)
[2018-11-05] MEDS ORDERED: FUROSEMIDE 10 MG/ML 4 ML VIAL IV STA (06:40)
[2018-11-05] MEDS: POTASSIUM CHLORIDE 20 MEQ in WATER FOR INJECTION 1 100ML.BAG IVPB SCH ×2 (06:58→08:34)
[2018-11-05] MEDS: IPRATROPIUM-ALBUTEROL 3 ML NEB INHALATION SCH ×4 (07:08→20:37)
--- NOTE | 2018-11-05 07:37 | XR ---
EXAMINATION TYPE: XR chest 1V DATE OF EXAM: 11/05/2018 HISTORY: SOB. REFERENCE: Previous study dated 11/04/2018. FINDINGS: A MediPort is in place on the right. There is a left basilic PICC line in place. Tip is in the right atrium. Lung volumes prominent. There is bibasilar airspace disease. There are small, bilateral effusions. He art size is partially obscured. IMPRESSION: NO SIGNIFICANT INTERVAL CHANGE IN APPEARANCE OF THE CHEST.
--- NOTE | 2018-11-05 07:42 | P.PN ---
Subjective Progress Note Date: 11/05/18 This is a 53-year-old female patient of Dr. Foster, who was recently hospital ized for acute respiratory failure secondary to aspiration pneumonia, hypoxemic and hypercapnic requiring intubation and placement on mechanical ventilation. Patient was successfully extubated, was treated with antibiotics, completed a course of Levaquin and Zosyn. Patient showed significant clinical and radiographic improvement, by the time of her discharge to the [facility]. Patient also has history of laryngeal cancer with previous chemoradiation, and had evidence of severe malnutrition. In addition patient failed modified barium swallow, and was having evidence of aspiration with all consistencies. Patient also had evidence of electrolyte abnormality with hyponatremia and hypokalemia, which improved with treatment. Patient had a gastrostomy tube placed for nutritional support, and she was strict NPO. Sputum cultures from previous admission were negative. Other medical history includes chronic anemia of chronic disease, previous tobacco dependence. Patient was discharged to the [facility] on 11/01/2018 however she started experiencing shortness of breath at the [facility], and was apparently hypoxic and was brought back for evaluation on oral 11/02/2018. He denied any chest pain, she denies any oral intake at the shelter home, she states she was getting her nutrition strictly through the gastrostomy tube. No aspiration, no fever or chills, chest x-ray showed basilar atelectasis and associated pleural effusions. Lab work showed white blood cell count of 14.0, hemoglobin of 11, correlation profile was within normal limits, blood gas showed pO2 of 64, pCO2 of 67, and pH of 7.32. Sodium was 140, potassium is 4.0, chloride is 98, CO2 37, B1 is 21, creatinine 0.24. O2 sat in the emergency department was ranging from 84-86 patient was placed on supplemental oxygen. Patient was given IV steroids, nebulized bronchodilators, and worsening the patient in consultation for shortness of breath. She is awake and alert, she is sitting up in bed, appears to be in no acute distress, currently on 2 L of oxygen, no significant wheezing, or congestion, she does h ave a weak cough, which does not sound congested, lung sounds are diminished, no rales auscultated. Follow-up blood work was reviewed today, white blood cell count is 15.5, hemoglobin is 9.7, repeat blood gas showed pO2 of 60, pCO2 59, and pH of 7.39 this was done on FiO2 28%. Patient looks extremely cachectic and weak, her voice is very weak and hoarse, but she appears to be in no acute distress. On 11/04/2018 I'm seeing this patient for a follow-up. This is an extremely debilitated and severely malnourished female patient who is post respiratory failure who was readmitted for ongoing difficulties in breathing. Noted the patient's BMI is 11.9 and she has kwashiorkor. The patient got moved yesterday to the intensive care unit because of worsening shortness of breath and altered mentation. Note that on the floor the patient had a blood gas showing a pH of 0.28 with a pCO2 of 83 and pO2 of 72. This was on FiO2 of 32%. She was having increased tachypnea and respiratory distress. At that point the patient got transferred to the intensive care unit. I was very hesitant intubated this patient based on an underlying condition and status. Note that the patient is extremely frail and has absolutely no muscle mass and intubation may be quite devastating for this patient had the patient accordingly was placed on a BiPAP at a pressure of 10/5 cm of water. She was also given some Ativan and morphine which. Much calm that down. Her subsequent blood gas showed a pH of 7.38 with a pCO2 of 69 a pO2 of 62. I realized the patient's respiratory insufficiency he had it performed a CAT scan of the chest yesterday and the CAT scan showed complete occlusion of the distal bronchus intermedius and right middle lobe atelectasis. There was also atelectatic changes in lung bases bilaterally with a right middle lobe atelectasis right lower lobe atelectasis and bilateral pleural effusions. Upper lobes are quite patent and well hydrated. The patient was started back on IV Zosyn. She did become hypotensive briefly and she was given a liter of IV fluid bolus and currently she is on normal saline at rate of 100 mL an hour. She is improved her blood pressure and she did not require any pressors. She is currently awake. She is following commands. However, she has a very poor insight on her condition. She is not aware that she is quite debilitated in [place] major disadvantage for recovering from her chronic illness. The patient also is receiving enteral feeding for nutritional support in the form of vitamin 1.2 which is currently at goal. I added this patient IV Zosyn. She is on Lovenox for DVT prophylaxis. CAT scan of the chest also showed emphysema bilaterally. She is on bronchodilators. She is also on IV Solu-Medrol. IV Protonix for GI prophylaxis. On 11/05/2018, the patient is being seen in follow-up she is awake and alert. She is following commands. She is on a BiPAP at a pressure of 10/5 cm of water with an FiO2 of 40%. The patient is very much compliant and tolerating her BiPAP. No significant cough or sputum production. The chest x-ray from today shows small bilateral pleural effusion, right middle lobe/right lower lobe atelectasis. Her pro-calcitonin level was low. She is covered with IV Zosyn. She is also covered with IV Solu-Medrol and the dose was reduced down to 40 mg every 12 hours. He is on DuoNeb nebulized treatments around the clock and she is receiving enteral feeding for nutritional support. Sodium level is up to 147. Atelectatic discussion with the patient's family. The family wants everything done including the possibility of long-term vent support. In that case, it made recommendations to proceed with a tracheostomy and the patient is unable to breathe independently without any form of respiratory assisting devices and the patient is quite debilitated and has significant malnutrition and neuromuscular weakness. Objective - Vital Signs Vital signs: Vital Signs Temp 98.8 F 11/05/18 04:00 Pulse 108 H 11/05/18 07:20 Resp 28 H 11/05/18 07:00 BP 133/90 11/05/18 07:00 Pulse Ox 93 L 11/05/18 07:00 Intake & Output 11/04/18 11/05/18 11/05/18 18:59 06:59 18:59 Intake Total 1620 1060 250 Output Total 820 760 150 Balance 800 300 100 Weight 34 kg Intake: IV 1050 650 250 .9 400 50 Piperacillin-Tazobactam 3 200 100 100 .375 gm In Sodium Chloride 0.9% 100 ml @ 25 mls/hr IVPB Q8H [facility] Rx#: [id number] Potassium Chloride 20 meq 200 100 In Water For Injection 1 100ml.bag @ 50 mls/hr IVPB Q2H [facility] Rx#: [id number] Sodium Chloride 0.9% 1, 650 150 000 ml @ 999 mls/hr IV . Q1H1M ONE Rx#:[id number] Tube Feeding 480 320 Other 90 90 Output: Urine 820 760 150 Other: Voiding Method Indwelling Catheter Indwelling Catheter - Exam GENERAL EXAM: Alert, , cachectic 53-year-old white female, currently on a BiPAP at a pressure of 10/5 cm of water. Very weak. Very debilitated. BMI of 11.9. Significant malnourishment. Significant loss in total body muscle mass. Major atrophy of the muscles in lower extremities bilaterally in the arms. The patient continues to be tolerating her BiPAP at a pressure of 10/5 cm of water. She is emanating tidal volumes in the range of 250-300 mL. No significant tachypnea. HEAD: Normocephalic/atraumatic. EYES: Normal reaction of pupils, equal size. Conjunctiva pink, sclera white. NOSE: Clear with pink turbinates. THROAT: No erythema or exudates. NECK: No masses, no JVD, no thyroid enlargement, no adenopathy. CHEST: No chest wall deformity. Symmetrical expansion. LUNGS: significant diminishment in the breast sounds bilaterally especially in the lung bases. With the BiPAP on, the patient is able to generate tidal volume around 300s.CVS: Regular rate and rhythm, normal S1 and S2, no gallops, no murmurs, no rubs Cardiac exam revealed the PMI to be normally situated and sized. The rhythm was regular and no extrasystoles were noted during several minutes of auscultation. The first and second heart sounds were normal and physiologic splitting of the second heart sound was noted. There were no murmurs, rubs, clicks, or gallops. ABDOMEN: Soft, nontender. No hepatosplenomegaly, normal bowel sounds, no guarding or rigidity. Gastric tube insertion site is clean dry and intact, gastric tube is covered with the dressing EXTREMITIES: No clubbing, no edema, no cyanosis, 2+ pulses and upper and lower extremities. MUSCULOSKELETAL: severe muscle atrophy, major loss and muscle bulk and muscle mass. No body fat visualized. Significant motor weakness in the upper and lower extremities. The weakness is nonfocal. SPINE: No scoliosis or deformity SKIN: No rashes CENTRAL NERVOUS SYSTEM: Alert and oriented -3. No focal deficits, tone of the muscles are low. all 4 extremities. PSYCHIATRIC: Alert and oriented -3. Appropriate affect. Intact judgment and insight. - Labs CBC & Chem 7: 11/05/18 04:12 11/05/18 04:12 Labs: Abnormal Lab Results - Last 24 Hours (Table) 11/04/18 11/04/18 11/04/18 Range/Units 11:58 18:53 23:58 RBC (3.80-5.40) m/uL Hgb (11.4-16.0) gm/dL Hct (34.0-46.0) % MCV (80.0-100.0) fL Plt Count (150-450) k/uL Neutrophils # (1.3-7.7) k/uL Lymphocytes # (1.0-4.8) k/uL Sodium (137-145) mmol/L Potassium (3.5-5.1) mmol/L Carbon Dioxide (22-30) mmol/L BUN (7-17) mg/dL Creatinine (0.52-1.04) mg/dL Glucose (74-99) mg/dL POC Glucose (mg/dL) 117 H 126 H 127 H (75-99) mg/dL 11/05/18 11/05/18 11/05/18 Range/Units 04:12 04:12 05:56 RBC 3.09 L (3.80-5.40) m/uL Hgb 9.8 L (11.4-16.0) gm/dL Hct 31.1 L (34.0-46.0) % MCV 100.7 H (80.0-100.0) fL Plt Count 548 H (150-450) k/uL Neutrophils # 9.4 H (1.3-7.7) k/uL Lymphocytes # 0.1 L (1.0-4.8) k/uL Sodium 147 H (137-145) mmol/L Potassium 3.4 L (3.5-5.1) mmol/L Carbon Dioxide 37 H (22-30) mmol/L BUN 21 H (7-17) mg/dL Creatinine 0.25 L (0.52-1.04) mg/dL Glucose 123 H (74-99) mg/dL POC Glucose (mg/dL) 133 H (75-99) mg/dL Microbiology - Last 24 Hours (Table) 11/03/18 16:00 Urine Culture - Final Urine,Voided Christelle albicans 11/02/18 12:40 Blood Culture - Preliminary Blood No Growth after 48 hours Assessment and Plan Plan: 1 acute on chronic hypoxic/hypercapnic respiratory failure. The patient's blood gases from yesterday showed further worsening of respiratory acidosis and the patient was in significant respiratory distress. The patient got transferred to the intensive care unit and she was placed on BiPAP for respiratory support and currently she is at a pressure of 10/5 cm of water. CAT scan of the chest shows obstruction of the distal bronchus intermedius and atelectasis of the right middle lobe and the right lower lobe in addition to I lateral pleural effusions. This could be related to a mucous plug in the distal rhonchus intermedius. This could be also an endobronchial tumor. Unfortunately, unable to bron choscope this patient the cause of her poor baseline performance and functional status, and had inability to come off the BiPAP and had inability to tolerate such a procedure under conscious sedation. We'll try to avoid intubation this patient knowing that intubation could potentially be permanent and I do not see that the patient may be able to get weaned at a later stage. However, I'm going to talk to the family. They're going to undertake this intubation process, I'll proceed with it and an incentive bronchoscope her to evaluate her right lower lobe. I'm pretty much sure that her prognosis poor based on what I'm seeing in terms of her severe malnourishment and severe protein calorie malnutrition, will be extremely poor. In any rate, having to have a discussion with the family once they arrive. For now she is tolerating a BiPAP well and this will be continued. On 11/05/2018, chest x-ray still showing atelectatic changes in the right lung base involving the right middle lobe and the right lower lobe and bilateral pleural effusion. The patient is BiPAP dependent. I do not think the patient be able to wean off the BiPAP. She will need long-term respiratory assisted devices. This is essentially told her severe malnourishment and neuromuscular weakness. I talked to the family and there wanting everything to be done. I think is reasonable at this point to consider tracheostomy and long-term vent support for the patient hoping that her nutritional status would improve gradually. 2 chronic hypoxic and hypercapnic respiratory failure secondary to above 3 COPD 4 laryngeal cancer post chemoradiation therapy and last treatment was in general 2019 and she was treated through [facility]. 5 severe protein calorie malnutrition with a BMI of 11.9 6 severe anorexia and cachexia and the patient has an enteral feeding for nutritional support via PEG tube 7 chronic smoking 8 chronic anemia 9 mediastinal lymphadenopathy as noted on previous CAT scan of the chest. Unable to work her up at this point in time because of her underlying condition. 10 mild hypernatremia Plan The patient's pro-calcitonin level is low at 0.07. Underlying pneumonia is d oubtful at this stage. I covered empirically with IV Zosyn. Taper the sodium and opiate continue the bronchodilators. Based on discussion done earlier, the patient will need long-term vent support. The family once everything to be done to this patient. Based on all this, as an outpatient is going to be able to breathe independently without any form of respiratory assisting devices. I'm recommending gets accustomed tube insertion with subsequent vent support on a long-term basis hoping that initiate renal status will improve. Post tracheostomy tube insertion, it's reasonable to do a bronchoscopy to evaluate the right lower lobe as the patient has a right middle lobe/right lower lobe at electasis. The patient will be given a dose of Lasix 40 mg IV. The IV Fluids to 50 ML an Hour. Her Feeding for Nutritional Support. Give water flushes, free water through the PEG tube. Consult general surgery for a tracheostomy tube insertion. There is a critically care evaluation that was done and more than 30 minutes. I had a lengthy discussion with the family and all options were discussed. Her long-term prognosis poor based on the above-mentioned comorbidities. Time with Patient: Greater than 30
[2018-11-05] MEDS: methylPREDNISolone SOD SUCCI 40 MG/ML 1 ML VIAL IV SCH ×2 (08:34→22:20)
[2018-11-05] MEDS: PANTOPRAZOLE 40 MG/10 ML VIAL IVP SCH (08:34)
[2018-11-05] MEDS: ENOXAPARIN 40 MG/0.4 ML SYRINGE SQ SCH (08:34)
[2018-11-05] MEDS ORDERED: HALOPERIDOL LACTATE 5 MG/ML 1 ML VIAL IVP PRN (11:27)
--- NOTE | 2018-11-05 11:33 | P.PN ---
Subjective Progress Note Date: 11/05/18 The patient says that we will follow-up today, Patient currently on BiPAP 11/11 Fi02 40 % CAT scan performed 11/02 indicating occlusion of the distal bronchus intermedius and right middle lobe atelectasis with right lower lobe atelectasis and bilateral pleural effusions. Chest x-ray from today showing small bilateral pleural effusions right middle lobe lower lobe atelectasis. Patient continued on Zosyn, patient afebrile without leukocytosis Continues to be tachycardic.serum potassium marginally low at 3.4 today Objective - Vital Signs Vital signs: Vital Signs Temp 97.4 F L 11/05/18 08:00 Pulse 101 H 11/05/18 11:00 Resp 37 H 11/05/18 11:00 BP 108/75 11/05/18 11:00 Pulse Ox 91 L 11/05/18 11:00 Intake & Output 11/04/18 11/05/18 11/05/18 18:59 06:59 18:59 Intake Total 1620 1060 250 Output Total 820 760 150 Balance 800 300 100 Weight 34 kg Intake: IV 1050 650 250 .9 400 50 Piperacillin-Tazobactam 3 200 100 100 .375 gm In Sodium Chloride 0.9% 100 ml @ 25 mls/hr IVPB Q8H [facility] Rx#: [id number] Potassium Chloride 20 meq 200 100 In Water For Injection 1 100ml.bag @ 50 mls/hr IVPB Q2H [facility] TO [facility] Rx#: [id number] Sodium Chloride 0.9% 1, 650 150 000 ml @ 999 mls/hr IV . Q1H1M ONE Rx#:[id number] Tube Feeding 480 320 Other 90 90 Output: Urine 820 760 150 Other: Voiding Method Indwelling Catheter Indwelling Catheter - Exam Constitutional: Moderate respiratory, awake and alert cachectic appearance Eyes: Anicteric sclerae, moist conjunctiva, no lid-lag, PERRLA ENMT: Bilateral temporal wasting, NC/AT,Oropharynx clear, no erythema, exudates Neck:Supple, FROM, no masses, or JVD, No carotid bruits; No thyromegaly Lungs: Decreased breath sounds bilaterally, currently on BiPAP fi02 40 % Cardiovascular: Regular rhythm tachycardia, No murmurs, gallops, or rubs no peripheral edema Abdominal: Soft Nontender, nom distended, no guarding, no rebound or rigidity, Normoactive bowel sounds No hepatomegaly, No splenomegaly, No palpable mass No abdominal wall hernia noted Skin: Normal temperature, tone, texture, turgor, No induration No subcutaneous nodules, No rash, lesions, No ulcers Extremities:No digital cyanosis No clubbing, Pedal pulses intact and symmetrical Radial pulses intact and symmetrical Normal gait and station, No calf tenderness Neuro: Awake alert following commands no focal deficits appreciated - Labs CBC & Chem 7: 11/05/18 04:12 11/05/18 04:12 Labs: Abnormal Lab Results - Last 24 Hours (Table) 11/04/18 11/04/18 11/04/18 Range/Units 11:58 18:53 23:58 RBC (3.80-5.40) m/uL Hgb (11.4-16.0) gm/dL Hct (34.0-46.0) % MCV (80.0-100.0) fL Plt Count (150-450) k/uL Neutrophils # (1.3-7.7) k/uL Lymphocytes # (1.0-4.8) k/uL Sodium (137-145) mmol/L Potassium (3.5-5.1) mmol/L Carbon Dioxide (22-30) mmol/L BUN (7-17) mg/dL Creatinine (0.52-1.04) mg/dL Glucose (74-99) mg/dL POC Glucose (mg/dL) 117 H 126 H 127 H (75-99) mg/dL 11/05/18 11/05/18 11/05/18 Range/Units 04:12 04:12 05:56 RBC 3.09 L (3.80-5.40) m/uL Hgb 9.8 L (11.4-16.0) gm/dL Hct 31.1 L (34.0-46.0) % MCV 100.7 H (80.0-100.0) fL Plt Count 548 H (150-450) k/uL Neutrophils # 9.4 H (1.3-7.7) k/uL Lymphocytes # 0.1 L (1.0-4.8) k/uL Sodium 147 H (137-145) mmol/L Potassium 3.4 L (3.5-5.1) mmol/L Carbon Dioxide 37 H (22-30) mmol/L BUN 21 H (7-17) mg/dL Creatinine 0.25 L (0.52-1.04) mg/dL Glucose 123 H (74-99) mg/dL POC Glucose (mg/dL) 133 H (75-99) mg/dL Microbiology - Last 24 Hours (Table) 11/03/18 16:00 Urine Culture - Final Urine,Voided Christelle albicans 11/02/18 12:40 Blood Culture - Preliminary Blood No Growth after 48 hours Assessment and Plan (1) Acute respiratory failure with hypoxia and hypercapnia Narrative/Plan: * Secondary to distal bronchus obstruction and right middle and lower lobe atelectasis with bilateral pleural effusions, concern for mucous plugging versus endobronchial tumor * Patient with episodes of respiratory distress with tachypnea desaturations * Continue noninvasive respiratory support with BiPAP * Continue breathing treatments continue systemic steroids * ABG suggesting hypoxia and hypercapnia * Patient with low baseline function secondary to severe protein energy malnutrition and anorexia BMI of 11.9 * Agree with concerns that patient is a poor candidate for bronchoscopy due to inability to wean off BiPAP and tolerate sedation * Attempting to avoid intubation at all costs * family apparently electing to proceed with trach placement * Appreciate pulmonary recommendations Current Visit: Yes Status: Resolved Code(s): J96.01 - ACUTE RESPIRATORY FAILURE WITH HYPOXIA; J96.02 - ACUTE RESPIRATORY FAILURE WITH HYPERCAPNIA SNOMED Code(s): 425179921 (2) Severe protein-energy malnutrition Narrative/Plan: * Continue tube feeds currently at goal * On vital 1.2 and 40 mL an hour Current Visit: Yes Status: Acute Code(s): E43 - UNSPECIFIED SEVERE PROTEIN- CALORIE MALNUTRITION SNOMED Code(s): 196403287 (3) Mediastinal lymphadenopathy Current Visit: Yes Status: Acute Code(s): R59.0 - LOCALIZED ENLARGED LYMPH NODES SNOMED Code(s): 26781947 (4) Weakness Narrative/Plan: * PT consulted Current Visit: Yes Status: Chronic Code(s): R53.1 - WEAKNESS SNOMED Code(s): 12337895 (5) Leukocytosis Narrative/Plan: * Patient afebrile we'll recheck CBC today * We'll check urinalysis and blood cultures Current Visit: Yes Status: Resolved Code(s): D72.829 - ELEVATED WHITE BLOOD CELL COUNT, UNSPECIFIED SNOMED Code(s): 618537884 (6) Cachexia Current Visit: Yes Status: Acute Code(s): R64 - CACHEXIA SNOMED Code(s): 100056756 (7) Dysphagia Narrative/Plan: * History of failed modified barium swallow with various consistencies * Currently on tube feeds via an open G-tube Current Visit: Yes Status: Chronic Code(s): R13.10 - DYSPHAGIA, UNSPECIFIED SNOMED Code(s): 98802825 (8) Hypokalemia Narrative/Plan: * We'll replace and recheck tomorrow * Initiated potassium replacement Current Visit: No Status: Acute Code(s): E87.6 - HYPOKALEMIA SNOMED Code(s): 50229586 (9) History of laryngeal cancer Current Visit: No Status: Chronic Code(s): Z85.21 - PERSONAL HISTORY OF MALIGNANT NEOPLASM OF LARYNX SNOMED Code(s): 228003935 (10) History of aspiration pneumonia Current Visit: Yes Status: Acute Code(s): Z87.01 - PERSONAL HISTORY OF PNEUMONIA (RECURRENT) SNOMED Code(s): 499682707626446 Plan: ACP discussion > 20 minutes Family members: present son Jorge, brother or sister and niece Patient diagnoses: Acute on chronic respiratory failure with hypoxia and hypercapnia, severe protein energy malnutrition currently on TF via open G-tube secondary to the dysphasia and neuromuscular weakness, history of aspiration pneumonia, history of laryngeal cancer status post chemo and radiation. I discussed with family the patient's extremely poor prognosis regarding the patient being in acute on chronic respiratory failure with hypoxia and is now currently BiPAP dependent, with right middle lobe and lower lobe atelectasis suspected due to mucous plugging versus endobronchial tumor. With patient's declining pulmonary status and low probability of the patient will ever be able to be extubated if intubated due to severe neuromuscular weakness in the setting of severe protein energy malnutrition BMI 11.9. The patient's family is wanting to proceed with tracheostomy placement CODE STATUS: Currently full code
[2018-11-05 11:40] LABS: Glucose,Whole Blood 94 mg/dL (75-99)
--- NOTE | 2018-11-05 11:46 | P.PN ---
Progress Note - Text Progress Note Date: 11/05/18 ACP discussion approximately 20 minutes Family members: present son Jorge, brother or sister and niece Patient diagnoses: Acute on chronic respiratory failure with hypoxia and hypercapnia, severe protein energy malnutrition currently on TF via open G-tube secondary to the dysphasia and neuromuscular weakness, history of aspiration pneumonia, history of laryngeal cancer status post chemo and radiation. I discussed with family the patient's extremely poor prognosis regarding the patient being in acute on chronic respiratory failure with hypoxia and is now currently BiPAP dependent, with right middle lobe and lower lobe atelectasis suspected due to mucous plugging versus endobronchial tumor. With patient's declining pulmonary status and low probability of the patient will ever be able to be extubated if intubated due to severe neuromuscular weakness in the setting of severe protein energy malnutrition BMI 11.9. The patient's family is wanting to proceed with tracheostomy placement CODE STATUS: DO NOT RESUSCITATE
[2018-11-05 17:29] LABS: Glucose,Whole Blood 103 mg/dL (75-99)
[2018-11-05 23:59] LABS: Glucose,Whole Blood 111 mg/dL (75-99)
[2018-11-06] MEDS: INSULIN ASPART (NovoLOG) 100 UNIT/ML VIAL SQ SCH ×5 (00:18→23:48)
[2018-11-06] MEDS: PIPERACILLIN-TAZOBACTAM 3.375 GM in SODIUM CHLORIDE 0.9% 100 ML IVPB SCH ×4 (00:19→23:57)
[2018-11-06] MEDS: LORazepam 2 MG/ML INJ IV PRN ×4 (04:24→20:29)
[2018-11-06] MEDS: ALBUTEROL NEBULIZED 2.5 MG/3 ML INHALATION PRN (05:01)
[2018-11-06 05:07] LABS: Basophils % (A) 0 %; Eosinophils % (A) 0 %; HCT 29.6 % (34.0-46.0); HGB 9.6 gm/dL (11.4-16.0); Hypochromasia Moderate; Lymphocytes # (A) 0.1 k/uL (1.0-4.8); Lymphocytes % (A) 1 %; MCH 32.1 pg (25.0-35.0); MCHC 32.4 g/dL (31.0-37.0); Macrocytosis Slight; Mean Platelet Volume 6.3; Monocytes # (A) 0.2 k/uL (0-1.0); Monocytes % (A) 2 %; Neutrophils # (A) 9.2 k/uL (1.3-7.7); Neutrophils % (A) 97 %; Platelet Count 470 k/uL (150-450); RBC 2.99 m/uL (3.80-5.40); RDW 14.5 % (11.5-15.5); WBC 9.5 k/uL (3.8-10.6)
[2018-11-06 05:13] LABS: African American GFR (CKD) >90 (>60 ml/min/1.73 sqM); Anion Gap 4 mmol/L; Blood Urea Nitrogen 21 mg/dL (7-17); Calcium 8.8 mg/dL (8.4-10.2); Carbon Dioxide 37 mmol/L (22-30); Chloride 101 mmol/L (98-107); Glucose 118 mg/dL (74-99); Sodium 142 mmol/L (137-145)
[2018-11-06 06:26] LABS: Glucose,Whole Blood 116 mg/dL (75-99)
[2018-11-06] MEDS: IPRATROPIUM-ALBUTEROL 3 ML NEB INHALATION SCH ×4 (08:28→19:21)
--- NOTE | 2018-11-06 08:30 | XR ---
EXAMINATION TYPE: XR chest 1V DATE OF EXAM: 11/06/2018 COMPARISON: 11/05/2018 HISTORY: Shortness of breath TECHNIQUE: Single frontal view of the chest is obtained. FINDINGS: Bilateral consolidation and pleural effusion greater on the right is stable. Mediport cath eter noted there is underlying COPD. Biapical pleural thickening noted. Left-sided PICC line noted. S urgical shanae in the midline with a catheter seen overlying the left upper quadrant which may be re lated to gastrostomy tube. IMPRESSION: Bilateral infiltrate and pleural effusion. Stable.
[2018-11-06] MEDS: MORPHINE SULFATE 4 MG/ML SYRINGE IVP PRN ×3 (09:01→21:42)
[2018-11-06] MEDS: PANTOPRAZOLE 40 MG/10 ML VIAL IVP SCH (09:02)
[2018-11-06] MEDS: ENOXAPARIN 40 MG/0.4 ML SYRINGE SQ SCH (09:02)
[2018-11-06] MEDS: methylPREDNISolone SOD SUCCI 40 MG/ML 1 ML VIAL IV SCH ×2 (09:02→20:29)
--- NOTE | 2018-11-06 10:32 | P.GSCN ---
History of Present Illness Consult date: 11/06/18 Reason for Consult: trach Requesting physician: Nick Guevara History of present illness: CHIEF COMPLAINT: trach HISTORY OF PRESENT ILLNESS: 53 year old female known to surgical services from recent open G tube placement with Dr. Montesinos. Patient was discharged and has been re-admitted for hypoxia. General surgery was consulted for tracheostomy. Family at bedside and states that patient has been tolerating tube feedings well without difficulty. She denies nausea or vomiting. Denies abdominal pain. PAST MEDICAL HISTORY: See list. PAST SURGICAL HISTORY: See list. SOCIAL HISTORY: No illicit drug use. REVIEW OF SYSTEMS: CONSTITUTIONAL: Denies fever or chills. HEENT: Denies blurred vision, vision changes, or eye pain. Denies hemoptysis CARDIOVASCULAR: Denies chest pain or pressure. RESPIRATORY: Reports shortness of breath. GASTROINTESTINAL: Refer to [facility] for pertinent findings HEMATOLOGIC: Denies bleeding disorders. GENITOURINARY: Denies any blood in urine. SKIN: Denies pruitis. Denies rash. PHYSICAL EXAM: VITAL SIGNS: Reviewed. GENERAL: Well-developed in no acute distress. Cachectic. Wearing Bipap. HEENT: No sclera icterus. Extraocular movements grossly intact. Moist buccal mucosa. Head is atraumatic, normocephalic. ABDOMEN: Soft. Nondistended. Nontender. G tube noted with tube feedings infusing NEUROLOGIC: Alert and oriented. Cranial nerves II through XII grossly intact. LABORATORY DATA: WBC 9.5. Hemoglobin 9.6. ASSESSMENT: 1. Acute on chronic hypoxic respiratory failure 2. Severe protein calorie malnutrition, s/p recent open G tube placement PLAN: Continue tube feedings at this time Patient and family agreeable to Trach Will discuss further with Dr. Montesinos regarding timing of Trach. Possibly to be performed tomorrow or Tuesday Nurse practitioner note has been reviewed by physician. Signing provider agrees with the documented findings, assessment, and plan of care. Past Medical History Past Medical History: Cancer Additional Past Medical History / Comment(s): Pt recently admitted to [facility] on 10/19/18 with severe protein calorie malnourishment, acute respiratory failure with hypoxia and hypercapnia was intubated/vented, also had mediatinal lymphadenopathy, nyponatremia and hypokalemia. Other Hx: Laryngeal cancer treated with chemo/radiation 02/2018, dysphagia-NPO/has G tube. History of Any Multi-Drug Resistant Organisms: None Reported Past Surgical History: Tubal Ligation Additional Past Surgical History / Comment(s): Open G tube placement, mediport, picc line, laryngoscopy, one fallopian tube removed d/t ectopic . Past Anesthesia/Blood Transfusion Reactions: No Reported Reaction Past Psychological History: Anxiety Additional Psychological History / Comment(s): Pt just placed in [facility] on 11/01/18. She is up with a walker. She is NPO and has a G tube for feedings. Smoking Status: Former smoker Past Alcohol Use History: None Reported Additional Past Alcohol Use History / Comment(s): Pt started smoking in 1985 and quit 5 months ago-May 2018. Past Drug Use History: None Reported - Past Family History Mother Family Medical History: Coronary Artery Disease (CAD), Diabetes Mellitus Father Family Medical History: COPD, CVA/TIA, Myocardial Infarction (AL) Additional Family Medical History / Comment(s): Father of a AL at the age of 54 yrs. Medications and Allergies Home Medications Medication Instructions Recorded Confirmed Type LORazepam [Ativan] 0.5 mg PO Q8H PRN 11/02/18 11/02/18 History Allergies Allergy/AdvReac Type Severity Reaction Status Date / Time Beef Containing Products AdvReac No reaction Verified 11/02/18 11:40 [Beef] Fish Containing Products AdvReac No reaction Verified 11/02/18 11:40 [Fish] Pork/Porcine Containing AdvReac No reaction Verified 11/02/18 11:40 Products [Pork] Surgical - Exam Vital Signs Temp Pulse Resp Pulse Ox 97.3 F L 113 H 24 94 L 11/02/18 11:20 11/02/18 11:20 11/02/18 11:20 11/02/18 11:20 Results - Labs 11/06/18 04:00 11/06/18 04:04 Abnormal Lab Results - Last 24 Hours (Table) 11/05/18 11/05/18 11/06/18 Range/Units 17:26 23:56 04:00 RBC 2.99 L (3.80-5.40) m/uL Hgb 9.6 L (11.4-16.0) gm/dL Hct 29.6 L (34.0-46.0) % Plt Count 470 H (150-450) k/uL Neutrophils # 9.2 H (1.3-7.7) k/uL Lymphocytes # 0.1 L (1.0-4.8) k/uL Carbon Dioxide (22-30) mmol/L BUN (7-17) mg/dL Creatinine (0.52-1.04) mg/dL Glucose (74-99) mg/dL POC Glucose (mg/dL) 103 H 111 H (75-99) mg/dL 11/06/18 11/06/18 Range/Units 04:04 06:00 RBC (3.80-5.40) m/uL Hgb (11.4-16.0) gm/dL Hct (34.0-46.0) % Plt Count (150-450) k/uL Neutrophils # (1.3-7.7) k/uL Lymphocytes # (1.0-4.8) k/uL Carbon Dioxide 37 H (22-30) mmol/L BUN 21 H (7-17) mg/dL Creatinine 0.23 L (0.52-1.04) mg/dL Glucose 118 H (74-99) mg/dL POC Glucose (mg/dL) 116 H (75-99) mg/dL Microbiology - Last 24 Hours (Table) 11/02/18 12:40 Blood Culture - Preliminary Blood No Growth after 72 hours Diabetes panel 11/06/18 Range/Units 04:04 Sodium 142 (137-145) mmol/L Potassium 4.0 (3.5-5.1) mmol/L Chloride 101 (98-107) mmol/L Carbon Dioxide 37 H (22-30) mmol/L BUN 21 H (7-17) mg/dL Creatinine 0.23 L (0.52-1.04) mg/dL Glucose 118 H (74-99) mg/dL Calcium 8.8 (8.4-10.2) mg/dL Calcium panel 11/06/18 Range/Units 04:04 Calcium 8.8 (8.4-10.2) mg/dL Pituitary panel 11/06/18 Range/Units 04:04 Sodium 142 (137-145) mmol/L Potassium 4.0 (3.5-5.1) mmol/L Chloride 101 (98-107) mmol/L Carbon Dioxide 37 H (22-30) mmol/L BUN 21 H (7-17) mg/dL Creatinine 0.23 L (0.52-1.04) mg/dL Glucose 118 H (74-99) mg/dL Calcium 8.8 (8.4-10.2) mg/dL Adrenal panel 11/06/18 Range/Units 04:04 Sodium 142 (137-145) mmol/L Potassium 4.0 (3.5-5.1) mmol/L Chloride 101 (98-107) mmol/L Carbon Dioxide 37 H (22-30) mmol/L BUN 21 H (7-17) mg/dL Creatinine 0.23 L (0.52-1.04) mg/dL Glucose 118 H (74-99) mg/dL Calcium 8.8 (8.4-10.2) mg/dL
[2018-11-06] MEDS ORDERED: IPRATROPIUM-ALBUTEROL 3 ML NEB INHALATION STA (10:37)
--- NOTE | 2018-11-06 10:42 | P.PN ---
Subjective Progress Note Date: 11/06/18 Principal diagnosis: Acute on chronic hypoxic respiratory failure Patient was seen and examined. No acute events overnight. Family is at bedside. When asked how she is feeling, patient gives a thumbs up. She has no complaints at this time. She appears very agreeable for tracheostomy at this time. Tube feeds are running at 40 mL per hour. She is slightly tachycardic with a heart rate in the high 90s. Currently on BiPAP 10/5 FiO2 40%. Chest x- ray this morning shows bilateral infiltrate and pleural effusion, stable. Objective - Vital Signs Vital signs: Vital Signs Temp 97.1 F L 11/06/18 08:00 Pulse 98 11/06/18 10:00 Resp 43 H 11/06/18 10:00 BP 113/85 11/06/18 10:00 Pulse Ox 97 11/06/18 10:00 Intake & Output 11/05/18 11/06/18 11/06/18 18:59 06:59 18:59 Intake Total 1580 1400 30 Output Total 2955 805 200 Balance -1375 595 -170 Weight 36 kg Intake: IV 670 320 30 .9 70 120 30 Piperacillin-Tazobactam 3 200 200 .375 gm In Sodium Chloride 0.9% 100 ml @ 25 mls/hr IVPB Q8H [facility] Rx#: [id number] Potassium Chloride 20 meq 400 In Water For Injection 1 100ml.bag @ 50 mls/hr IVPB Q2H [facility] Rx#: [id number] Tube Feeding 480 480 Other 430 600 Output: Urine 2955 805 200 Other: Voiding Method Indwelling Catheter Indwelling Catheter Indwelling Catheter - Exam General: [Cachectic], [no distress, on BiPAP], [appears at stated age] Derm: [warm], [dry] Head: [atraumatic], [normocephalic], [bitemporal wasting] Eyes: [EOMI], [no lid lag], [anicteric sclera] Mouth: [no lip lesion], [mucus membranes moist] Cardiovascular: [S1S2 reg], [tachycardic], [positive DP pulse bilateral], Lungs: [Decreased breath sounds bilateral], [no rhonchi, no rales] , [no accessory muscle use] Abdominal: [soft], [ nontender to palpation], [no guarding], [Whitting[place] catheter in place] Ext: [no gross muscle atrophy], [no edema], [no contractures] Neuro: [no focal neuro deficits] Psych: [Alert], [oriented], [appropriate affect] - Labs CBC & Chem 7: 11/06/18 04:00 11/06/18 04:04 Labs: Abnormal Lab Results - Last 24 Hours (Table) 11/05/18 11/05/18 11/06/18 Range/Units 17:26 23:56 04:00 RBC 2.99 L (3.80-5.40) m/uL Hgb 9.6 L (11.4-16.0) gm/dL Hct 29.6 L (34.0-46.0) % Plt Count 470 H (150-450) k/uL Neutrophils # 9.2 H (1.3-7.7) k/uL Lymphocytes # 0.1 L (1.0-4.8) k/uL Carbon Dioxide (22-30) mmol/L BUN (7-17) mg/dL Creatinine (0.52-1.04) mg/dL Glucose (74-99) mg/dL POC Glucose (mg/dL) 103 H 111 H (75-99) mg/dL 11/06/18 11/06/18 Range/Units 04:04 06:00 RBC (3.80-5.40) m/uL Hgb (11.4-16.0) gm/dL Hct (34.0-46.0) % Plt Count (150-450) k/uL Neutrophils # (1.3-7.7) k/uL Lymphocytes # (1.0-4.8) k/uL Carbon Dioxide 37 H (22-30) mmol/L BUN 21 H (7-17) mg/dL Creatinine 0.23 L (0.52-1.04) mg/dL Glucose 118 H (74-99) mg/dL POC Glucose (mg/dL) 116 H (75-99) mg/dL Microbiology - Last 24 Hours (Table) 11/02/18 12:40 Blood Culture - Preliminary Blood No Growth after 72 hours Assessment and Plan Assessment: Assessment and Plan Acute on chronic hypoxic respiratory failure with hypercapnia due to laryngeal cancer, pleural effusion and COPD Severe protein calorie malnutrition with cachexia with G-tube due to dysphagia BMI 12.4 Mediastinal lymphadenopathy Anemia with thrombocytosis Chest CT shows increased pleural effusion, right middle lobe pneumonia versus atelectasis. Pro-calcitonin negative, low concerns for pneumonia. Family agreeable for tracheostomy. Plans: Lasix 40 mg IV 1 time dose today for pleural effusion. Surgery consulted for possible trach to be done in the next 1-2 days. Continue BiPAP to maintain O2 saturation greater than 92%. Continue Zosyn for empiric treatment of pneumonia and aspiration. Continue Solu-Medrol 40 mg IV twice a day along with DuoNeb as needed for shortness of breath and wheezing for treatment of COPD. Telemetry monitoring. Head of bed elevation. Pulmonology and general surgery on board. BMI 12.4. Plans: Continue G-tube feeds. Consult dietitian. As seen on previous CT chest. Plans: Will likely need bronchoscopy with pulmonology after trach. Follow pulmonology recommendations. Hemoglobin 9.6. Macrocytic during admission. Thrombocytosis of 470 likely from iron deficiency. Plans: Hemoglobin stable. Transfuse if hemoglobin less than 7. Follow iron studies, B12 and folate. [Patient admitted for acute on chronic hypoxic respiratory failure due to multiple reasons. Plan is for tracheostomy in the next 1-2 days. Will discuss with general surgery and pulmonology. Patient is pending clinical improvement.]
--- NOTE | 2018-11-06 11:01 | P.PN ---
Subjective Progress Note Date: 11/06/18 Principal diagnosis: Acute on chronic hypoxic and hypercapnic respiratory failure This is a 53-year-old female patient of Dr. Foster, who was recently hospitalized for acute respiratory failure secondary to aspiration pneumonia, hypoxemic and hypercapnic requiring intubation and placement on mechanical ventilation. Patient was successfully extubated, was treated with antibiotics, completed a course of Levaquin and Zosyn. Patient showed significant clinical and radiographic improvement, by the time of her discharge to the [facility]. Patient also has history of laryngeal cancer with previous chemoradiation, and had evidence of severe malnutrition. In addition patient failed modified barium swallow, and was having evidence of aspiration with all consistencies. Patient also had evidence of electrolyte abnormality with hyponatremia and hypokalemia, which improved with treatment. Patient had a gastrostomy tube placed for nutritional support, and she was strict NPO. Sputum cultures from previous admission were negative. Other medical history includes chronic anemia of chronic disease, previous tobacco dependence. Patient was discharged to the [facility] on 11/01/2018 however she started experiencing shortness of breath at the [facility], and was apparently hypoxic and was brought back for evaluation on oral 11/02/2018. He denied any chest pain, she denies any oral intake at the [facility], she states she was getting her nutrition strictly through the gastrostomy tube. No aspiration, no fever or chills, chest x-ray showed basilar atelectasis and associated pleural effusions. Lab work showed white blood cell count of 14.0, hemoglobin of 11, correlation profile was within normal limits, blood gas showed pO2 of 64, pCO2 of 67, and pH of 7.32. Sodium was 140, potassium is 4.0, chloride is 98, CO2 37, B1 is 21, creatinine 0.24. O2 sat in the emergency department was ranging from 84-86 patient was placed on supplemental oxygen. Patient was given IV steroids, nebulized bronchodilators, and worsening the patient in consultation for shortness of breath. She is awake and alert, she is sitting up in bed, appears to be in no acute distress, currently on 2 L of oxygen, no significant wheezing, or congestion, she does have a weak cough, which does not sound congested, lung sounds are diminished, no rales auscultated. Follow-up blood work was reviewed today, white blood cell count is 15.5, hemoglobin is 9.7, repeat blood gas showed pO2 of 60, pCO2 59, and pH of 7.39 this was done on FiO2 28%. Patient looks extremely cachectic and weak, her voice is very weak and hoarse, but she appears to be in no acute distress. On 11/04/2018 I'm seeing this patient for a follow-up. This is an extremely debilitated and severely malnourished female patient who is post respiratory failure who was readmitted for ongoing difficulties in breathing. Noted the patient's BMI is 11.9 and she has kwashiorkor. The patient got moved yesterday to the intensive care unit because of worsening shortness of breath and altered mentation. Note that on the floor the patient had a blood gas showing a pH of 0.28 with a pCO2 of 83 and pO2 of 72. This was on FiO2 of 32%. She was having increased tachypnea and respiratory distress. At that point the patient got transferred to the intensive care unit. I was very hesitant intubated this patient based on an underlying condition and status. Note that the patient is extremely frail and has absolutely no muscle mass and intubation may be quite devastating for this patient had the patient accordingly was placed on a BiPAP at a pressure of 10/5 cm of water. She was also given some Ativan and morphine which. Much calm that down. Her subsequent blood gas showed a pH of 7.38 with a pCO2 of 69 a pO2 of 62. I realized the patient's respiratory insufficiency he had it performed a CAT scan of the chest yesterday and the CAT scan showed complete occlusion of the distal bronchus intermedius and right middle lobe atelectasis. There was also atelectatic changes in lung bases bilaterally with a right middle lobe atelectasis right lower lobe atelectasis and bilateral pleural effusions. Upper lobes are quite patent and well hydrated. The patient was started back on IV Zosyn. She did become hypotensive briefly and she was given a liter of IV fluid bolus and currently she is on normal saline at rate of 100 mL an hour. She is improved her blood pressure and she did not require any pressors. She is currently awake. She is following commands. However, she has a very poor insight on her condition. She is not aware that she is quite debilitated in Ren[place] major disadvantage for recovering from her chronic illness. The patient also is receiving enteral feeding for nutritional support in the form of vitamin 1.2 which is currently at goal. I added this patient IV Zosyn. She is on Lovenox for DVT prophylaxis. CAT scan of the chest also showed emphysema bilaterally. She is on bronchodilators. She is also on IV Solu-Medrol. IV Protonix for GI prophylaxis. On 11/05/2018, the patient is being seen in follow-up she is awake and alert. She is following commands. She is on a BiPAP at a pressure of 10/5 cm of water with an FiO2 of 40%. The patient is very much compliant and tolerating her BiPAP. No significant cough or sputum production. The chest x-ray from today shows small bilateral pleural effusion, right middle lobe/right lower lobe a telectasis. Her pro-calcitonin level was low. She is covered with IV Zosyn. She is also covered with IV Solu-Medrol and the dose was reduced down to 40 mg every 12 hours. He is on DuoNeb nebulized treatments around the clock and she is receiving enteral feeding for nutritional support. Sodium level is up to 147. Atelectatic discussion with the patient's family. The family wants everything done including the possibility of long-term vent support. In that case, it made recommendations to proceed with a tracheostomy and the patient is unable to breathe independently without any form of respiratory assisting devices and the patient is quite debilitated and has significant malnutrition a nd neuromuscular weakness. Patient was reevaluated today on 11/06/2018, patient remains on BiPAP, presently at a pressure of 10/5 and FiO2 of 40%. She seems to be almost BiPAP dependent. Her chest x-ray is showing significant worsening of the right lower lobe and right lobe collapse and atelectasis, there is also some component of pleural effusion. Remains on antibiotics in the form of Zosyn, patient is on bronchodilators is also on IV Solu-Medrol. Not much of a casino change attendant the last 24 hours. Apparently the patient is to be seen by surgery today, and Dr. Jimenez recommended tracheostomy which will likely be done tomorrow or in the next couple of days. Patient will be bronchoscoped after tracheostomy and mechanical ventilation. And she read he has a PEG tube in place. Presently the patient is about the same, and not much casino change attendant the last 24 hours. WBC count is 9.5 hemoglobin 9.6 electrolytes are normal bicarb is 37 renal functioning is normal. Patient was already seen by general surgery, and surgery is being considered for either tomorrow or Tuesday. Objective - Vital Signs Vital signs: Vital Signs Temp 97.1 F L 11/06/18 08:00 Pulse 98 11/06/18 10:00 Resp 43 H 11/06/18 10:00 BP 113/85 11/06/18 10:00 Pulse Ox 97 11/06/18 10:00 Intake & Output 11/05/18 11/06/18 11/06/18 18:59 06:59 18:59 Intake Total 1580 1400 30 Output Total 2955 805 200 Balance -1375 595 -170 Weight 36 kg 36 kg Intake: IV 670 320 30 .9 70 120 30 Piperacillin-Tazobactam 3 200 200 .375 gm In Sodium Chloride 0.9% 100 ml @ 25 mls/hr IVPB Q8H [facility] Rx#: [id number] Potassium Chloride 20 meq 400 In Water For Injection 1 100ml.bag @ 50 mls/hr IVPB Q2H [facility] Rx#: [id number] Tube Feeding 480 480 Other 430 600 Output: Urine 2955 805 200 Other: Voiding Method Indwelling Catheter Indwelling Catheter Indwelling Catheter - Exam Physical Exam: Revealed a 53-year-old female, looks cachectic, debilitated, BMI is 11.9, significant loss of muscle mass, major atrophy of upper and lower extremities on BiPAP. Head: Atraumatic, normocephalic. Looks cachectic, on BiPAP. HEENT:[Neck is supple.] [No neck masses.] [No thyromegaly.] [No JVD.] PERRLA, EOMI, no icterus. Chest: Extremely diminished breath sounds at the bases especially at the right base no crackles, no rhonchi, no wheezes. Symmetrical chest expansion. Significant wasting noted of the chest muscles. Cardiac Exam: [Normal S1 and S2, no S3 gallop, no murmur.] Abdomen: [Soft, nontender, no megaly, no rebound, no guarding, normal bowel sounds.] Extremities: [No clubbing, no edema, no cyanosis.] Neurological Exam: [No focal neurologic deficit.] Alert and oriented 3. Psychiatric: Normal mood affect and normal mental status examination. Skin: No rashes. Spine: No scoliosis. Musculoskeletal: Severe muscle atrophy noted throughout. - Labs CBC & Chem 7: 11/06/18 04:00 11/06/18 04:04 Labs: Abnormal Lab Results - Last 24 Hours (Table) 11/05/18 11/05/18 11/06/18 Range/Units 17:26 23:56 04:00 RBC 2.99 L (3.80-5.40) m/uL Hgb 9.6 L (11.4-16.0) gm/dL Hct 29.6 L (34.0-46.0) % Plt Count 470 H (150-450) k/uL Neutrophils # 9.2 H (1.3-7.7) k/uL Lymphocytes # 0.1 L (1.0-4.8) k/uL Carbon Dioxide (22-30) mmol/L BUN (7-17) mg/dL Creatinine (0.52-1.04) mg/dL Glucose (74-99) mg/dL POC Glucose (mg/dL) 103 H 111 H (75-99) mg/dL 11/06/18 11/06/18 Range/Units 04:04 06:00 RBC (3.80-5.40) m/uL Hgb (11.4-16.0) gm/dL Hct (34.0-46.0) % Plt Count (150-450) k/uL Neutrophils # (1.3-7.7) k/uL Lymphocytes # (1.0-4.8) k/uL Carbon Dioxide 37 H (22-30) mmol/L BUN 21 H (7-17) mg/dL Creatinine 0.23 L (0.52-1.04) mg/dL Glucose 118 H (74-99) mg/dL POC Glucose (mg/dL) 116 H (75-99) mg/dL Microbiology - Last 24 Hours (Table) 11/02/18 12:40 Blood Culture - Preliminary Blood No Growth after 72 hours Assessment and Plan Assessment: Impression: 1 acute on chronic hypoxic respiratory failure 2 severe underlying COPD 3 history of laryngeal cancer and previous chemoradiation therapy 4 severe protein calorie malnutrition BMI of 11.9 5 chronic smoking 6 chronic anemia of chronic disease 7 right lower lobe and right middle lobe collapse, may consider bronchoscopy on this patient after tracheostomy and mechanical ventilation, patient is not a great candidate for bronchoscopy at this point since her pulmonary status is marginal and she would likely decompensated and required intubation during the bronchoscopy. 8 chronic hypoxic and hypercapnic respiratory failure, requiring BiPAP, and the patient is BiPAP dependent. Recommendation: Continue bronchodilators, continue empiric antibiotics, patient will be scheduled for tracheostomy in the next 24-48 hours, will bronchoscope the patient post tracheostomy. Continue enteral feeding via PEG tube, continue GI and DVT prophylaxis, had a long discussion with the patient regarding her overall pulmonary status and nutritional status and the patient is agreeable to go ahead and proceed with tracheostomy and scheduled either tomorrow or after tomorrow. We'll discuss her condition with surgeons on the case. Overall prognosis remains extremely poor and guarded. We'll continue to follow. Time with Patient: Less than 30
[2018-11-06 12:27] LABS: Glucose,Whole Blood 124 mg/dL (75-99)
[2018-11-06 19:08] LABS: Glucose,Whole Blood 113 mg/dL (75-99)
[2018-11-06 23:45] LABS: Glucose,Whole Blood 121 mg/dL (75-99)
[2018-11-07] MEDS: LORazepam 2 MG/ML INJ IV PRN ×6 (00:25→22:20)
[2018-11-07] MEDS: ALBUTEROL NEBULIZED 2.5 MG/3 ML INHALATION PRN ×2 (03:47→23:42)
[2018-11-07 05:00] LABS: HGB 9.8 gm/dL (11.4-16.0); Hypochromasia Slight; MCH 32.1 pg (25.0-35.0); MCHC 32.7 g/dL (31.0-37.0); MCV 98.3 fL (80.0-100.0); Mean Platelet Volume 6.2; Platelet Count 476 k/uL (150-450); RBC 3.05 m/uL (3.80-5.40); RDW 14.5 % (11.5-15.5)
[2018-11-07 05:09] LABS: African American GFR (CKD) >90 (>60 ml/min/1.73 sqM); Anion Gap 1 mmol/L; Blood Urea Nitrogen 18 mg/dL (7-17); Calcium 8.5 mg/dL (8.4-10.2); Carbon Dioxide 40 mmol/L (22-30); Chloride 99 mmol/L (98-107); Glucose 91 mg/dL (74-99); Potassium 3.3 mmol/L (3.5-5.1); Sodium 140 mmol/L (137-145)
[2018-11-07 05:39] LABS: Glucose,Whole Blood 87 mg/dL (75-99)
--- NOTE | 2018-11-07 07:43 | XR ---
EXAMINATION TYPE: XR chest 1V portable DATE OF EXAM: 11/07/2018 COMPARISON: 11/06/2018 HISTORY: Shortness of breath TECHNIQUE: Single frontal view of the chest is obtained. FINDINGS: Bilateral consolidation and pleural effusion greater on the right is stable. Mediport cath eter noted there is underlying COPD. Biapical pleural thickening noted throughout the right stable. Left-sided PICC line noted. Surgical shanae in the midline with a catheter seen overlying the left u pper quadrant which may be related to gastrostomy tube. IMPRESSION: Bilateral infiltrate and pleural effusion and asymmetric right apical pleural thickening or mass. Stable.
[2018-11-07] MEDS: IPRATROPIUM-ALBUTEROL 3 ML NEB INHALATION SCH ×4 (07:45→19:54)
[2018-11-07] MEDS: INSULIN ASPART (NovoLOG) 100 UNIT/ML VIAL SQ SCH ×3 (07:45→19:12)
[2018-11-07] MEDS: PANTOPRAZOLE 40 MG/10 ML VIAL IVP SCH (08:07)
[2018-11-07] MEDS: POTASSIUM CHLORIDE 20 MEQ in WATER FOR INJECTION 1 100ML.BAG IVPB SCH ×2 (08:07→10:54)
[2018-11-07] MEDS: PIPERACILLIN-TAZOBACTAM 3.375 GM in SODIUM CHLORIDE 0.9% 100 ML IVPB SCH ×3 (08:07→23:05)
[2018-11-07] MEDS: methylPREDNISolone SOD SUCCI 40 MG/ML 1 ML VIAL IV SCH ×2 (08:08→23:05)
[2018-11-07] MEDS: ENOXAPARIN 40 MG/0.4 ML SYRINGE SQ SCH (11:04)
[2018-11-07] MEDS ORDERED: fentaNYL (PF) 50 MCG/ML 2 ML AMP ONE (11:16)
[2018-11-07] MEDS ORDERED: ROCURONIUM BROMIDE 10 MG/ML 10 ML VIAL IV ONE (11:16)
[2018-11-07] MEDS ORDERED: PROPOFOL 10 MG/ML 20 ML VIAL IV ONE (11:16)
[2018-11-07] MEDS ORDERED: MIDAZOLAM 2 MG/2 ML VIAL ONE (11:16)
[2018-11-07] MEDS ORDERED: ePHEDrine SULFATE/0.9% NACL/PF 50 MG/5 ML SYRINGE IV ONE (11:16)
[2018-11-07] MEDS ORDERED: IV FLUID CONTINUATION 1,000 ML IV ONE (11:23)
[2018-11-07] MEDS ORDERED: BUPIVACAINE (PF) 0.5% 30 ML VIAL SQ ONE (11:54)
[2018-11-07 12:09] LABS: Iron Saturation 23.38 (12.00-45.00)
[2018-11-07 12:17] LABS: Ferritin 119.3 ng/mL (10.0-291.0)
[2018-11-07 12:18] LABS: Folate, Serum 9.9 ng/mL
[2018-11-07] MEDS: PROPOFOL 1,000 MG in EMPTY BAG 1 BAG IV SCH (12:35)
[2018-11-07 12:58] LABS: Glucose,Whole Blood 92 mg/dL (75-99)
--- NOTE | 2018-11-07 13:08 | P.PN ---
Subjective Progress Note Date: 11/07/18 Principal diagnosis: Acute on chronic hypoxic respiratory failure Patient was seen and examined. No acute events overnight. Just got back from tracheostomy. No complications during procedure. Fully sedated on propofol. Currently on vent settings tidal volume 400, FiO2 100 PEEP 5 and rate of 10. Objective - Vital Signs Vital signs: Vital Signs Temp 98.0 F 11/07/18 12:30 Pulse 99 11/07/18 12:40 Resp 12 11/07/18 12:40 BP 110/85 11/07/18 12:40 Pulse Ox 100 11/07/18 12:40 Intake & Output 11/06/18 11/07/18 11/07/18 18:59 06:59 18:59 Intake Total 370 345 580.437 Output Total 750 875 465 Balance -380 -530 115.437 Weight 36 kg 38 kg Intake: IV 110 195 580 .9 110 70 30 Piperacillin-Tazobactam 3 125 100 .375 gm In Sodium Chloride 0.9% 100 ml @ 25 mls/hr IVPB Q8H ERNESTINA Rx#: [id number] Potassium Chloride 20 meq 250 In Water For Injection 1 100ml.bag @ 50 mls/hr IVPB Q2H ERNESTINA Rx#: [id number] Intake, IV Titration 0.437 Amount Propofol 1,000 mg In 0.437 Empty Bag 1 bag @ Titrate IV .Q0M ERNESTINA Rx#: [id number] Tube Feeding 200 120 0 Other 60 30 Output: Urine 750 875 460 Estimated Blood Loss 5 Other: Voiding Method Indwelling Catheter Indwelling Catheter Indwelling Catheter - Exam General: [Cachectic], [sedated, tracheostomy site clean and dry], [appears at stated age] Derm: [warm], [dry] Head: [atraumatic], [normocephalic], [bitemporal wasting] Eyes: [no lid lag], [anicteric sclera] Mouth: [no lip lesion], [mucus membranes moist] Cardiovascular: [S1S2 reg], [tachycardic], [positive DP pulse bilateral], Lungs: [Decreased breath sounds bilateral], [no rhonchi, no rales] , [no accessory muscle use] Abdominal: [soft], [ nontender to palpation], [no guarding], [[place] catheter in place] Ext: [no gross muscle atrophy], [no edema], [no contractures] Neuro: [no focal neuro deficits] Psych: [Sedated] - Labs CBC & Chem 7: 11/07/18 04:50 11/07/18 04:50 Labs: Abnormal Lab Results - Last 24 Hours (Table) 11/06/18 11/06/18 11/07/18 Range/Units 19:05 23:42 04:50 RBC (3.80-5.40) m/uL Hgb (11.4-16.0) gm/dL Hct (34.0-46.0) % Plt Count (150-450) k/uL Potassium (3.5-5.1) mmol/L Carbon Dioxide (22-30) mmol/L BUN (7-17) mg/dL Creatinine (0.52-1.04) mg/dL POC Glucose (mg/dL) 113 H 121 H (75-99) mg/dL Iron 47 L (50-170) ug/dL TIBC 201 L (228-460) ug/dL 11/07/18 11/07/18 Range/Units 04:50 04:50 RBC 3.05 L (3.80-5.40) m/uL Hgb 9.8 L (11.4-16.0) gm/dL Hct 30.0 L (34.0-46.0) % Plt Count 476 H (150-450) k/uL Potassium 3.3 L (3.5-5.1) mmol/L Carbon Dioxide 40 H (22-30) mmol/L BUN 18 H (7-17) mg/dL Creatinine 0.25 L (0.52-1.04) mg/dL POC Glucose (mg/dL) (75-99) mg/dL Iron (50-170) ug/dL TIBC (228-460) ug/dL Microbiology - Last 24 Hours (Table) 11/02/18 12:40 Blood Culture - Preliminary Blood No Growth after 96 hours Assessment and Plan Assessment: Assessment and Plan Acute on chronic hypoxic respiratory failure with hypercapnia due to laryngeal cancer, pleural effusion and COPD Severe protein calorie malnutrition with cachexia with G-tube due to dysphagia BMI 12.4 Mediastinal lymphadenopathy Anemia with thrombocytosis Hypokalemia Chest CT shows increased pleural effusion, right middle lobe pneumonia versus atelectasis. Pro-calcitonin negative, low concerns for pneumonia. POD 0 tracheostomy. Plans: Continue full ventilator support managed by pulmonology. Continue Zosyn for empiric treatment of pneumonia and aspiration. Continue Solu-Medrol 40 mg IV twice a day along with DuoNeb as needed for shortness of breath and wheezing for treatment of COPD. Telemetry monitoring. Head of bed elevation. Pulmonology and general surgery on board. BMI 13.1. Plans: Continue G-tube feeds. Consult dietitian. As seen on previous CT chest. Plans: Will likely need bronchoscopy with pulmonology after trach. Follow pulmonology recommendations. Hemoglobin 9.8. Macrocytic during admission. Thrombocytosis of 470 likely from iron deficiency. Iron studies shows iron deficiency. B12 and folate within normal limits. Plans: Hemoglobin stable. Transfuse if hemoglobin less than 7. Follow iron studies, B12 and folate. Potassium 3.3. Plans: Replace via protocol. [Patient admitted for acute on chronic hypoxic respiratory failure due to multiple reasons. She is POD 0 tracheostomy. Patient is pending clinical improvement.]
[2018-11-07 13:44] LABS: ABG HCO3 36 mmol/L (21-25); ABG Oxygen Saturation 98.3 % (94-97); ABG PCO2 56 mmHg (35-45); ABG PH 7.41 (7.35-7.45); ABG PO2 110 mmHg (83-108); ABG TCO2 37 mmol/L (19-24); Allen Test Performed? Yes
--- NOTE | 2018-11-07 14:21 | P.PN ---
Subjective Progress Note Date: 11/07/18 Principal diagnosis: Acute on chronic hypoxic and hypercapnic respiratory failure This is a 53-year-old female patient of Dr. Foster, who was recently hospitalized for acute respiratory failure secondary to aspiration pneumonia, hypoxemic and hypercapnic requiring intubation and placement on mechanical ventilation. Patient was successfully extubated, was treated with antibiotics, completed a course of Levaquin and Zosyn. Patient showed significant clinical and radiographic improvement, by the time of her discharge to the [facility]. Patient also has history of laryngeal cancer with previous chemoradiation, and had evidence of severe malnutrition. In addition patient failed modified barium swallow, and was having evidence of aspiration with all consistencies. Patient also had evidence of electrolyte abnormality with hyponatremia and hypokalemia, which improved with treatment. Patient had a gastrostomy tube placed for nutritional support, and she was strict NPO. Sputum cultures from previous admission were negative. Other medical history includes chronic anemia of chronic disease, previous tobacco dependence. Patient was discharged to the [facility] on 11/01/2018 however she started experiencing shortness of breath at the [facility], and was apparently hypoxic and was brought back for evaluation on oral 11/02/2018. He denied any chest pain, she denies any oral intake at the care home home, she states she was getting her nutrition strictly through the gastrostomy tube. No aspiration, no fever or chills, chest x-ray showed basilar atelectasis and associated pleural effusions. Lab work showed white blood cell count of 14.0, hemoglobin of 11, correlation profile was within normal limits, blood gas showed pO2 of 64, pCO2 of 67, and pH of 7.32. Sodium was 140, potassium is 4.0, chloride is 98, CO2 37, B1 is 21, creatinine 0.24. O2 sat in the emergency department was ranging from 84-86 patient was placed on supplemental oxygen. Patient was given IV steroids, nebulized bronchodilators, and worsening the patient in consultation for shortness of breath. She is awake and alert, she is sitting up in bed, appears to be in no acute distress, currently on 2 L of oxygen, no significant wheezing, or congestion, she does have a weak cough, which does not sound congested, lung sounds are diminished, no rales auscultated. Follow-up blood work was reviewed today, white blood cell count is 15.5, hemoglobin is 9.7, repeat blood gas showed pO2 of 60, pCO2 59, and pH of 7.39 this was done on FiO2 28%. Patient looks extremely cachectic and weak, her voice is very weak and hoarse, but she appears to be in no acute distress. On 11/04/2018 I'm seeing this patient for a follow-up. This is an extremely debilitated and severely malnourished female patient who is post respiratory failure who was readmitted for ongoing difficulties in breathing. Noted the patient's BMI is 11.9 and she has kwashiorkor. The patient got moved yesterday to the intensive care unit because of worsening shortness of breath and altered mentation. Note that on the floor the patient had a blood gas showing a pH of 0.28 with a pCO2 of 83 and pO2 of 72. This was on FiO2 of 32%. She was having increased tachypnea and respiratory distress. At that point the patient got transferred to the intensive care unit. I was very hesitant intubated this patient based on an underlying condition and status. Note that the patient is extremely frail and has absolutely no muscle mass and intubation may be quite devastating for this patient had the patient accordingly was placed on a BiPAP at a pressure of 10/5 cm of water. She was also given some Ativan and morphine which. Much calm that down. Her subsequent blood gas showed a pH of 7.38 with a pCO2 of 69 a pO2 of 62. I realized the patient's respiratory insufficiency he had it performed a CAT scan of the chest yesterday and the CAT scan showed complete occlusion of the distal bronchus intermedius and right middle lobe atelectasis. There was also atelectatic changes in lung bases bilaterally with a right middle lobe atelectasis right lower lobe atelectasis and bilateral pleural effusions. Upper lobes are quite patent and well hydrated. The patient was started back on IV Zosyn. She did become hypotensive briefly and she was given a liter of IV fluid bolus and currently she is on normal saline at rate of 100 mL an hour. She is improved her blood pressure and she did not require any pressors. She is currently awake. She is following commands. However, she has a very poor insight on her condition. She is not aware that she is quite debilitated in [place] major disadvantage for recovering from her chronic illness. The patient also is receiving enteral feeding for nutritional support in the form of vitamin 1.2 which is currently at goal. I added this patient IV Zosyn. She is on Lovenox for DVT prophylaxis. CAT scan of the chest also showed emphysema bilaterally. She is on bronchodilators. She is also on IV Solu-Medrol. IV Protonix for GI prophylaxis. On 11/05/2018, the patient is being seen in follow-up she is awake and alert. She is following commands. She is on a BiPAP at a pressure of 10/5 cm of water with an FiO2 of 40%. The patient is very much compliant and tolerating her BiPAP. No significant cough or sputum production. The chest x-ray from today shows small bilateral pleural effusion, right middle lobe/right lower lobe a telectasis. Her pro-calcitonin level was low. She is covered with IV Zosyn. She is also covered with IV Solu-Medrol and the dose was reduced down to 40 mg every 12 hours. He is on DuoNeb nebulized treatments around the clock and she is receiving enteral feeding for nutritional support. Sodium level is up to 147. Atelectatic discussion with the patient's family. The family wants everything done including the possibility of long-term vent support. In that case, it made recommendations to proceed with a tracheostomy and the patient is unable to breathe independently without any form of respiratory assisting devices and the patient is quite debilitated and has significant malnutrition a nd neuromuscular weakness. Patient was reevaluated today on 11/06/2018, patient remains on BiPAP, presently at a pressure of 10/5 and FiO2 of 40%. She seems to be almost BiPAP dependent. Her chest x-ray is showing significant worsening of the right lower lobe and right lobe collapse and atelectasis, there is also some component of pleural effusion. Remains on antibiotics in the form of Zosyn, patient is on bronchodilators is also on IV Solu-Medrol. Not much of a car changer the last 24 hours. Apparently the patient is to be seen by surgery today, and Dr. Jimenez recommended tracheostomy which will likely be done tomorrow or in the next couple of days. Patient will be bronchoscoped after tracheostomy and mechanical ventilation. And she read he has a PEG tube in place. Presently the patient is about the same, and not much car changer the last 24 hours. WBC count is 9.5 hemoglobin 9.6 electrolytes are normal bicarb is 37 renal functioning is normal. Patient was already seen by general surgery, and surgery is being considered for either tomorrow or Tuesday. Patient was reevaluated today on 11/07/2018, remains on BiPAP this morning, scheduled to undergo tracheostomy this morning. Patient again seems to be almost BiPAP dependent. Chest x-ray continues to show evidence of right lower lobe and right lobe collapse and atelectasis. Small tiny pleural effusion is noted. Remains on antibiotics, bronchodilators, IV Solu-Medrol, and again the patient is scheduled for tracheostomy today. Family is at bedside, and I discussed the option of bronchoscopy after tracheostomy which I will likely perform tomorrow on this patient to evaluate the right middle lobe and right l ower lobe. Objective - Vital Signs Vital signs: Vital Signs Temp 98.0 F 11/07/18 12:30 Pulse 99 11/07/18 12:40 Resp 12 11/07/18 12:40 BP 110/85 11/07/18 12:40 Pulse Ox 100 11/07/18 12:40 Intake & Output 11/06/18 11/07/18 11/07/18 18:59 06:59 18:59 Intake Total 370 345 580.437 Output Total 750 875 465 Balance -380 -530 115.437 Weight 36 kg 38 kg Intake: IV 110 195 580 .9 110 70 30 Piperacillin-Tazobactam 3 125 100 .375 gm In Sodium Chloride 0.9% 100 ml @ 25 mls/hr IVPB Q8H ERNESTINA Rx#: [id number] Potassium Chloride 20 meq 250 In Water For Injection 1 100ml.bag @ 50 mls/hr IVPB Q2H ERNESTINA Rx#: [id number] Intake, IV Titration 0.437 Amount Propofol 1,000 mg In 0.437 Empty Bag 1 bag @ Titrate IV .Q0M ERNESTINA Rx#: [id number] Tube Feeding 200 120 0 Other 60 30 Output: Urine 750 875 460 Estimated Blood Loss 5 Other: Voiding Method Indwelling Catheter Indwelling Catheter Indwelling Catheter - Exam Physical Exam: Revealed a 53-year-old female, looks cachectic, Head: Atraumatic, normocephalic. Looks cachectic, on BiPAP. HEENT:[Neck is supple.] [No neck masses.] [No thyromegaly.] [No JVD.] PERRLA, EOMI, no icterus. Chest: Extremely diminished breath sounds at the bases especially at the right base no crackles, no rhonchi, no wheezes. Symmetrical chest expansion. Significant wasting noted of the chest muscles. Cardiac Exam: [Normal S1 and S2, no S3 gallop, no murmur.] Abdomen: [Soft, nontender, no megaly, no rebound, no guarding, normal bowel sounds.] Extremities: [No clubbing, no edema, no cyanosis.] Neurological Exam: [No focal neurologic deficit.] Alert and oriented 3. Psychiatric: Normal mood affect and normal mental status examination. Skin: No rashes. Spine: No scoliosis. Musculoskeletal: Severe muscle atrophy noted throughout. - Labs CBC & Chem 7: 11/07/18 04:50 11/07/18 04:50 Labs: Abnormal Lab Results - Last 24 Hours (Table) 11/06/18 11/06/18 11/07/18 Range/Units 19:05 23:42 04:50 RBC (3.80-5.40) m/uL Hgb (11.4-16.0) gm/dL Hct (34.0-46.0) % Plt Count (150-450) k/uL ABG pCO2 (35-45) mmHg ABG pO2 (83-108) mmHg ABG HCO3 (21-25) mmol/L ABG Total CO2 (19-24) mmol/L ABG O2 Saturation (94-97) % Potassium (3.5-5.1) mmol/L Carbon Dioxide (22-30) mmol/L BUN (7-17) mg/dL Creatinine (0.52-1.04) mg/dL POC Glucose (mg/dL) 113 H 121 H (75-99) mg/dL Iron 47 L (50-170) ug/dL TIBC 201 L (228-460) ug/dL 11/07/18 11/07/18 11/07/18 Range/Units 04:50 04:50 13:36 RBC 3.05 L (3.80-5.40) m/uL Hgb 9.8 L (11.4-16.0) gm/dL Hct 30.0 L (34.0-46.0) % Plt Count 476 H (150-450) k/uL ABG pCO2 56 H (35-45) mmHg ABG pO2 110 H (83-108) mmHg ABG HCO3 36 H (21-25) mmol/L ABG Total CO2 37 H (19-24) mmol/L ABG O2 Saturation 98.3 H (94-97) % Potassium 3.3 L (3.5-5.1) mmol/L Carbon Dioxide 40 H (22-30) mmol/L BUN 18 H (7-17) mg/dL Creatinine 0.25 L (0.52-1.04) mg/dL POC Glucose (mg/dL) (75-99) mg/dL Iron (50-170) ug/dL TIBC (228-460) ug/dL Microbiology - Last 24 Hours (Table) 11/02/18 12:40 Blood Culture - Preliminary Blood No Growth after 96 hours Assessment and Plan Assessment: Impression: 1 acute on chronic hypoxic respiratory failure 2 severe underlying COPD 3 history of laryngeal cancer and previous chemoradiation therapy 4 severe protein calorie malnutrition BMI of 11.9 5 chronic smoking 6 chronic anemia of chronic disease 7 right lower lobe and right middle lobe collapse, may consider bronchoscopy on this patient after tracheostomy and mechanical ventilation, patient is not a great candidate for bronchoscopy at this point since her pulmonary status is marginal and she would likely decompensated and required intubation during the bronchoscopy. 8 chronic hypoxic and hypercapnic respiratory failure, requiring BiPAP, and the patient is BiPAP dependent. Recommendation: Proceed with tracheostomy today. Plan for bronchoscopy possibly tomorrow while the patient is on mechanical ventilation. Continue enteral feeding via PEG tube which is already in place. Continue GI and DVT prophylaxis. Discussed with the patient and her family members at bedside the plans for tracheostomy today and bronchoscopy tomorrow. Continue bronchodilators. Will follow. Prognosis in the fdc is poor and guarded. Time with Patient: Less than 30
[2018-11-07 19:05] LABS: Glucose,Whole Blood 88 mg/dL (75-99)
[2018-11-07] MEDS: MORPHINE SULFATE 4 MG/ML SYRINGE IVP PRN (23:54)
[2018-11-08 00:20] LABS: Glucose,Whole Blood 129 mg/dL (75-99)
[2018-11-08] MEDS: INSULIN ASPART (NovoLOG) 100 UNIT/ML VIAL SQ SCH ×4 (01:15→18:42)
[2018-11-08] MEDS: LORazepam 2 MG/ML INJ IV PRN ×3 (02:28→21:23)
[2018-11-08] MEDS: ALBUTEROL NEBULIZED 2.5 MG/3 ML INHALATION PRN ×2 (03:19→23:33)
[2018-11-08 05:02] LABS: HCT 29.5 % (34.0-46.0); HGB 9.3 gm/dL (11.4-16.0); Hypochromasia Slight; MCHC 31.4 g/dL (31.0-37.0); MCV 101.8 fL (80.0-100.0); Macrocytosis Slight; Mean Platelet Volume 7.2; Platelet Count 352 k/uL (150-450); WBC 10.3 k/uL (3.8-10.6)
[2018-11-08 05:51] LABS: African American GFR (CKD) >90 (>60 ml/min/1.73 sqM); Anion Gap 4 mmol/L; Blood Urea Nitrogen 23 mg/dL (7-17); Calcium 8.3 mg/dL (8.4-10.2); Carbon Dioxide 34 mmol/L (22-30); Chloride 102 mmol/L (98-107); Glucose 157 mg/dL (74-99); Potassium 3.3 mmol/L (3.5-5.1); Sodium 140 mmol/L (137-145)
[2018-11-08 06:19] LABS: Glucose,Whole Blood 150 mg/dL (75-99)
[2018-11-08] MEDS: MORPHINE SULFATE 4 MG/ML SYRINGE IVP PRN ×3 (06:19→17:40)
[2018-11-08] MEDS: PIPERACILLIN-TAZOBACTAM 3.375 GM in SODIUM CHLORIDE 0.9% 100 ML IVPB SCH ×3 (06:29→22:59)
[2018-11-08] MEDS: POTASSIUM CHLORIDE 20 MEQ in WATER FOR INJECTION 1 100ML.BAG IVPB SCH ×2 (06:42→08:27)
[2018-11-08 08:08] LABS: ABG Base Excess 9.8 mmol/L; ABG HCO3 32 mmol/L (21-25); ABG Oxygen Saturation 88.3 % (94-97); ABG PCO2 38 mmHg (35-45); ABG PH 7.54 (7.35-7.45); ABG TCO2 34 mmol/L (19-24)
[2018-11-08 08:13] LABS: ABG PO2 53 mmHg (83-108); Allen Test Performed? yes
[2018-11-08] MEDS: methylPREDNISolone SOD SUCCI 40 MG/ML 1 ML VIAL IV SCH ×2 (08:26→20:05)
[2018-11-08] MEDS: ENOXAPARIN 40 MG/0.4 ML SYRINGE SQ SCH (08:26)
--- NOTE | 2018-11-08 08:26 | XR ---
EXAMINATION TYPE: XR chest 1V portable DATE OF EXAM: 11/08/2018 COMPARISON: 11/07/2018 HISTORY: Respiratory difficulty TECHNIQUE: Single frontal view of the chest is obtained. FINDINGS: Bilateral consolidation and pleural effusion greater on the right is stable. Mediport cath eter noted there is underlying COPD. Biapical pleural thickening noted throughout the right stable. L eft-sided PICC line noted. Surgical shanae in the midline with a catheter seen overlying the left up per quadrant which may be related to gastrostomy tube. IMPRESSION: Bilateral infiltrate and pleural effusion and asymmetric right apical pleural thickening or mass. Stable.
[2018-11-08] MEDS: PANTOPRAZOLE 40 MG/10 ML VIAL IVP SCH (08:27)
[2018-11-08] MEDS: IPRATROPIUM-ALBUTEROL 3 ML NEB INHALATION SCH ×4 (08:55→19:18)
--- NOTE | 2018-11-08 11:13 | P.PN ---
Subjective Progress Note Date: 11/08/18 Principal diagnosis: Acute on chronic hypoxic and hypercapnic respiratory failure This is a 53-year-old female patient of Dr. Foster, who was recently hospitalized for acute respiratory failure secondary to aspiration pneumonia, hypoxemic and hypercapnic requiring intubation and placement on mechanical ventilation. Patient was successfully extubated, was treated with antibiotics, completed a course of Levaquin and Zosyn. Patient showed significant clinical and radiographic improvement, by the time of her discharge to the [facility]. Patient also has history of laryngeal cancer with previous chemoradiation, and had evidence of severe malnutrition. In addition patient failed modified barium swallow, and was having evidence of aspiration with all consistencies. Patient also had evidence of electrolyte abnormality with hyponatremia and hypokalemia, which improved with treatment. Patient had a gastrostomy tube placed for nutritional support, and she was strict NPO. Sputum cultures from previous admission were negative. Other medical history includes chronic anemia of chronic disease, previous tobacco dependence. Patient was discharged to the [facility] on 11/01/2018 however she started experiencing shortness of breath at the [facility], and was apparently hypoxic and was brought back for evaluation on oral 11/02/2018. He denied any chest pain, she denies any oral intake at the [facility], she states she was getting her nutrition strictly through the gastrostomy tube. No aspiration, no fever or chills, chest x-ray showed basilar atelectasis and associated pleural effusions. Lab work showed white blood cell count of 14.0, hemoglobin of 11, correlation profile was within normal limits, blood gas showed pO2 of 64, pCO2 of 67, and pH of 7.32. Sodium was 140, potassium is 4.0, chloride is 98, CO2 37, B1 is 21, creatinine 0.24. O2 sat in the emergency department was ranging from 84-86 patient was placed on supplemental oxygen. Patient was given IV steroids, nebulized bronchodilators, and worsening the patient in consultation for shortness of breath. She is awake and alert, she is sitting up in bed, appears to be in no acute distress, currently on 2 L of oxygen, no significant wheezing, or congestion, she does have a weak cough, which does not sound congested, lung sounds are diminished, no rales auscultated. Follow-up blood work was reviewed today, white blood cell count is 15.5, hemoglobin is 9.7, repeat blood gas showed pO2 of 60, pCO2 59, and pH of 7.39 this was done on FiO2 28%. Patient looks extremely cachectic and weak, her voice is very weak and hoarse, but she appears to be in no acute distress. On 11/04/2018 I'm seeing this patient for a follow-up. This is an extremely debilitated and severely malnourished female patient who is post respiratory failure who was readmitted for ongoing difficulties in breathing. Noted the patient's BMI is 11.9 and she has kwashiorkor. The patient got moved yesterday to the intensive care unit because of worsening shortness of breath and altered mentation. Note that on the floor the patient had a blood gas showing a pH of 0.28 with a pCO2 of 83 and pO2 of 72. This was on FiO2 of 32%. She was having increased tachypnea and respiratory distress. At that point the patient got transferred to the intensive care unit. I was very hesitant intubated this patient based on an underlying condition and status. Note that the patient is extremely frail and has absolutely no muscle mass and intubation may be quite devastating for this patient had the patient accordingly was placed on a BiPAP at a pressure of 10/5 cm of water. She was also given some Ativan and morphine which. Much calm that down. Her subsequent blood gas showed a pH of 7.38 with a pCO2 of 69 a pO2 of 62. I realized the patient's respiratory insufficiency he had it performed a CAT scan of the chest yesterday and the CAT scan showed complete occlusion of the distal bronchus intermedius and right middle lobe atelectasis. There was also atelectatic changes in lung bases bilaterally with a right middle lobe atelectasis right lower lobe atelectasis and bilateral pleural effusions. Upper lobes are quite patent and well hydrated. The patient was started back on IV Zosyn. She did become hypotensive briefly and she was given a liter of IV fluid bolus and currently she is on normal saline at rate of 100 mL an hour. She is improved her blood pressure and she did not require any pressors. She is currently awake. She is following commands. However, she has a very poor insight on her condition. She is not aware that she is quite debilitated in [place] major disadvantage for recovering from her chronic illness. The patient also is receiving enteral feeding for nutritional support in the form of vitamin 1.2 which is currently at goal. I added this patient IV Zosyn. She is on Lovenox for DVT prophylaxis. CAT scan of the chest also showed emphysema bilaterally. She is on bronchodilators. She is also on IV Solu-Medrol. IV Protonix for GI prophylaxis. On 11/05/2018, the patient is being seen in follow-up she is awake and alert. She is following commands. She is on a BiPAP at a pressure of 10/5 cm of water with an FiO2 of 40%. The patient is very much compliant and tolerating her BiPAP. No significant cough or sputum production. The chest x-ray from today shows small bilateral pleural effusion, right middle lobe/right lower lobe a telectasis. Her pro-calcitonin level was low. She is covered with IV Zosyn. She is also covered with IV Solu-Medrol and the dose was reduced down to 40 mg every 12 hours. He is on DuoNeb nebulized treatments around the clock and she is receiving enteral feeding for nutritional support. Sodium level is up to 147. Atelectatic discussion with the patient's family. The family wants everything done including the possibility of long-term vent support. In that case, it made recommendations to proceed with a tracheostomy and the patient is unable to breathe independently without any form of respiratory assisting devices and the patient is quite debilitated and has significant malnutrition a nd neuromuscular weakness. Patient was reevaluated today on 11/06/2018, patient remains on BiPAP, presently at a pressure of 10/5 and FiO2 of 40%. She seems to be almost BiPAP dependent. Her chest x-ray is showing significant worsening of the right lower lobe and right lobe collapse and atelectasis, there is also some component of pleural effusion. Remains on antibiotics in the form of Zosyn, patient is on bronchodilators is also on IV Solu-Medrol. Not much of a address change clerk the last 24 hours. Apparently the patient is to be seen by surgery today, and Dr. Jimenez recommended tracheostomy which will likely be done tomorrow or in the next couple of days. Patient will be bronchoscoped after tracheostomy and mechanical ventilation. And she read he has a PEG tube in place. Presently the patient is about the same, and not much address change clerk the last 24 hours. WBC count is 9.5 hemoglobin 9.6 electrolytes are normal bicarb is 37 renal functioning is normal. Patient was already seen by general surgery, and surgery is being considered for either tomorrow or Tuesday. Patient was reevaluated today on 11/07/2018, remains on BiPAP this morning, scheduled to undergo tracheostomy this morning. Patient again seems to be almost BiPAP dependent. Chest x-ray continues to show evidence of right lower lobe and right lobe collapse and atelectasis. Small tiny pleural effusion is noted. Remains on antibiotics, bronchodilators, IV Solu-Medrol, and again the patient is scheduled for tracheostomy today. Family is at bedside, and I discussed the option of bronchoscopy after tracheostomy which I will likely perform tomorrow on this patient to evaluate the right middle lobe and right l ower lobe. Patient was reevaluated today on 11/08/2018, she underwent tracheostomy yesterday, presently the patient is on mechanical ventilation, she is on before meals mode of 12 tidal volume of 350 FiO2 is down to 50%, and PEEP is 5. Patient seems to be very calm, comfortable, very appropriate, and her chest x- ray continues to show significant right lower lobe and right middle lobe collapse. Hence considering the patient is now on mechanical ventilation, I have discussed with the patient the option of bronchoscopy and evaluation of the right middle lobe and right lower lobe, and she is agreeable to proceed with the procedure today. The bronchoscopy team was notified, and it will be done sometime this afternoon. In the meantime patient remains nothing by mouth, her PEG tube feeding is on hold, and will empty her stomach. ABG this morning showed a pO2 of 53 pCO2 of 38 pH of 7.54. Electrolytes are normal renal profile is normal potassium is a bit low at 3.3 WBC count is 10.3 hemoglobin is 9.3. Objective - Vital Signs Vital signs: Vital Signs Temp 98.2 F 11/08/18 04:00 Pulse 102 H 11/08/18 09:10 Resp 19 11/08/18 07:00 BP 94/78 11/08/18 06:00 Pulse Ox 96 11/08/18 07:00 Intake & Output 11/07/18 11/08/18 11/08/18 18:59 06:59 18:59 Intake Total 1153.034 380 210 Output Total 820 520 45 Balance 333.034 -140 165 Weight 37.2 kg Intake: IV 740 180 210 .9 90 80 10 Piperacillin-Tazobactam 3 200 100 100 .375 gm In Sodium Chloride 0.9% 100 ml @ 25 mls/hr IVPB Q8H ERNESTINA Rx#: [id number] Potassium Chloride 20 meq 250 100 In Water For Injection 1 100ml.bag @ 50 mls/hr IVPB Q2H ERNESTINA Rx#: [id number] Intake, IV Titration 13.034 Amount Propofol 1,000 mg In 13.034 Empty Bag 1 bag @ Titrate IV .Q0M ERNESTINA Rx#: [id number] Tube Feeding 200 200 Other 200 Output: Urine 815 520 45 Estimated Blood Loss 5 Other: Voiding Method Indwelling Catheter Indwelling Catheter Indwelling Catheter - Exam Physical Exam: Revealed a 53-year-old female, looks cachectic, on mechanical ventilation, awake, follows all simple instructions, in no distress. Head: Atraumatic, normocephalic. Looks cachectic, on mechanical ventilation. Tracheostomy tube is intact. HEENT:[Neck is supple.] [No neck masses.] [No thyromegaly.] [No JVD.] PERRLA, EOMI, no icterus. Chest: Extremely diminished breath sounds at the bases especially at the right base no crackles, no rhonchi, no wheezes. Symmetrical chest expansion. Significant wasting noted of the chest muscles. Cardiac Exam: [Normal S1 and S2, no S3 gallop, no murmur.] Abdomen: [Soft, nontender, no megaly, no rebound, no guarding, normal bowel sounds.] Extremities: [No clubbing, no edema, no cyanosis.] Neurological Exam: [No focal neurologic deficit.] Alert and oriented 3. Psychiatric: Normal mood affect and normal mental status examination. Skin: No rashes. Spine: No scoliosis. Musculoskeletal: Severe muscle atrophy noted throughout. - Labs CBC & Chem 7: 11/08/18 04:09 11/08/18 04:14 Labs: Abnormal Lab Results - Last 24 Hours (Table) 11/07/18 11/07/18 11/08/18 Range/Units 04:50 13:36 00:17 RBC (3.80-5.40) m/uL Hgb (11.4-16.0) gm/dL Hct (34.0-46.0) % MCV (80.0-100.0) fL ABG pH (7.35-7.45) ABG pCO2 56 H (35-45) mmHg ABG pO2 110 H (83-108) mmHg ABG HCO3 36 H (21-25) mmol/L ABG Total CO2 37 H (19-24) mmol/L ABG O2 Saturation 98.3 H (94-97) % Potassium (3.5-5.1) mmol/L Carbon Dioxide (22-30) mmol/L BUN (7-17) mg/dL Creatinine (0.52-1.04) mg/dL Glucose (74-99) mg/dL POC Glucose (mg/dL) 129 H (75-99) mg/dL Calcium (8.4-10.2) mg/dL Iron 47 L (50-170) ug/dL TIBC 201 L (228-460) ug/dL 11/08/18 11/08/18 11/08/18 Range/Units 04:09 04:14 06:05 RBC 2.90 L (3.80-5.40) m/uL Hgb 9.3 L (11.4-16.0) gm/dL Hct 29.5 L (34.0-46.0) % MCV 101.8 H (80.0-100.0) fL ABG pH (7.35-7.45) ABG pCO2 (35-45) mmHg ABG pO2 (83-108) mmHg ABG HCO3 (21-25) mmol/L ABG Total CO2 (19-24) mmol/L ABG O2 Saturation (94-97) % Potassium 3.3 L (3.5-5.1) mmol/L Carbon Dioxide 34 H (22-30) mmol/L BUN 23 H (7-17) mg/dL Creatinine 0.28 L (0.52-1.04) mg/dL Glucose 157 H (74-99) mg/dL POC Glucose (mg/dL) 150 H (75-99) mg/dL Calcium 8.3 L (8.4-10.2) mg/dL Iron (50-170) ug/dL TIBC (228-460) ug/dL 11/08/18 Range/Units 08:00 RBC (3.80-5.40) m/uL Hgb (11.4-16.0) gm/dL Hct (34.0-46.0) % MCV (80.0-100.0) fL ABG pH 7.54 H (7.35-7.45) ABG pCO2 (35-45) mmHg ABG pO2 53 L* (83-108) mmHg ABG HCO3 32 H (21-25) mmol/L ABG Total CO2 34 H (19-24) mmol/L ABG O2 Saturation 88.3 L (94-97) % Potassium (3.5-5.1) mmol/L Carbon Dioxide (22-30) mmol/L BUN (7-17) mg/dL Creatinine (0.52-1.04) mg/dL Glucose (74-99) mg/dL POC Glucose (mg/dL) (75-99) mg/dL Calcium (8.4-10.2) mg/dL Iron (50-170) ug/dL TIBC (228-460) ug/dL Microbiology - Last 24 Hours (Table) 11/02/18 12:40 Blood Culture - Preliminary Blood No Growth after 120 hours Assessment and Plan Assessment: Impression: 1 acute on chronic hypoxic respiratory failure, status post tracheostomy, presently on mechanical ventilation. 2 severe underlying COPD 3 history of laryngeal cancer and previous chemoradiation therapy 4 severe protein calorie malnutrition BMI of 11.9 5 chronic smoking 6 chronic anemia of chronic disease 7 right lower lobe and right middle lobe collapse, patient is agreeable to proceed with bronchoscopy today. And based on the findings further recommendations will follow. 8 chronic hypoxic and hypercapnic respiratory failure, presently on mechanical ventilation. Recommendation: Post tracheostomy care. Plan for bronchoscopy today to evaluate the right lower lobe and right middle lobe Continue enteral feeding via PEG tube which is already in place. Continue GI and DVT prophylaxis. Discussed with the patient the issue of bronchoscopy and evaluation of the right lung, and she is agreeable to proceed. Continue bronchodilators. Will follow. Prognosis in the [facility] is poor and guarded. Time with Patient: Less than 30
--- NOTE | 2018-11-08 11:45 | P.PN ---
Subjective Progress Note Date: 11/08/18 Principal diagnosis: Acute on chronic hypoxic respiratory failure Patient was seen and examined. No acute events overnight. Postop day 1 tracheostomy. No complications during procedure. Off-pump propofol and fully awake. Complains of some discomfort at the site of trach along with lower back pain, well controlled with morphine. Currently on vent settings tidal volume 350, FiO2 50 PEEP 5 and rate of 12. Objective - Vital Signs Vital signs: Vital Signs Temp 98.2 F 11/08/18 04:00 Pulse 102 H 11/08/18 09:10 Resp 19 11/08/18 07:00 BP 94/78 11/08/18 06:00 Pulse Ox 96 11/08/18 07:00 Intake & Output 11/07/18 11/08/18 11/08/18 18:59 06:59 18:59 Intake Total 1153.034 380 210 Output Total 820 520 45 Balance 333.034 -140 165 Weight 37.2 kg Intake: IV 740 180 210 .9 90 80 10 Piperacillin-Tazobactam 3 200 100 100 .375 gm In Sodium Chloride 0.9% 100 ml @ 25 mls/hr IVPB Q8H ERNESTINA Rx#: [id number] Potassium Chloride 20 meq 250 100 In Water For Injection 1 100ml.bag @ 50 mls/hr IVPB Q2H ERNESTINA Rx#: [id number] Intake, IV Titration 13.034 Amount Propofol 1,000 mg In 13.034 Empty Bag 1 bag @ Titrate IV .Q0M ERNESTINA Rx#: [id number] Tube Feeding 200 200 Other 200 Output: Urine 815 520 45 Estimated Blood Loss 5 Other: Voiding Method Indwelling Catheter Indwelling Catheter Indwelling Catheter - Exam General: [Cachectic], [sedated, tracheostomy site clean and dry], [appears at stated age] Derm: [warm], [dry] Head: [atraumatic], [normocephalic], [bitemporal wasting] Eyes: [no lid lag], [anicteric sclera] Mouth: [no lip lesion], [mucus membranes moist] Cardiovascular: [S1S2 reg], [tachycardic], [positive DP pulse bilateral], Lungs: [Decreased breath sounds bilateral], [no rhonchi, no rales] , [no accessory muscle use] Abdominal: [soft], [ nontender to palpation], [no guarding], [Whittington catheter in place] Ext: [no gross muscle atrophy], [no edema], [no contractures] Neuro: [no focal neuro deficits] Psych: [Sedated] - Labs CBC & Chem 7: 11/08/18 04:09 11/08/18 04:14 Labs: Abnormal Lab Results - Last 24 Hours (Table) 11/07/18 11/07/18 11/08/18 Range/Units 04:50 13:36 00:17 RBC (3.80-5.40) m/uL Hgb (11.4-16.0) gm/dL Hct (34.0-46.0) % MCV (80.0-100.0) fL ABG pH (7.35-7.45) ABG pCO2 56 H (35-45) mmHg ABG pO2 110 H (83-108) mmHg ABG HCO3 36 H (21-25) mmol/L ABG Total CO2 37 H (19-24) mmol/L ABG O2 Saturation 98.3 H (94-97) % Potassium (3.5-5.1) mmol/L Carbon Dioxide (22-30) mmol/L BUN (7-17) mg/dL Creatinine (0.52-1.04) mg/dL Glucose (74-99) mg/dL POC Glucose (mg/dL) 129 H (75-99) mg/dL Calcium (8.4-10.2) mg/dL Iron 47 L (50-170) ug/dL TIBC 201 L (228-460) ug/dL 11/08/18 11/08/18 11/08/18 Range/Units 04:09 04:14 06:05 RBC 2.90 L (3.80-5.40) m/uL Hgb 9.3 L (11.4-16.0) gm/dL Hct 29.5 L (34.0-46.0) % MCV 101.8 H (80.0-100.0) fL ABG pH (7.35-7.45) ABG pCO2 (35-45) mmHg ABG pO2 (83-108) mmHg ABG HCO3 (21-25) mmol/L ABG Total CO2 (19-24) mmol/L ABG O2 Saturation (94-97) % Potassium 3.3 L (3.5-5.1) mmol/L Carbon Dioxide 34 H (22-30) mmol/L BUN 23 H (7-17) mg/dL Creatinine 0.28 L (0.52-1.04) mg/dL Glucose 157 H (74-99) mg/dL POC Glucose (mg/dL) 150 H (75-99) mg/dL Calcium 8.3 L (8.4-10.2) mg/dL Iron (50-170) ug/dL TIBC (228-460) ug/dL 11/08/18 Range/Units 08:00 RBC (3.80-5.40) m/uL Hgb (11.4-16.0) gm/dL Hct (34.0-46.0) % MCV (80.0-100.0) fL ABG pH 7.54 H (7.35-7.45) ABG pCO2 (35-45) mmHg ABG pO2 53 L* (83-108) mmHg ABG HCO3 32 H (21-25) mmol/L ABG Total CO2 34 H (19-24) mmol/L ABG O2 Saturation 88.3 L (94-97) % Potassium (3.5-5.1) mmol/L Carbon Dioxide (22-30) mmol/L BUN (7-17) mg/dL Creatinine (0.52-1.04) mg/dL Glucose (74-99) mg/dL POC Glucose (mg/dL) (75-99) mg/dL Calcium (8.4-10.2) mg/dL Iron (50-170) ug/dL TIBC (228-460) ug/dL Microbiology - Last 24 Hours (Table) 11/02/18 12:40 Blood Culture - Preliminary Blood No Growth after 120 hours Assessment and Plan Assessment: Assessment and Plan Acute on chronic hypoxic respiratory failure with hypercapnia due to laryngeal cancer, pleural effusion and COPD Severe protein calorie malnutrition with cachexia with G-tube due to dysphagia BMI 12.4 Mediastinal lymphadenopathy Anemia with thrombocytosis Hypokalemia Chest CT shows increased pleural effusion, right middle lobe pneumonia versus atelectasis. Pro-calcitonin negative, low concerns for pneumonia. POD 1 tracheostomy. Plans: Continue full ventilator support managed by pulmonology. Continue Zosyn for empiric treatment of pneumonia and aspiration. Continue Solu-Medrol 40 mg IV twice a day along with DuoNeb as needed for shortness of breath and wheezing for treatment of COPD. Plans for bronchoscopy today by pulmonology. Telemetry monitoring. Head of bed elevation. Pulmonology and general surgery on board. BMI 12.8. Plans: Continue G-tube feeds. Consult dietitian. As seen on previous CT chest. Plans: Will likely need bronchoscopy with pulmonology after trach. Follow pulmonology recommendations. Hemoglobin 9.3. Macrocytic during admission. Thrombocytosis of 470 likely from iron deficiency. Iron studies shows iron deficiency. B12 and folate within normal limits. Plans: Hemoglobin stable. Transfuse if hemoglobin less than 7. Daily CBC. Potassium 3.3. Plans: Replace via protocol. [Patient admitted for acute on chronic hypoxic respiratory failure due to multiple reasons. She is POD 1 tracheostomy. Plans for bronchoscopy today. Patient is pending clinical improvement. hospitality services manager following for LTAC placement. Likely DC in 1-3 days.]
[2018-11-08 12:02] LABS: Glucose,Whole Blood 104 mg/dL (75-99)
[2018-11-08] MEDS ORDERED: IV FLUID CONTINUATION 500 ML IV ONE (15:07)
[2018-11-08] MEDS ORDERED: PROPOFOL 10 MG/ML 100 ML VIAL IV ONE ×3 (15:11→15:30)
[2018-11-08] MEDS: PROPOFOL 1,000 MG in EMPTY BAG 1 BAG IV SCH (15:11)
[2018-11-08] MEDS ORDERED: HYDROmorphone 0.5 MG/0.5 ML SYRINGE IVP STA (15:14)
[2018-11-08] MEDS ORDERED: PROPOFOL 10 MG/ML 20 ML VIAL IV ONE (15:16)
--- NOTE | 2018-11-08 16:00 | XR ---
EXAMINATION TYPE: XR chest 1V portable DATE OF EXAM: 11/08/2018 COMPARISON: 11/08/2018 HISTORY: Shortness of breath TECHNIQUE: Single frontal view of the chest is obtained. FINDINGS: Bilateral consolidation and pleural effusion greater on the right is stable. Mediport cath eter noted there is underlying COPD. Biapical pleural thickening noted throughout the right stable. L eft-sided PICC line noted. Surgical shanae in the midline with a catheter seen overlying the left up per quadrant which may be related to gastrostomy tube. Tracheostomy tube seen. IMPRESSION: 1. Bilateral infiltrate and pleural effusion and asymmetric right apical pleural thickening or mass. Stable. 2. Tracheostomy tube appears in good position.
[2018-11-08 18:03] LABS: Glucose,Whole Blood 103 mg/dL (75-99)
[2018-11-08 18:44] LABS: Appearance,BF Cloudy; Color,BF Colorless; Nucleated Cells, Body Fluid 7750 /uL; RBC, Body Fluid 1400 /uL
[2018-11-08 22:34] LABS: Mononuclear WBC,Body Fluid 0 %; Polynuclear WBC,Body Fluid 100 %
[2018-11-09 00:01] LABS: Glucose,Whole Blood 123 mg/dL (75-99)
[2018-11-09] MEDS: MORPHINE SULFATE 4 MG/ML SYRINGE IVP PRN ×2 (00:50→22:31)
[2018-11-09] MEDS: ALBUTEROL NEBULIZED 2.5 MG/3 ML INHALATION PRN (04:29)
[2018-11-09] MEDS: LORazepam 2 MG/ML INJ IV PRN ×4 (04:41→20:25)
--- NOTE | 2018-11-09 05:49 | PCN ---
PROCEDURE NOTE OPERATIVE REPORT: Bronchoscopy and bronchoalveolar lavage of the right middle lobe and the right lower lobe as well as bronchoalveolar lavage of the left lower lobe. PREOPERATIVE DIAGNOSIS: Chronic collapse of right middle lobe and right lower lobe. POSTOPERATIVE DIAGNOSIS: Chronic collapse of right middle lobe and right lower lobe. ANESTHESIA USED: IV conscious sedation, patient received a total of 75 mg of propofol and 0.5 mg of Dilaudid prior to the procedure. PROCEDURE: The patient was placed in the supine position, she was already connected to mechanical ventilation and she had a tracheostomy in place. An adapter was applied to the tracheostomy and it was connected to mechanical ventilation. After adequate IV conscious sedation, the bronchoscope, which was a small lumen bronchoscope, a 5 mm bronchoscope and this was a disposable bronchoscope. The bronchoscope was advanced through the adapter down to the area of the distal tracheostomy tube. In the meantime, the patient was monitored, her O2 saturation was continuously monitored, blood pressure was intermittently monitored, and cardiac rhythm was continuously monitored. The bronchoscope was advanced further down and a thorough examination was done of the right upper lobe, right middle lobe, right lower lobe, left upper lobe, lingula and left lower lobe. There was no evidence of any significant secretions in the right upper lobe. However, the right middle lobe and right lower lobe were occluded with purulent secretions which were easy to suction. The right middle lobe and right lower lobe were lavaged, and all the purulent secretions were removed from the area. Then, we moved up on the left side and the left upper lobe was unremarkable, lingula was also unremarkable. Purulent secretions noted in the left lower lobe, and these were suctioned easily. Procedure was well tolerated, no evidence of any immediate complication. MMODL / IJN: [id number] /
[2018-11-09 06:04] LABS: Glucose,Whole Blood 126 mg/dL (75-99)
[2018-11-09] MEDS: INSULIN ASPART (NovoLOG) 100 UNIT/ML VIAL SQ SCH ×4 (06:04→18:48)
[2018-11-09] MEDS: PIPERACILLIN-TAZOBACTAM 3.375 GM in SODIUM CHLORIDE 0.9% 100 ML IVPB SCH ×3 (06:17→22:30)
[2018-11-09 06:25] LABS: Basophils % (A) 0 %; Eosinophils % (A) 0 %; HCT 27.6 % (34.0-46.0); HGB 8.5 gm/dL (11.4-16.0); Hypochromasia Moderate; Lymphocytes # (A) 0.2 k/uL (1.0-4.8); Lymphocytes % (A) 2 %; MCH 32.1 pg (25.0-35.0); MCHC 30.9 g/dL (31.0-37.0); Macrocytosis Moderate; Monocytes # (A) 0.2 k/uL (0-1.0); Monocytes % (A) 3 %; Neutrophils # (A) 6.9 k/uL (1.3-7.7); Neutrophils % (A) 94 %; Platelet Count 304 k/uL (150-450); RBC 2.66 m/uL (3.80-5.40); RDW 15.4 % (11.5-15.5); WBC 7.3 k/uL (3.8-10.6)
[2018-11-09 06:32] LABS: African American GFR (CKD) >90 (>60 ml/min/1.73 sqM); Anion Gap 0 mmol/L; Blood Urea Nitrogen 19 mg/dL (7-17); Calcium 8.1 mg/dL (8.4-10.2); Carbon Dioxide 33 mmol/L (22-30); Chloride 107 mmol/L (98-107); Glucose 116 mg/dL (74-99); Potassium 3.4 mmol/L (3.5-5.1); Sodium 140 mmol/L (137-145)
[2018-11-09] MEDS: POTASSIUM CHLORIDE 20 MEQ in WATER FOR INJECTION 1 100ML.BAG IVPB SCH ×2 (06:47→09:08)
[2018-11-09] MEDS: IPRATROPIUM-ALBUTEROL 3 ML NEB INHALATION SCH ×4 (06:55→19:28)
[2018-11-09] MEDS: ENOXAPARIN 40 MG/0.4 ML SYRINGE SQ SCH (09:07)
[2018-11-09] MEDS: PANTOPRAZOLE 40 MG/10 ML VIAL IVP SCH (09:07)
[2018-11-09] MEDS: methylPREDNISolone SOD SUCCI 40 MG/ML 1 ML VIAL IV SCH ×2 (09:08→20:25)
--- NOTE | 2018-11-09 09:49 | XR ---
EXAMINATION TYPE: XR chest 1V DATE OF EXAM: 11/09/2018 COMPARISON: 11/08/2018 HISTORY: Shortness of breath TECHNIQUE: Single frontal view of the chest is obtained. FINDINGS: Bilateral consolidation and pleural effusion greater on the right is stable. Mediport cath eter noted there is underlying COPD. Biapical pleural thickening noted throughout the right stable. L eft-sided PICC line noted. Surgical shanae in the midline with a catheter seen overlying the left up per quadrant which may be related to gastrostomy tube. Tracheostomy tube seen. Surgical shanae overl jesus the upper abdomen. IMPRESSION: 1. Bilateral infiltrate and pleural effusion and asymmetric right apical pleural thickening or mass. Stable. 2. Tracheostomy tube appears in good position.
--- NOTE | 2018-11-09 11:11 | P.PN ---
Subjective Progress Note Date: 11/09/18 Principal diagnosis: Acute on chronic hypoxic and hypercapnic respiratory failure This is a 53-year-old female patient of Dr. Foster, who was recently hospitalized for acute respiratory failure secondary to aspiration pneumonia, hypoxemic and hypercapnic requiring intubation and placement on mechanical ventilation. Patient was successfully extubated, was treated with antibiotics, completed a course of Levaquin and Zosyn. Patient showed significant clinical and radiographic improvement, by the time of her discharge to the [facility]. Patient also has history of laryngeal cancer with previous chemoradiation, and had evidence of severe malnutrition. In addition patient failed modified barium swallow, and was having evidence of aspiration with all consistencies. Patient also had evidence of electrolyte abnormality with hyponatremia and hypokalemia, which improved with treatment. Patient had a gastrostomy tube placed for nutritional support, and she was strict NPO. Sputum cultures from previous admission were negative. Other medical history includes chronic anemia of chronic disease, previous tobacco dependence. Patient was discharged to the [facility] on 11/01/2018 however she started experiencing shortness of breath at the [facility], and was apparently hypoxic and was brought back for evaluation on oral 11/02/2018. He denied any chest pain, she denies any oral intake at the [facility], she states she was getting her nutrition strictly through the gastrostomy tube. No aspiration, no fever or chills, chest x-ray showed basilar atelectasis and associated pleural effusions. Lab work showed white blood cell count of 14.0, hemoglobin of 11, correlation profile was within normal limits, blood gas showed pO2 of 64, pCO2 of 67, and pH of 7.32. Sodium was 140, potassium is 4.0, chloride is 98, CO2 37, B1 is 21, creatinine 0.24. O2 sat in the emergency department was ranging from 84-86 patient was placed on supplemental oxygen. Patient was given IV steroids, nebulized bronchodilators, and worsening the patient in consultation for shortness of breath. She is awake and alert, she is sitting up in bed, appears to be in no acute distress, currently on 2 L of oxygen, no significant wheezing, or congestion, she does have a weak cough, which does not sound congested, lung sounds are diminished, no rales auscultated. Follow-up blood work was reviewed today, white blood cell count is 15.5, hemoglobin is 9.7, repeat blood gas showed pO2 of 60, pCO2 59, and pH of 7.39 this was done on FiO2 28%. Patient looks extremely cachectic and weak, her voice is very weak and hoarse, but she appears to be in no acute distress. On 11/04/2018 I'm seeing this patient for a follow-up. This is an extremely debilitated and severely malnourished female patient who is post respiratory failure who was readmitted for ongoing difficulties in breathing. Noted the patient's BMI is 11.9 and she has kwashiorkor. The patient got moved yesterday to the intensive care unit because of worsening shortness of breath and altered mentation. Note that on the floor the patient had a blood gas showing a pH of 0.28 with a pCO2 of 83 and pO2 of 72. This was on FiO2 of 32%. She was having increased tachypnea and respiratory distress. At that point the patient got transferred to the intensive care unit. I was very hesitant intubated this patient based on an underlying condition and status. Note that the patient is extremely frail and has absolutely no muscle mass and intubation may be quite devastating for this patient had the patient accordingly was placed on a BiPAP at a pressure of 10/5 cm of water. She was also given some Ativan and morphine which. Much calm that down. Her subsequent blood gas showed a pH of 7.38 with a pCO2 of 69 a pO2 of 62. I realized the patient's respiratory insufficiency he had it performed a CAT scan of the chest yesterday and the CAT scan showed complete occlusion of the distal bronchus intermedius and right middle lobe atelectasis. There was also atelectatic changes in lung bases bilaterally with a right middle lobe atelectasis right lower lobe atelectasis and bilateral pleural effusions. Upper lobes are quite patent and well hydrated. The patient was started back on IV Zosyn. She did become hypotensive briefly and she was given a liter of IV fluid bolus and currently she is on normal saline at rate of 100 mL an hour. She is improved her blood pressure and she did not require any pressors. She is currently awake. She is following commands. However, she has a very poor insight on her condition. She is not aware that she is quite debilitated in [place] major disadvantage for recovering from her chronic illness. The patient also is receiving enteral feeding for nutritional support in the form of vitamin 1.2 which is currently at goal. I added this patient IV Zosyn. She is on Lovenox for DVT prophylaxis. CAT scan of the chest also showed emphysema bilaterally. She is on bronchodilators. She is also on IV Solu-Medrol. IV Protonix for GI prophylaxis. On 11/05/2018, the patient is being seen in follow-up she is awake and alert. She is following commands. She is on a BiPAP at a pressure of 10/5 cm of water with an FiO2 of 40%. The patient is very much compliant and tolerating her BiPAP. No significant cough or sputum production. The chest x-ray from today shows small bilateral pleural effusion, right middle lobe/right lower lobe a telectasis. Her pro-calcitonin level was low. She is covered with IV Zosyn. She is also covered with IV Solu-Medrol and the dose was reduced down to 40 mg every 12 hours. He is on DuoNeb nebulized treatments around the clock and she is receiving enteral feeding for nutritional support. Sodium level is up to 147. Atelectatic discussion with the patient's family. The family wants everything done including the possibility of long-term vent support. In that case, it made recommendations to proceed with a tracheostomy and the patient is unable to breathe independently without any form of respiratory assisting devices and the patient is quite debilitated and has significant malnutrition a nd neuromuscular weakness. Patient was reevaluated today on 11/06/2018, patient remains on BiPAP, presently at a pressure of 10/5 and FiO2 of 40%. She seems to be almost BiPAP dependent. Her chest x-ray is showing significant worsening of the right lower lobe and right lobe collapse and atelectasis, there is also some component of pleural effusion. Remains on antibiotics in the form of Zosyn, patient is on bronchodilators is also on IV Solu-Medrol. Not much of a blade changer the last 24 hours. Apparently the patient is to be seen by surgery today, and Dr. Jimenez recommended tracheostomy which will likely be done tomorrow or in the next couple of days. Patient will be bronchoscoped after tracheostomy and mechanical ventilation. And she read he has a PEG tube in place. Presently the patient is about the same, and not much blade changer the last 24 hours. WBC count is 9.5 hemoglobin 9.6 electrolytes are normal bicarb is 37 renal functioning is normal. Patient was already seen by general surgery, and surgery is being considered for either tomorrow or Tuesday. Patient was reevaluated today on 11/07/2018, remains on BiPAP this morning, scheduled to undergo tracheostomy this morning. Patient again seems to be almost BiPAP dependent. Chest x-ray continues to show evidence of right lower lobe and right lobe collapse and atelectasis. Small tiny pleural effusion is noted. Remains on antibiotics, bronchodilators, IV Solu-Medrol, and again the patient is scheduled for tracheostomy today. Family is at bedside, and I discussed the option of bronchoscopy after tracheostomy which I will likely perform tomorrow on this patient to evaluate the right middle lobe and right l ower lobe. Patient was reevaluated today on 11/08/2018, she underwent tracheostomy yesterday, presently the patient is on mechanical ventilation, she is on before meals mode of 12 tidal volume of 350 FiO2 is down to 50%, and PEEP is 5. Patient seems to be very calm, comfortable, very appropriate, and her chest x- ray continues to show significant right lower lobe and right middle lobe collapse. Hence considering the patient is now on mechanical ventilation, I have discussed with the patient the option of bronchoscopy and evaluation of the right middle lobe and right lower lobe, and she is agreeable to proceed with the procedure today. The bronchoscopy team was notified, and it will be done sometime this afternoon. In the meantime patient remains nothing by mouth, her PEG tube feeding is on hold, and will empty her stomach. ABG this morning showed a pO2 of 53 pCO2 of 38 pH of 7.54. Electrolytes are normal renal profile is normal potassium is a bit low at 3.3 WBC count is 10.3 hemoglobin is 9.3. Patient was reevaluated today on 11/09/2018, she is postoperative day #1, patient underwent tracheostomy placement for chronic respiratory failure and she is presently on assist control rate of 12, FiO2 of 35%, tidal volume of 350. PEEP is 5. Patient underwent bronchoscopy yesterday, and purulent secretions were suctioned out of the right middle lobe and right lower lobe. Microbiology on the BAL is pending. Patient seems to be very comfortable on mechanical ventilation. Not requiring any propofol. Hence I recommended a trial of pressure support of 8 and CPAP to be given today. And depending on how she tolerates the weaning trial, may or may not proceed to trach collar. If the patient fails weaning may proceed with transferring the patient to a select care specialty for further weaning down the line. Chest x-ray showed slight improvement in the aeration of the right lower lobe continues to have a small right pleural effusion. CBC is relatively normal hemoglobin is 8.5 electrolytes are normal renal profile is normal. Objective - Vital Signs Vital signs: Vital Signs Temp 98 F 11/09/18 08:00 Pulse 96 11/09/18 11:00 Resp 28 H 11/09/18 11:00 BP 109/79 11/09/18 11:00 Pulse Ox 98 11/09/18 11:00 Intake & Output 11/08/18 11/09/18 11/09/18 18:59 06:59 18:59 Intake Total 785 750 700 Output Total 1446 510 165 Balance -661 240 535 Weight 37.2 kg 37.1 kg Intake: IV 545 220 350 .9 120 120 50 Piperacillin-Tazobactam 3 300 100 100 .375 gm In Sodium Chloride 0.9% 100 ml @ 25 mls/hr IVPB Q8H ERNESTINA Rx#: [id number] Potassium Chloride 20 meq 100 In Water For Injection 1 100ml.bag @ 50 mls/hr IVPB Q2H ERNESTINA Rx#: [id number] Potassium Chloride 20 meq 100 In Water For Injection 1 100ml.bag @ 50 mls/hr IVPB Q2H ERNESTINA Rx#: [id number] Potassium Chloride 20 meq 100 In Water For Injection 1 100ml.bag @ 50 mls/hr IVPB Q2H ERNESTINA Rx#: [id number] Intake, IV Titration 0 Amount Propofol 1,000 mg In 0 Empty Bag 1 bag @ Titrate IV .Q0M ERNESTINA Rx#: [id number] Tube Feeding 180 440 320 Other 60 90 30 Output: Urine 1446 510 165 Other: Voiding Method Indwelling Catheter Indwelling Catheter Indwelling Catheter - Exam Physical Exam: 53-year-old on mechanical ventilation, in no distress. Fully awake and responsive Head: Atraumatic, normocephalic. Looks cachectic, on mechanical ventilation. Tracheostomy tube is intact. HEENT:[Neck is supple.] [No neck masses.] [No thyromegaly.] [No JVD.] PERRLA, EOMI, no icterus. Chest: Slightly diminished breath sounds at the right base, otherwise unremarkable. Symmetrical chest expansion is noted. Cardiac Exam: [Normal S1 and S2, no S3 gallop, no murmur.] Abdomen: [Soft, nontender, no megaly, no rebound, no guarding, normal bowel sounds.] Extremities: [No clubbing, no edema, no cyanosis.] Neurological Exam: [No focal neurologic deficit.] Alert and oriented 3. Psychiatric: Normal mood affect and normal mental status examination. Skin: No rashes. Spine: No scoliosis. Musculoskeletal: Muscle wasting is noted otherwise unremarkable. - Labs CBC & Chem 7: 11/09/18 05:39 11/09/18 05:39 Labs: Abnormal Lab Results - Last 24 Hours (Table) 11/08/18 11/08/18 11/08/18 Range/Units 11:59 18:00 23:58 RBC (3.80-5.40) m/uL Hgb (11.4-16.0) gm/dL Hct (34.0-46.0) % MCV (80.0-100.0) fL MCHC (31.0-37.0) g/dL Lymphocytes # (1.0-4.8) k/uL Potassium (3.5-5.1) mmol/L Carbon Dioxide (22-30) mmol/L BUN (7-17) mg/dL Creatinine (0.52-1.04) mg/dL Glucose (74-99) mg/dL POC Glucose (mg/dL) 104 H 103 H 123 H (75-99) mg/dL Calcium (8.4-10.2) mg/dL 11/09/18 11/09/18 11/09/18 Range/Units 05:39 05:39 06:01 RBC 2.66 L (3.80-5.40) m/uL Hgb 8.5 L (11.4-16.0) gm/dL Hct 27.6 L (34.0-46.0) % MCV 104.0 H (80.0-100.0) fL MCHC 30.9 L (31.0-37.0) g/dL Lymphocytes # 0.2 L (1.0-4.8) k/uL Potassium 3.4 L (3.5-5.1) mmol/L Carbon Dioxide 33 H (22-30) mmol/L BUN 19 H (7-17) mg/dL Creatinine 0.25 L (0.52-1.04) mg/dL Glucose 116 H (74-99) mg/dL POC Glucose (mg/dL) 126 H (75-99) mg/dL Calcium 8.1 L (8.4-10.2) mg/dL Microbiology - Last 24 Hours (Table) 11/08/18 15:00 Gram Stain - Preliminary Bronchoalviolar Lavage - Right Bronchial Washings Culture - Preliminary 11/08/18 15:00 Fungal Culture - Preliminary Bronchoalviolar Lavage - Right 11/08/18 15:00 Acid Fast Bacilli Culture - Preliminary Bronchoalviolar Lavage - Right 11/02/18 12:40 Blood Culture - Final Blood No Growth after 144 hours Assessment and Plan Assessment: Impression: 1 acute on chronic hypoxic respiratory failure, status post tracheostomy, postoperative day #1, remains mechanically ventilated. 2 severe underlying COPD 3 history of laryngeal cancer and previous chemoradiation therapy 4 severe protein calorie malnutrition BMI of 11.9 5 chronic smoking 6 chronic anemia of chronic disease 7 right lower lobe and right middle lobe collapse, status post bronchoscopy yesterday, no evidence of endobronchial tumor, purulent secretions noted in the right middle lobe and right lower lobe, suctioned, lavaged, and sent for different diagnostic studies. 8 chronic hypoxic and hypercapnic respiratory failure, presently on mechanical ventilation. Recommendation: Continue tracheostomy care. Continue mechanical ventilation, however the patient will be given a trial of weaning with a pressure support and CPAP. Continue enteral feeding via PEG tube which is already in place. Continue GI and DVT prophylaxis. Continue bronchodilators. Continue antibiotics, Trial of weaning with up support and CPAP today. Consider pacing the patient on trach collar if pressure support and CPAP as well tolerated. Discussed today her condition with her and her family members at bedside, also with discharge planning, patient may eventually require referral to a select care specialty. We'll continue to follow. Time with Patient: Less than 30
--- NOTE | 2018-11-09 11:46 | P.OP ---
Date of Procedure: 11/07/18 Preoperative Diagnosis: Respiratory failure Postoperative Diagnosis: Respiratory failure Procedure(s) Performed: Tracheostomy Anesthesia: JEAN CARLOS Surgeon: Adonis Montesinos Pathology: none sent Condition: stable Disposition: ICU Description of Procedure: The patient's placed on the operative table in supine position. Her neck was extended. Her neck was prepped and draped usual sterile fashion. A standard [place] incision was made approximately 2 cm above the sternal notch. Using electrocautery the platysma was divided and the strap muscles were exposed. A wheal entered transversely. The strap muscles were divided in the midline. And then the trachea was exposed. The tracheotomy performed between the second and third tracheal rings. A #7 tracheostomy tube was placed in the patient's trachea. The tracheostomy was secured umbilical tape after the skin was closed with 2-0 nylon suture. Patient top she will was sent to recovery room stable condition.
[2018-11-09 11:55] LABS: Glucose,Whole Blood 132 mg/dL (75-99)
--- NOTE | 2018-11-09 13:39 | P.PN ---
Subjective Progress Note Date: 11/09/18 Principal diagnosis: Acute on chronic hypoxic respiratory failure Patient was seen and examined. No acute events overnight. Postop day 2 tracheostomy. Underwent bronchoscopy yesterday, purulent secretions evacuated with microbiology pending. Currently on vent settings tidal volume 350, FiO2 35 PEEP 5 and rate of 12. Objective - Vital Signs Vital signs: Vital Signs Temp 98.1 F 11/09/18 12:00 Pulse 96 11/09/18 12:00 Resp 22 11/09/18 12:00 BP 115/84 11/09/18 12:00 Pulse Ox 93 L 11/09/18 12:00 Intake & Output 11/08/18 11/09/18 11/09/18 18:59 06:59 18:59 Intake Total 785 750 870 Output Total 1446 510 400 Balance -661 240 470 Weight 37.2 kg 37.1 kg Intake: IV 545 220 370 .9 120 120 70 Piperacillin-Tazobactam 3 300 100 100 .375 gm In Sodium Chloride 0.9% 100 ml @ 25 mls/hr IVPB Q8H ERNESTINA Rx#: [id number] Potassium Chloride 20 meq 100 In Water For Injection 1 100ml.bag @ 50 mls/hr IVPB Q2H ERNESTINA Rx#: [id number] Potassium Chloride 20 meq 100 In Water For Injection 1 100ml.bag @ 50 mls/hr IVPB Q2H ERNESTINA Rx#: [id number] Potassium Chloride 20 meq 100 In Water For Injection 1 100ml.bag @ 50 mls/hr IVPB Q2H ERNESTINA Rx#: [id number] Intake, IV Titration 0 Amount Propofol 1,000 mg In 0 Empty Bag 1 bag @ Titrate IV .Q0M ERNESTINA Rx#: [id number] Tube Feeding 180 440 440 Other 60 90 60 Output: Urine 1446 510 400 Other: Voiding Method Indwelling Catheter Indwelling Catheter Indwelling Catheter - Exam General: [Cachectic], [sedated, tracheostomy site clean and dry], [appears at stated age] Derm: [warm], [dry] Head: [atraumatic], [normocephalic], [bitemporal wasting] Eyes: [no lid lag], [anicteric sclera] Mouth: [no lip lesion], [mucus membranes moist] Cardiovascular: [S1S2 reg], [tachycardic], [positive DP pulse bilateral], Lungs: [Decreased breath sounds bilateral], [no rhonchi, no rales] , [no accessory muscle use] Abdominal: [soft], [ nontender to palpation], [no guarding], [Whitting[place] catheter in place] Ext: [no gross muscle atrophy], [no edema], [no contractures] Neuro: [no focal neuro deficits] Psych: [Sedated] - Labs CBC & Chem 7: 11/09/18 05:39 11/09/18 05:39 Labs: Abnormal Lab Results - Last 24 Hours (Table) 11/08/18 11/08/18 11/09/18 Range/Units 18:00 23:58 05:39 RBC 2.66 L (3.80-5.40) m/uL Hgb 8.5 L (11.4-16.0) gm/dL Hct 27.6 L (34.0-46.0) % MCV 104.0 H (80.0-100.0) fL MCHC 30.9 L (31.0-37.0) g/dL Lymphocytes # 0.2 L (1.0-4.8) k/uL Potassium (3.5-5.1) mmol/L Carbon Dioxide (22-30) mmol/L BUN (7-17) mg/dL Creatinine (0.52-1.04) mg/dL Glucose (74-99) mg/dL POC Glucose (mg/dL) 103 H 123 H (75-99) mg/dL Calcium (8.4-10.2) mg/dL 11/09/18 11/09/18 11/09/18 Range/Units 05:39 06:01 11:51 RBC (3.80-5.40) m/uL Hgb (11.4-16.0) gm/dL Hct (34.0-46.0) % MCV (80.0-100.0) fL MCHC (31.0-37.0) g/dL Lymphocytes # (1.0-4.8) k/uL Potassium 3.4 L (3.5-5.1) mmol/L Carbon Dioxide 33 H (22-30) mmol/L BUN 19 H (7-17) mg/dL Creatinine 0.25 L (0.52-1.04) mg/dL Glucose 116 H (74-99) mg/dL POC Glucose (mg/dL) 126 H 132 H (75-99) mg/dL Calcium 8.1 L (8.4-10.2) mg/dL Microbiology - Last 24 Hours (Table) 11/08/18 15:00 Gram Stain - Preliminary Bronchoalviolar Lavage - Right Bronchial Washings Culture - Preliminary 11/08/18 15:00 Fungal Culture - Preliminary Bronchoalviolar Lavage - Right 11/08/18 15:00 Acid Fast Bacilli Culture - Preliminary Bronchoalviolar Lavage - Right 11/02/18 12:40 Blood Culture - Final Blood No Growth after 144 hours Assessment and Plan Assessment: Assessment and Plan Acute on chronic hypoxic respiratory failure with hypercapnia due to laryngeal cancer, pleural effusion and COPD Severe protein calorie malnutrition with cachexia with G-tube due to dysphagia BMI 12.4 Mediastinal lymphadenopathy Anemia with thrombocytosis Hypokalemia Chest CT shows increased pleural effusion, right middle lobe pneumonia versus atelectasis. Pro-calcitonin negative, low concerns for pneumonia. POD 2 tracheostomy. POD 1 post bronchoscopy. Plans: Continue full ventilator support managed by pulmonology, attempt to wean today. Continue Zosyn for empiric treatment of pneumonia and aspiration while waiting on BAL cultures. Continue Solu-Medrol 40 mg IV twice a day along with DuoNeb as needed for shortness of breath and wheezing for treatment of COPD. Telemetry monitoring. Head of bed elevation. Pulmonology and general surgery on board. BMI 12.8. Plans: Continue G-tube feeds. Consult dietitian. As seen on previous CT chest. Plans: Will likely need bronchoscopy with pulmonology after trach. Follow pulmonology recommendations. Hemoglobin 9.3-8.5. Acute blood loss from surgery. Macrocytic during admission. Thrombocytosis of 470 likely from iron deficiency. Iron studies shows iron deficiency. B12 and folate within normal limits. Plans: Hemoglobin stable. Transfuse if hemoglobin less than 7. Daily CBC. Potassium 3.4. Plans: Replace via protocol. [Patient admitted for acute on chronic hypoxic respiratory failure due to multiple reasons. She is POD 2 tracheostomy. POD 1 bronchoscopy, cultures pending. director of convention services following for LTAC placement. Cleared for DC per pulmonology, pending insurance acceptance for LTAC.]
[2018-11-09 17:59] LABS: Glucose,Whole Blood 116 mg/dL (75-99)
[2018-11-09] MEDS: POTASSIUM BICARBONATE/CIT AC 20 MEQ TABLET.EFF NG-TUBE SCH ×2 (22:26→22:27)
[2018-11-10] MEDS: INSULIN ASPART (NovoLOG) 100 UNIT/ML VIAL SQ SCH ×4 (00:01→18:28)
[2018-11-10] MEDS: LORazepam 2 MG/ML INJ IV PRN ×4 (00:09→20:54)
[2018-11-10 00:21] LABS: Glucose,Whole Blood 128 mg/dL (75-99)
[2018-11-10] MEDS: ALBUTEROL NEBULIZED 2.5 MG/3 ML INHALATION PRN ×3 (01:02→22:57)
[2018-11-10] MEDS: MORPHINE SULFATE 4 MG/ML SYRINGE IVP PRN ×3 (04:15→23:08)
[2018-11-10 06:26] LABS: Glucose,Whole Blood 107 mg/dL (75-99)
[2018-11-10] MEDS: PIPERACILLIN-TAZOBACTAM 3.375 GM in SODIUM CHLORIDE 0.9% 100 ML IVPB SCH ×3 (06:34→23:09)
[2018-11-10] MEDS: IPRATROPIUM-ALBUTEROL 3 ML NEB INHALATION SCH ×4 (07:33→19:04)
[2018-11-10] MEDS: ENOXAPARIN 40 MG/0.4 ML SYRINGE SQ SCH (08:04)
[2018-11-10] MEDS: PANTOPRAZOLE 40 MG/10 ML VIAL IVP SCH (08:04)
[2018-11-10] MEDS: methylPREDNISolone SOD SUCCI 40 MG/ML 1 ML VIAL IV SCH ×2 (08:04→20:49)
[2018-11-10 08:50] LABS: Basophils % (A) 0 %; Eosinophils # (A) 0.1 k/uL (0-0.7); Eosinophils % (A) 1 %; HCT 27.5 % (34.0-46.0); HGB 8.5 gm/dL (11.4-16.0); Hypochromasia Slight; Lymphocytes # (A) 0.2 k/uL (1.0-4.8); Lymphocytes % (A) 3 %; MCH 31.9 pg (25.0-35.0); MCHC 30.9 g/dL (31.0-37.0); MCV 103.5 fL (80.0-100.0); Macrocytosis Moderate; Mean Platelet Volume 7.3; Monocytes # (A) 0.3 k/uL (0-1.0); Monocytes % (A) 4 %; Neutrophils % (A) 91 %; Platelet Count 267 k/uL (150-450); RBC 2.65 m/uL (3.80-5.40); RDW 15.5 % (11.5-15.5); WBC 6.5 k/uL (3.8-10.6)
[2018-11-10 09:01] LABS: African American GFR (CKD) >90 (>60 ml/min/1.73 sqM); Anion Gap 3 mmol/L; Blood Urea Nitrogen 16 mg/dL (7-17); Calcium 8.2 mg/dL (8.4-10.2); Carbon Dioxide 32 mmol/L (22-30); Chloride 103 mmol/L (98-107); Glucose 105 mg/dL (74-99); Magnesium 1.7 mg/dL (1.6-2.3); Potassium 3.8 mmol/L (3.5-5.1); Sodium 138 mmol/L (137-145)
--- NOTE | 2018-11-10 09:07 | XR ---
EXAMINATION TYPE: XR chest 1V portable DATE OF EXAM: 11/10/2018 COMPARISON: 11/09/2018 HISTORY: Shortness of breath TECHNIQUE: Single frontal view of the chest is obtained. FINDINGS: Bilateral consolidation and pleural effusion greater on the right is stable. Mediport cath eter noted there is underlying COPD. Biapical pleural thickening noted throughout the right stable. L eft-sided PICC line noted. Surgical shanae in the midline with a catheter seen overlying the left up per quadrant which may be related to gastrostomy tube. Tracheostomy tube seen. Surgical shanae overl jesus the upper abdomen. IMPRESSION: 1. Bilateral infiltrate and pleural effusion and asymmetric right apical pleural thickening or mass. Stable.
--- NOTE | 2018-11-10 11:08 | P.PN ---
Subjective Progress Note Date: 11/10/18 Principal diagnosis: Acute on chronic hypoxic and hypercapnic respiratory failure This is a 53-year-old female patient of Dr. Foster, who was recently hospitalized for acute respiratory failure secondary to aspiration pneumonia, hypoxemic and hypercapnic requiring intubation and placement on mechanical ventilation. Patient was successfully extubated, was treated with antibiotics, completed a course of Levaquin and Zosyn. Patient showed significant clinical and radiographic improvement, by the time of her discharge to the [facility]. Patient also has history of laryngeal cancer with previous chemoradiation, and had evidence of severe malnutrition. In addition patient failed modified barium swallow, and was having evidence of aspiration with all consistencies. Patient also had evidence of electrolyte abnormality with hyponatremia and hypokalemia, which improved with treatment. Patient had a gastrostomy tube placed for nutritional support, and she was strict NPO. Sputum cultures from previous admission were negative. Other medical history includes chronic anemia of chronic disease, previous tobacco dependence. Patient was discharged to the [facility] on 11/01/2018 however she started experiencing shortness of breath at the [facility], and was apparently hypoxic and was brought back for evaluation on oral 11/02/2018. He denied any chest pain, she denies any oral intake at the halfway home, she states she was getting her nutrition strictly through the gastrostomy tube. No aspiration, no fever or chills, chest x-ray showed basilar atelectasis and associated pleural effusions. Lab work showed white blood cell count of 14.0, hemoglobin of 11, correlation profile was within normal limits, blood gas showed pO2 of 64, pCO2 of 67, and pH of 7.32. Sodium was 140, potassium is 4.0, chloride is 98, CO2 37, B1 is 21, creatinine 0.24. O2 sat in the emergency department was ranging from 84-86 patient was placed on supplemental oxygen. Patient was given IV steroids, nebulized bronchodilators, and worsening the patient in consultation for shortness of breath. She is awake and alert, she is sitting up in bed, appears to be in no acute distress, currently on 2 L of oxygen, no significant wheezing, or congestion, she does have a weak cough, which does not sound congested, lung sounds are diminished, no rales auscultated. Follow-up blood work was reviewed today, white blood cell count is 15.5, hemoglobin is 9.7, repeat blood gas showed pO2 of 60, pCO2 59, and pH of 7.39 this was done on FiO2 28%. Patient looks extremely cachectic and weak, her voice is very weak and hoarse, but she appears to be in no acute distress. On 11/04/2018 I'm seeing this patient for a follow-up. This is an extremely debilitated and severely malnourished female patient who is post respiratory failure who was readmitted for ongoing difficulties in breathing. Noted the patient's BMI is 11.9 and she has kwashiorkor. The patient got moved yesterday to the intensive care unit because of worsening shortness of breath and altered mentation. Note that on the floor the patient had a blood gas showing a pH of 0.28 with a pCO2 of 83 and pO2 of 72. This was on FiO2 of 32%. She was having increased tachypnea and respiratory distress. At that point the patient got transferred to the intensive care unit. I was very hesitant intubated this patient based on an underlying condition and status. Note that the patient is extremely frail and has absolutely no muscle mass and intubation may be quite devastating for this patient had the patient accordingly was placed on a BiPAP at a pressure of 10/5 cm of water. She was also given some Ativan and morphine which. Much calm that down. Her subsequent blood gas showed a pH of 7.38 with a pCO2 of 69 a pO2 of 62. I realized the patient's respiratory insufficiency he had it performed a CAT scan of the chest yesterday and the CAT scan showed complete occlusion of the distal bronchus intermedius and right middle lobe atelectasis. There was also atelectatic changes in lung bases bilaterally with a right middle lobe atelectasis right lower lobe atelectasis and bilateral pleural effusions. Upper lobes are quite patent and well hydrated. The patient was started back on IV Zosyn. She did become hypotensive briefly and she was given a liter of IV fluid bolus and currently she is on normal saline at rate of 100 mL an hour. She is improved her blood pressure and she did not require any pressors. She is currently awake. She is following commands. However, she has a very poor insight on her condition. She is not aware that she is quite debilitated in [place] major disadvantage for recovering from her chronic illness. The patient also is receiving enteral feeding for nutritional support in the form of vitamin 1.2 which is currently at goal. I added this patient IV Zosyn. She is on Lovenox for DVT prophylaxis. CAT scan of the chest also showed emphysema bilaterally. She is on bronchodilators. She is also on IV Solu-Medrol. IV Protonix for GI prophylaxis. On 11/05/2018, the patient is being seen in follow-up she is awake and alert. She is following commands. She is on a BiPAP at a pressure of 10/5 cm of water with an FiO2 of 40%. The patient is very much compliant and tolerating her BiPAP. No significant cough or sputum production. The chest x-ray from today shows small bilateral pleural effusion, right middle lobe/right lower lobe a telectasis. Her pro-calcitonin level was low. She is covered with IV Zosyn. She is also covered with IV Solu-Medrol and the dose was reduced down to 40 mg every 12 hours. He is on DuoNeb nebulized treatments around the clock and she is receiving enteral feeding for nutritional support. Sodium level is up to 147. Atelectatic discussion with the patient's family. The family wants everything done including the possibility of long-term vent support. In that case, it made recommendations to proceed with a tracheostomy and the patient is unable to breathe independently without any form of respiratory assisting devices and the patient is quite debilitated and has significant malnutrition a nd neuromuscular weakness. Patient was reevaluated today on 11/06/2018, patient remains on BiPAP, presently at a pressure of 10/5 and FiO2 of 40%. She seems to be almost BiPAP dependent. Her chest x-ray is showing significant worsening of the right lower lobe and right lobe collapse and atelectasis, there is also some component of pleural effusion. Remains on antibiotics in the form of Zosyn, patient is on bronchodilators is also on IV Solu-Medrol. Not much of a microsoft exchange administrator the last 24 hours. Apparently the patient is to be seen by surgery today, and Dr. Jimenez recommended tracheostomy which will likely be done tomorrow or in the next couple of days. Patient will be bronchoscoped after tracheostomy and mechanical ventilation. And she read he has a PEG tube in place. Presently the patient is about the same, and not much microsoft exchange administrator the last 24 hours. WBC count is 9.5 hemoglobin 9.6 electrolytes are normal bicarb is 37 renal functioning is normal. Patient was already seen by general surgery, and surgery is being considered for either tomorrow or Tuesday. Patient was reevaluated today on 11/07/2018, remains on BiPAP this morning, scheduled to undergo tracheostomy this morning. Patient again seems to be almost BiPAP dependent. Chest x-ray continues to show evidence of right lower lobe and right lobe collapse and atelectasis. Small tiny pleural effusion is noted. Remains on antibiotics, bronchodilators, IV Solu-Medrol, and again the patient is scheduled for tracheostomy today. Family is at bedside, and I discussed the option of bronchoscopy after tracheostomy which I will likely perform tomorrow on this patient to evaluate the right middle lobe and right l ower lobe. Patient was reevaluated today on 11/08/2018, she underwent tracheostomy yesterday, presently the patient is on mechanical ventilation, she is on before a c mode of mechanical ventilation , 12 tidal volume of 350 FiO2 is down to 50%, and PEEP is 5. Patient seems to be very calm, comfortable, very appropriate, and her chest x-ray continues to show significant right lower lobe and right middle lobe collapse. Hence considering the patient is now on mechanical ventilation, I have discussed with the patient the option of bronchoscopy and evaluation of the right middle lobe and right lower lobe, and she is agreeable to proceed with the procedure today. The bronchoscopy team was notified, and it will be done sometime this afternoon. In the meantime patient remains nothing by mouth, her PEG tube feeding is on hold, and will empty her stomach. ABG this morning showed a pO2 of 53 pCO2 of 38 pH of 7.54. Electrolytes are normal renal profile is normal potassium is a bit low at 3.3 WBC count is 10.3 hemoglobin is 9.3. Patient was reevaluated today on 11/09/2018, she is postoperative day #1, patient underwent tracheostomy placement for chronic respiratory failure and she is presently on assist control rate of 12, FiO2 of 35%, tidal volume of 350. PEEP is 5. Patient underwent bronchoscopy yesterday, and purulent secretions were suctioned out of the right middle lobe and right lower lobe. Microbiology on the BAL is pending. Patient seems to be very comfortable on mechanical ventilation. Not requiring any propofol. Hence I recommended a trial of pressure support of 8 and CPAP to be given today. And depending on how she tolerates the weaning trial, may or may not proceed to trach collar. If the patient fails weaning may proceed with transferring the patient to a select care specialty for further weaning down the line. Chest x-ray showed slight improvement in the aeration of the right lower lobe continues to have a small right pleural effusion. CBC is relatively normal hemoglobin is 8.5 electrolytes are normal renal profile is normal. Patient was reevaluated today on 11/10/2018, remains in the ICU, remains on mechanical ventilation, status post tracheostomy and she is postoperative day #2. Her ventilator mode remains the same, ventilator settings are the same. As noted above. Patient was given a trial of pressure support and CPAP mode of weaning trial, but she did not do well after 1 hour she had to be placed back on assist control mode of mechanical ventilation. Patient seems to be quite comfortable on mechanical ventilation, and I'm going to try again another trial of pressure support and CPAP mode of weaning. However I have a strong feeling that the patient will not be eased to wean, and she will eventually require transfer to select care specialty. Chest x-ray continues to show chronic atelectasis of the right lower lobe although yesterday that was slightly improved aeration. CBC showed WBC count of 6.5 hemoglobin 8.5 electrodes are normal renal profile is normal. Objective - Vital Signs Vital signs: Vital Signs Temp 98.5 F 11/10/18 08:00 Pulse 87 11/10/18 10:54 Resp 57 H 11/10/18 10:00 BP 99/77 11/10/18 10:00 Pulse Ox 96 11/10/18 10:00 Intake & Output 11/09/18 11/10/18 11/10/18 18:59 06:59 18:59 Intake Total 1280 400 340 Output Total 860 955 260 Balance 420 -555 80 Weight 36.5 kg 36.5 kg Intake: IV 430 210 140 .9 130 110 40 Piperacillin-Tazobactam 3 100 100 100 .375 gm In Sodium Chloride 0.9% 100 ml @ 25 mls/hr IVPB Q8H [facility] Rx#: [id number] Potassium Chloride 20 meq 100 In Water For Injection 1 100ml.bag @ 50 mls/hr IVPB Q2H ERNESTINA Rx#: [id number] Potassium Chloride 20 meq 100 In Water For Injection 1 100ml.bag @ 50 mls/hr IVPB Q2H [facility] Rx#: [id number] Tube Feeding 760 160 200 Other 90 30 Output: Urine 860 955 260 Other: Voiding Method Indwelling Catheter Indwelling Catheter - Exam Physical Exam: 53-year-old on mechanical ventilation, asymptomatic, in no distress Head: Atraumatic, normocephalic. Tracheostomy tube is intact. HEENT:[Neck is supple.] [No neck masses.] [No thyromegaly.] [No JVD.] PERRLA, EOMI, no icterus. Chest: Diminished breath sounds at the right base, no crackles or rhonchi or wheezes. Cardiac Exam: [Normal S1 and S2, no S3 gallop, no murmur.] Abdomen: [Soft, nontender, no megaly, no rebound, no guarding, normal bowel sounds.] Extremities: [No clubbing, no edema, no cyanosis.] Neurological Exam: [No focal neurologic deficit.] Alert and oriented 3. Psychiatric: Normal mood affect and normal mental status examination. Skin: No rashes. Spine: No scoliosis. Musculoskeletal: Muscle wasting is noted otherwise unremarkable. - Labs CBC & Chem 7: 11/10/18 08:32 11/10/18 08:32 Labs: Abnormal Lab Results - Last 24 Hours (Table) 11/09/18 11/09/18 11/09/18 Range/Units 11:51 17:56 20:05 RBC (3.80-5.40) m/uL Hgb (11.4-16.0) gm/dL Hct (34.0-46.0) % MCV (80.0-100.0) fL MCHC (31.0-37.0) g/dL Lymphocytes # (1.0-4.8) k/uL Potassium 3.4 L (3.5-5.1) mmol/L Carbon Dioxide (22-30) mmol/L Creatinine (0.52-1.04) mg/dL Glucose (74-99) mg/dL POC Glucose (mg/dL) 132 H 116 H (75-99) mg/dL Calcium (8.4-10.2) mg/dL 11/09/18 11/10/18 11/10/18 Range/Units 23:55 06:12 08:32 RBC 2.65 L (3.80-5.40) m/uL Hgb 8.5 L (11.4-16.0) gm/dL Hct 27.5 L (34.0-46.0) % MCV 103.5 H (80.0-100.0) fL MCHC 30.9 L (31.0-37.0) g/dL Lymphocytes # 0.2 L (1.0-4.8) k/uL Potassium (3.5-5.1) mmol/L Carbon Dioxide (22-30) mmol/L Creatinine (0.52-1.04) mg/dL Glucose (74-99) mg/dL POC Glucose (mg/dL) 128 H 107 H (75-99) mg/dL Calcium (8.4-10.2) mg/dL 11/10/18 Range/Units 08:32 RBC (3.80-5.40) m/uL Hgb (11.4-16.0) gm/dL Hct (34.0-46.0) % MCV (80.0-100.0) fL MCHC (31.0-37.0) g/dL Lymphocytes # (1.0-4.8) k/uL Potassium (3.5-5.1) mmol/L Carbon Dioxide 32 H (22-30) mmol/L Creatinine 0.24 L (0.52-1.04) mg/dL Glucose 105 H (74-99) mg/dL POC Glucose (mg/dL) (75-99) mg/dL Calcium 8.2 L (8.4-10.2) mg/dL Microbiology - Last 24 Hours (Table) 11/08/18 15:00 Gram Stain - Final Bronchoalviolar Lavage - Right Bronchial Washings Culture - Final Christelle albicans 11/08/18 15:00 Acid Fast Bacilli Smear - Final Bronchoalviolar Lavage - Right Acid Fast Bacilli Culture - Preliminary Assessment and Plan Assessment: Impression: 1 acute on chronic hypoxic respiratory failure, status post tracheostomy, postoperative day #2, remains mechanically ventilated. Failed pressure support and CPAP yesterday, however will try again today. 2 severe underlying COPD 3 history of laryngeal cancer and previous chemoradiation therapy 4 severe protein calorie malnutrition BMI of 11.9 5 chronic smoking 6 chronic anemia of chronic disease 7 right lower lobe and right middle lobe collapse, status post bronchoscopy cultures remain nondiagnostic 8 chronic hypoxic and hypercapnic respiratory failure, presently on mechanical ventilation. Recommendation: Continue tracheostomy care. Continue mechanical ventilation, continue trials of weaning with pressure support and CPAP, eventually planned trach collar if possible. Continue enteral feeding via PEG tube which is already in place. Continue GI and DVT prophylaxis. Continue bronchodilators. Continue antibiotics, Trial of weaning with pressure support and CPAP, and again today Proceed with plans to transfer the patient to select care specialty. Time with Patient: Less than 30
[2018-11-10] MEDS ORDERED: POTASSIUM BICARBONATE/CIT AC 20 MEQ TABLET.EFF NG-TUBE SCH (12:00)
--- NOTE | 2018-11-10 12:13 | P.DS ---
Providers Date of admission: 11/02/18 15:55 Expected date of discharge: 11/10/18 Attending physician: Nick Guevara MD Consults: 11/03/18 10:55 Consult Physician Routine Consulting Provider: John Jimenez Consult Reason/Comments: copd exac, hypoxia Do you want consulting provider notified?: Already Contacted 11/05/18 14:19 Consult Physician Routine Consulting Provider: Adonis Montesinos Consult Reason/Comments: tracheostomy Do you want consulting provider notified?: Yes Primary care physician: Chemo Bradshaw [facility] Course: Patient is a 53-year-old female with PMH of laryngeal cancer post radiation and chemotherapy presented to the ED from [facility] for difficulty breathing and oxygen saturation into the low 80s. She had previously been admitted and discharged on 11/01/2018 after a long hospital course for which she was treated for acute hypoxic respiratory failure with hypercapnia requiring mechanical ventilation secondary to presumed aspiration pneumonia. She received antibiotic coverage with Zosyn and levofloxacin at that time. Sputum culture during that admission was negative. She also had severe hyponatremia and hypokalemia which were corrected. Patient was noted to have dysphagia at that time with all consistencies along with severe protein calorie malnutrition for which open G-tube was placed on October 30. In the ED, chest x-ray showed basilar atelectasis and associated effusion. CT of the chest confirmed increased pleural effusion and associated basilar atelectasis, right middle lobe pneumonia versus atelectasis and emphysem a. Patient was treated with IV steroids, nebulized bronchodilators along with supplemental oxygen and pulmonology was consulted. Pulmonology recommended obtaining a pro-calcitonin which was negative which gave low concerns for pneumonia. Pulmonology also recommended tracheostomy as patient was chronically BiPAP dependent and surgery was consulted. Patient underwent tracheostomy on 11/07/2018 without any complications. Bronchoscopy with BAL was performed on 11/08/2018 which showed some purulent secretions in the left lower lobe which were suctioned easily. CPAP trials were attempted to wean the patient off of mechanical ventilation. Patient was cleared for discharge from a pulmonology standpoint. Pulmonology had recommended continuation of tracheostomy care, enteral feeding via PEG tube, GI and DVT prophylaxis, bronchodilators and antibiotics. Patient was seen and examined. No acute events overnight. Patient is nonverbal but appears to be in high spirits. Patient reports improvement in her breathing since bronchoscopy yesterday. She denies chest pain or palpitations. No nausea or vomiting. No fever or chills. Currently attempting trial of CPAP. General: [Cachectic], [on CPAP, tracheostomy site clean and dry], [appears at stated age] Derm: [warm], [dry] Head: [atraumatic], [normocephalic], [bitemporal wasting] Eyes: [no lid lag], [anicteric sclera] Mouth: [no lip lesion], [mucus membranes moist] Cardiovascular: [S1S2 reg], [tachycardic], [positive DP pulse bilateral], Lungs: [Decreased breath sounds bilateral], [no rhonchi, no rales] , [no accessory muscle use] Abdominal: [soft], [ nontender to palpation], [no guarding], [Whittington catheter in place] Ext: [no gross muscle atrophy], [no edema], [no contractures] Neuro: [no focal neuro deficits] Psych: Alert and oriented Assessment and Plan Acute on chronic hypoxic respiratory failure with hypercapnia due to laryngeal cancer, pleural effusion and COPD Severe protein calorie malnutrition with cachexia with G-tube due to dysphagia BMI 12.4 Mediastinal lymphadenopathy Anemia Resolved: Hypokalemia Chest CT shows increased pleural effusion, right middle lobe pneumonia versus atelectasis. Pro-calcitonin negative, low concerns for pneumonia. POD 3 tracheostomy. POD 2 post bronchoscopy. Plans: Continue full ventilator support managed by pulmonology, attempt to wean today. Continue Zosyn for empiric treatment of pneumonia and aspiration while waiting on BAL cultures. Continue Solu-Medrol 40 mg IV twice a day along with DuoNeb as needed for shortness of breath and wheezing for treatment of COPD. Telemetry monitoring. Head of bed elevation. Pulmonology and general surgery on board. BMI 12.6. Plans: Continue G-tube feeds. Consult dietitian. As seen on previous CT chest. Plans: Will likely need bronchoscopy with pulmonology after trach. Follow pulmonology recommendations. Hemoglobin 9.3-8.5. Acute blood loss from surgery. Macrocytic during admission. Iron studies shows iron deficiency. B12 and folate within normal limits. Plans: Hemoglobin stable. Transfuse if hemoglobin less than 7. Daily CBC. [Patient admitted for acute on chronic hypoxic respiratory failure due to mul tiple reasons. She is POD 3 tracheostomy. POD 2 bronchoscopy, cultures pending. technical services analyst following for LTAC placement. Cleared for DC per pulmonology, pending insurance acceptance for LTAC.] Continue Zosyn pending BAL cultures. Continue IV Solu-Medrol to be weaned down in LTAC. This complex discharge took 45 minutes to complete. Pertinent Studies: Chest x-ray, chest CT Procedures: Tracheostomy, bronchoscopy with BAL Patient Condition at Discharge: Fair Plan - Discharge Summary Discharge Rx Participant: No New Discharge Prescriptions: New Ipratropium-Albuterol Nebulize [Duoneb 0.5 mg-3 mg/3 ml Soln] 3 ml INHALATION RT-QID ampul.neb Enoxaparin [Lovenox] 40 mg SQ DAILY syringe INSULIN ASPART (NovoLOG) [NovoLOG (formulary)] 0 unit SQ Q6HR vial Albuterol Nebulized [Ventolin Nebulized] 2.5 mg INHALATION RT-QID PRN nebu PRN Reason: Bronchospasm Piperacillin-Tazobactam [Zosyn] 3.375 gm IVPB Q8H vial No Action LORazepam [Ativan] 0.5 mg PO Q8H PRN PRN Reason: Anxiety Discharge Medication List LORazepam [Ativan] 0.5 mg PO Q8H PRN 11/02/18 [History] Albuterol Nebulized [Ventolin Nebulized] 2.5 mg INHALATION RT-QID PRN nebu 11/10/18 [Rx] Enoxaparin [Lovenox] 40 mg SQ DAILY syringe 11/10/18 [Rx] INSULIN ASPART (NovoLOG) [NovoLOG (formulary)] 0 unit SQ Q6HR vial 11/10/18 [Rx] Ipratropium-Albuterol Nebulize [Duoneb 0.5 mg-3 mg/3 ml Soln] 3 ml INHALATION RT-QID ampul.neb 11/10/18 [Rx] Piperacillin-Tazobactam [Zosyn] 3.375 gm IVPB Q8H vial 11/10/18 [Rx] Follow up Appointment(s)/Referral(s): Chemo Foster MD [Primary Care Provider] - 1-2 days Josr Wiggins MD [STAFF PHYSICIAN] - 1 Week Activity/Diet/Wound Care/Special Instructions: Diet: Tube feeds Follow-up PCP within 3 days of discharge. Follow-up pulmonology within 2 weeks of discharge. Continue Zosyn and follow-up BAL cultures for adjustment of antibiotics. Continue prednisone taper. Discharge Disposition: [facility]
[2018-11-10 12:17] LABS: Glucose,Whole Blood 139 mg/dL (75-99)
[2018-11-10] MEDS: MAGNESIUM SULFATE-D5W PMX 1 GM in DEXTROSE/WATER 1 100ML.BAG IVPB SCH ×2 (12:28→13:59)
[2018-11-10 12:59] LABS: Glucose,Whole Blood 144 mg/dL (75-99)
[2018-11-10 18:10] LABS: Glucose,Whole Blood 97 mg/dL (75-99)
[2018-11-11] LABS: Glucose,Whole Blood 96 mg/dL (75-99)
[2018-11-11] MEDS: INSULIN ASPART (NovoLOG) 100 UNIT/ML VIAL SQ SCH ×4 (00:38→17:53)
[2018-11-11] MEDS: ALBUTEROL NEBULIZED 2.5 MG/3 ML INHALATION PRN ×2 (05:12→23:06)
[2018-11-11] MEDS: MORPHINE SULFATE 4 MG/ML SYRINGE IVP PRN ×3 (05:53→23:00)
[2018-11-11 05:54] LABS: Basophils % (A) 0 %; Eosinophils % (A) 0 %; HCT 28.1 % (34.0-46.0); HGB 8.8 gm/dL (11.4-16.0); Hypochromasia Slight; Lymphocytes # (A) 0.2 k/uL (1.0-4.8); Lymphocytes % (A) 4 %; MCH 32.4 pg (25.0-35.0); MCHC 31.3 g/dL (31.0-37.0); MCV 103.6 fL (80.0-100.0); Macrocytosis Moderate; Mean Platelet Volume 6.8; Monocytes # (A) 0.2 k/uL (0-1.0); Monocytes % (A) 3 %; Neutrophils # (A) 5.1 k/uL (1.3-7.7); Neutrophils % (A) 92 %; Platelet Count 268 k/uL (150-450); RBC 2.71 m/uL (3.80-5.40); RDW 14.9 % (11.5-15.5); WBC 5.6 k/uL (3.8-10.6)
[2018-11-11 06:00] LABS: Glucose,Whole Blood 124 mg/dL (75-99)
[2018-11-11] MEDS: PIPERACILLIN-TAZOBACTAM 3.375 GM in SODIUM CHLORIDE 0.9% 100 ML IVPB SCH ×3 (06:03→23:02)
[2018-11-11 06:35] LABS: African American GFR (CKD) >90 (>60 ml/min/1.73 sqM); Anion Gap 4 mmol/L; Blood Urea Nitrogen 18 mg/dL (7-17); Calcium 8.3 mg/dL (8.4-10.2); Carbon Dioxide 33 mmol/L (22-30); Chloride 99 mmol/L (98-107); Glucose 122 mg/dL (74-99); Potassium 4.1 mmol/L (3.5-5.1); Sodium 136 mmol/L (137-145)
[2018-11-11] MEDS: IPRATROPIUM-ALBUTEROL 3 ML NEB INHALATION SCH ×4 (07:22→19:17)
[2018-11-11] MEDS: ENOXAPARIN 40 MG/0.4 ML SYRINGE SQ SCH (08:40)
[2018-11-11] MEDS: PANTOPRAZOLE 40 MG/10 ML VIAL IVP SCH (08:40)
[2018-11-11] MEDS: methylPREDNISolone SOD SUCCI 40 MG/ML 1 ML VIAL IV SCH ×2 (08:40→21:21)
[2018-11-11] MEDS: LORazepam 2 MG/ML INJ IV PRN ×3 (09:04→21:21)
[2018-11-11 11:48] LABS: Glucose,Whole Blood 116 mg/dL (75-99)
--- NOTE | 2018-11-11 11:59 | P.PN ---
Subjective Progress Note Date: 11/11/18 Principal diagnosis: Acute on chronic hypoxic and hypercapnic respiratory failure This is a 53-year-old female patient of Dr. Foster, who was recently hospitalized for acute respiratory failure secondary to aspiration pneumonia, hypoxemic and hypercapnic requiring intubation and placement on mechanical ventilation. Patient was successfully extubated, was treated with antibiotics, completed a course of Levaquin and Zosyn. Patient showed significant clinical and radiographic improvement, by the time of her discharge to the [facility]. Patient also has history of laryngeal cancer with previous chemoradiation, and had evidence of severe malnutrition. In addition patient failed modified barium swallow, and was having evidence of aspiration with all consistencies. Patient also had evidence of electrolyte abnormality with hyponatremia and hypokalemia, which improved with treatment. Patient had a gastrostomy tube placed for nutritional support, and she was strict NPO. Sputum cultures from previous admission were negative. Other medical history includes chronic anemia of chronic disease, previous tobacco dependence. Patient was discharged to the [facility] on 11/01/2018 however she started experiencing shortness of breath at the [facility], and was apparently hypoxic and was brought back for evaluation on oral 11/02/2018. He denied any chest pain, she denies any oral intake at the longterm home, she states she was getting her nutrition strictly through the gastrostomy tube. No aspiration, no fever or chills, chest x-ray showed basilar atelectasis and associated pleural effusions. Lab work showed white blood cell count of 14.0, hemoglobin of 11, correlation profile was within normal limits, blood gas showed pO2 of 64, pCO2 of 67, and pH of 7.32. Sodium was 140, potassium is 4.0, chloride is 98, CO2 37, B1 is 21, creatinine 0.24. O2 sat in the emergency department was ranging from 84-86 patient was placed on supplemental oxygen. Patient was given IV steroids, nebulized bronchodilators, and worsening the patient in consultation for shortness of breath. She is awake and alert, she is sitting up in bed, appears to be in no acute distress, currently on 2 L of oxygen, no significant wheezing, or congestion, she does have a weak cough, which does not sound congested, lung sounds are diminished, no rales auscultated. Follow-up blood work was reviewed today, white blood cell count is 15.5, hemoglobin is 9.7, repeat blood gas showed pO2 of 60, pCO2 59, and pH of 7.39 this was done on FiO2 28%. Patient looks extremely cachectic and weak, her voice is very weak and hoarse, but she appears to be in no acute distress. On 11/04/2018 I'm seeing this patient for a follow-up. This is an extremely debilitated and severely malnourished female patient who is post respiratory failure who was readmitted for ongoing difficulties in breathing. Noted the patient's BMI is 11.9 and she has kwashiorkor. The patient got moved yesterday to the intensive care unit because of worsening shortness of breath and altered mentation. Note that on the floor the patient had a blood gas showing a pH of 0.28 with a pCO2 of 83 and pO2 of 72. This was on FiO2 of 32%. She was having increased tachypnea and respiratory distress. At that point the patient got transferred to the intensive care unit. I was very hesitant intubated this patient based on an underlying condition and status. Note that the patient is extremely frail and has absolutely no muscle mass and intubation may be quite devastating for this patient had the patient accordingly was placed on a BiPAP at a pressure of 10/5 cm of water. She was also given some Ativan and morphine which. Much calm that down. Her subsequent blood gas showed a pH of 7.38 with a pCO2 of 69 a pO2 of 62. I realized the patient's respiratory insufficiency he had it performed a CAT scan of the chest yesterday and the CAT scan showed complete occlusion of the distal bronchus intermedius and right middle lobe atelectasis. There was also atelectatic changes in lung bases bilaterally with a right middle lobe atelectasis right lower lobe atelectasis and bilateral pleural effusions. Upper lobes are quite patent and well hydrated. The patient was started back on IV Zosyn. She did become hypotensive briefly and she was given a liter of IV fluid bolus and currently she is on normal saline at rate of 100 mL an hour. She is improved her blood pressure and she did not require any pressors. She is currently awake. She is following commands. However, she has a very poor insight on her condition. She is not aware that she is quite debilitated in [place] major disadvantage for recovering from her chronic illness. The patient also is receiving enteral feeding for nutritional support in the form of vitamin 1.2 which is currently at goal. I added this patient IV Zosyn. She is on Lovenox for DVT prophylaxis. CAT scan of the chest also showed emphysema bilaterally. She is on bronchodilators. She is also on IV Solu-Medrol. IV Protonix for GI prophylaxis. On 11/05/2018, the patient is being seen in follow-up she is awake and alert. She is following commands. She is on a BiPAP at a pressure of 10/5 cm of water with an FiO2 of 40%. The patient is very much compliant and tolerating her BiPAP. No significant cough or sputum production. The chest x-ray from today shows small bilateral pleural effusion, right middle lobe/right lower lobe a telectasis. Her pro-calcitonin level was low. She is covered with IV Zosyn. She is also covered with IV Solu-Medrol and the dose was reduced down to 40 mg every 12 hours. He is on DuoNeb nebulized treatments around the clock and she is receiving enteral feeding for nutritional support. Sodium level is up to 147. Atelectatic discussion with the patient's family. The family wants everything done including the possibility of long-term vent support. In that case, it made recommendations to proceed with a tracheostomy and the patient is unable to breathe independently without any form of respiratory assisting devices and the patient is quite debilitated and has significant malnutrition a nd neuromuscular weakness. Patient was reevaluated today on 11/06/2018, patient remains on BiPAP, presently at a pressure of 10/5 and FiO2 of 40%. She seems to be almost BiPAP dependent. Her chest x-ray is showing significant worsening of the right lower lobe and right lobe collapse and atelectasis, there is also some component of pleural effusion. Remains on antibiotics in the form of Zosyn, patient is on bronchodilators is also on IV Solu-Medrol. Not much of a jacquard loom card changer the last 24 hours. Apparently the patient is to be seen by surgery today, and Dr. Jimenez recommended tracheostomy which will likely be done tomorrow or in the next couple of days. Patient will be bronchoscoped after tracheostomy and mechanical ventilation. And she read he has a PEG tube in place. Presently the patient is about the same, and not much jacquard loom card changer the last 24 hours. WBC count is 9.5 hemoglobin 9.6 electrolytes are normal bicarb is 37 renal functioning is normal. Patient was already seen by general surgery, and surgery is being considered for either tomorrow or Tuesday. Patient was reevaluated today on 11/07/2018, remains on BiPAP this morning, scheduled to undergo tracheostomy this morning. Patient again seems to be almost BiPAP dependent. Chest x-ray continues to show evidence of right lower lobe and right lobe collapse and atelectasis. Small tiny pleural effusion is noted. Remains on antibiotics, bronchodilators, IV Solu-Medrol, and again the patient is scheduled for tracheostomy today. Family is at bedside, and I discussed the option of bronchoscopy after tracheostomy which I will likely perform tomorrow on this patient to evaluate the right middle lobe and right l ower lobe. Patient was reevaluated today on 11/08/2018, she underwent tracheostomy yesterday, presently the patient is on mechanical ventilation, she is on before a c mode of mechanical ventilation , 12 tidal volume of 350 FiO2 is down to 50%, and PEEP is 5. Patient seems to be very calm, comfortable, very appropriate, and her chest x-ray continues to show significant right lower lobe and right middle lobe collapse. Hence considering the patient is now on mechanical ventilation, I have discussed with the patient the option of bronchoscopy and evaluation of the right middle lobe and right lower lobe, and she is agreeable to proceed with the procedure today. The bronchoscopy team was notified, and it will be done sometime this afternoon. In the meantime patient remains nothing by mouth, her PEG tube feeding is on hold, and will empty her stomach. ABG this morning showed a pO2 of 53 pCO2 of 38 pH of 7.54. Electrolytes are normal renal profile is normal potassium is a bit low at 3.3 WBC count is 10.3 hemoglobin is 9.3. Patient was reevaluated today on 11/09/2018, she is postoperative day #1, patient underwent tracheostomy placement for chronic respiratory failure and she is presently on assist control rate of 12, FiO2 of 35%, tidal volume of 350. PEEP is 5. Patient underwent bronchoscopy yesterday, and purulent secretions were suctioned out of the right middle lobe and right lower lobe. Microbiology on the BAL is pending. Patient seems to be very comfortable on mechanical ventilation. Not requiring any propofol. Hence I recommended a trial of pressure support of 8 and CPAP to be given today. And depending on how she tolerates the weaning trial, may or may not proceed to trach collar. If the patient fails weaning may proceed with transferring the patient to a select care specialty for further weaning down the line. Chest x-ray showed slight improvement in the aeration of the right lower lobe continues to have a small right pleural effusion. CBC is relatively normal hemoglobin is 8.5 electrolytes are normal renal profile is normal. Patient was reevaluated today on 11/10/2018, remains in the ICU, remains on mechanical ventilation, status post tracheostomy and she is postoperative day #2. Her ventilator mode remains the same, ventilator settings are the same. As noted above. Patient was given a trial of pressure support and CPAP mode of weaning trial, but she did not do well after 1 hour she had to be placed back on assist control mode of mechanical ventilation. Patient seems to be quite comfortable on mechanical ventilation, and I'm going to try again another trial of pressure support and CPAP mode of weaning. However I have a strong feeling that the patient will not be eased to wean, and she will eventually require [facility].. Chest x-ray continues to show chronic atelectasis of the right lower lobe although yesterday that was slightly improved aeration. CBC showed WBC count of 6.5 hemoglobin 8.5 electrodes are normal renal profile is normal. Reevaluated today on 11/11/2018, patient remains in the ICU, on mechanical ventilation, she is status post tracheostomy and she is postoperative day #3. Weaning has failed with pressure support and CPAP, hence we never got to the point where we could place the patient on trach collar. Patient has been accepted in select care [facility], and she would have further weaning in that facility. Patient is hemodynamically stable, she remains on steroids which had to be tapered off antibiotics. And overall the only issue remains weaning down the line. This will be difficult but could be done over time. Labs today were reviewed. No chest x-ray was done today. Objective - Vital Signs Vital signs: Vital Signs Temp 97.8 F 11/11/18 08:00 Pulse 85 11/11/18 11:03 Resp 22 11/11/18 09:00 BP 95/68 11/11/18 09:00 Pulse Ox 99 11/11/18 09:00 Intake & Output 11/10/18 11/11/18 11/11/18 18:59 06:59 18:59 Intake Total 1160 775 275 Output Total 745 760 95 Balance 415 15 180 Weight 36.5 kg Intake: IV 320 245 95 .9 120 120 20 Piperacillin-Tazobactam 3 200 125 75 .375 gm In Sodium Chloride 0.9% 100 ml @ 25 mls/hr IVPB Q8H ERNESTINA Rx#: [id number] Intake, IV Titration 200 Amount Magnesium Sulfate-D5w Pmx 200 1 gm In Dextrose/Water 1 100ml.bag @ 100 mls/hr IVPB Q1H ERNESTINA Rx#: [id number] Tube Feeding 640 440 120 Other 90 60 Output: Urine 745 760 95 Other: Voiding Method Indwelling Catheter Indwelling Catheter Indwelling Catheter - Exam Physical Exam: 53-year-old on mechanical ventilation, asymptomatic, in no distress Head: Atraumatic, normocephalic. Tracheostomy tube is intact. HEENT:[Neck is supple.] [No neck masses.] [No thyromegaly.] [No JVD.] PERRLA, EOMI, no icterus. Chest: Diminished breath sounds at the right base, no crackles or rhonchi or wheezes. Cardiac Exam: [Normal S1 and S2, no S3 gallop, no murmur.] Abdomen: [Soft, nontender, no megaly, no rebound, no guarding, normal bowel sounds.] Extremities: [No clubbing, no edema, no cyanosis.] Neurological Exam: [No focal neurologic deficit.] Alert and oriented 3. Psychiatric: Normal mood affect and normal mental status examination. Skin: No rashes. - Labs CBC & Chem 7: 11/11/18 04:54 11/11/18 04:54 Labs: Abnormal Lab Results - Last 24 Hours (Table) 11/10/18 11/10/18 11/11/18 Range/Units 11:57 12:56 04:54 RBC 2.71 L (3.80-5.40) m/uL Hgb 8.8 L (11.4-16.0) gm/dL Hct 28.1 L (34.0-46.0) % MCV 103.6 H (80.0-100.0) fL Lymphocytes # 0.2 L (1.0-4.8) k/uL Sodium (137-145) mmol/L Carbon Dioxide (22-30) mmol/L BUN (7-17) mg/dL Creatinine (0.52-1.04) mg/dL Glucose (74-99) mg/dL POC Glucose (mg/dL) 139 H 144 H (75-99) mg/dL Calcium (8.4-10.2) mg/dL 11/11/18 11/11/18 11/11/18 Range/Units 04:54 05:57 11:44 RBC (3.80-5.40) m/uL Hgb (11.4-16.0) gm/dL Hct (34.0-46.0) % MCV (80.0-100.0) fL Lymphocytes # (1.0-4.8) k/uL Sodium 136 L (137-145) mmol/L Carbon Dioxide 33 H (22-30) mmol/L BUN 18 H (7-17) mg/dL Creatinine 0.30 L (0.52-1.04) mg/dL Glucose 122 H (74-99) mg/dL POC Glucose (mg/dL) 124 H 116 H (75-99) mg/dL Calcium 8.3 L (8.4-10.2) mg/dL Microbiology - Last 24 Hours (Table) 11/08/18 15:00 Gram Stain - Final Bronchoalviolar Lavage - Right Bronchial Washings Culture - Final Christelle albicans Assessment and Plan Assessment: Impression: 1 acute on chronic hypoxic respiratory failure, status post tracheostomy, postoperative day #3, remains mechanically ventilated. Failed pressure support and CPAP yesterday, discharge planning to select care is in progress. 2 severe underlying COPD 3 history of laryngeal cancer and previous chemoradiation therapy 4 severe protein calorie malnutrition BMI of 11.9 5 chronic smoking 6 chronic anemia of chronic disease 7 right lower lobe and right middle lobe collapse, status post bronchoscopy cultures remain nondiagnostic 8 chronic hypoxic and hypercapnic respiratory failure, presently on mechanical ventilation. Recommendation: Continue tracheostomy care. Continue mechanical ventilation, continue trials of weaning with pressure support and CPAP, Continue enteral feeding via PEG tube which is already in place. Continue GI and DVT prophylaxis. Continue bronchodilators. Discontinue antibiotics. Continue prednisone tapering. Agree with transfer plans to select care. Time with Patient: Less than 30
--- NOTE | 2018-11-11 14:30 | P.PN ---
Subjective Progress Note Date: 11/11/18 Principal diagnosis: Acute on chronic hypoxic respiratory failure Patient was seen and examined. No acute events overnight. Postop day 4 tracheostomy. Underwent bronchoscopy POD 3, purulent secretions evacuated with microbiology pending. Currently back on mechanical ventilation. Objective - Vital Signs Vital signs: Vital Signs Temp 97 F L 11/11/18 12:00 Pulse 87 11/11/18 12:00 Resp 28 H 11/11/18 12:00 BP 94/68 11/11/18 12:00 Pulse Ox 96 11/11/18 12:00 Intake & Output 11/10/18 11/11/18 11/11/18 18:59 06:59 18:59 Intake Total 1160 775 275 Output Total 745 760 95 Balance 415 15 180 Weight 36.5 kg Intake: IV 320 245 95 .9 120 120 20 Piperacillin-Tazobactam 3 200 125 75 .375 gm In Sodium Chloride 0.9% 100 ml @ 25 mls/hr IVPB Q8H ERNESTINA Rx#: [id number] Intake, IV Titration 200 Amount Magnesium Sulfate-D5w Pmx 200 1 gm In Dextrose/Water 1 100ml.bag @ 100 mls/hr IVPB Q1H ERNESTINA Rx#: [id number] Tube Feeding 640 440 120 Other 90 60 Output: Urine 745 760 95 Other: Voiding Method Indwelling Catheter Indwelling Catheter Indwelling Catheter # Voids 1 - Exam General: [Cachectic], [on CPAP, tracheostomy site clean and dry], [appears at stated age] Derm: [warm], [dry] Head: [atraumatic], [normocephalic], [bitemporal wasting] Eyes: [no lid lag], [anicteric sclera] Mouth: [no lip lesion], [mucus membranes moist] Cardiovascular: [S1S2 reg], [no murmur], [positive DP pulse bilateral], Lungs: [Decreased breath sounds bilateral], [no rhonchi, no rales] , [no accessory muscle use] Abdominal: [soft], [ nontender to palpation], [no guarding], [Whitting[place] catheter in place] Ext: [no gross muscle atrophy], [no edema], [no contractures] Neuro: [no focal neuro deficits] Psych: Alert and oriented - Labs CBC & Chem 7: 11/11/18 04:54 11/11/18 04:54 Labs: Abnormal Lab Results - Last 24 Hours (Table) 11/11/18 11/11/18 11/11/18 Range/Units 04:54 04:54 05:57 RBC 2.71 L (3.80-5.40) m/uL Hgb 8.8 L (11.4-16.0) gm/dL Hct 28.1 L (34.0-46.0) % MCV 103.6 H (80.0-100.0) fL Lymphocytes # 0.2 L (1.0-4.8) k/uL Sodium 136 L (137-145) mmol/L Carbon Dioxide 33 H (22-30) mmol/L BUN 18 H (7-17) mg/dL Creatinine 0.30 L (0.52-1.04) mg/dL Glucose 122 H (74-99) mg/dL POC Glucose (mg/dL) 124 H (75-99) mg/dL Calcium 8.3 L (8.4-10.2) mg/dL 11/11/18 Range/Units 11:44 RBC (3.80-5.40) m/uL Hgb (11.4-16.0) gm/dL Hct (34.0-46.0) % MCV (80.0-100.0) fL Lymphocytes # (1.0-4.8) k/uL Sodium (137-145) mmol/L Carbon Dioxide (22-30) mmol/L BUN (7-17) mg/dL Creatinine (0.52-1.04) mg/dL Glucose (74-99) mg/dL POC Glucose (mg/dL) 116 H (75-99) mg/dL Calcium (8.4-10.2) mg/dL Assessment and Plan Assessment: Assessment and Plan Acute on chronic hypoxic respiratory failure with hypercapnia due to laryngeal cancer, pleural effusion and COPD Severe protein calorie malnutrition with cachexia with G-tube due to dysphagia BMI 12.4 Mediastinal lymphadenopathy Anemia Resolved: Hypokalemia Chest CT shows increased pleural effusion, right middle lobe pneumonia versus atelectasis. Pro-calcitonin negative, low concerns for pneumonia. POD 4 tracheostomy. POD 3 post bronchoscopy. Plans: Continue full ventilator support managed by pulmonology, attempt to wean today. Discussed with Dr. Rosalie yesterday, discontinue antibiotics as cultures have been negative. Continue Solu-Medrol 40 mg IV twice a day along with DuoNeb as needed for shortness of breath and wheezing for treatment of COPD. Ee will discontinue Solu-Medrol and start the patient on a prednisone taper on discharge. Telemetry monitoring. Head of bed elevation. Pulmonology and general surgery on board. BMI 12.6. Plans: Continue G-tube feeds. Consult dietitian. As seen on previous CT chest. Plans: Will likely need bronchoscopy with pulmonology after trach. Follow pulmonology recommendations. Hemoglobin 9.3-8.5-8.5. Acute blood loss from surgery. Macrocytic during admission. Iron studies shows iron deficiency. B12 and folate within normal limits. Plans: Hemoglobin stable. Transfuse if hemoglobin less than 7. Daily CBC. [Patient admitted for acute on chronic hypoxic respiratory failure due to multiple reasons. She is POD 4 tracheostomy. POD 3 bronchoscopy, cultures pend ing. auto specialty services manager following for LTAC placement. Cleared for DC per pulmonology, pending insurance acceptance for LTAC.]
[2018-11-11 17:24] LABS: Glucose,Whole Blood 114 mg/dL (75-99)
[2018-11-11] MEDS ORDERED: guaiFENesin 600 MG TABLET.ER PO PRN (20:41)
[2018-11-11 23:09] LABS: Glucose,Whole Blood 106 mg/dL (75-99)
[2018-11-12] MEDS: INSULIN ASPART (NovoLOG) 100 UNIT/ML VIAL SQ SCH ×4 (00:56→19:40)
[2018-11-12] MEDS: LORazepam 2 MG/ML INJ IV PRN ×2 (01:14→18:26)
[2018-11-12 04:51] LABS: Basophils % (A) 0 %; Eosinophils % (A) 0 %; HCT 28.2 % (34.0-46.0); HGB 8.7 gm/dL (11.4-16.0); Hypochromasia Slight; Lymphocytes # (A) 0.2 k/uL (1.0-4.8); Lymphocytes % (A) 3 %; MCH 32.1 pg (25.0-35.0); MCHC 30.9 g/dL (31.0-37.0); MCV 103.9 fL (80.0-100.0); Macrocytosis Moderate; Mean Platelet Volume 7.5; Monocytes # (A) 0.2 k/uL (0-1.0); Monocytes % (A) 4 %; Neutrophils % (A) 92 %; Platelet Count 252 k/uL (150-450); RBC 2.72 m/uL (3.80-5.40); RDW 15.2 % (11.5-15.5); WBC 5.5 k/uL (3.8-10.6)
[2018-11-12 05:08] LABS: African American GFR (CKD) >90 (>60 ml/min/1.73 sqM); Anion Gap 4 mmol/L; Blood Urea Nitrogen 17 mg/dL (7-17); Calcium 8.3 mg/dL (8.4-10.2); Carbon Dioxide 32 mmol/L (22-30); Chloride 99 mmol/L (98-107); Glucose 102 mg/dL (74-99); Potassium 3.6 mmol/L (3.5-5.1); Sodium 135 mmol/L (137-145)
[2018-11-12] MEDS ORDERED: Potassium Replacement Protocol 1 EACH MISC MISCELLANE PRN (05:55)
[2018-11-12 06:15] LABS: Glucose,Whole Blood 122 mg/dL (75-99)
--- NOTE | 2018-11-12 06:54 | XR ---
EXAMINATION TYPE: XR chest 1V portable DATE OF EXAM: 11/12/2018 HISTORY: SOB. REFERENCE: Previous study dated 11/10/2018. FINDINGS: A MediPort is in place via a right internal jugular approach. Its tip is in the right atriu m. A tracheostomy tube is in place and its tip overlies the tracheal air column in this single fronta l projection. The lungs are overinflated. The heart is enlarged. Heart contours unusual and appears to be shifted t owards the right. I could not exclude some degree of dextrocardia. There is increasing right hilar density. There is a paucity of lung markings beyond this. This likely reflects the patient's COPD rule out pneumothorax. Please correlate clinically. The left lung is césar ar. There is a right-sided effusion. IMPRESSION: 1. COPD. 2. CARDIOMEGALY. 3. RIGHT BASILAR AIRSPACE DISEASE WITH A CONCOMITANT EFFUSION.
[2018-11-12] MEDS: POTASSIUM BICARBONATE/CIT AC 20 MEQ TABLET.EFF NG-TUBE SCH ×2 (07:07→07:08)
[2018-11-12] MEDS: PIPERACILLIN-TAZOBACTAM 3.375 GM in SODIUM CHLORIDE 0.9% 100 ML IVPB SCH ×3 (07:07→22:46)
[2018-11-12] MEDS: MORPHINE SULFATE 4 MG/ML SYRINGE IVP PRN ×4 (07:08→20:26)
[2018-11-12] MEDS: IPRATROPIUM-ALBUTEROL 3 ML NEB INHALATION SCH ×4 (07:13→19:19)
[2018-11-12] MEDS: ENOXAPARIN 40 MG/0.4 ML SYRINGE SQ SCH (08:20)
[2018-11-12] MEDS: methylPREDNISolone SOD SUCCI 40 MG/ML 1 ML VIAL IV SCH ×2 (08:20→20:26)
[2018-11-12] MEDS: PANTOPRAZOLE 40 MG/10 ML VIAL IVP SCH (08:20)
--- NOTE | 2018-11-12 11:13 | P.PN ---
Subjective Progress Note Date: 11/12/18 Principal diagnosis: Acute on chronic hypoxic and hypercapnic respiratory failure This is a 53-year-old female patient of Dr. Foster, who was recently hospitalized for acute respiratory failure secondary to aspiration pneumonia, hypoxemic and hypercapnic requiring intubation and placement on mechanical ventilation. Patient was successfully extubated, was treated with antibiotics, completed a course of Levaquin and Zosyn. Patient showed significant clinical and radiographic improvement, by the time of her discharge to the [facility]. Patient also has history of laryngeal cancer with previous chemoradiation, and had evidence of severe malnutrition. In addition patient failed modified barium swallow, and was having evidence of aspiration with all consistencies. Patient also had evidence of electrolyte abnormality with hyponatremia and hypokalemia, which improved with treatment. Patient had a gastrostomy tube placed for nutritional support, and she was strict NPO. Sputum cultures from previous admission were negative. Other medical history includes chronic anemia of chronic disease, previous tobacco dependence. Patient was discharged to the [facility] on 11/01/2018 however she started experiencing shortness of breath at the [facility], and was apparently hypoxic and was brought back for evaluation on oral 11/02/2018. He denied any chest pain, she denies any oral intake at the half-way home, she states she was getting her nutrition strictly through the gastrostomy tube. No aspiration, no fever or chills, chest x-ray showed basilar atelectasis and associated pleural effusions. Lab work showed white blood cell count of 14.0, hemoglobin of 11, correlation profile was within normal limits, blood gas showed pO2 of 64, pCO2 of 67, and pH of 7.32. Sodium was 140, potassium is 4.0, chloride is 98, CO2 37, B1 is 21, creatinine 0.24. O2 sat in the emergency department was ranging from 84-86 patient was placed on supplemental oxygen. Patient was given IV steroids, nebulized bronchodilators, and worsening the patient in consultation for shortness of breath. She is awake and alert, she is sitting up in bed, appears to be in no acute distress, currently on 2 L of oxygen, no significant wheezing, or congestion, she does have a weak cough, which does not sound congested, lung sounds are diminished, no rales auscultated. Follow-up blood work was reviewed today, white blood cell count is 15.5, hemoglobin is 9.7, repeat blood gas showed pO2 of 60, pCO2 59, and pH of 7.39 this was done on FiO2 28%. Patient looks extremely cachectic and weak, her voice is very weak and hoarse, but she appears to be in no acute distress. On 11/04/2018 I'm seeing this patient for a follow-up. This is an extremely debilitated and severely malnourished female patient who is post respiratory failure who was readmitted for ongoing difficulties in breathing. Noted the patient's BMI is 11.9 and she has kwashiorkor. The patient got moved yesterday to the intensive care unit because of worsening shortness of breath and altered mentation. Note that on the floor the patient had a blood gas showing a pH of 0.28 with a pCO2 of 83 and pO2 of 72. This was on FiO2 of 32%. She was having increased tachypnea and respiratory distress. At that point the patient got transferred to the intensive care unit. I was very hesitant intubated this patient based on an underlying condition and status. Note that the patient is extremely frail and has absolutely no muscle mass and intubation may be quite devastating for this patient had the patient accordingly was placed on a BiPAP at a pressure of 10/5 cm of water. She was also given some Ativan and morphine which. Much calm that down. Her subsequent blood gas showed a pH of 7.38 with a pCO2 of 69 a pO2 of 62. I realized the patient's respiratory insufficiency he had it performed a CAT scan of the chest yesterday and the CAT scan showed complete occlusion of the distal bronchus intermedius and right middle lobe atelectasis. There was also atelectatic changes in lung bases bilaterally with a right middle lobe atelectasis right lower lobe atelectasis and bilateral pleural effusions. Upper lobes are quite patent and well hydrated. The patient was started back on IV Zosyn. She did become hypotensive briefly and she was given a liter of IV fluid bolus and currently she is on normal saline at rate of 100 mL an hour. She is improved her blood pressure and she did not require any pressors. She is currently awake. She is following commands. However, she has a very poor insight on her condition. She is not aware that she is quite debilitated in [place] major disadvantage for recovering from her chronic illness. The patient also is receiving enteral feeding for nutritional support in the form of vitamin 1.2 which is currently at goal. I added this patient IV Zosyn. She is on Lovenox for DVT prophylaxis. CAT scan of the chest also showed emphysema bilaterally. She is on bronchodilators. She is also on IV Solu-Medrol. IV Protonix for GI prophylaxis. On 11/05/2018, the patient is being seen in follow-up she is awake and alert. She is following commands. She is on a BiPAP at a pressure of 10/5 cm of water with an FiO2 of 40%. The patient is very much compliant and tolerating her BiPAP. No significant cough or sputum production. The chest x-ray from today shows small bilateral pleural effusion, right middle lobe/right lower lobe a telectasis. Her pro-calcitonin level was low. She is covered with IV Zosyn. She is also covered with IV Solu-Medrol and the dose was reduced down to 40 mg every 12 hours. He is on DuoNeb nebulized treatments around the clock and she is receiving enteral feeding for nutritional support. Sodium level is up to 147. Atelectatic discussion with the patient's family. The family wants everything done including the possibility of long-term vent support. In that case, it made recommendations to proceed with a tracheostomy and the patient is unable to breathe independently without any form of respiratory assisting devices and the patient is quite debilitated and has significant malnutrition a nd neuromuscular weakness. Patient was reevaluated today on 11/06/2018, patient remains on BiPAP, presently at a pressure of 10/5 and FiO2 of 40%. She seems to be almost BiPAP dependent. Her chest x-ray is showing significant worsening of the right lower lobe and right lobe collapse and atelectasis, there is also some component of pleural effusion. Remains on antibiotics in the form of Zosyn, patient is on bronchodilators is also on IV Solu-Medrol. Not much of a sales and service change leader the last 24 hours. Apparently the patient is to be seen by surgery today, and Dr. Jimenez recommended tracheostomy which will likely be done tomorrow or in the next couple of days. Patient will be bronchoscoped after tracheostomy and mechanical ventilation. And she read he has a PEG tube in place. Presently the patient is about the same, and not much sales and service change leader the last 24 hours. WBC count is 9.5 hemoglobin 9.6 electrolytes are normal bicarb is 37 renal functioning is normal. Patient was already seen by general surgery, and surgery is being considered for either tomorrow or Tuesday. Patient was reevaluated today on 11/07/2018, remains on BiPAP this morning, scheduled to undergo tracheostomy this morning. Patient again seems to be almost BiPAP dependent. Chest x-ray continues to show evidence of right lower lobe and right lobe collapse and atelectasis. Small tiny pleural effusion is noted. Remains on antibiotics, bronchodilators, IV Solu-Medrol, and again the patient is scheduled for tracheostomy today. Family is at bedside, and I discussed the option of bronchoscopy after tracheostomy which I will likely perform tomorrow on this patient to evaluate the right middle lobe and right l ower lobe. Patient was reevaluated today on 11/08/2018, she underwent tracheostomy yesterday, presently the patient is on mechanical ventilation, she is on before a c mode of mechanical ventilation , 12 tidal volume of 350 FiO2 is down to 50%, and PEEP is 5. Patient seems to be very calm, comfortable, very appropriate, and her chest x-ray continues to show significant right lower lobe and right middle lobe collapse. Hence considering the patient is now on mechanical ventilation, I have discussed with the patient the option of bronchoscopy and evaluation of the right middle lobe and right lower lobe, and she is agreeable to proceed with the procedure today. The bronchoscopy team was notified, and it will be done sometime this afternoon. In the meantime patient remains nothing by mouth, her PEG tube feeding is on hold, and will empty her stomach. ABG this morning showed a pO2 of 53 pCO2 of 38 pH of 7.54. Electrolytes are normal renal profile is normal potassium is a bit low at 3.3 WBC count is 10.3 hemoglobin is 9.3. Patient was reevaluated today on 11/09/2018, she is postoperative day #1, patient underwent tracheostomy placement for chronic respiratory failure and she is presently on assist control rate of 12, FiO2 of 35%, tidal volume of 350. PEEP is 5. Patient underwent bronchoscopy yesterday, and purulent secretions were suctioned out of the right middle lobe and right lower lobe. Microbiology on the BAL is pending. Patient seems to be very comfortable on mechanical ventilation. Not requiring any propofol. Hence I recommended a trial of pressure support of 8 and CPAP to be given today. And depending on how she tolerates the weaning trial, may or may not proceed to trach collar. If the patient fails weaning may proceed with transferring the patient to a [facility] for further weaning down the line. Chest x-ray showed slight improvement in the aeration of the right lower lobe continues to have a small right pleural effusion. CBC is relatively normal hemoglobin is 8.5 electrolytes are normal renal profile is normal. Patient was reevaluated today on 11/10/2018, remains in the ICU, remains on mechanical ventilation, status post tracheostomy and she is postoperative day #2. Her ventilator mode remains the same, ventilator settings are the same. As noted above. Patient was given a trial of pressure support and CPAP mode of weaning trial, but she did not do well after 1 hour she had to be placed back on assist control mode of mechanical ventilation. Patient seems to be quite comfortable on mechanical ventilation, and I'm going to try again another trial of pressure support and CPAP mode of weaning. However I have a strong feeling that the patient will not be eased to wean, and [facility] Chest x-ray continues to show chronic atelectasis of the right lower lobe although yesterday that was slightly improved aeration. CBC showed WBC count of 6.5 hemoglobin 8.5 electrodes are normal renal profile is normal. Reevaluated today on 11/11/2018, patient remains in the ICU, on mechanical ventilation, she is status post tracheostomy and she is postoperative day #3. Weaning has failed with pressure support and CPAP, hence we never got to the point where we could place the patient on trach collar. [facility], and she would have further weaning in that facility. Patient is hemodynamically stable, she remains on steroids which had to be tapered off antibiotics. And overall the only issue remains weaning down the line. This will be difficult but could be done over time. Labs today were reviewed. No chest x-ray was done today. Patient was reevaluated today on 11/12/2018, still in the ICU, remains on mechanical . Patient is waiting for a bed to become available at [facility] for transfer. Today I will go ahead and give the patient another trial of pressure support and CPAP. Chest x-ray continues to show chronic consolidation and atelectasis of the right middle lobe and right lower lobe.BAL of the right lower lobe from previous bronchoscopy is negative. She had no evidence of endobronchial tumor .labs were reviewed, she had a relatively normal CBC except for a low hemoglobin of 8.7. Electrolytes are normal. Patient remains on nutritional support via PEG tube. Objective - Vital Signs Vital signs: Vital Signs Temp 98.4 F 11/12/18 08:00 Pulse 81 11/12/18 10:00 Resp 28 H 11/12/18 10:00 BP 94/72 11/12/18 10:00 Pulse Ox 92 L 11/12/18 10:00 Intake & Output 11/11/18 11/12/18 11/12/18 18:59 06:59 18:59 Intake Total 645 670 200 Output Total 595 735 65 Balance 50 -65 135 Weight 36.9 kg Intake: IV 235 220 50 .9 60 120 Piperacillin-Tazobactam 3 175 100 50 .375 gm In Sodium Chloride 0.9% 100 ml @ 25 mls/hr IVPB Q8H [facility] Rx#: [id number] Tube Feeding 320 360 120 Other 90 90 30 Output: Urine 595 735 65 Other: Voiding Method Indwelling Catheter Indwelling Catheter Indwelling Catheter # Voids 1 - Exam Physical Exam: 53-year-old on mechanical ventilation, asymptomatic, in no di stress Head: Atraumatic, normocephalic. Tracheostomy tube is intact. HEENT:[Neck is supple.] [No neck masses.] [No thyromegaly.] [No JVD.] PERRLA, EOMI, no icterus. Chest: Diminished breath sounds at the right base, no crackles or rhonchi or wheezes. Cardiac Exam: [Normal S1 and S2, no S3 gallop, no murmur.] Abdomen: [Soft, nontender, no megaly, no rebound, no guarding, normal bowel sounds.PEG tube is intact.] Extremities: [No clubbing, no edema, no cyanosis.] Neurological Exam: [No focal neurologic deficit.] Alert and oriented 3. Psychiatric: Normal mood affect and normal mental status examination. Skin: No rashes. - Labs CBC & Chem 7: 11/12/18 03:49 11/12/18 03:49 Labs: Abnormal Lab Results - Last 24 Hours (Table) 10/06/2511/11/18 11/11/18 Range/Units 11:44 17:11 23:05 RBC (3.80-5.40) m/uL Hgb (11.4-16.0) gm/dL Hct (34.0-46.0) % MCV (80.0-100.0) fL MCHC (31.0-37.0) g/dL Lymphocytes # (1.0-4.8) k/uL Sodium (137-145) mmol/L Carbon Dioxide (22-30) mmol/L Creatinine (0.52-1.04) mg/dL Glucose (74-99) mg/dL POC Glucose (mg/dL) 116 H 114 H 106 H (75-99) mg/dL Calcium (8.4-10.2) mg/dL 11/12/18 11/12/18 11/12/18 Range/Units 03:49 03:49 06:01 RBC 2.72 L (3.80-5.40) m/uL Hgb 8.7 L (11.4-16.0) gm/dL Hct 28.2 L (34.0-46.0) % MCV 103.9 H (80.0-100.0) fL MCHC 30.9 L (31.0-37.0) g/dL Lymphocytes # 0.2 L (1.0-4.8) k/uL Sodium 135 L (137-145) mmol/L Carbon Dioxide 32 H (22-30) mmol/L Creatinine 0.29 L (0.52-1.04) mg/dL Glucose 102 H (74-99) mg/dL POC Glucose (mg/dL) 122 H (75-99) mg/dL Calcium 8.3 L (8.4-10.2) mg/dL Assessment and Plan Assessment: Impression: 1 acute on chronic hypoxic respiratory failure, status post tracheostomy, postoperative day #4,plan to give the patient another trial of pressure support of 8 and CPAP. Patient failed previous trials of weaning, and she is waiting to be [facility]. 2 severe underlying COPD 3 history of laryngeal cancer and previous chemoradiation therapy 4 severe protein calorie malnutrition BMI of 11.9 5 chronic smoking 6 chronic anemia of chronic disease 7 right lower lobe and right middle lobe collapse, status post bronchoscopy cultures remain nondiagnostic 8 chronic hypoxic and hypercapnic respiratory failure, presently on mechanical ventilation. Recommendation: continue trials of weaning on a daily basis until the patient is transferred. Today I will try pressure support and CPAP again. Continue tracheostomy care. Continue mechanical ventilation, , Continue enteral feeding via PEG tube which is already in place. Continue GI and DVT prophylaxis. Continue bronchodilators. Discontinue antibiotics. Continue prednisone tapering. [facility] bed becomes [facility]. This will likely happen tomorrow. Time with Patient: Less than 30
[2018-11-12 11:37] LABS: Glucose,Whole Blood 96 mg/dL (75-99)
[2018-11-12 11:59] VITALS: BMI 12.7
--- NOTE | 2018-11-12 12:39 | P.PN ---
Subjective Progress Note Date: 11/12/18 Principal diagnosis: Acute on chronic hypoxic respiratory failure Patient was seen and examined. No acute events overnight. Postop day 5 tracheostomy. Underwent bronchoscopy POD 4, purulent secretions evacuated with microbiology pending. Currently back on mechanical ventilation. Objective - Vital Signs Vital signs: Vital Signs Temp 98.4 F 11/12/18 08:00 Pulse 96 11/12/18 11:55 Resp 29 H 11/12/18 11:00 BP 84/67 11/12/18 11:00 Pulse Ox 97 11/12/18 11:00 Intake & Output 11/11/18 11/12/18 11/12/18 18:59 06:59 18:59 Intake Total 645 670 380 Output Total 595 735 275 Balance 50 -65 105 Weight 36.9 kg 36.9 kg Intake: IV 235 220 110 .9 60 120 10 Piperacillin-Tazobactam 3 175 100 100 .375 gm In Sodium Chloride 0.9% 100 ml @ 25 mls/hr IVPB Q8H [facility] Rx#: [id number] Tube Feeding 320 360 240 Other 90 90 30 Output: Urine 595 735 275 Other: Voiding Method Indwelling Catheter Indwelling Catheter Indwelling Catheter # Voids 1 - Exam General: [Cachectic], [on CPAP, tracheostomy site clean and dry], [appears at stated age] Derm: [warm], [dry] Head: [atraumatic], [normocephalic], [bitemporal wasting] Eyes: [no lid lag], [anicteric sclera] Mouth: [no lip lesion], [mucus membranes moist] Cardiovascular: [S1S2 reg], [no murmur], [positive DP pulse bilateral], Lungs: [Decreased breath sounds bilateral], [no rhonchi, no rales] , [no accessory muscle use] Abdominal: [soft], [ nontender to palpation], [no guarding], [[place] catheter in place] Ext: [no gross muscle atrophy], [no edema], [no contractures] Neuro: [no focal neuro deficits] Psych: Alert and oriented - Labs CBC & Chem 7: 11/12/18 03:49 11/12/18 03:49 Labs: Abnormal Lab Results - Last 24 Hours (Table) 11/11/18 11/11/18 11/12/18 Range/Units 17:11 23:05 03:49 RBC 2.72 L (3.80-5.40) m/uL Hgb 8.7 L (11.4-16.0) gm/dL Hct 28.2 L (34.0-46.0) % MCV 103.9 H (80.0-100.0) fL MCHC 30.9 L (31.0-37.0) g/dL Lymphocytes # 0.2 L (1.0-4.8) k/uL Sodium (137-145) mmol/L Carbon Dioxide (22-30) mmol/L Creatinine (0.52-1.04) mg/dL Glucose (74-99) mg/dL POC Glucose (mg/dL) 114 H 106 H (75-99) mg/dL Calcium (8.4-10.2) mg/dL 11/12/18 11/12/18 Range/Units 03:49 06:01 RBC (3.80-5.40) m/uL Hgb (11.4-16.0) gm/dL Hct (34.0-46.0) % MCV (80.0-100.0) fL MCHC (31.0-37.0) g/dL Lymphocytes # (1.0-4.8) k/uL Sodium 135 L (137-145) mmol/L Carbon Dioxide 32 H (22-30) mmol/L Creatinine 0.29 L (0.52-1.04) mg/dL Glucose 102 H (74-99) mg/dL POC Glucose (mg/dL) 122 H (75-99) mg/dL Calcium 8.3 L (8.4-10.2) mg/dL Assessment and Plan Assessment: Assessment and Plan Acute on chronic hypoxic respiratory failure with hypercapnia due to laryngeal cancer, pleural effusion and COPD Severe protein calorie malnutrition with cachexia with G-tube due to dysphagia BMI 12.4 Mediastinal lymphadenopathy Anemia Resolved: Hypokalemia Chest CT shows increased pleural effusion, right middle lobe pneumonia versus atelectasis. Pro-calcitonin negative, low concerns for pneumonia. POD 5 tracheostomy. POD 4 post bronchoscopy. Plans: Continue full ventilator support managed by pulmonology, attempt to wean today. Discussed with Dr. Rosalie zuniga, discontinue antibiotics as cultures have been negative. Continue Solu-Medrol 40 mg IV twice a day along with DuoNeb as needed for shortness of breath and wheezing for treatment of COPD. We will discontinue Solu-Medrol and start the patient on a prednisone taper on discharge. Telemetry monitoring. Head of bed elevation. Pulmonology and general surgery on board. BMI 12.7. Plans: Continue G-tube feeds. Consult dietitian. As seen on previous CT chest. Plans: Will likely need bronchoscopy with pulmonology after trach. Follow pulmonology recommendations. Hemoglobin 9.3-8.5-8.5-8.7. Acute blood loss from surgery. Macrocytic during admission. Iron studies shows iron deficiency. B12 and folate within normal limits. Plans: Hemoglobin stable. Transfuse if hemoglobin less than 7. Daily CBC. [Patient admitted for acute on chronic hypoxic respiratory failure due to multiple reasons. She is POD 5 tracheostomy. POD 4 bronchoscopy, cultures pending. guest services following for LTAC placement. Cleared for DC per pulmonology, pending insurance acceptance for LTAC.]
[2018-11-12 19:02] LABS: Glucose,Whole Blood 91 mg/dL (75-99)
[2018-11-12] MEDS: ALBUTEROL NEBULIZED 2.5 MG/3 ML INHALATION PRN (23:32)
[2018-11-13 00:04] LABS: Glucose,Whole Blood 133 mg/dL (75-99)
[2018-11-13] MEDS: INSULIN ASPART (NovoLOG) 100 UNIT/ML VIAL SQ SCH ×3 (00:10→11:46)
[2018-11-13] MEDS: LORazepam 2 MG/ML INJ IV PRN ×3 (00:41→12:32)
[2018-11-13] MEDS: MORPHINE SULFATE 4 MG/ML SYRINGE IVP PRN ×2 (03:22→13:38)
[2018-11-13] MEDS: ALBUTEROL NEBULIZED 2.5 MG/3 ML INHALATION PRN (03:38)
[2018-11-13 04:51] LABS: Basophils % (A) 0 %; Eosinophils % (A) 0 %; HCT 30.5 % (34.0-46.0); HGB 9.6 gm/dL (11.4-16.0); Hypochromasia Slight; Lymphocytes # (A) 0.2 k/uL (1.0-4.8); Lymphocytes % (A) 3 %; MCH 32.2 pg (25.0-35.0); MCHC 31.6 g/dL (31.0-37.0); MCV 102.1 fL (80.0-100.0); Macrocytosis Slight; Mean Platelet Volume 6.8; Monocytes # (A) 0.2 k/uL (0-1.0); Monocytes % (A) 4 %; Neutrophils # (A) 6.3 k/uL (1.3-7.7); Neutrophils % (A) 93 %; Platelet Count 285 k/uL (150-450); RBC 2.98 m/uL (3.80-5.40); RDW 15.2 % (11.5-15.5); WBC 6.8 k/uL (3.8-10.6)
[2018-11-13 05:12] LABS: African American GFR (CKD) >90 (>60 ml/min/1.73 sqM); Anion Gap 5 mmol/L; Blood Urea Nitrogen 17 mg/dL (7-17); Calcium 8.2 mg/dL (8.4-10.2); Carbon Dioxide 31 mmol/L (22-30); Chloride 99 mmol/L (98-107); Glucose 100 mg/dL (74-99); Potassium 3.6 mmol/L (3.5-5.1); Sodium 135 mmol/L (137-145)
[2018-11-13] MEDS: PIPERACILLIN-TAZOBACTAM 3.375 GM in SODIUM CHLORIDE 0.9% 100 ML IVPB SCH (06:25)
[2018-11-13] MEDS: IPRATROPIUM-ALBUTEROL 3 ML NEB INHALATION SCH ×3 (07:14→15:47)
--- NOTE | 2018-11-13 08:04 | XR ---
EXAMINATION TYPE: XR chest 1V portable DATE OF EXAM: 11/13/2018 COMPARISON: Prior chest x-ray 11/12/2018 HISTORY: Shortness of breath TECHNIQUE: Single frontal view of the chest is obtained. FINDINGS: Findings are similar to prior exam. Tracheostomy tube is overlying the tracheal air column , right-sided Port-A-Cath, left-sided PICC line are stable. No evident pneumothorax. Pleural parenchy mal changes are similar. Heart is likely stable but is partially obscured, there are overlying cardia c leads. Prominent lung volumes persist. IMPRESSION: Findings are similar to prior exam, there may be right lower, middle lobe atelectasis, e ffusion, pneumonia. There is underlying emphysema.
[2018-11-13] MEDS: ENOXAPARIN 40 MG/0.4 ML SYRINGE SQ SCH (08:44)
[2018-11-13] MEDS: PANTOPRAZOLE 40 MG/10 ML VIAL IVP SCH (08:44)
[2018-11-13] MEDS: methylPREDNISolone SOD SUCCI 40 MG/ML 1 ML VIAL IV SCH (08:44)
--- NOTE | 2018-11-13 08:44 | P.PN ---
Subjective Progress Note Date: 11/13/18 Principal diagnosis: Acute on chronic hypoxic and hypercapnic respiratory failure This is a 53-year-old female patient of Dr. Foster, who was recently hospitalized for acute respiratory failure secondary to aspiration pneumonia, hypoxemic and hypercapnic requiring intubation and placement on mechanical ventilation. Patient was successfully extubated, was treated with antibiotics, completed a course of Levaquin and Zosyn. Patient showed significant clinical and radiographic improvement, by the time of her discharge to the [facility]. Patient also has history of laryngeal cancer with previous chemoradiation, and had evidence of severe malnutrition. In addition patient failed modified barium swallow, and was having evidence of aspiration with all consistencies. Patient also had evidence of electrolyte abnormality with hyponatremia and hypokalemia, which improved with treatment. Patient had a gastrostomy tube placed for nutritional support, and she was strict NPO. Sputum cultures from previous admission were negative. Other medical history includes chronic anemia of chronic disease, previous tobacco dependence. Patient was discharged to the [facility] on 11/01/2018 however she started experiencing shortness of breath at the [facility], and was apparently hypoxic and was brought back for evaluation on oral 11/02/2018. He denied any chest pain, she denies any oral intake at the [facility], she states she was getting her nutrition strictly through the gastrostomy tube. No aspiration, no fever or chills, chest x-ray showed basilar atelectasis and associated pleural effusions. Lab work showed white blood cell count of 14.0, hemoglobin of 11, correlation profile was within normal limits, blood gas showed pO2 of 64, pCO2 of 67, and pH of 7.32. Sodium was 140, potassium is 4.0, chloride is 98, CO2 37, B1 is 21, creatinine 0.24. O2 sat in the emergency department was ranging from 84-86 patient was placed on supplemental oxygen. Patient was given IV steroids, nebulized bronchodilators, and worsening the patient in consultation for shortness of breath. She is awake and alert, she is sitting up in bed, appears to be in no acute distress, currently on 2 L of oxygen, no significant wheezing, or congestion, she does have a weak cough, which does not sound congested, lung sounds are diminished, no rales auscultated. Follow-up blood work was reviewed today, white blood cell count is 15.5, hemoglobin is 9.7, repeat blood gas showed pO2 of 60, pCO2 59, and pH of 7.39 this was done on FiO2 28%. Patient looks extremely cachectic and weak, her voice is very weak and hoarse, but she appears to be in no acute distress. On 11/04/2018 I'm seeing this patient for a follow-up. This is an extremely debilitated and severely malnourished female patient who is post respiratory failure who was readmitted for ongoing difficulties in breathing. Noted the patient's BMI is 11.9 and she has kwashiorkor. The patient got moved yesterday to the intensive care unit because of worsening shortness of breath and altered mentation. Note that on the floor the patient had a blood gas showing a pH of 0.28 with a pCO2 of 83 and pO2 of 72. This was on FiO2 of 32%. She was having increased tachypnea and respiratory distress. At that point the patient got transferred to the intensive care unit. I was very hesitant intubated this patient based on an underlying condition and status. Note that the patient is extremely frail and has absolutely no muscle mass and intubation may be quite devastating for this patient had the patient accordingly was placed on a BiPAP at a pressure of 10/5 cm of water. She was also given some Ativan and morphine which. Much calm that down. Her subsequent blood gas showed a pH of 7.38 with a pCO2 of 69 a pO2 of 62. I realized the patient's respiratory insufficiency he had it performed a CAT scan of the chest yesterday and the CAT scan showed complete occlusion of the distal bronchus intermedius and right middle lobe atelectasis. There was also atelectatic changes in lung bases bilaterally with a right middle lobe atelectasis right lower lobe atelectasis and bilateral pleural effusions. Upper lobes are quite patent and well hydrated. The patient was started back on IV Zosyn. She did become hypotensive briefly and she was given a liter of IV fluid bolus and currently she is on normal saline at rate of 100 mL an hour. She is improved her blood pressure and she did not require any pressors. She is currently awake. She is following commands. However, she has a very poor insight on her condition. She is not aware that she is quite debilitated in [place] major disadvantage for recovering from her chronic illness. The patient also is receiving enteral feeding for nutritional support in the form of vitamin 1.2 which is currently at goal. I added this patient IV Zosyn. She is on Lovenox for DVT prophylaxis. CAT scan of the chest also showed emphysema bilaterally. She is on bronchodilators. She is also on IV Solu-Medrol. IV Protonix for GI prophylaxis. On 11/05/2018, the patient is being seen in follow-up she is awake and alert. She is following commands. She is on a BiPAP at a pressure of 10/5 cm of water with an FiO2 of 40%. The patient is very much compliant and tolerating her BiPAP. No significant cough or sputum production. The chest x-ray from today shows small bilateral pleural effusion, right middle lobe/right lower lobe atelectasis. Her pro-calcitonin level was low. She is covered with IV Zosyn. She is also covered with IV Solu-Medrol and the dose was reduced down to 40 mg every 12 hours. He is on DuoNeb nebulized treatments around the clock and she is receiving enteral feeding for nutritional support. Sodium level is up to 147. Atelectatic discussion with the patient's family. The family wants everything done including the possibility of long-term vent support. In that case, it made recommendations to proceed with a tracheostomy and the patient is unable to breathe independently without any form of respiratory assisting devices and the patient is quite debilitated and has significant malnutrition and neuromuscular weakness. Patient was reevaluated today on 11/06/2018, patient remains on BiPAP, presently at a pressure of 10/5 and FiO2 of 40%. She seems to be almost BiPAP dependent. Her chest x-ray is showing significant worsening of the right lower lobe and right lobe collapse and atelectasis, there is also some component of pleural effusion. Remains on antibiotics in the form of Zosyn, patient is on bronchodilators is also on IV Solu-Medrol. 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 Apparently the patient is to be seen by surgery today, and Dr. Jimenez recommended tracheostomy which will likely be done tomorrow or in the next couple of days. Patient will be bronchoscoped after tracheostomy and mecha nical ventilation. And she read he has a PEG tube in place. 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 WBC count is 9.5 hemoglobin 9.6 electrolytes are normal bicarb is 37 renal functioning is normal. Patient was already seen by general surgery, and surgery is being considered for either tomorrow or Tuesday. Patient was reevaluated today on 11/07/2018, remains on BiPAP this morning, scheduled to undergo tracheostomy this morning. Patient again seems to be almost BiPAP dependent. Chest x-ray continues to show evidence of right lower lobe and right lobe collapse and atelectasis. Small tiny pleural effusion is noted. Remains on antibiotics, bronchodilators, IV Solu-Medrol, and again the patient is scheduled for tracheostomy today. Family is at bedside, and I discussed the option of bronchoscopy after tracheostomy which I will likely perform tomorrow on this patient to evaluate the right middle lobe and right lower lobe. Patient was reevaluated today on 11/08/2018, she underwent tracheostomy yesterday, presently the patient is on mechanical ventilation, she is on before a c mode of mechanical ventilation , 12 tidal volume of 350 FiO2 is down to 50%, and PEEP is 5. Patient seems to be very calm, comfortable, very appropriate, and her chest x-ray continues to show significant right lower lobe and right middle lobe collapse. Hence considering the patient is now on mechanical ventilation, I have discussed with the patient the option of bronchoscopy and evaluation of the right middle lobe and right lower lobe, and she is agreeable to proceed with the procedure today. The bronchoscopy team was notified, and it will be done sometime this afternoon. In the meantime patient remains nothing by mouth, her PEG tube feeding is on hold, and will empty her stomach. ABG this morning showed a pO2 of 53 pCO2 of 38 pH of 7.54. Elect rolytes are normal renal profile is normal potassium is a bit low at 3.3 WBC count is 10.3 hemoglobin is 9.3. Patient was reevaluated today on 11/09/2018, she is postoperative day #1, patient underwent tracheostomy placement for chronic respiratory failure and she is presently on assist control rate of 12, FiO2 of 35%, tidal volume of 350. PEEP is 5. Patient underwent bronchoscopy yesterday, and purulent secretions were suctioned out of the right middle lobe and right lower lobe. Microbiology on the BAL is pending. Patient seems to be very comfortable on mechanical ventilation. Not requiring any propofol. Hence I recommended a trial of pressure support of 8 and CPAP to be given today. And depending on how she tolerates the weaning trial, may or may not proceed to trach collar. If the patient fails weaning may proceed with transferring the patient to a [facility] care specialty for further weaning down the line. Chest x-ray showed slight improvement in the aeration of the right lower lobe continues to have a small right pleural effusion. CBC is relatively normal hemoglobin is 8.5 electrolytes are normal renal profile is normal. Patient was reevaluated today on 11/10/2018, remains in the ICU, remains on mechanical ventilation, status post tracheostomy and she is postoperative day #2. Her ventilator mode remains the same, ventilator settings are the same. As noted above. Patient was given a trial of pressure support and CPAP mode of weaning trial, but she did not do well after 1 hour she had to be placed back on assist control mode of mechanical ventilation. Patient seems to be quite comfortable on mechanical ventilation, and I'm going to try again another trial of pressure support and CPAP mode of weaning. However I have a strong feeling that the patient will not be eased to wean, and [facility] Chest x-ray continues to show chronic atelectasis of the right lower lobe although yesterday that was slightly improved aeration. CBC showed WBC count of 6.5 hemoglobin 8.5 electrodes are normal renal profile is normal. Reevaluated today on 11/11/2018, patient remains in the ICU, on mechanical vent ilation, she is status post tracheostomy and she is postoperative day #3. Weaning has failed with pressure support and CPAP, hence we never got to the point where we could place the patient on trach collar. [facility], and she would have further weaning in that facility. Patient is hemodynamically stable, she remains on steroids which had to be tapered off antibiotics. And overall the only issue remains weaning down the line. This will be difficult but could be done over time. Labs today were reviewed. No chest x-ray was done today. Patient was reevaluated today on 11/12/2018, still in the ICU, remains on mechanical . Patient is waiting for a bed to become available at [facility] for transfer. Today I will go ahead and give the patient another trial of pressure support and CPAP. Chest x-ray continues to show chronic consolidation and atelectasis of the right middle lobe and right lower lobe.BAL of the right lower lobe from previous bronchoscopy is negative. She had no evidence of endobronchial tumor .labs were reviewed, she had a relatively normal CBC except for a low hemoglobin of 8.7. Electrolytes are normal. Patient remains on nutritional support via PEG tube. On 11/13/2018 patient seen in follow-up in the intensive care unit, she is awake and alert, she is trached to the vent, current vent settings are assist control mode of ventilation with a rate of 12, tidal on 350, FiO2 40% and PEEP of 5, there were no blood gases done this morning, 0.9 normal saline at a rate of 10 ML per hour, no other drips, tube feedings are vital AF 1.2 at 55 with a goal of 55 with standard water flushes. No acute events overnight, vital signs are stable, no fever or chills, patient is on Zosyn, and IV Solu-Medrol, which are being weaned down currently at 40 mg every 12 hours, she is on nebulized bronchodilators, microbiology results have been reviewed, and bronchial lavage were positive for Christelle albicans only, urine culture was positive for Christelle, no other growth. No compressive difficulty breathing, lung sounds are clear. Transfer is pending to specialty facility sometime today. Objective - Vital Signs Vital signs: Vital Signs Temp 98.5 F 11/13/18 04:00 Pulse 90 11/13/18 07:33 Resp 26 H 11/13/18 07:00 BP 85/61 11/13/18 07:00 Pulse Ox 95 11/13/18 07:00 Intake & Output 11/12/18 11/13/18 11/13/18 18:59 06:59 18:59 Intake Total 1075 850 165 Output Total 1085 495 45 Balance -10 355 120 Weight 36.9 kg 34.7 kg Intake: IV 250 210 110 .9 50 110 10 Piperacillin-Tazobactam 3 200 100 100 .375 gm In Sodium Chloride 0.9% 100 ml @ 25 mls/hr IVPB Q8H [facility] Rx#: [id number] Tube Feeding 735 550 55 Other 90 90 Output: Urine 1085 495 45 Other: Voiding Method Indwelling Catheter Indwelling Catheter - Exam GENERAL EXAM: Alert, active, very pleasant, 53-year-old cachectic female, trached to the vent on assist control mode of ventilation comfortable in no apparent distress. HEAD: Normocephalic/atraumatic. EYES: Normal reaction of pupils, equal size. Conjunctiva pink, sclera white. NOSE: Clear with pink turbinates. THROAT: No erythema or exudates. NECK: No masses, no JVD, no thyroid enlargement, no adenopathy. Midline tracheostomy, clean dry and intact CHEST: No chest wall deformity. Symmetrical expansion. LUNGS: Equal air entry with no crackles, wheeze, rhonchi or dullness. CVS: Regular rate and rhythm, normal S1 and S2, no gallops, no murmurs, no rubs ABDOMEN: Soft, nontender. No hepatosplenomegaly, normal bowel sounds, no guarding or rigidity. The peg tube site clean dry and intact, patient is receiving tube feedings EXTREMITIES: No clubbing, no edema, no cyanosis, 2+ pulses and upper and lower extremities. MUSCULOSKELETAL: Muscle strength and tone normal. SPINE: No scoliosis or deformity SKIN: No rashes CENTRAL NERVOUS SYSTEM: Alert and oriented -3. No focal deficits, tone is n ormal in all 4 extremities. PSYCHIATRIC: Alert and oriented -3. Appropriate affect. Intact judgment and insight. - Labs CBC & Chem 7: 11/13/18 04:06 11/13/18 04:06 Labs: Abnormal Lab Results - Last 24 Hours (Table) 11/12/18 11/13/18 11/13/18 Range/Units 23:37 04:06 04:06 RBC 2.98 L (3.80-5.40) m/uL Hgb 9.6 L (11.4-16.0) gm/dL Hct 30.5 L (34.0-46.0) % MCV 102.1 H (80.0-100.0) fL Lymphocytes # 0.2 L (1.0-4.8) k/uL Sodium 135 L (137-145) mmol/L Carbon Dioxide 31 H (22-30) mmol/L Creatinine 0.20 L (0.52-1.04) mg/dL Glucose 100 H (74-99) mg/dL POC Glucose (mg/dL) 133 H (75-99) mg/dL Calcium 8.2 L (8.4-10.2) mg/dL Assessment and Plan Plan: Assessment: 1 acute on chronic hypoxic respiratory failure, status post tracheostomy, postoperative day #4,plan to give the patient another trial of pressure support of 8 and CPAP. Patient failed previous trials of weaning, and she is waiting to be transferred [facility] to [facility]. 2 severe underlying COPD 3 history of laryngeal cancer and previous chemoradiation therapy 4 severe protein calorie malnutrition BMI of 11.9 5 chronic smoking 6 chronic anemia of chronic disease 7 right lower lobe and right middle lobe collapse, status post bronchoscopy cultures remain nondiagnostic 8 chronic hypoxic and hypercapnic respiratory failure, presently on mechanical ventilation. Plan: Patient is stable for transfer to selective specialty facility today, continue current medical treatment, antibiotics, IV steroids, nebulized bronchodilators, no growth on the cultures, and discharge her antibiotics can be discontinued. Chest x-ray showing stable findings of right lower and middle lobe atelectasis. Clinically stable. I performed a history & physical examination of the patient and discussed their management with my nurse practitioner, Karen Doran. I reviewed the nurse practitioner's note and agree with the documented findings and plan of care. Lung sounds are positive for clear breath sounds. The findings and the impression was discussed with the patient. I attest to the documentation by the nurse practitioner. Time with Patient: Less than 30
[2018-11-13] MEDS: POTASSIUM CHLORIDE 10 MEQ in WATER FOR INJECTION 1 100ML.BAG IVPB SCH ×2 (08:45→11:15)
--- NOTE | 2018-11-13 10:58 | P.DS ---
Providers Date of admission: 11/02/18 15:55 Expected date of discharge: 11/13/18 Attending physician: Nick Guevara MD Consults: 11/03/18 10:55 Consult Physician Routine Consulting Provider: John Jimenez Consult Reason/Comments: copd [place], hypoxia Do you want consulting provider notified?: Already Contacted 11/05/18 14:19 Consult Physician Routine Consulting Provider: Adonis Montesinos Consult Reason/Comments: tracheostomy Do you want consulting provider notified?: Yes Primary care physician: [facility] Kirkbride Center Course: Patient is a 50-year-old female with a PMH of laryngeal cancer status post chemotherapy with radiation who had presented to the ED for shortness of breath and hypoxia from medical [place]. Of note, the patient had previously been discharged on 11/01/18 after prolonged stay due to hypoxic respiratory failure due to aspiration pneumonia. The patient had a swallow evaluation at that time and was noted to be unsafe with aspirations with all consistencies. A PEG tube was subsequently placed on 10/30. During this presentation however the patient was noted to have bilateral atelectasis with effusions with CT chest showing right middle lobe pneumonia versus atelectasis versus emphysema. The patient was started on IV steroids along with bronchodilators and oxygen therapy. Pulmonary medicine was consulted and recommended pro-calcitonin which was negative thereby low risk for pneumonia. The patient was unable to be weaned off the BiPAP thereby underwent a tracheostomy on 11/07 with a subsequent bronchoalveolar lavage on 11/08 showing purulent secretions. The patient's cultures to date have been negative. She was initially scheduled to be discharged on 11/10, though due to issues with authorization and at availability, the discharge was held. Patient was seen and examined at the bedside on 11/13. She was in good spirits and noted feeling well. She communicated via writing on her board and denied active complaints. Denied fever, chills, chest pain, shortness of breath. Patient is eager to be discharged to a facility. Physical Examination General: Cachectic female with tracheostomy, in no acute distress, appears older than stated age HEENT: NC/AT, anicteric sclerae, moist conjunctiva, no lid-lag, PERRLA Cardiovascular: S1/S2 wnl, no murmurs, rubs, or gallops Lungs: somewhat decreased breath sounds bilaterally with mild rhonchi, respiratory effort, no accessory muscle use Abdominal: Soft, non-tender, non-distended, no guarding, rebound, or rigidity, PEG site clean, midline incision w/ shanae, healing and clean Skin: Warm, dry Extremities: No edema or contractures Psychiatric: Alert and oriented to person, place and time, appropriate affect Neuro: No focal neuro deficits Discharge diagnosis: Acute on chronic hypoxic respiratory failure with hypercapnia due to laryngeal cancer, pleural effusions, and COPD; severe protein calorie malnutrition status post PEG tube placement; mediastinal lymphadenopathy; anemia A total of 40 minutes of time were spent preparing this complex discharge summary. Patient Condition at Discharge: Fair Plan - Discharge Summary Discharge Rx Participant: No New Discharge Prescriptions: New Ipratropium-Albuterol Nebulize [Duoneb 0.5 mg-3 mg/3 ml Soln] 3 ml INHALATION RT-QID ampul.neb Enoxaparin [Lovenox] 40 mg SQ DAILY syringe Albuterol Nebulized [Ventolin Nebulized] 2.5 mg INHALATION RT-QID PRN nebu PRN Reason: Bronchospasm predniSONE See Taper PO DIRECTED #30 tab Pantoprazole Sodium [Protonix] 40 mg PO DAILY #30 tablet. HYDROcodone/APAP 5-325MG [[place] 5-325] 1 tab PO Q4HR PRN 3 Days #18 tab PRN Reason: Pain Continue LORazepam [Ativan] 0.5 mg PO Q8H PRN #9 tab PRN Reason: Anxiety Discharge Medication List Albuterol Nebulized [Ventolin Nebulized] 2.5 mg INHALATION RT-QID PRN nebu 11/10/18 [Rx] Enoxaparin [Lovenox] 40 mg SQ DAILY syringe 11/10/18 [Rx] Ipratropium-Albuterol Nebulize [Duoneb 0.5 mg-3 mg/3 ml Soln] 3 ml INHALATION RT-QID ampul.neb 11/10/18 [Rx] LORazepam [Ativan] 0.5 mg PO Q8H PRN #9 tab 11/10/18 [Rx] Pantoprazole Sodium [Protonix] 40 mg PO DAILY #30 tablet. 11/10/18 [Rx] predniSONE See Taper PO DIRECTED #30 tab 11/10/18 [Rx] HYDROcodone/APAP 5-325MG [[place] 5-325] 1 tab PO Q4HR PRN 3 Days #18 tab 11/13/18 [Rx] Follow up Appointment(s)/Referral(s): Josr Wiggins MD [STAFF PHYSICIAN] - 1 Week Chemo Foster MD [Primary Care Provider] - 1-2 days Activity/Diet/Wound Care/Special Instructions: Diet: Tube feeds Follow-up PCP within 3 days of discharge. Follow-up pulmonology within 2 weeks of discharge. Continue Zosyn and follow-up BAL cultures for adjustment of antibiotics. Continue prednisone taper. Discharge Disposition: [facility]
[2018-11-13 11:27] VITALS: TEMP 98.3
[2018-11-13 11:49] LABS: Glucose,Whole Blood 130 mg/dL (75-99)
[2018-11-13 12:08] VITALS: BP 118/93; PULSE 98; RESP 28
== END 2018-11-13 16:06 | DRG 3 ==
LOC: EC 11:17 → 3NMEDONC 15:55 → 3SCARD 11-03 01:25 → 2SICU 11-03 20:54
PROVIDERS: ADMIT Family Medicine; ATTEND Family Medicine
PROC: 5A09457 Assistance with Respiratory Ventilation, 24-96 Consecutive Hours, Continuous Positive Airway Pressure (ICD-10-PCS; 2018-11-03)
PROC: 5A1955Z Respiratory Ventilation, Greater than 96 Consecutive Hours (ICD-10-PCS; 2018-11-07)
PROC: 0B110F4 Bypass Trachea to Cutaneous with Tracheostomy Device, Open Approach (ICD-10-PCS; principal; 2018-11-07 11:00)
PROC: 0B9J8ZZ Drainage of Left Lower Lung Lobe, Via Natural or Artificial Opening Endoscopic (ICD-10-PCS; 2018-11-09)
PROC: 0B9F8ZX Drainage of Right Lower Lung Lobe, Via Natural or Artificial Opening Endoscopic, Diagnostic (ICD-10-PCS; 2018-11-09)
PROC: 0B9D8ZX Drainage of Right Middle Lung Lobe, Via Natural or Artificial Opening Endoscopic, Diagnostic (ICD-10-PCS; 2018-11-09)
PROC: 0BD68ZX Extraction of Right Lower Lobe Bronchus, Via Natural or Artificial Opening Endoscopic, Diagnostic (ICD-10-PCS; 2018-11-09)
PROC: 0BD58ZX Extraction of Right Middle Lobe Bronchus, Via Natural or Artificial Opening Endoscopic, Diagnostic (ICD-10-PCS; 2018-11-09)
DX: J96.22 Acute and chronic respiratory failure with hypercapnia (principal); E43 Unspecified severe protein-calorie malnutrition; R64 Cachexia; Z68.1 Body mass index [BMI] 19.9 or less, adult; J90 Pleural effusion, not elsewhere classified; J98.11 Atelectasis; E87.1 Hypo-osmolality and hyponatremia; J96.21 Acute and chronic respiratory failure with hypoxia; I95.9 Hypotension, unspecified; G70.9 Myoneural disorder, unspecified; R13.10 Dysphagia, unspecified; Z93.1 Gastrostomy status; J98.09 Other diseases of bronchus, not elsewhere classified; J44.9 Chronic obstructive pulmonary disease, unspecified; E87.6 Hypokalemia; E61.1 Iron deficiency; D63.8 Anemia in other chronic diseases classified elsewhere; Z66 Do not resuscitate; F41.9 Anxiety disorder, unspecified; R59.0 Localized enlarged lymph nodes; Z85.21 Personal history of malignant neoplasm of larynx; Z87.891 Personal history of nicotine dependence; Z87.01 Personal history of pneumonia (recurrent); Z92.3 Personal history of irradiation; Z92.21 Personal history of antineoplastic chemotherapy; Z98.890 Other specified postprocedural states; Z98.51 Tubal ligation status; Z91.018 Allergy to other foods; Z82.49 Family history of ischemic heart disease and other diseases of the circulatory system; Z83.3 Family history of diabetes mellitus; Z82.3 Family history of stroke; Z82.5 Family history of asthma and other chronic lower respiratory diseases
CPT/HCPCS: 31624; 31645; 36415; 36600; 71045; 71046; 71250; 80048; 80053; 81001; 82607; 82728; 82746; 82805; 83540; 83550; 83605; 83735; 83880; 84132; 84145; 84484; 85025; 85027; 85610; 85730; 87040; 87070; 87086; 87102; 87116; 87205; 87206; 88108; 88305; 89050; 94002; 94003; 94640; 94660; 96361; 96374; 96375; 99291

== ENCOUNTER 2020-01-11 13:25 | Emergency (ER) | payer OTHER ==
[2020-01-11 13:50] VITALS: BP 149/97; PULSE 98; RESP 18; TEMP 98
[2020-01-11] MEDS ORDERED: HYDROcodone/APAP 5-325MG 1 EACH TAB PO STA (14:30)
--- NOTE | 2020-01-11 14:48 | ED ---
Upper Extremity HPI - General Chief Complaint: Extremity Injury, Upper Stated Complaint: Left shoulder injury Time Seen by Provider: 01/11/20 14:04 Source: patient Mode of arrival: ambulatory Limitations: no limitations - History of Present Illness Initial Comments: Patient is a 54-year-old female presenting to emergency Department with complaints of left shoulder pain for the past 3 weeks. Patient was sent down to the ER from having an outpatient x-ray of her left shoulder. Patient has a history of a trach and is nonverbal but is writing her responses. Patient states she tripped over her dog started about 3 weeks ago landing mostly on her left shoulder. She is right-hand dominant. Patient states she felt like it was improving over the past few weeks so she never had it checked. Patient denies any other injuries from this fall. She states that the x-ray showed a fracture. She denies history of fever, chills. Patient has no further complaints at this time. - Related Data Previous Rx's Medication Instructions Recorded Albuterol Nebulized [Ventolin 2.5 mg INHALATION RT-QID PRN nebu 11/10/18 Nebulized] Enoxaparin [Lovenox] 40 mg SQ DAILY syringe 11/10/18 Ipratropium-Albuterol Nebulize 3 ml INHALATION RT-QID ampul.neb 11/10/18 [Duoneb 0.5 mg-3 mg/3 ml Soln] LORazepam [Ativan] 0.5 mg PO Q8H PRN #9 tab 11/10/18 Pantoprazole Sodium [Protonix] 40 mg PO DAILY #30 tablet. 11/10/18 predniSONE See Taper PO DIRECTED #30 tab 11/10/18 HYDROcodone/APAP 5-325MG [[place] 1 tab PO Q4HR PRN 3 Days #18 tab 11/13/18 5-325] Hydrocodone/Acetaminophen [[place] 1 tab PO Q6HR PRN #12 tab 01/11/20 5-325] Allergies Allergy/AdvReac Type Severity Reaction Status Date / Time Beef Containing Products AdvReac No reaction Verified 11/02/18 11:40 [Beef] Fish Containing Products AdvReac No reaction Verified 11/02/18 11:40 [Fish] Pork/Porcine Containing AdvReac No reaction Verified 11/02/18 11:40 Products [Pork] Review of Systems ROS Statement: Those systems with pertinent positive or pertinent negative responses have been documented in the HPI. ROS Other: All systems not noted in ROS Statement are negative. Past Medical History Past Medical History: Cancer Additional Past Medical History / Comment(s): Pt recently admitted to [facility] on 10/19/18 with severe protein calorie malnourishment, acute respiratory failure with hypoxia and hypercapnia was intubated/vented, also had mediatinal lymphadenopathy, nyponatremia and hypokalemia. Other Hx: Laryngeal cancer treated with chemo/radiation 02/2018, dysphagia-NPO/has G tube. History of Any Multi-Drug Resistant Organisms: None Reported Past Surgical History: Tubal Ligation Additional Past Surgical History / Comment(s): Open G tube placement, mediport, picc line, laryngoscopy, one fallopian tube removed d/t ectopic . Past Anesthesia/Blood Transfusion Reactions: No Reported Reaction Past Psychological History: Anxiety Smoking Status: Unknown if ever smoked Past Alcohol Use History: None Reported Past Drug Use History: None Reported - Past Family History Mother Family Medical History: Coronary Artery Disease (CAD), Diabetes Mellitus Father Family Medical History: COPD, CVA/TIA, Myocardial Infarction (ND) Additional Family Medical History / Comment(s): Father of a ND at the age of 54 yrs. General Exam - General Exam Comments Initial Comments: GENERAL: Patient is well-developed and well-nourished. Patient is nontoxic and in no acute distress. HEAD: Atraumatic, normocephalic. EYES: Pupils equal round and reactive to light, extraocular movements intact, sclera anicteric, conjunctiva are normal. Eyelids were unremarkable. ENT: TMs normal, nares patent, oropharynx clear without exudates. Moist mucous membranes. NECK: Normal range of motion, supple without lymphadenopathy or JVD. Trach present. LUNGS: Unlabored respirations. Breath sounds clear to auscultation bilaterally and equal. No wheezes rales or rhonchi. HEART: Regular rate and rhythm without murmurs, rubs or gallops. ABDOMEN: Soft, nontender, normoactive bowel sounds. No guarding, no rebound. No masses appreciated. : Deferred MUSCULOSKELETAL: Patient has pain with palpation of the left shoulder, anterior and posterior area. She has very limited range of motion secondary to pain. She is neurovascular intact. 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 Pain of the left elbow or lower arm. No clubbing or cyanosis. NEUROLOGICAL: Patient is alert and oriented x 3. Motor and sensory are also intact. Cranial nerves II through XII grossly intact. Symmetrical smile. Normal gait. PSYCH: Normal mood, normal affect. SKIN: Warm, Dry, normal turgor, no rashes or lesions noted. Limitations: no limitations Course Vital Signs 01/11/20 13:44 Temperature 98.0 F Pulse Rate 98 Respiratory 18 Rate Blood Pressure 149/97 O2 Sat by Pulse 97 Oximetry Medical Decision Making - Medical Decision Making Patient is a 54-year-old female here for left shoulder pain 3 weeks after falling on it. She was sent from outpatient x-ray secondary to her x-ray results. X-rays of left shoulder today revealed an acute impacted comminuted fracture with several fracture fragments through the surgical neck of the left proximal humerus. I spoke with on-call ortho, RENETTA Lanier, who agrees that we will sling patient and they will see her in the office. I did give patient a [place] here and will give her a short prescription for this as well. I also recommended ibuprofen to alternate with. Patient is in agreement with this plan of care. She is stable for discharge. Case discussed with Dr. Jin. Disposition Clinical Impression: Closed fracture of left proximal humerus Disposition: HOME SELF-CARE Condition: Stable Instructions (If sedation given, give patient instructions): Proximal Humerus Fracture (ED) Additional Instructions: Please return to the Emergency Department if symptoms worsen or any other concerns. Wear sling for comfort, alternate Tylenol and ibuprofen for pain, may take [place] for severe pain. Follow up with orthopedics as discussed. Prescriptions: Hydrocodone/Acetaminophen [[place] 5-325] 1 tab PO Q6HR PRN #12 tab PRN Reason: Pain Is patient prescribed a controlled substance at d/c from ED?: Yes When asked, does pt state using other controlled substances?: No If prescribed controlled substance>3 days was MAPS reviewed?: Prescribed <3 Days If opioid is for acute pain is fill amount 7 days or less?: Yes If Rx opioid, was Start Talking consent form obtained?: Yes Referrals: Betty Riggs MD [Primary Care Provider] - 1-2 days Serjio Wolf DO [Doctor of Osteopathic Medicine] - 1-2 days
== END 2020-01-11 14:50 | disposition home or self-care (01) ==
LOC: EC 13:25
DX: S42.212A Unspecified displaced fracture of surgical neck of left humerus, initial encounter for closed fracture (principal); Z91.018 Allergy to other foods; Z85.21 Personal history of malignant neoplasm of larynx; Z92.21 Personal history of antineoplastic chemotherapy; Z92.3 Personal history of irradiation; W01.0XXA Fall on same level from slipping, tripping and stumbling without subsequent striking against object, initial encounter
CPT/HCPCS: 99283

== ENCOUNTER → 2020-01-11 | Outpatient (CLI) | payer OTHER ==
--- NOTE | 2020-01-11 12:38 | XR ---
EXAMINATION TYPE: XR shoulder complete LT DATE OF EXAM: 01/11/2020 CLINICAL HISTORY: Fall injury 2 days ago with pain. TECHNIQUE: Three views of the left shoulder are obtained. COMPARISON: Most recent chest x-ray January 19, 2019. FINDINGS: Osseous structures are demineralized. There is an acute impacted comminuted fracture with several fracture fragments through the surgical neck left proximal humerus. There are fracture fragme nts involving the greater tuberosity. No glenohumeral joint dislocation. Partial visualization of tra cheostomy tube. IMPRESSION: As above. Orthopedic surgical referral advised.
== END | disposition home or self-care (01) ==
LOC: RADXRMAIN 12:10
PROVIDERS: ATTEND Internal Medicine
DX: S42.212A Unspecified displaced fracture of surgical neck of left humerus, initial encounter for closed fracture (principal); Z93.0 Tracheostomy status